=== PATIENT | female | born 1950 | race Caucasian/White ===

== ENCOUNTER 2016-12-15 20:23 | Inpatient (IN) | payer MEDICARE ==
[2016-12-15] MEDS ORDERED: SODIUM CHLORIDE 0.9% 1,000 ML IV ONE ×2 (21:59→23:00)
--- NOTE | 2016-12-15 22:30 | ED ---
Lower Extremity Injury HPI - General Source: patient, RN notes reviewed, old records reviewed Mode of arrival: ambulatory Limitations: no limitations <Roseanne Bess - Last Filed: 12/15/16 23:58> <Cristian Fernandez - Last Filed: 12/16/16 00:41> - General Chief Complaint: Extremity Injury, Lower Stated Complaint: leg infection Time Seen by Provider: 12/15/16 21:45 - History of Present Illness Initial Comments: Patient is a 6-year-old female chief complaint of left lower extremity redness and pain for approximately one week. Patient reports she has history of chronic venous ulcer over the left leg and was being treated the wound center. Patient states that she is just. The treatment in the Wound Center as her wounds were healing. She states that she's had a history of cellulitis in this leg before. She states that she's noticed increased swelling and the swelling is usually gone in the morning if she sleeps and keeps her foot up. Patient denies any fevers and states she's felt chilled. She reports that she feels nauseated. Patient denies any other associated symptoms including chest pain, shortness of breath, Madhav pain. (Roseanne Bess) - Related Data Home Medications Medication Instructions Recorded Confirmed Budesonide/Formoterol Fumarate 2 puff INHALATION BID 02/14/14 12/15/16 [Symbicort 80-4.5 Mcg Inhaler] Metoprolol Tartrate [Lopressor] 50 mg PO DAILY 11/17/14 12/15/16 Aspirin EC [Ecotrin] 81 mg PO DAILY 03/12/16 12/15/16 Naproxen Sodium [Aleve] 440 mg PO Q12HR 03/12/16 12/15/16 Albuterol Sulfate [Proair 1 puff PO Q4-6H PRN 05/10/16 12/15/16 Respiclick] Cetirizine HCl [Zyrtec] 10 mg PO DAILY 05/10/16 12/15/16 Hydrochlorothiazide [Hydrodiuril] 12.5 mg PO DAILY 07/26/16 12/15/16 Allergies Allergy/AdvReac Type Severity Reaction Status Date / Time VASILE Inhibitors Allergy Swelling Verified 11/01/16 08:35 cephalexin monohydrate Allergy Rash/Hives Verified 11/01/16 08:35 [From Keflex] latex Allergy Itching Verified 11/01/16 08:35 adhesive tape AdvReac Itching Verified 11/01/16 08:35 Review of Systems ROS Other: All systems not noted in ROS Statement are negative. <Roseanne Bess - Last Filed: 12/15/16 23:58> ROS Other: All systems not noted in ROS Statement are negative. <Cristian Fernandez - Last Filed: 12/16/16 00:41> ROS Statement: Those systems with pertinent positive or pertinent negative responses have been documented in the HPI. Past Medical History Past Medical History: Asthma, Hypertension Additional Past Medical History / Comment(s): left ankle fracture History of Any Multi-Drug Resistant Organisms: None Reported Past Surgical History: Appendectomy, Section, Cholecystectomy, Hernia Repair, Orthopedic Surgery Additional Past Surgical History / Comment(s): right knee surgery Past Psychological History: No Psychological Hx Reported Smoking Status: Never smoker Past Alcohol Use History: None Reported Past Drug Use History: None Reported - Past Family History Father History Unknown: Yes Additional Family Medical History / Comment(s): adopted Mother History Unknown: Yes Additional Family Medical History / Comment(s): adopted <Roseanne Bess - Last Filed: 12/15/16 23:58> General Exam Limitations: no limitations General appearance: alert, in no apparent distress Head exam: Present: atraumatic, normocephalic, normal inspection Eye exam: Present: normal appearance, PERRL, EOMI. Absent: scleral icterus, conjunctival injection, periorbital swelling ENT exam: Present: normal exam, mucous membranes moist Neck exam: Present: normal inspection. Absent: tenderness, meningismus, lymphadenopathy Respiratory exam: Present: normal lung sounds bilaterally. Absent: respiratory distress, wheezes, rales, rhonchi, stridor Cardiovascular Exam: Present: regular rate, normal rhythm, normal heart sounds. Absent: systolic murmur, diastolic murmur, rubs, gallop, clicks GI/Abdominal exam: Present: soft, normal bowel sounds. Absent: distended, tenderness, guarding, rebound, rigid Extremities exam: Present: normal inspection, full ROM, normal capillary refill. Absent: tenderness, pedal edema, joint swelling, calf tenderness Right Upper Leg exam: Present: normal inspection, full ROM Knee exam: Present: normal inspection, full ROM Lower Leg exam: Present: full ROM. Absent: normal inspection (Erythema surrounding the lower leg. Evidence of chronic venous stasis with swelling. Patient does have some healing venous ulcers. Lower leg is warm to touch.) Ankle exam: Present: normal inspection, full ROM Foot/Toe exam: Present: normal inspection, full ROM Gait: observed and normal Back exam: Present: normal inspection, full ROM Neurological exam: Present: alert, oriented X3, CN II-XII intact Psychiatric exam: Present: normal affect, normal mood Skin exam: Present: warm, dry, intact, normal color. Absent: rash <Roseanne Bses - Last Filed: 12/15/16 23:58> <Crisitan Fernandez - Last Filed: 12/16/16 00:41> - General Exam Comments Initial Comments: Pleasant 66-year-old female. No distress. (Roseanne Bess) Medical Decision Making - Lab Data Result diagrams: 12/15/16 22:33 12/15/16 22:33 - Radiology Data Radiology results: report reviewed <Roseanne Bess - Last Filed: 12/15/16 23:58> - Lab Data Result diagrams: 12/15/16 22:33 12/15/16 22:33 <Cristian Fernandez - Last Filed: 12/16/16 00:41> - Medical Decision Making This is a 66-year-old female chief complaint of left lower leg redness and swelling for the past week. Patient states that he is concerned that she may have a cellulitis. She states that she's had cellulitis in this leg in the past patient also has chronic venous stasis ulcers which have been healed by wound care center. She states she does not receive a wound care center at this time. Patient states that she has no history of diabetes. I did review patient 's previous culture and sensitivities and wound cultures were susceptible to Levaquin. Patient started and blood cultures obtained. Patient be given IV fluids. Discussed with Dr. Fernandez. Patient will be admitted at this time. ( Roseanne Bess) I spoke with Dr. James after examining the patient. She has cellulitis over two thirds of her lower left extremity. With a small less than 1 cm ulceration in the center which is been a small ulcer oh hold and eventually closed after long period of therapy. Checking the patient's cultures and sensitivities appears to Levaquin was the last medication was effective. The patient had Levaquin started here in emergency room. The patient will be admitted to Dr. James .Dr. Fernandez (Cristian Fernandez) - Lab Data Lab Results 12/15/16 12/15/16 Range/Units 22:33 22:33 WBC 11.8 H (3.8-10.6) k/uL RBC 4.76 (3.80-5.40) m/uL Hgb 14.2 (11.4-16.0) gm/dL Hct 43.0 (34.0-46.0) % MCV 90.4 (80.0-100.0) fL MCH 29.8 (25.0-35.0) pg MCHC 33.0 (31.0-37.0) g/dL RDW 13.6 (11.5-15.5) % Plt Count 263 (150-450) k/uL Neutrophils % 66 % Lymphocytes % 18 % Monocytes % 5 % Eosinophils % 8 % Basophils % 1 % Neutrophils # 7.8 H (1.3-7.7) k/uL Lymphocytes # 2.1 (1.0-4.8) k/uL Monocytes # 0.6 (0-1.0) k/uL Eosinophils # 1.0 H (0-0.7) k/uL Basophils # 0.1 (0-0.2) k/uL Sodium 139 (137-145) mmol/L Potassium 5.0 (3.5-5.1) mmol/L Chloride 100 (98-107) mmol/L Carbon Dioxide 28 (22-30) mmol/L Anion Gap 11 mmol/L BUN 20 H (7-17) mg/dL Creatinine 1.08 H (0.52-1.04) mg/dL Est GFR (MDRD) Af Amer >60 (>60 ml/min/1.73 sqM) Est GFR (MDRD) Non-Af 51 (>60 ml/min/1.73 sqM) Glucose 116 H (74-99) mg/dL Calcium 9.4 (8.4-10.2) mg/dL Total Bilirubin 1.1 (0.2-1.3) mg/dL AST 32 (14-36) U/L ALT 34 (9-52) U/L Alkaline Phosphatase 132 H (38-126) U/L Total Protein 7.1 (6.3-8.2) g/dL Albumin 3.9 (3.5-5.0) g/dL - Radiology Data Take daily limited study due to body habitus. Still some wobbliness suboptimally visualized. No gross CT of the common 40. Visualizes femoral- popliteal days. Superficial is unremarkable. No thrombus in the visualize greater saphenous vein. Limited study is limited by. No gross DVT in the visualize lower extremity pains. (Roseanne Bess) Disposition Time of Disposition: 23:55 <Roseanne Bess - Last Filed: 12/15/16 23:58> <Cristian Fernandez - Last Filed: 12/16/16 00:41> Clinical Impression: Left leg cellulitis Disposition: ADMITTED IP TO THIS HOSP
[2016-12-15] MEDS: SODIUM CHLORIDE 0.9% 1,000 ML IV SCH (22:35)
[2016-12-15 22:44] LABS: Basophils # (A) 0.1 k/uL (0-0.2); Basophils % (A) 1 %; CHCM 33.3; Eosinophils % (A) 8 %; HDW 2.55; HGB 14.2 gm/dL (11.4-16.0); Luc # (Auto) 0.18; Luc % (Auto) 2; Lymphocytes # (A) 2.1 k/uL (1.0-4.8); Lymphocytes % (A) 18 %; MCH 29.8 pg (25.0-35.0); MCV 90.4 fL (80.0-100.0); Mean Platelet Volume 7.3; Monocytes # (A) 0.6 k/uL (0-1.0); Monocytes % (A) 5 %; Neutrophils # (A) 7.8 k/uL (1.3-7.7); Neutrophils % (A) 66 %; RBC 4.76 m/uL (3.80-5.40); RDW 13.6 % (11.5-15.5); WBC 11.8 k/uL (3.8-10.6)
[2016-12-15 22:54] LABS: ALT 34 U/L (9-52); AST 32 U/L (14-36); Alkaline Phosphatase 132 U/L (38-126); Anion Gap 11 mmol/L; Blood Urea Nitrogen 20 mg/dL (7-17); Calcium 9.4 mg/dL (8.4-10.2); Carbon Dioxide 28 mmol/L (22-30); Chloride 100 mmol/L (98-107); Glucose 116 mg/dL (74-99); Non-African American GFR(MDRD) 51 (>60 ml/min/1.73 sqM); Sodium 139 mmol/L (137-145); Total Bilirubin 1.1 mg/dL (0.2-1.3); Total Protein 7.1 g/dL (6.3-8.2)
--- NOTE | 2016-12-15 23:08 | US ---
EXAM: US Duplex Left Lower Extremity Veins. CLINICAL HISTORY: Reason: Pain TECHNIQUE: Real-time ultrasound scan of the veins of the left lower extremity with color Doppler flow, spectral waveform analysis and compression. COMPARISON: No relevant prior studies available. FINDINGS: Limitations: Technically limited study due to body habitus. Deep veins: Distal femoral vein is suboptimally visualized. No gross DVT in the common femoral, visualized femoral or popliteal veins. Superficial veins: Unremarkable. No thrombus in the visualized greater saphenous vein. Soft tissues: No acute findings. No popliteal cyst. IMPRESSION: Limited study as noted above. No gross DVT in the visualized lower extremity veins
[2016-12-15] MEDS ORDERED: LEVOFLOXACIN 750MG-D5W PMX 750 MG in DEXTROSE/WATER 1 150ML.BAG IVPB SCH (23:45)
[2016-12-15] MEDS ORDERED: LEVOFLOXACIN 500MG-D5W PMX 500 MG in DEXTROSE/WATER 1 100ML.BAG IVPB STA (23:47)
[2016-12-15] MEDS ORDERED: ACETAMINOPHEN TAB 325 MG TAB PO PRN (23:49)
[2016-12-15] MEDS ORDERED: NALOXONE 0.4 MG/ML 1 ML VIAL IV PRN (23:49)
[2016-12-15] MEDS ORDERED: HYDROmorphone 1 MG/ML 1 ML SYRINGE IV PRN (23:49)
[2016-12-15] MEDS ORDERED: ALBUTEROL NEBULIZED 2.5 MG/3 ML INHALATION PRN (23:53)
[2016-12-16] MEDS: ONDANSETRON 4 MG/2 ML VIAL IVP PRN ×2 (00:17→07:26)
[2016-12-16 01:44] VITALS: BMI 48.4
[2016-12-16] MEDS ORDERED: METOPROLOL TARTRATE 50 MG TAB PO SCH (09:00)
[2016-12-16] MEDS ORDERED: LORATADINE 10 MG TAB PO SCH (09:00)
[2016-12-16] MEDS: SYMBICORT 80-4.5 MCG INHALER INHALATION SCH ×2 (09:20→20:56)
[2016-12-16] MEDS: PANTOPRAZOLE 40 MG/10 ML VIAL IV SCH (09:45)
[2016-12-16] MEDS: ENOXAPARIN 40 MG/0.4 ML SYRINGE SQ SCH (09:45)
[2016-12-16] MEDS: HYDROCHLOROTHIAZIDE 12.5 MG CAP PO SCH (09:46)
[2016-12-16] MEDS: ASPIRIN 81 MG CHEW PO SCH (09:46)
[2016-12-16] MEDS: SODIUM CHLORIDE 0.9% 1,000 ML IV SCH ×2 (09:48→12:54)
[2016-12-16] MEDS: KETOROLAC 30 MG/ML 1 ML VIAL IVP PRN ×2 (09:57→18:40)
[2016-12-16] MEDS ORDERED: IV VANCOMYCIN PER PHARMACY 1 EACH MISC MISCELLANE ONE (10:30)
[2016-12-16] MEDS ORDERED: VANCOMYCIN 2,250 MG in SODIUM CHLORIDE 0.9% 500 ML IVPB ONE (11:00)
--- NOTE | 2016-12-16 13:41 | P.HPIM ---
History of Present Illness H&P Date: 12/16/16 Chief Complaint: Left lower extremity cellulitis. This is a 66-year-old female one of Dr. Dobbs with a previous medical history significant for hypertension and hypertensive cardio vascular disease, moderate persistent asthma, history of obesity with possible obstructive sleep apnea, patient was under the care of the wound healing Center at [facility] and she was released after 8 months of treatment about 6 to go for an ulcer that appeared to be venous to the lateral aspect of her left leg, over the last 24 hours she developed to have an increased swelling and redness with increased pain in the left lower extremity was seen and evaluated at [facility] ER she was complaining of increased shoulder no fever has nausea but no vomiting she had no diarrhea should not have any other signs or symptoms of SIRS, venous Doppler did not show any evidence of any acute DVT, patient was admitted to the hospital for acute cellulitis of the left lower extremity with a prior culture in the past showing Enterococcus faecalis and Staphylococcus aureus, he was taken off Levaquin and placed on vancomycin, infectious disease consultation was obtained from Dr. Fulton. Review of Systems Constitutional: Reports weight gain, Denies anorexia, Denies chronic headaches, Denies lethargy, Denies malaise, Denies weight loss Eyes: denies blurred vision, denies bulging eye, denies decreased vision Ears: deny: decreased hearing Ears, nose, mouth and throat: Denies dysphagia, Denies neck lump, Denies swelling in throat, Denies sore throat Cardiovascular: Reports dyspnea on exertion, Reports high blood pressure, Reports shortness of breath, Denies chest pain, Denies irregular heart beat, Denies phlebitis, Denies rapid heart beat, Denies syncope Respiratory: Denies congestion, Denies cough with sputum, Denies dyspnea, Denies home oxygen, Denies pain, Denies sleep apnea, Denies snoring, Denies wheezing Gastrointestinal: Reports nausea, Denies abdominal pain, Denies belching, Denies change in bowel habits, Denies coffee ground emesis, Denies heartburn, Denies melena, Denies vomiting Genitourinary: Denies dysuria, Denies urgency Menstruation: Reports postmenopausal Musculoskeletal: Denies myalgias Musculoskeletal: left: ankle stiffness, ankle swelling, absent: ankle pain, as per HPI, elbow pain, elbow stiffness, elbow swelling, foot pain, foot stiffness , foot swelling, hand pain, hand stiffness, hand swelling, hip pain, hip stiffness, hip swelling, knee pain, knee stiffness, knee swelling, shoulder pain , shoulder stiffness, shoulder swelling, wrist pain, wrist stiffness, wrist swelling Integumentary: Reports rash (Cellulitic erythema in the left lower extremity extending above and below the sores on her lateral aspect of the left), Reports sores (Small lateral aspect of the left leg) Neurological: Denies numbness, Denies weakness Psychiatric: Denies anxiety, Denies depression Endocrine: Denies fatigue, Denies weight change Past Medical History Past Medical History: Asthma, Hyperlipidemia, Hypertension, Pneumonia, Skin Disorder Additional Past Medical History / Comment(s): left ankle fracture, red itchy skin generalized History of Any Multi-Drug Resistant Organisms: None Reported Past Surgical History: Appendectomy, Section, Cholecystectomy, Hernia Repair, Orthopedic Surgery Additional Past Surgical History / Comment(s): right knee surgery, appendectomy , 2, right arthroscopic knee surgery, ventral hernia repair, cholecystectomy. Past Psychological History: No Psychological Hx Reported Smoking Status: Never smoker Past Alcohol Use History: None Reported Past Drug Use History: None Reported - Past Family History Father History Unknown: Yes Additional Family Medical History / Comment(s): adopted Mother History Unknown: Yes Additional Family Medical History / Comment(s): adopted Medications and Allergies Home Medications Medication Instructions Recorded Confirmed Type Budesonide/Formoterol Fumarate 2 puff INHALATION RT-BID 02/14/14 12/16/16 History [Symbicort 80-4.5 Mcg Inhaler] Metoprolol Tartrate [Lopressor] 50 mg PO BID 11/17/14 12/16/16 History Aspirin EC [Ecotrin] 81 mg PO DAILY 03/12/16 12/16/16 History Naproxen Sodium [Aleve] 440 mg PO Q12HR PRN 03/12/16 12/16/16 History Albuterol Sulfate [Proair 1 puff PO RT-Q4H PRN 05/10/16 12/16/16 History Respiclick] Hydrochlorothiazide [Hydrodiuril] 12.5 mg PO DAILY 07/26/16 12/16/16 History Allergies Allergy/AdvReac Type Severity Reaction Status Date / Time VASILE Inhibitors Allergy Swelling Verified 12/16/16 11:26 cephalexin monohydrate Allergy Rash/Hives Verified 12/16/16 11:26 [From Keflex] latex Allergy Itching Verified 12/16/16 11:26 adhesive tape AdvReac Itching Verified 12/16/16 11:26 Physical Exam Vitals: Vital Signs Temp Pulse Pulse Pulse Resp BP BP 12/16/16 07:00 97.3 F L 66 20 130/67 12/16/16 01:39 97.9 F 66 18 160/80 12/16/16 00:28 98.1 F 60 16 141/65 Pulse Ox 12/16/16 07:00 95 12/16/16 01:39 95 12/16/16 00:28 94 L Intake and Output 12/15/16 12/16/16 12/16/16 22:59 06:59 14:59 Intake Total 350 Balance 350 Intake: Oral 350 Other: Voiding Method Toilet # Voids 1 Weight 135.5 kg - Constitutional General appearance: no acute distress, obese - EENT Eyes: anicteric sclerae, EOMI, PERRLA, no ptosis, no scleral icterus, normal appearance ENT: NA/AT, normal oropharynx, no thrush Ears: bilateral: normal - Neck Neck: no lymphadenopathy, normal ROM, no rigidity, no stridor, no thyromegaly Carotids: bilateral: upstroke normal Thyroid: bilateral: normal size - Respiratory Respiratory: bilateral: diminished, negative: dullness, rales, rhonchi, wheezing , prolonged expiration, prolonged inspiration - Cardiovascular Rhythm: regular Heart sounds: normal: S1, S2 Abnormal Heart Sounds: no systolic murmur, no diastolic murmur, no rub, no S3 Gallop, no S4 Gallop, no click - Gastrointestinal General gastrointestinal: normal bowel sounds, soft, no splenomegaly, no tenderness, no umbilical hernia, no ventral hernia - Integumentary Integumentary: cellulitis (Left leg.), normal, normal turgor - Neurologic Neurologic: CNII-XII intact - Musculoskeletal Musculoskeletal: gait normal - Psychiatric Psychiatric: A&O x's 3, appropriate affect, intact judgment & insight Results CBC & Chem 7: 12/15/16 22:33 12/15/16 22:33 Thrombosis Risk Factor Assmnt - DVT/VTE Prophylaxis DVT/VTE Prophylaxis: Pharmacologic Prophylaxis ordered, Mechanical Prophylaxis ordered - Choose All That Apply Any of the Below Risk Factors Present?: Yes Each Factor Represents 1 point: Obesity (BMI >25), Swollen legs (current) Other Risk Factors: Yes Each Risk Factor Represents 2 Points: Age 61-74 years Thrombosis Risk Factor Assessment Total Risk Factor Score: 4 Thrombosis Risk Factor Assessment Level: Moderate Risk Assessment and Plan Plan: Assessment and plan: 1. Left lower extremity cellulitis with a prior culture showing enterococcus faecalis and Staphylococcus aureus, patient will be switched to vancomycin 1 g IV piggyback 1 pharmacy to dose its peak and trough, discontinue Levaquin, Silvadene cream will be utilized, infectious disease consultation from Dr. Fulton. 2. Hypertension and hypertensive cardiovascular disease. Continue metoprolol 50 mg orally twice every day. Continue hydrochlorothiazide 12.5 mg orally once every day. 3. Hyperlipidemia. Low-cholesterol diet. 4. Moderate persistent asthma. Continue Symbicort 160/4.5 g 2 puff inhalation twice every day, albuterol as needed. 5. Obesity with possible obstructive sleep apnea. Patient was advised to go for a polysomnogram as an outpatient. 6. DVT prophylaxis. Lovenox 40 mg subcutaneously every 24 hours. 7. GI prophylaxis. Start the patient on Protonix 40 mg orally once every day. 8. Patient is full code. 9. Admit to inpatient. Estimate a length of stay 2 midnights.
--- NOTE | 2016-12-16 15:14 | P.CONS ---
History of Present Illness - Reason for Consult Consult date: 12/16/16 - Chief Complaint Pain left leg - History of Present Illness Pleasant 66-year-old female presents to Hospital with difficulties to her left leg. She is known history of venous stasis and ulceration or left leg and was care for the wound healing center for several months. She was intolerant of significant amounts of compression, it was utilizing Tubigrip with local wound care only. Eventually she improved. She's now been about 6 weeks since her last visit the wound center and did well until about a week ago. She started have some discomfort to the leg. She developed some erythema to the skin not at the area of the prior ulcer. It then increased rapidly and she became very uncomfortable with chills. She gets he presented to emergency center. She was admitted because of the significant cellulitis in the infectious diseases consultation was requested. Duplex scan was performed without evidence of a deep venous thrombosis. The patient this time relates that she is feeling slightly better. She denying high-grade fevers or rigors. Does not recall any specific trauma as of late. Does not have difficulties with athlete's foot. Review of Systems HEENT:Denies headache or acute visual change. Denies sinus or mouth discomforts. Denies neck stiffness or pain. Denies significant oral cavity pain. Denies difficulty on swallowing. Lungs: Denies significant shortness of breath, cough, sputum production, or hemoptysis. Cardiovascular: Denies significant shortness of breath, chest pain, chest wall pain, orthopnea, dyspnea on exertion, syncope Gastrointestinal:Denies nausea, vomiting, diarrhea, constipation, hematemesis, melena, hematochezia. No no significant change of bowel habit noticed. Musculoskeletal: denies significant myalgias or arthralgias. No new joint swelling. Denies new back pain. Skin: Erythema and swelling and tenderness to the left leg no new ulcer Neuro: Denies headache or visual change. Denies any new onset weakness or difficulty with ambulation. Denies falls or seizures. Psychiatric:Denies anxiety or depression. Endocrine: has obesity no changes of fatigue or weight Past Medical History Past Medical History: Asthma, Hyperlipidemia, Hypertension, Pneumonia, Skin Disorder Additional Past Medical History / Comment(s): left ankle fracture, red itchy skin generalized History of Any Multi-Drug Resistant Organisms: None Reported Past Surgical History: Appendectomy, Section, Cholecystectomy, Hernia Repair, Orthopedic Surgery Additional Past Surgical History / Comment(s): right knee surgery, appendectomy , 2, right arthroscopic knee surgery, ventral hernia repair, cholecystectomy. Past Psychological History: No Psychological Hx Reported Additional Psychological History / Comment(s): Related to be . 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 No recent travel. No animal exposures Smoking Status: Never smoker Past Alcohol Use History: None Reported Past Drug Use History: None Reported - Past Family History Father History Unknown: Yes Additional Family Medical History / Comment(s): adopted Mother History Unknown: Yes Additional Family Medical History / Comment(s): adopted Medications and Allergies Home Medications and Allergies Comment(s): Current Medications Acetaminophen (Tylenol Tab) 650 mg PO Q6HR PRN PRN Reason: Mild Pain or Fever > 100.5 Acetaminophen/Codeine Phosphate (Tylenol #3) 1 each PO Q4HR PRN PRN Reason: Moderate Pain Albuterol Sulfate (Ventolin Nebulized) 2.5 mg INHALATION RT-Q4H PRN PRN Reason: Shortness Of Breath Aspirin (Aspirin) 81 mg PO DAILY [facility] Last Admin: 12/16/16 09:46 Dose: 81 mg Budesonide/Formoterol Fumarate (Symbicort 80-4.5 Mcg Inhaler) 2 puff INHALATION RT-BID [facility] Last Admin: 12/16/16 09:20 Dose: 2 puff Enoxaparin Sodium (Lovenox) 40 mg SQ DAILY [facility] Last Admin: 12/16/16 09:45 Dose: 40 mg Hydrochlorothiazide (Hydrodiuril) 12.5 mg PO DAILY [facility] Last Admin: 12/16/16 09:46 Dose: 12.5 mg Sodium Chloride (Saline 0.9%) 1,000 mls @ 75 mls/hr IV .[id number] [facility] Last Admin: 12/16/16 12:54 Dose: 75 mls/hr Vancomycin HCl 2,000 mg/ (Sodium Chloride) 500 mls @ 166.667 mls/hr IVPB Q24HR [facility] Ketorolac Tromethamine (Toradol) 30 mg IVP Q6HR PRN PRN Reason: Moderate Pain Stop: 12/20/16 23:50 Last Admin: 12/16/16 09:57 Dose: 30 mg Metoprolol Tartrate (Lopressor) 50 mg PO BID [facility] Naloxone HCl (Narcan) 0.2 mg IV Q2M PRN PRN Reason: Opioid Reversal Ondansetron HCl (Zofran) 4 mg IVP Q8HR PRN PRN Reason: Nausea And Vomiting Last Admin: 12/16/16 07:26 Dose: 4 mg Pantoprazole Sodium (Protonix) 40 mg IV DAILY [facility] Last Admin: 12/16/16 09:45 Dose: 40 mg Silver Sulfadiazine (Silvadene Cream) 1 applic TOPICAL BID [facility] Last Admin: 12/16/16 12:54 Dose: 1 applic Home Medications Medication Instructions Recorded Confirmed Type Budesonide/Formoterol Fumarate 2 puff INHALATION RT-BID 02/14/14 12/16/16 History [Symbicort 80-4.5 Mcg Inhaler] Metoprolol Tartrate [Lopressor] 50 mg PO BID 11/17/14 12/16/16 History Aspirin EC [Ecotrin] 81 mg PO DAILY 03/12/16 12/16/16 History Naproxen Sodium [Aleve] 440 mg PO Q12HR PRN 03/12/16 12/16/16 History Albuterol Sulfate [Proair 1 puff PO RT-Q4H PRN 05/10/16 12/16/16 History Respiclick] Hydrochlorothiazide [Hydrodiuril] 12.5 mg PO DAILY 07/26/16 12/16/16 History Allergies Allergy/AdvReac Type Severity Reaction Status Date / Time VASILE Inhibitors Allergy Swelling Verified 12/16/16 11:26 cephalexin monohydrate Allergy Rash/Hives Verified 12/16/16 11:26 [From Keflex] latex Allergy Itching Verified 12/16/16 11:26 adhesive tape AdvReac Itching Verified 12/16/16 11:26 Physical Exam Vitals: Vital Signs Temp Pulse Pulse Pulse Resp BP BP 12/16/16 07:00 97.3 F L 66 20 130/67 12/16/16 01:39 97.9 F 66 18 160/80 12/16/16 00:28 98.1 F 60 16 141/65 Pulse Ox 12/16/16 07:00 95 12/16/16 01:39 95 12/16/16 00:28 94 L Intake and Output 12/15/16 12/16/16 12/16/16 22:59 06:59 14:59 Intake Total 350 Balance 350 Intake: Oral 350 Other: Voiding Method Toilet Toilet # Voids 1 Weight 135.5 kg Pleasant obese 66-year-old woman in no distress HEENT: Anicteric conjunctiva are pink and moist nasal mucosa grossly intact without significant lesions, there is no thrush. Neck: The neck is supple without significant lymphadenopathy or thyromegaly. Lungs: Good bilateral air entry without significant crackles or wheezing. There is no significant bronchial sounds. There is no egophony or dullness. Heart: Regular rate and rhythm with an audible S1-S2, no S3 soft S4. There is no significant murmur click or rub, PMI was nondisplaced. Abdomen: Obese, Positive bowel sounds soft and nontender without palpable masses or organomegaly. There was no guarding or rebound. Extremities: The upper extremities have excellent pulses they are symmetric, no significant petechiae or telangiectasia. No splinter hemorrhages were noted. The right lower extremity reveals evidence ofthe lesions. There is no significant amounts of edema as is in the left leg Left leg has evidence of edema. Ears distinct erythema especially on the anterior to posterior lateral aspect of the calf. It is quite tender. The skin is somewhat tense but not extremely shiny at this time. Evidence of extensive varicose veins. No evidence of fungal infection of the foot. Neuro: Awake alert oriented to person place and time. There are no acute new gross focal sensory motor deficits. Results CBC & Chem 7: 12/15/16 22:33 12/15/16 22:33 Labs: Laboratory Results WBC 11.8 k/uL (3.8-10.6) H 12/15/16 22: RBC 4.76 m/uL (3.80-5.40) 12/15/16 22:33 Hgb 14.2 gm/dL (11.4-16.0) 12/15/16 22: Hct 43.0 % (34.0-46.0) 12/15/16 22: MCV 90.4 fL (80.0-100.0) 12/15/16 22:33 MCH 29.8 pg (25.0-35.0) 12/15/16 22: MCHC 33.0 g/dL (31.0-37.0) 12/15/16 22:33 RDW 13.6 % (11.5-15.5) 12/15/16 22:33 Plt Count 263 k/uL (150-450) 12/15/16 22: Neutrophils % 66 % 12/15/16 22:33 Lymphocytes % 18 % 12/15/16 22:33 Monocytes % 5 % 12/15/16 22:33 Eosinophils % 8 % 12/15/16 22: Basophils % 1 % 12/15/16 22: Neutrophils # 7.8 k/uL (1.3-7.7) H 12/15/16 22: Lymphocytes # 2.1 k/uL (1.0-4.8) 12/15/16: Monocytes # 0.6 k/uL (0-1.0) 12/15/16: Eosinophils # 1.0 k/uL (0-0.7) H 12/15/16: Basophils # 0.1 k/uL (0-0.2) 12/15/16 22: Sodium 139 mmol/L (137-145) 12/15/16 22: Potassium 5.0 mmol/L (3.5-5.1) 12/15/16 22: Chloride 100 mmol/L (98-107) 12/15/16 22: Carbon Dioxide 28 mmol/L (22-30) 12/15/16 22: Anion Gap 11 mmol/L 12/15/16: BUN 20 mg/dL (7-17) H 12/15/16 22: Creatinine 1.08 mg/dL (0.52-1.04) H 12/15/16 22:33 Est GFR (MDRD) Af Amer >60 (>60 ml/min/1.73 sqM) 12/15/16 22:33 Est GFR (MDRD) Non-Af 51 (>60 ml/min/1.73 sqM) 12/15/16: Glucose 116 mg/dL (74-99) H 12/15/16 22:33 Calcium 9.4 mg/dL (8.4-10.2) 12/15/16 22: Total Bilirubin 1.1 mg/dL (0.2-1.3) 12/15/16 22: AST 32 U/L (14-36) 12/15/16 22:33 ALT 34 U/L (9-52) 12/15/16 22:33 Alkaline Phosphatase 132 U/L (38-126) H 12/15/16 22:33 Total Protein 7.1 g/dL (6.3-8.2) 12/15/16 22:33 Albumin 3.9 g/dL (3.5-5.0) 12/15/16 22:33 Assessment and Plan (1) Cellulitis of left lower leg Narrative/Plan: 66-year-old woman presents to Hospital with a one-week history of increasing pain and discomfort to her left leg. No history of varicose veins in the past. Also has a history of prior ulceration cared for the wound healing Center. She is intolerant of much compression which makes treatment of her varicosities somewhat difficult. She has not yet been available by vascular surgery. At this time some local care with Silvadene and gentle compression with Tubigrip will be applied. This hopefully will start to soothe the skin. With her ALLERGIES antibiotic therapy with vancomycin has been started and is appropriate for now. Cultures are in process. Elevation wound at rest is helpful We'll make sure that her previous albumin is adequate and supplement proteins as indicated When she is improved to do well to see vascular surgery to see if she is capable of having endovascular procedures and she does not have a known history of blood clot Also at the time of discharge if possible a CircAid to the left leg would be helpful for compression that she may be able to tolerate. Status: Acute (2) Venous insufficiency of left leg Status: Acute
[2016-12-16] MEDS: METOPROLOL TARTRATE 50 MG TAB PO SCH (21:15)
[2016-12-17] MEDS: SODIUM CHLORIDE 0.9% 1,000 ML IV SCH (01:06)
[2016-12-17] MEDS: KETOROLAC 30 MG/ML 1 ML VIAL IVP PRN ×2 (04:25→14:02)
[2016-12-17] MEDS ORDERED: LEVOFLOXACIN 750MG-D5W PMX 750 MG in DEXTROSE/WATER 1 150ML.BAG IVPB SCH (06:00)
[2016-12-17] MEDS: SYMBICORT 80-4.5 MCG INHALER INHALATION SCH ×2 (07:57→19:30)
[2016-12-17] MEDS ORDERED: VANCOMYCIN 2,000 MG in SODIUM CHLORIDE 0.9% 500 ML IVPB SCH (09:00)
[2016-12-17] MEDS: ASPIRIN 81 MG CHEW PO SCH (09:03)
[2016-12-17] MEDS: HYDROCHLOROTHIAZIDE 12.5 MG CAP PO SCH (09:03)
[2016-12-17] MEDS: METOPROLOL TARTRATE 50 MG TAB PO SCH ×2 (09:04→21:33)
[2016-12-17] MEDS: ENOXAPARIN 40 MG/0.4 ML SYRINGE SQ SCH (09:04)
[2016-12-17] MEDS: PANTOPRAZOLE 40 MG/10 ML VIAL IV SCH (09:05)
[2016-12-17] MEDS: POTASSIUM CHLORIDE ER 20 MEQ TAB.ER PO SCH (13:02)
[2016-12-17] MEDS: FUROSEMIDE 40 MG TAB PO SCH (13:02)
--- NOTE | 2016-12-17 13:12 | P.PN ---
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 with a previous medical history significant for hypertension and hypertensive cardio vascular disease, moderate persistent asthma, history of obesity with possible obstructive sleep apnea, patient was under the care of the wound healing Center at [facility] and she was released after 8 months of treatment about 6 to go for an ulcer that appeared to be venous to the lateral aspect of her left leg, over the last 24 hours she developed to have an increased swelling and redness with increased pain in the left lower extremity was seen and evaluated at [facility] ER she was complaining of increased shoulder no fever has nausea but no vomiting she had no diarrhea should not have any other signs or symptoms of SIRS, venous Doppler did not show any evidence of any acute DVT, patient was admitted to the hospital for acute cellulitis of the left lower extremity with a prior culture in the past showing Enterococcus faecalis and Staphylococcus aureus, he was taken off Levaquin and placed on vancomycin, infectious disease consultation was obtained from Dr. Fulton. 12/17: Patient has been seen by Dr. Fulton and is on Silvadene for local wound care along with Tubigrip and IV antibiotics in the form of vancomycin. CircAid is recommended at the time of discharge. Patient has had some fluid overload for which IV fluids will be discontinued and she'll be given oral Lasix. Objective - Vital Signs Vital signs: Vital Signs Temp 96.3 F L 12/17/16 07:00 Pulse 56 L 12/17/16 07:00 Resp 18 12/17/16 07:00 BP 147/67 12/17/16 07:00 Pulse Ox 96 12/17/16 07:00 Intake & Output 12/16/16 12/17/16 12/17/16 18:59 06:59 18:59 Intake Total 600 3773 Balance 600 3773 Intake: Intake, IV Titration 3773 Amount Levofloxacin 500Mg-D5w 100 Pmx 500 mg In Dextrose/ Water 1 100ml.bag @ 100 mls/hr IVPB [facility] Rx#: [id number] Levofloxacin 750Mg-D5w 150 Pmx 750 mg In Dextrose/ Water 1 150ml.bag @ 100 mls/hr IVPB Q24H [facility] Rx#: [id number] Levofloxacin 750Mg-D5w 150 Pmx 750 mg In Dextrose/ Water 1 150ml.bag @ 100 mls/hr IVPB Q24H [facility] Rx#: [id number] Sodium Chloride 0.9% 1, 375 000 ml @ 75 mls/hr IV . [id number] [facility] Rx#:[id number] Sodium Chloride 0.9% 1, 999 000 ml @ 999 mls/hr IV . Q1H1M [facility] Rx#:[id number] Sodium Chloride 0.9% 1, 999 000 ml @ 999 mls/hr IV . Q1H1M [facility] Rx#:[id number] Vancomycin 2,000 mg In 500 Sodium Chloride 0.9% 500 ml @ 166.667 mls/hr IVPB Q24HR [facility] Rx#:[id number] Vancomycin 2,250 mg In 500 Sodium Chloride 0.9% 500 ml @ 166.667 mls/hr IVPB ONCE [facility] Rx#:[id number] Oral 600 Other: Voiding Method Toilet # Voids 1 1 1 - Exam General appearance: no acute distress, obese - EENT Eyes: anicteric sclerae, EOMI, PERRLA, no ptosis, no scleral icterus, normal appearance ENT: NA/AT, normal oropharynx, no thrush Ears: bilateral: normal - Neck Neck: no lymphadenopathy, normal ROM, no rigidity, no stridor, no thyromegaly Carotids: bilateral: upstroke normal Thyroid: bilateral: normal size - Respiratory Respiratory: bilateral: diminished, negative: dullness, rales, rhonchi, wheezing , prolonged expiration, prolonged inspiration - Cardiovascular Rhythm: regular Heart sounds: normal: S1, S2 Abnormal Heart Sounds: no systolic murmur, no diastolic murmur, no rub, no S3 Gallop, no S4 Gallop, no click - Gastrointestinal General gastrointestinal: normal bowel sounds, soft, no splenomegaly, no tenderness, no umbilical hernia, no ventral hernia - Integumentary Integumentary: cellulitis (Left leg.), normal, normal turgor - Neurologic Neurologic: CNII-XII intact - Musculoskeletal Musculoskeletal: gait normal - Psychiatric Psychiatric: A&O x's 3, appropriate affect, intact judgment & insight - Labs CBC & Chem 7: 12/15/16 22:33 12/15/16 22:33 Labs: Microbiology - Last 24 Hours (Table) 12/16/16 00:40 Blood Culture - Preliminary Blood No Growth after 24 hours Assessment and Plan Plan: 1. Left lower extremity cellulitis with a prior culture showing enterococcus faecalis and Staphylococcus aureus, patient will be switched to vancomycin 1 g IV piggyback 1 pharmacy to dose its peak and trough, discontinue Levaquin, Silvadene cream will be utilized, infectious disease consultation from Dr. Fulton. 2. Hypertension and hypertensive cardiovascular disease. Continue metoprolol 50 mg orally twice every day. Continue hydrochlorothiazide 12.5 mg orally once every day. 3. Hyperlipidemia. Low-cholesterol diet. 4. Moderate persistent asthma. Continue Symbicort 160/4.5 g 2 puff inhalation twice every day, albuterol as needed. 5. Obesity with possible obstructive sleep apnea. Patient was advised to go for a polysomnogram as an outpatient. 6. DVT prophylaxis. Lovenox 40 mg subcutaneously every 24 hours. 7. GI prophylaxis. Start the patient on Protonix 40 mg orally once every day. 8. Patient is full code. Discharge plan: Return home Impression and plan of care have been directed as dictated by the signing physician. Ayah Carmona nurse practitioner acting as scribe for signing physician. Time with Patient: Greater than 30
--- NOTE | 2016-12-17 21:17 | P.PN ---
Subjective Principal diagnosis: Left leg pain Pleasant 66-year-old female presents to Hospital with difficulties to her left leg. She is known history of venous stasis and ulceration or left leg and was care for the wound healing center for several months. She was intolerant of significant amounts of compression, it was utilizing Tubigrip with local wound care only. Eventually she improved. She's now been about 6 weeks since her last visit the wound center and did well until about a week ago. She started have some discomfort to the leg. She developed some erythema to the skin not at the area of the prior ulcer. It then increased rapidly and she became very uncomfortable with chills. She gets he presented to emergency center. She was admitted because of the significant cellulitis in the infectious diseases consultation was requested. Duplex scan was performed without evidence of a deep venous thrombosis. The patient this time relates that she is feeling slightly better. She denying high-grade fevers or rigors. Does not recall any specific trauma as of late. Feeling better today. Erythema is improving. Still having significant tenderness in the lateral surface of the leg but it is improved. Objective - Vital Signs Vital signs: Vital Signs Temp 97.2 F L 12/17/16 15:00 Pulse 58 L 12/17/16 15:00 Resp 19 12/17/16 15:00 BP 142/66 12/17/16 15:00 Pulse Ox 98 12/17/16 15:00 Intake & Output 12/17/16 12/17/16 12/18/16 06:59 18:59 06:59 Intake Total 3773 Balance 3773 Intake: Intake, IV Titration 3773 Amount Levofloxacin 500Mg-D5w 100 Pmx 500 mg In Dextrose/ Water 1 100ml.bag @ 100 mls/hr IVPB [facility]CE [facility] Rx#: [id number] Levofloxacin 750Mg-D5w 150 Pmx 750 mg In Dextrose/ Water 1 150ml.bag @ 100 mls/hr IVPB Q24H [facility] Rx#: [id number] Levofloxacin 750Mg-D5w 150 Pmx 750 mg In Dextrose/ Water 1 150ml.bag @ 100 mls/hr IVPB Q24H [facility] Rx#: [id number] Sodium Chloride 0.9% 1, 375 000 ml @ 75 mls/hr IV . [id number] [facility] Rx#:[id number] Sodium Chloride 0.9% 1, 999 000 ml @ 999 mls/hr IV . Q1H1M [facility] Rx#:[id number] Sodium Chloride 0.9% 1, 999 000 ml @ 999 mls/hr IV . Q1H1M [facility] Rx#:[id number] Vancomycin 2,000 mg In 500 Sodium Chloride 0.9% 500 ml @ 166.667 mls/hr IVPB Q24HR [facility] Rx#:[id number] Vancomycin 2,250 mg In 500 Sodium Chloride 0.9% 500 ml @ 166.667 mls/hr IVPB ONCE [facility] Rx#:[id number] Other: # Voids 1 4 - Exam Pleasant obese 66-year-old woman in no distress HEENT: Anicteric conjunctiva are pink and moist nasal mucosa grossly intact without significant lesions, there is no thrush. Neck: The neck is supple without significant lymphadenopathy or thyromegaly. Lungs: Good bilateral air entry without significant crackles or wheezing. There is no significant bronchial sounds. There is no egophony or dullness. Heart: Regular rate and rhythm with an audible S1-S2, no S3 soft S4. There is no significant murmur click or rub, PMI was nondisplaced. Abdomen: Obese, Positive bowel sounds soft and nontender without palpable masses or organomegaly. There was no guarding or rebound. Extremities: The upper extremities have excellent pulses they are symmetric, no significant petechiae or telangiectasia. No splinter hemorrhages were noted. The right lower extremity reveals evidence ofthe lesions. There is no significant amounts of edema as is in the left leg Left leg has evidence of edema. There is improvement of the distinct erythema especially on the anterior to posterior lateral aspect of the calf. It is quite tender still but somewhat improved. The skin is somewhat tense but not extremely shiny at this time. Evidence of extensive varicose veins. No evidence of fungal infection of the foot. Neuro: Awake alert oriented to person place and time. There are no acute new gross focal sensory motor deficits. - Labs CBC & Chem 7: 12/15/16 22:33 12/15/16 22:33 Labs: Microbiology - Last 24 Hours (Table) 12/16/16 00:40 Blood Culture - Preliminary Blood No Growth after 24 hours Laboratory Results WBC 11.8 k/uL (3.8-10.6) H 12/15/16 22:33 RBC 4.76 m/uL (3.80-5.40) 12/15/16: Hgb 14.2 gm/dL (11.4-16.0) 12/15/16: Hct 43.0 % (34.0-46.0) 12/15/16: MCV 90.4 fL (80.0-100.0) 12/15/16: MCH 29.8 pg (25.0-35.0) 12/15/16: MCHC 33.0 g/dL (31.0-37.0) 12/15/16: RDW 13.6 % (11.5-15.5) 12/15/16: Plt Count 263 k/uL (150-450) 12/15/16: Neutrophils % 66 % 12/15/16: Lymphocytes % 18 % 12/15/16: Monocytes % 5 % 12/15/16: Eosinophils % 8 % 12/15/16: Basophils % 1 % 12/15/16: Neutrophils # 7.8 k/uL (1.3-7.7) H 12/15/16: Lymphocytes # 2.1 k/uL (1.0-4.8) 12/15/16: Monocytes # 0.6 k/uL (0-1.0) 12/15/16: Eosinophils # 1.0 k/uL (0-0.7) H 12/15/16: Basophils # 0.1 k/uL (0-0.2) 12/15/16: Sodium 139 mmol/L (137-145) 12/15/16: Potassium 5.0 mmol/L (3.5-5.1) 12/15/16: Chloride 100 mmol/L (98-107) 12/15/16: Carbon Dioxide 28 mmol/L (22-30) 12/15/16: Anion Gap 11 mmol/L 12/15/16: BUN 20 mg/dL (7-17) H 12/15/16: Creatinine 1.08 mg/dL (0.52-1.04) H 04/22/17 22:33 Est GFR (MDRD) Af Amer >60 (>60 ml/min/1.73 sqM) 12/15/16 22:33 Est GFR (MDRD) Non-Af 51 (>60 ml/min/1.73 sqM) 12/15/16 22:33 Glucose 116 mg/dL (74-99) H 12/15/16 22:33 Calcium 9.4 mg/dL (8.4-10.2) 12/15/16 22:33 Total Bilirubin 1.1 mg/dL (0.2-1.3) 12/15/16 22:33 AST 32 U/L (14-36) 12/15/16 22:33 ALT 34 U/L (9-52) 12/15/16 22:33 Alkaline Phosphatase 132 U/L (38-126) H 12/15/16 22:33 Total Protein 7.1 g/dL (6.3-8.2) 12/15/16 22:33 Albumin 3.9 g/dL (3.5-5.0) 12/15/16 22:33 Microbiology 12/16/16 00:40 Blood Blood Culture - Preliminary No Growth after 24 hours Assessment and Plan (1) Cellulitis of left lower leg Narrative/Plan: 66-year-old woman presents to Hospital with a one-week history of increasing pain and discomfort to her left leg. No history of varicose veins in the past. Also has a history of prior ulceration cared for the wound healing Center. She is intolerant of much compression which makes treatment of her varicosities somewhat difficult. She has not yet been available by vascular surgery. At this time some local care with Silvadene and gentle compression with Tubigrip will be applied. This hopefully will start to soothe the skin. With her ALLERGIES antibiotic therapy with vancomycin has been started and is appropriate for now. Cultures are in process. Elevation wound at rest is helpful We'll make sure that her previous albumin is adequate and supplement proteins as indicated When she is improved to do well to see vascular surgery to see if she is capable of having endovascular procedures and she does not have a known history of blood clot Also at the time of discharge if possible a CircAid to the left leg would be helpful for compression that she may be able to tolerate. Status: Acute (2) Venous insufficiency of left leg Status: Acute
[2016-12-18] MEDS: VANCOMYCIN 2,000 MG in SODIUM CHLORIDE 0.9% 500 ML IVPB SCH (05:26)
[2016-12-18] MEDS: KETOROLAC 30 MG/ML 1 ML VIAL IVP PRN (06:31)
[2016-12-18] MEDS: PANTOPRAZOLE 40 MG TABLET PO SCH (08:12)
[2016-12-18] MEDS: Acetaminophen-Codeine 300-30mg TAB PO PRN ×2 (08:15→21:30)
[2016-12-18] MEDS: SYMBICORT 80-4.5 MCG INHALER INHALATION SCH ×2 (08:45→20:32)
[2016-12-18 08:53] LABS: CH 29.4; CHCM 32.1; HCT 36.7 % (34.0-46.0); HDW 2.54; HGB 11.9 gm/dL (11.4-16.0); MCH 29.8 pg (25.0-35.0); MCHC 32.4 g/dL (31.0-37.0); MCV 91.9 fL (80.0-100.0); Mean Platelet Volume 6.9; RBC 3.99 m/uL (3.80-5.40); RDW 13.6 % (11.5-15.5); WBC 7.5 k/uL (3.8-10.6)
[2016-12-18 09:38] LABS: Anion Gap 8 mmol/L; Blood Urea Nitrogen 21 mg/dL (7-17); Calcium 8.6 mg/dL (8.4-10.2); Carbon Dioxide 25 mmol/L (22-30); Chloride 107 mmol/L (98-107); Glucose 112 mg/dL (74-99); Non-African American GFR(MDRD) 51 (>60 ml/min/1.73 sqM); Potassium 4.2 mmol/L (3.5-5.1); Sodium 140 mmol/L (137-145)
[2016-12-18] MEDS: FUROSEMIDE 40 MG TAB PO SCH (10:02)
[2016-12-18] MEDS: ASPIRIN 81 MG CHEW PO SCH (10:02)
[2016-12-18] MEDS: POTASSIUM CHLORIDE ER 20 MEQ TAB.ER PO SCH (10:02)
[2016-12-18] MEDS: METOPROLOL TARTRATE 50 MG TAB PO SCH ×2 (10:02→21:31)
[2016-12-18] MEDS: ENOXAPARIN 40 MG/0.4 ML SYRINGE SQ SCH (10:02)
[2016-12-18] MEDS: MULTIVITAMINS, THERA 1 EACH TAB PO SCH (13:18)
--- NOTE | 2016-12-18 13:45 | P.PN ---
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 with a previous medical history significant for hypertension and hypertensive cardio vascular disease, moderate persistent asthma, history of obesity with possible obstructive sleep apnea, patient was under the care of the wound healing Center at [facility] and she was released after 8 months of treatment about 6 to go for an ulcer that appeared to be venous to the lateral aspect of her left leg, over the last 24 hours she developed to have an increased swelling and redness with increased pain in the left lower extremity was seen and evaluated at [facility] ER she was complaining of increased shoulder no fever has nausea but no vomiting she had no diarrhea should not have any other signs or symptoms of SIRS, venous Doppler did not show any evidence of any acute DVT, patient was admitted to the hospital for acute cellulitis of the left lower extremity with a prior culture in the past showing Enterococcus faecalis and Staphylococcus aureus, he was taken off Levaquin and placed on vancomycin, infectious disease consultation was obtained from Dr. Fulton. 12/17: Patient has been seen by Dr. Fulton and is on Silvadene for local wound care along with Tubigrip and IV antibiotics in the form of vancomycin. CircAid is recommended at the time of discharge. Patient has had some fluid overload for which IV fluids will be discontinued and she'll be given oral Lasix. 12/18: Patient remains on oral Lasix. Overall she continues to have some edema to the leg but improving. Anticipate possible discharge in the next 24 hours. She is on IV vancomycin. The culture showing no growth at 48 hours. Objective - Vital Signs Vital signs: Vital Signs Temp 97.1 F L 12/18/16 07:00 Pulse 56 L 12/18/16 07:00 Resp 20 12/18/16 07:00 BP 140/78 12/18/16 07:00 Pulse Ox 97 12/18/16 07:00 Intake & Output 12/17/16 12/18/16 12/18/16 18:59 06:59 18:59 Other: # Voids 4 2 - Exam General appearance: no acute distress, obese - EENT Eyes: anicteric sclerae, EOMI, PERRLA, no ptosis, no scleral icterus, normal appearance ENT: NA/AT, normal oropharynx, no thrush Ears: bilateral: normal - Neck Neck: no lymphadenopathy, normal ROM, no rigidity, no stridor, no thyromegaly Carotids: bilateral: upstroke normal Thyroid: bilateral: normal size - Respiratory Respiratory: bilateral: diminished, negative: dullness, rales, rhonchi, wheezing , prolonged expiration, prolonged inspiration - Cardiovascular Rhythm: regular Heart sounds: normal: S1, S2 Abnormal Heart Sounds: no systolic murmur, no diastolic murmur, no rub, no S3 Gallop, no S4 Gallop, no click - Gastrointestinal General gastrointestinal: normal bowel sounds, soft, no splenomegaly, no tenderness, no umbilical hernia, no ventral hernia - Integumentary Integumentary: cellulitis (Left leg.), normal, normal turgor - Neurologic Neurologic: CNII-XII intact - Musculoskeletal Musculoskeletal: gait normal - Psychiatric Psychiatric: A&O x's 3, appropriate affect, intact judgment & insight - Labs CBC & Chem 7: 12/18/16 08:32 12/18/16 08:32 Labs: Abnormal Lab Results - Last 24 Hours (Table) 12/18/16 Range/Units 08:32 BUN 21 H (7-17) mg/dL Creatinine 1.07 H (0.52-1.04) mg/dL Glucose 112 H (74-99) mg/dL Microbiology - Last 24 Hours (Table) 12/16/16 00:40 Blood Culture - Preliminary Blood No Growth after 48 hours Assessment and Plan Plan: 1. Left lower extremity cellulitis with a prior culture showing enterococcus faecalis and Staphylococcus aureus, patient will be switched to vancomycin 1 g IV piggyback 1 pharmacy to dose its peak and trough, discontinue Levaquin, Silvadene cream will be utilized, infectious disease consultation from Dr. Fulton. 2. Hypertension and hypertensive cardiovascular disease. Continue metoprolol 50 mg orally twice every day. Continue hydrochlorothiazide 12.5 mg orally once every day. 3. Hyperlipidemia. Low-cholesterol diet. 4. Moderate persistent asthma. Continue Symbicort 160/4.5 g 2 puff inhalation twice every day, albuterol as needed. 5. Obesity with possible obstructive sleep apnea. Patient was advised to go for a polysomnogram as an outpatient. 6. DVT prophylaxis. Lovenox 40 mg subcutaneously every 24 hours. 7. GI prophylaxis. Start the patient on Protonix 40 mg orally once every day. 8. Patient is full code. Discharge plan: Return home Impression and plan of care have been directed as dictated by the signing physician. Ayah Carmona nurse practitioner acting as scribe for signing physician. Time with Patient: Greater than 30
--- NOTE | 2016-12-18 22:15 | P.PN ---
Subjective Principal diagnosis: Left leg pain Pleasant 66-year-old female presents to Hospital with difficulties to her left leg. She is known history of venous stasis and ulceration or left leg and was care for the wound healing center for several months. She was intolerant of significant amounts of compression, it was utilizing Tubigrip with local wound care only. Eventually she improved. She's now been about 6 weeks since her last visit the wound center and did well until about a week ago. She started have some discomfort to the leg. She developed some erythema to the skin not at the area of the prior ulcer. It then increased rapidly and she became very uncomfortable with chills. She gets he presented to emergency center. She was admitted because of the significant cellulitis in the infectious diseases consultation was requested. Duplex scan was performed without evidence of a deep venous thrombosis. The patient this time relates that she is feeling slightly better. She denying high-grade fevers or rigors. Does not recall any specific trauma as of late. Feeling better today. Erythema is improving. Still having significant tenderness in the lateral surface of the leg but it is improved. Now has evidence of some rhinitis to the dorsum of the foot. Objective - Vital Signs Vital signs: Vital Signs Temp 97.5 F L 12/18/16 15:00 Pulse 60 12/18/16 15:00 Resp 18 12/18/16 15:00 BP 154/73 12/18/16 15:00 Pulse Ox 95 12/18/16 15:00 Intake & Output 12/18/16 12/18/16 12/19/16 06:59 18:59 06:59 Other: # Voids 2 2 - Exam Pleasant obese 66-year-old woman in no distress HEENT: Anicteric conjunctiva are pink and moist nasal mucosa grossly intact without significant lesions, there is no thrush. Neck: The neck is supple without significant lymphadenopathy or thyromegaly. Lungs: Good bilateral air entry without significant crackles or wheezing. There is no significant bronchial sounds. There is no egophony or dullness. Heart: Regular rate and rhythm with an audible S1-S2, no S3 soft S4. There is no significant murmur click or rub, PMI was nondisplaced. Abdomen: Obese, Positive bowel sounds soft and nontender without palpable masses or organomegaly. There was no guarding or rebound. Extremities: The upper extremities have excellent pulses they are symmetric, no significant petechiae or telangiectasia. No splinter hemorrhages were noted. The right lower extremity reveals evidence ofthe lesions. There is no significant amounts of edema as is in the left leg Left leg has evidence of edema. There is improvement of the distinct erythema especially on the anterior to posterior lateral aspect of the calf. It is less tender somewhat improved. The skin is somewhat tense but not extremely shiny at this time. Evidence of extensive varicose veins. The dorsum of the left foot has evidence of some erythema appears to have some irritation to that site. No evidence of fungal infection of the foot. Neuro: Awake alert oriented to person place and time. There are no acute new gross focal sensory motor deficits. - Labs CBC & Chem 7: 12/18/16 08:32 12/18/16 08:32 Labs: Abnormal Lab Results - Last 24 Hours (Table) 12/18/16 Range/Units 08:32 BUN 21 H (7-17) mg/dL Creatinine 1.07 H (0.52-1.04) mg/dL Glucose 112 H (74-99) mg/dL Microbiology - Last 24 Hours (Table) 12/16/16 00:40 Blood Culture - Preliminary Blood No Growth after 48 hours Laboratory Results WBC 7.5 k/uL (3.8-10.6) 12/18/16 08:32 RBC 3.99 m/uL (3.80-5.40) 12/18/16 08:32 Hgb 11.9 gm/dL (11.4-16.0) 12/18/16 08:32 Hct 36.7 % (34.0-46.0) 12/18/16 08:32 MCV 91.9 fL (80.0-100.0) 12/18/16 08:32 MCH 29.8 pg (25.0-35.0) 12/18/16 08:32 MCHC 32.4 g/dL (31.0-37.0) 12/18/16 08:32 RDW 13.6 % (11.5-15.5) 12/18/16 08:32 Plt Count 198 k/uL (150-450) 12/18/16 08:32 Neutrophils % 66 % 12/15/16 22:33 Lymphocytes % 18 % 12/15/16 22:33 Monocytes % 5 % 12/15/16 22:33 Eosinophils % 8 % 12/15/16 22:33 Basophils % 1 % 12/15/16 22:33 Neutrophils # 7.8 k/uL (1.3-7.7) H 12/15/16 22:33 Lymphocytes # 2.1 k/uL (1.0-4.8) 12/15/16 22: Monocytes # 0.6 k/uL (0-1.0) 12/15/16 22: Eosinophils # 1.0 k/uL (0-0.7) H 12/15/16 22:33 Basophils # 0.1 k/uL (0-0.2) 12/15/16 22:33 Sodium 140 mmol/L (137-145) 12/18/16 08:32 Potassium 4.2 mmol/L (3.5-5.1) 12/18/16 08:32 Chloride 107 mmol/L (98-107) 12/18/16 08:32 Carbon Dioxide 25 mmol/L (22-30) 12/18/16 08:32 Anion Gap 8 mmol/L 12/18/16 08:32 BUN 21 mg/dL (7-17) H 12/18/16 08:32 Creatinine 1.07 mg/dL (0.52-1.04) H 12/18/16 08:32 Est GFR (MDRD) Af Amer >60 (>60 ml/min/1.73 sqM) 12/18/16 08:32 Est GFR (MDRD) Non-Af 51 (>60 ml/min/1.73 sqM) 12/18/16 08:32 Glucose 112 mg/dL (74-99) H 12/18/16 08:32 Calcium 8.6 mg/dL (8.4-10.2) 12/18/16 08:32 Total Bilirubin 1.1 mg/dL (0.2-1.3) 12/15/16 22:33 AST 32 U/L (14-36) 12/15/16 22:33 ALT 34 U/L (9-52) 12/15/16 22:33 Alkaline Phosphatase 132 U/L (38-126) H 12/15/16 22:33 Total Protein 7.1 g/dL (6.3-8.2) 12/15/16 22:33 Albumin 3.9 g/dL (3.5-5.0) 12/15/16 22:33 Microbiology 12/16/16 00:40 Blood Blood Culture - Preliminary No Growth after 48 hours Assessment and Plan (1) Cellulitis of left lower leg Narrative/Plan: 66-year-old woman presents to Hospital with a one-week history of increasing pain and discomfort to her left leg. No history of varicose veins in the past. Also has a history of prior ulceration cared for the wound healing Center. She is intolerant of much compression which makes treatment of her varicosities somewhat difficult. She has not yet been available by vascular surgery. At this time some local care with Silvadene and gentle compression with Tubigrip will be applied. This hopefully will start to soothe the skin. With her ALLERGIES antibiotic therapy with vancomycin has been started and is appropriate for now. Cultures are in process. Elevation wound at rest is helpful For the area of irritation the dorsum of the left foot will add in triamcinolone ointment and expect rapid improvement of this bit of dermatitis does not appear to be cellulitis. We'll make sure that her previous albumin is adequate and supplement proteins as indicated When she is improved to do well to see vascular surgery to see if she is capable of having endovascular procedures and she does not have a known history of blood clot Also at the time of discharge if possible a CircAid to the left leg would be helpful for compression that she may be able to tolerate. Status: Acute (2) Venous insufficiency of left leg Status: Acute
[2016-12-18] MEDS: TRIAMCINOLONE ACET 0.1% OINTMENT 15 GM TUBE TOPICAL SCH (23:05)
[2016-12-19] MEDS: Acetaminophen-Codeine 300-30mg TAB PO PRN ×2 (03:46→20:18)
[2016-12-19] MEDS: KETOROLAC 30 MG/ML 1 ML VIAL IVP PRN (03:47)
[2016-12-19] MEDS ORDERED: VANCOMYCIN TROUGH DUE 1 EACH MISC MISCELLANE ONE (05:00)
[2016-12-19] MEDS: VANCOMYCIN 2,000 MG in SODIUM CHLORIDE 0.9% 500 ML IVPB SCH (06:08)
[2016-12-19 06:35] LABS: Anion Gap 7 mmol/L; Blood Urea Nitrogen 22 mg/dL (7-17); Calcium 8.7 mg/dL (8.4-10.2); Carbon Dioxide 26 mmol/L (22-30); Chloride 106 mmol/L (98-107); Glucose 86 mg/dL (74-99); Non-African American GFR(MDRD) 53 (>60 ml/min/1.73 sqM); Potassium 4.1 mmol/L (3.5-5.1); Sodium 139 mmol/L (137-145)
[2016-12-19] MEDS: SYMBICORT 80-4.5 MCG INHALER INHALATION SCH ×2 (07:47→20:17)
[2016-12-19] MEDS: ASPIRIN 81 MG CHEW PO SCH (08:25)
[2016-12-19] MEDS: ENOXAPARIN 40 MG/0.4 ML SYRINGE SQ SCH (08:25)
[2016-12-19] MEDS: FUROSEMIDE 40 MG TAB PO SCH (08:26)
[2016-12-19] MEDS: METOPROLOL TARTRATE 50 MG TAB PO SCH ×2 (08:26→20:14)
[2016-12-19] MEDS: PANTOPRAZOLE 40 MG TABLET PO SCH (08:26)
[2016-12-19] MEDS: POTASSIUM CHLORIDE ER 20 MEQ TAB.ER PO SCH (08:26)
[2016-12-19] MEDS: MULTIVITAMINS, THERA 1 EACH TAB PO SCH (12:55)
[2016-12-19] MEDS: TRIAMCINOLONE ACET 0.1% OINTMENT 15 GM TUBE TOPICAL SCH ×4 (12:55→22:14)
--- NOTE | 2016-12-19 14:26 | P.PN ---
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 with a previous medical history significant for hypertension and hypertensive cardio vascular disease, moderate persistent asthma, history of obesity with possible obstructive sleep apnea, patient was under the care of the wound healing Center at [facility] and she was released after 8 months of treatment about 6 to go for an ulcer that appeared to be venous to the lateral aspect of her left leg, over the last 24 hours she developed to have an increased swelling and redness with increased pain in the left lower extremity was seen and evaluated at [facility] ER she was complaining of increased shoulder no fever has nausea but no vomiting she had no diarrhea should not have any other signs or symptoms of SIRS, venous Doppler did not show any evidence of any acute DVT, patient was admitted to the hospital for acute cellulitis of the left lower extremity with a prior culture in the past showing Enterococcus faecalis and Staphylococcus aureus, he was taken off Levaquin and placed on vancomycin, infectious disease consultation was obtained from Dr. Fulton. 12/17: Patient has been seen by Dr. Fulton and is on Silvadene for local wound care along with Tubigrip and IV antibiotics in the form of vancomycin. CircAid is recommended at the time of discharge. Patient has had some fluid overload for which IV fluids will be discontinued and she'll be given oral Lasix. 12/18: Patient remains on oral Lasix. Overall she continues to have some edema to the leg but improving. Anticipate possible discharge in the next 24 hours. She is on IV vancomycin. The culture showing no growth at 48 hours. 12/19: Patient remains on IV vancomycin and Silvadene as local wound care. She denies any shortness of breath, no nausea or vomiting. No diarrhea. She still has some tenderness on the left lateral leg area with a firm area. Plan to continue current care and possible discharge by tomorrow. Objective - Vital Signs Vital signs: Vital Signs Temp 97.1 F L 12/19/16 07:00 Pulse 60 12/19/16 07:00 Resp 20 12/19/16 07:00 BP 149/81 12/19/16 07:00 Pulse Ox 95 12/19/16 07:00 Intake & Output 12/18/16 12/19/16 12/19/16 18:59 06:59 18:59 Intake Total 220 240 Balance 220 240 Intake: Oral 220 240 Other: # Voids 2 1 - Exam General appearance: no acute distress, obese - EENT Eyes: anicteric sclerae, EOMI, PERRLA, no ptosis, no scleral icterus, normal appearance ENT: NA/AT, normal oropharynx, no thrush Ears: bilateral: normal - Neck Neck: no lymphadenopathy, normal ROM, no rigidity, no stridor, no thyromegaly Carotids: bilateral: upstroke normal Thyroid: bilateral: normal size - Respiratory Respiratory: bilateral: diminished, negative: dullness, rales, rhonchi, wheezing , prolonged expiration, prolonged inspiration - Cardiovascular Rhythm: regular Heart sounds: normal: S1, S2 Abnormal Heart Sounds: no systolic murmur, no diastolic murmur, no rub, no S3 Gallop, no S4 Gallop, no click - Gastrointestinal General gastrointestinal: normal bowel sounds, soft, no splenomegaly, no tenderness, no umbilical hernia, no ventral hernia - Integumentary Integumentary: cellulitis (Left leg.), normal, normal turgor - Neurologic Neurologic: CNII-XII intact - Musculoskeletal Musculoskeletal: gait normal - Psychiatric Psychiatric: A&O x's 3, appropriate affect, intact judgment & insight - Labs CBC & Chem 7: 12/18/16 08:32 12/19/16 05:35 Labs: Abnormal Lab Results - Last 24 Hours (Table) 12/19/16 Range/Units 05:35 BUN 22 H (7-17) mg/dL Microbiology - Last 24 Hours (Table) 12/16/16 00:40 Blood Culture - Preliminary Blood No Growth after 72 hours Assessment and Plan Plan: 1. Left lower extremity cellulitis with a prior culture showing enterococcus faecalis and Staphylococcus aureus, patient will be switched to vancomycin 1 g IV piggyback 1 pharmacy to dose its peak and trough, discontinue Levaquin, Silvadene cream will be utilized, infectious disease consultation from Dr. Fulton. 2. Hypertension and hypertensive cardiovascular disease. Continue metoprolol 50 mg orally twice every day. Continue hydrochlorothiazide 12.5 mg orally once every day. 3. Hyperlipidemia. Low-cholesterol diet. 4. Moderate persistent asthma. Continue Symbicort 160/4.5 g 2 puff inhalation twice every day, albuterol as needed. 5. Obesity with possible obstructive sleep apnea. Patient was advised to go for a polysomnogram as an outpatient. 6. DVT prophylaxis. Lovenox 40 mg subcutaneously every 24 hours. 7. GI prophylaxis. Start the patient on Protonix 40 mg orally once every day. 8. Patient is full code. Discharge plan: Return home Impression and plan of care have been directed as dictated by the signing physician. Ayah Carmona nurse practitioner acting as scribe for signing physician. Time with Patient: Greater than 30
[2016-12-19] MEDS: LINEZOLID 600 MG TAB PO SCH (22:14)
--- NOTE | 2016-12-19 22:57 | P.PN ---
Subjective Principal diagnosis: Left leg pain Pleasant 66-year-old female presents to Hospital with difficulties to her left leg. She is known history of venous stasis and ulceration or left leg and was care for the wound healing center for several months. She was intolerant of significant amounts of compression, it was utilizing Tubigrip with local wound care only. Eventually she improved. She's now been about 6 weeks since her last visit the wound center and did well until about a week ago. She started have some discomfort to the leg. She developed some erythema to the skin not at the area of the prior ulcer. It then increased rapidly and she became very uncomfortable with chills. She gets he presented to emergency center. She was admitted because of the significant cellulitis in the infectious diseases consultation was requested. Duplex scan was performed without evidence of a deep venous thrombosis. The patient this time relates that she is feeling slightly better. She denying high-grade fevers or rigors. Does not recall any specific trauma as of late. Feeling better today. Erythema is improving. Still having significant tenderness in the lateral surface of the leg but it is improved. Now has evidence of some dermatitis to the dorsum of the foot. This responded very well to topical steroid cream. The patient is lost her IV access. Objective - Vital Signs Vital signs: Vital Signs Temp 97.2 F L 12/19/16 15:00 Pulse 60 12/19/16 15:00 Resp 20 12/19/16 15:00 BP 142/79 12/19/16 15:00 Pulse Ox 98 12/19/16 15:00 Intake & Output 12/19/16 12/19/16 12/20/16 06:59 18:59 06:59 Intake Total 220 480 Balance 220 480 Intake: Oral 220 480 Other: # Voids 1 2 - Exam Pleasant obese 66-year-old woman in no distress HEENT: Anicteric conjunctiva are pink and moist nasal mucosa grossly intact without significant lesions, there is no thrush. Neck: The neck is supple without significant lymphadenopathy or thyromegaly. Lungs: Good bilateral air entry without significant crackles or wheezing. There is no significant bronchial sounds. There is no egophony or dullness. Heart: Regular rate and rhythm with an audible S1-S2, no S3 soft S4. There is no significant murmur click or rub, PMI was nondisplaced. Abdomen: Obese, Positive bowel sounds soft and nontender without palpable masses or organomegaly. There was no guarding or rebound. Extremities: The upper extremities have excellent pulses they are symmetric, no significant petechiae or telangiectasia. No splinter hemorrhages were noted. The right lower extremity reveals evidence ofthe lesions. There is no significant amounts of edema as is in the left leg Left leg has evidence of edema. There is improvement of the distinct erythema especially on the anterior to posterior lateral aspect of the calf. It is less tender somewhat improved. The skin is somewhat tense but not extremely shiny at this time. Evidence of extensive varicose veins. The dorsum of the left foot has evidence of proven erythema with the topical triamcinolone. No evidence of fungal infection of the foot. Neuro: Awake alert oriented to person place and time. There are no acute new gross focal sensory motor deficits. - Labs CBC & Chem 7: 12/18/16 08:32 12/19/16 05:35 Labs: Abnormal Lab Results - Last 24 Hours (Table) 12/19/16 Range/Units 05:35 BUN 22 H (7-17) mg/dL Microbiology - Last 24 Hours (Table) 12/16/16 00:40 Blood Culture - Preliminary Blood No Growth after 72 hours Laboratory Results WBC 7.5 k/uL (3.8-10.6) 12/18/16 08:32 RBC 3.99 m/uL (3.80-5.40) 12/18/16 08:32 Hgb 11.9 gm/dL (11.4-16.0) 12/18/16 08:32 Hct 36.7 % (34.0-46.0) 12/18/16 08:32 MCV 91.9 fL (80.0-100.0) 12/18/16 08:32 MCH 29.8 pg (25.0-35.0) 12/18/16 08:32 MCHC 32.4 g/dL (31.0-37.0) 12/18/16 08:32 RDW 13.6 % (11.5-15.5) 12/18/16 08:32 Plt Count 198 k/uL (150-450) 12/18/16 08:32 Neutrophils % 66 % 12/15/16 22:33 Lymphocytes % 18 % 12/15/16 22:33 Monocytes % 5 % 12/15/16 22:33 Eosinophils % 8 % 12/15/16 22:33 Basophils % 1 % 12/15/16 22:33 Neutrophils # 7.8 k/uL (1.3-7.7) H 12/15/16 22:33 Lymphocytes # 2.1 k/uL (1.0-4.8) 12/15/16 22:33 Monocytes # 0.6 k/uL (0-1.0) 12/15/16 22:33 Eosinophils # 1.0 k/uL (0-0.7) H 12/15/16 22:33 Basophils # 0.1 k/uL (0-0.2) 12/15/16 22:33 Sodium 139 mmol/L (137-145) 12/19/16 05:35 Potassium 4.1 mmol/L (3.5-5.1) 12/19/16 05:35 Chloride 106 mmol/L (98-107) 12/19/16 05:35 Carbon Dioxide 26 mmol/L (22-30) 12/19/16 05:35 Anion Gap 7 mmol/L 12/19/16 05:35 BUN 22 mg/dL (7-17) H 12/19/16 05:35 Creatinine 1.04 mg/dL (0.52-1.04) 12/19/16 05:35 Est GFR (MDRD) Af Amer >60 (>60 ml/min/1.73 sqM) 12/19/16 05:35 Est GFR (MDRD) Non-Af 53 (>60 ml/min/1.73 sqM) 12/19/16 05:35 Glucose 86 mg/dL (74-99) 12/19/16 05:35 Calcium 8.7 mg/dL (8.4-10.2) 12/19/16 05:35 Total Bilirubin 1.1 mg/dL (0.2-1.3) 12/15/16 22:33 AST 32 U/L (14-36) 12/15/16 22:33 ALT 34 U/L (9-52) 12/15/16 22:33 Alkaline Phosphatase 132 U/L (38-126) H 12/15/16 22:33 Total Protein 7.1 g/dL (6.3-8.2) 12/15/16 22:33 Albumin 3.9 g/dL (3.5-5.0) 12/15/16 22:33 Vancomycin Trough 15.5 ug/mL 12/19/16 05:35 Microbiology 12/16/16 00:40 Blood Blood Culture - Preliminary No Growth after 72 hours Assessment and Plan (1) Cellulitis of left lower leg Narrative/Plan: 66-year-old woman presents to Hospital with a one-week history of increasing pain and discomfort to her left leg. No history of varicose veins in the past. Also has a history of prior ulceration cared for the wound healing Center. She is intolerant of much compression which makes treatment of her varicosities somewhat difficult. She has not yet been available by vascular surgery. At this time some local care with Silvadene and gentle compression with Tubigrip will be applied. This hopefully will start to soothe the skin. She does refuse any type of compression therapy. With her ALLERGIES antibiotic therapy with vancomycin has been utilized. However she's now lost IV access. We'll change her to Zyvox for now and may complete a course of that at home. Cultures are in process. And are negative. Elevation wound at rest is helpful For the area of irritation the dorsum of the left foot will add in triamcinolone ointment and expect rapid improvement of this bit of dermatitis does not appear to be cellulitis. We'll make sure that her prealbumin is adequate and supplement proteins as indicated When she is improved to do well to see vascular surgery to see if she is capable of having endovascular procedures and she does not have a known history of blood clot Also at the time of discharge if possible a CircAid to the left leg would be helpful for compression that she may be able to tolerate. Status: Acute (2) Venous insufficiency of left leg Status: Acute
[2016-12-20 07:42] VITALS: BP 163/74; PULSE 56; RESP 20; TEMP 97.1
[2016-12-20] MEDS: SYMBICORT 80-4.5 MCG INHALER INHALATION SCH (09:09)
[2016-12-20] MEDS: ENOXAPARIN 40 MG/0.4 ML SYRINGE SQ SCH (09:17)
[2016-12-20] MEDS: ASPIRIN 81 MG CHEW PO SCH (09:17)
[2016-12-20] MEDS: LINEZOLID 600 MG TAB PO SCH (09:17)
[2016-12-20] MEDS: METOPROLOL TARTRATE 50 MG TAB PO SCH (09:17)
[2016-12-20] MEDS: PANTOPRAZOLE 40 MG TABLET PO SCH (09:18)
[2016-12-20] MEDS: FUROSEMIDE 40 MG TAB PO SCH (09:18)
[2016-12-20] MEDS: POTASSIUM CHLORIDE ER 20 MEQ TAB.ER PO SCH (09:18)
[2016-12-20 09:19] LABS: Calcium 8.8 mg/dL (8.4-10.2); Potassium 4.1 mmol/L (3.5-5.1)
[2016-12-20] MEDS: TRIAMCINOLONE ACET 0.1% OINTMENT 15 GM TUBE TOPICAL SCH (09:19)
[2016-12-20] MEDS: Acetaminophen-Codeine 300-30mg TAB PO PRN (09:28)
[2016-12-20] MEDS: MULTIVITAMINS, THERA 1 EACH TAB PO SCH (11:04)
--- NOTE | 2016-12-21 14:01 | P.DS ---
Providers Date of admission: 12/16/16 00:07 Expected date of discharge: 12/20/16 Attending physician: Jonnie James Consults: 12/16/16 10:17 Consult Physician Routine Consulting Provider: Chet Fulton Consult Reason/Comments: left leg cellulitis Do you want consulting provider notified?: Yes Primary care physician: [facility] Course: This is a 66-year-old female one of Dr. Dobbs with a previous medical history significant for hypertension and hypertensive cardio vascular disease, moderate persistent asthma, history of obesity with possible obstructive sleep apnea, patient was under the care of the wound healing Center at [facility] and she was released after 8 months of treatment about 6 to go for an ulcer that appeared to be venous to the lateral aspect of her left leg, over the last 24 hours she developed to have an increased swelling and redness with increased pain in the left lower extremity was seen and evaluated at [facility] ER she was complaining of increased shoulder no fever has nausea but no vomiting she had no diarrhea should not have any other signs or symptoms of SIRS, venous Doppler did not show any evidence of any acute DVT, patient was admitted to the hospital for acute cellulitis of the left lower extremity with a prior culture in the past showing Enterococcus faecalis and Staphylococcus aureus, he was taken off Levaquin and placed on vancomycin, infectious disease consultation was obtained from Dr. Fulton. 12/17: Patient has been seen by Dr. Fulton and is on Silvadene for local wound care along with Tubigrip and IV antibiotics in the form of vancomycin. CircAid is recommended at the time of discharge. Patient has had some fluid overload for which IV fluids will be discontinued and she'll be given oral Lasix. 12/18: Patient remains on oral Lasix. Overall she continues to have some edema to the leg but improving. Anticipate possible discharge in the next 24 hours. She is on IV vancomycin. The culture showing no growth at 48 hours. 12/19: Patient remains on IV vancomycin and Silvadene as local wound care. She denies any shortness of breath, no nausea or vomiting. No diarrhea. She still has some tenderness on the left lateral leg area with a firm area. Plan to continue current care and possible discharge by tomorrow. 12/20: Patient will be discharged home today in stable condition. Dr. Fulton as recommended doxycycline. Discharge diagnoses: 1. Left lower extremity cellulitis with a prior culture showing enterococcus faecalis and Staphylococcus aureus 2. Hypertension and hypertensive cardiovascular disease. 3. Hyperlipidemia. 4. Moderate persistent asthma. 5. Obesity with possible obstructive sleep apnea. Discharge plan: Return home Impression and plan of care have been directed as dictated by the signing physician. Ayah Carmona nurse practitioner acting as scribe for signing physician. Cc: Dr. Jessica Reyes Patient Condition at Discharge: Good Plan - Discharge Summary New Discharge Prescriptions: Acetaminophen-Codeine 300-30mg [Tylenol w/codeine #3] 1 each PO Q4HR PRN #30 tab PRN Reason: Moderate Pain Doxycycline Hyclate 100 mg PO BID #28 tab Furosemide [Lasix] 40 mg PO DAILY #30 tab Potassium Chloride ER [K-Dur 20] 20 meq PO DAILY #30 tab.er.prt SILVER sulfADIAZINE CREAM [Silvadene Cream] 1 applic TOPICAL BID #400 gm Triamcinolone 0.1% Ointment [Kenalog 0.1% Ointment] 1 applic TOPICAL QID #30 gm Discharge Medication List Budesonide/Formoterol Fumarate [Symbicort 80-4.5 Mcg Inhaler] 2 puff INHALATION RT-BID 02/14/14 [History] Metoprolol Tartrate [Lopressor] 50 mg PO BID 11/17/14 [History] Aspirin EC [Ecotrin Low Dose] 81 mg PO DAILY 03/12/16 [History] Naproxen Sodium [Aleve] 440 mg PO Q12HR PRN 03/12/16 [History] Albuterol Sulfate [Proair Respiclick] 1 puff PO RT-Q4H PRN 05/10/16 [History] Acetaminophen-Codeine 300-30mg [Tylenol w/codeine #3] 1 each PO Q4HR PRN #30 tab 12/20/16 [Rx] Doxycycline Hyclate 100 mg PO BID #28 tab 12/20/16 [Rx] Furosemide [Lasix] 40 mg PO DAILY #30 tab 12/20/16 [Rx] Multivitamins, Thera [Multivitamin (formulary)] 1 each PO DAILY@1200 tab [Rx] Potassium Chloride ER [K-Dur 20] 20 meq PO DAILY #30 tab.er.prt 12/20/16 [Rx] SILVER sulfADIAZINE CREAM [Silvadene Cream] 1 applic TOPICAL BID #400 gm [Rx] Triamcinolone 0.1% Ointment [Kenalog 0.1% Ointment] 1 applic TOPICAL QID #30 gm 12/20/16 [Rx] Follow up Appointment(s)/Referral(s): Jessica Reyes MD [Primary Care Provider] - 12/28/16 12:00 pm Patient Instructions/Handouts: Cellulitis (DC), Venous Insufficiency (DC) Activity/Diet/Wound Care/Special Instructions: Cardiac diet Elevate leg at rest Wound care as ordered Discharge Disposition: HOME SELF-CARE
== END 2016-12-20 12:58 | disposition home or self-care (01) | DRG 603 ==
LOC: EC 20:23 → OBSVTOIN 12-16 00:07 → 4MS4W 12-16 00:07
PROVIDERS: ADMIT Internal Medicine; ATTEND Internal Medicine
DX: L03.116 Cellulitis of left lower limb (principal); I11.9 Hypertensive heart disease without heart failure; Z68.43 Body mass index [BMI] 50.0-59.9, adult; E66.9 Obesity, unspecified; I87.2 Venous insufficiency (chronic) (peripheral); E87.70 Fluid overload, unspecified; J45.40 Moderate persistent asthma, uncomplicated; E78.5 Hyperlipidemia, unspecified; G47.33 Obstructive sleep apnea (adult) (pediatric); I83.009 Varicose veins of unspecified lower extremity with ulcer of unspecified site; L30.9 Dermatitis, unspecified; Z90.49 Acquired absence of other specified parts of digestive tract; Z79.82 Long term (current) use of aspirin; Z79.51 Long term (current) use of inhaled steroids; Z79.899 Other long term (current) drug therapy; Z88.1 Allergy status to other antibiotic agents; Z88.8 Allergy status to other drugs, medicaments and biological substances; Z91.048 Other nonmedicinal substance allergy status
CPT/HCPCS: 36415; 80048; 80053; 80202; 85025; 85027; 87040; 94640

== ENCOUNTER 2018-02-24 10:24 | Emergency (ER) | payer MEDICARE ==
[2018-02-24] MEDS ORDERED: ALBUTEROL NEBULIZED 7.5 MG, IPRATROPIUM NEBULIZED 0.5 MG, SODIUM CHLORIDE 0.9% NEBULIZ ... INHALATION ONE ×3 (11:11)
[2018-02-24] MEDS ORDERED: methylPREDNISolone SOD SUCCI 125 MG/2 ML VIAL IM ONE (11:11)
--- NOTE | 2018-02-24 11:15 | ED ---
General Adult HPI - General Chief complaint: Shortness of Breath Stated complaint: asthma, frank Time Seen by Provider: 02/24/18 10:30 Source: patient, RN notes reviewed Mode of arrival: ambulatory Limitations: no limitations - History of Present Illness Initial comments: This is a 67-year-old female presents emergency Department with a past medical history significant for asthma. Patient states she's been battling her asthma for the last 2 weeks but is been getting progressively worse. Patient states she used to have a nebulizer at home which he no longer has one. Patient states she also has quite a bit of sinus pressure and facial pain as well. Patient has noticed quite a bit of drainage in the back of her throat swell. The patient denies any fever chills per patient denies any chest pain or palpitations. Patient denies abdominal pain patient denies nausea vomiting diarrhea. Patient denies headache patient denies numbness weakness. Patient denies any neck pain. - Related Data Home Medications Medication Instructions Recorded Confirmed Metoprolol Tartrate [Lopressor] 50 mg PO DAILY 11/17/14 02/24/18 Aspirin EC [Ecotrin Low Dose] 81 mg PO DAILY 03/12/16 02/24/18 Albuterol Sulfate [Proair 1 puff PO RT-Q4H PRN 05/10/16 02/24/18 Respiclick] Beclomethasone Dip 80 Mcg/Puff 2 puff INHALATION RT-BID 02/24/18 02/24/18 [Qvar 80 mcg] Hydrochlorothiazide [Hydrodiuril] 12.5 mg PO DAILY 02/24/18 02/24/18 Ibuprofen [Motrin Ib] 400 mg PO Q6H PRN 02/24/18 02/24/18 Previous Rx's Medication Instructions Recorded Albuterol Inhaler [Ventolin Hfa 1 - 2 puff INHALATION Q6HR PRN #2 02/24/18 Inhaler] puff Amoxicillin/Potassium Clav 1 each PO Q12HR #28 tab 02/24/18 [Augmentin 875-125 Tablet] predniSONE 40 mg PO DAILY #8 tab 02/24/18 Allergies Allergy/AdvReac Type Severity Reaction Status Date / Time VASILE Inhibitors Allergy Swelling Verified 02/24/18 11:20 cephalexin monohydrate Allergy Rash/Hives Verified 02/24/18 11:20 [From Keflex] latex Allergy Itching Verified 02/24/18 11:20 adhesive tape AdvReac Itching Verified 02/24/18 11:20 Review of Systems ROS Statement: Those systems with pertinent positive or pertinent negative responses have been documented in the HPI. ROS Other: All systems not noted in ROS Statement are negative. Past Medical History Past Medical History: Asthma, Hyperlipidemia, Hypertension, Pneumonia, Skin Disorder Additional Past Medical History / Comment(s): left ankle fracture, red itchy skin generalized History of Any Multi-Drug Resistant Organisms: None Reported Past Surgical History: Appendectomy, Section, Cholecystectomy, Hernia Repair, Orthopedic Surgery Additional Past Surgical History / Comment(s): right knee surgery, appendectomy , 2, right arthroscopic knee surgery, ventral hernia repair, cholecystectomy. Past Psychological History: No Psychological Hx Reported Smoking Status: Never smoker Past Alcohol Use History: None Reported Past Drug Use History: None Reported - Past Family History Father History Unknown: Yes Additional Family Medical History / Comment(s): adopted Mother History Unknown: Yes Additional Family Medical History / Comment(s): adopted General Exam - General Exam Comments Initial Comments: GENERAL: Patient is well-developed and well-nourished. Patient is nontoxic and well- hydrated and is in moderate distress. ENT: Neck is soft and supple. No significant lymphadenopathy is noted. Oropharynx is clear. Moist mucous membranes. Neck has full range of motion without eliciting any pain. EYES: The sclera were anicteric and conjunctiva were pink and moist. Extraocular movements were intact and pupils were equal round and reactive to light. Eyelids were unremarkable. PULMONARY: Patient is wheezing diffusely throughout CARDIOVASCULAR: There is a regular rate and rhythm without any murmurs gallops or rubs. ABDOMEN: Soft and nontender with normal bowel sounds. No palpable organomegaly was noted. There is no palpable pulsatile mass. SKIN: Skin is clear with no lesions or rashes and otherwise unremarkable. NEUROLOGIC: Patient is alert and oriented x3. Cranial nerves II through XII are grossly intact. Motor and sensory are also intact. Normal speech, volume and content. Symmetrical smile. MUSCULOSKELETAL: Normal extremities with adequate strength and full range of motion. No lower extremity swelling or edema. No calf tenderness. LYMPHATICS: No significant lymphadenopathy is noted PSYCHIATRIC: Normal psychiatric evaluation. Limitations: no limitations Course Vital Signs 02/24/18 02/24/18 02/24/18 10:33 11:04 11:25 Temperature 98.1 F Pulse Rate 69 63 Respiratory 22 20 Rate Blood Pressure 186/82 O2 Sat by Pulse 96 Oximetry 02/24/18 02/24/18 11:40 12:26 Temperature Pulse Rate 56 L 68 Respiratory Rate Blood Pressure O2 Sat by Pulse Oximetry Medical Decision Making - Medical Decision Making Chest x-ray shows no acute abnormality. After patient received 3 breathing treatments and steroids she was feeling considerably better. I listened to her lungs and though she had some slight extra wheezing or much improved from previously. Disposition Clinical Impression: Asthma exacerbation, Sinusitis Disposition: HOME SELF-CARE Instructions: Asthma (ED), Sinusitis (ED) Prescriptions: Albuterol Inhaler [Ventolin Hfa Inhaler] 1 - 2 puff INHALATION Q6HR PRN #2 puff PRN Reason: Difficulty breathing Amoxicillin/Potassium Clav [Augmentin 875-125 Tablet] 1 each PO Q12HR #28 tab predniSONE 40 mg PO DAILY #8 tab Is patient prescribed a controlled substance at d/c from ED?: No Referrals: Jessica Reyes MD [Primary Care Provider] - 1-2 days
--- NOTE | 2018-02-24 12:39 | XR ---
EXAMINATION TYPE: XR chest 2V DATE OF EXAM: 02/24/2018 COMPARISON: Prior chest 11/17/2014 HISTORY: Difficulty breathing, asthma TECHNIQUE: Frontal and lateral views of the chest are obtained. FINDINGS: There is no focal air space opacity, pleural effusion, or pneumothorax seen. The cardiac silhouette size is within normal limits. There is bronchial wall thickening. There is eventration of the right hemidiaphragm. Increased AP diameter of the chest could be indicative of underlying COPD. Surgical clips present in the upper abdomen. Flowing anterior osteophytes along the thoracic vertebra l bodies may be due to diffuse idiopathic skeletal hyperostosis. The osseous structures are intact. IMPRESSION: Correlate for bronchitis, reactive airways disease, follow-up as indicated.
[2018-02-24 13:59] VITALS: BP 147/89; PULSE 641; RESP 6; TEMP 97.8
== END 2018-02-24 13:35 | disposition home or self-care (01) ==
LOC: EC 10:24
DX: J45.901 Unspecified asthma with (acute) exacerbation (principal); J32.9 Chronic sinusitis, unspecified; I10 Essential (primary) hypertension; Z87.01 Personal history of pneumonia (recurrent); Z90.49 Acquired absence of other specified parts of digestive tract; Z98.890 Other specified postprocedural states; Z79.51 Long term (current) use of inhaled steroids; Z79.82 Long term (current) use of aspirin; Z79.899 Other long term (current) drug therapy; Z88.1 Allergy status to other antibiotic agents; Z88.8 Allergy status to other drugs, medicaments and biological substances; Z91.040 Latex allergy status; Z91.048 Other nonmedicinal substance allergy status
CPT/HCPCS: 94644; 71046; 99285; 96372; J2930

== ENCOUNTER 2018-03-02 19:27 | Emergency (ER) | payer MEDICARE ==
[2018-03-02 19:32] VITALS: TEMP 97.4
[2018-03-02] MEDS ORDERED: SODIUM CHLORIDE 0.9% 1,000 ML IV STA (19:57)
[2018-03-02] MEDS ORDERED: ALBUTEROL NEBULIZED 2.5 MG/3 ML INHALATION STA (19:57)
--- NOTE | 2018-03-02 20:01 | ED ---
General Adult HPI - General Chief complaint: Shortness of Breath Stated complaint: SOB Time Seen by Provider: 03/02/18 19:37 Source: patient, RN notes reviewed, old records reviewed Mode of arrival: ambulatory Limitations: no limitations - History of Present Illness Initial comments: 67-year-old female presents for evaluation of flulike symptoms. Patient's chief complaint is headache. She states that she's had generalized headache for the past 4 days. She also admits to some nausea and vomiting, approximately 4 episodes of vomiting which was nonbloody nonbilious. This seems to be improved throughout the day today, last episode was early this morning. No abdominal pain. She's had generalized myalgias. She has had cough and nasal congestion, this was treated approximately one week ago. She has history of asthma and at that time had significant cough and dyspnea as well as nasal drainage and sinus pressure. She completed a dose antibiotics. Despite this treatment she has had continued myalgia and headache. She reports that her breathing is significantly improved however she has had persistent minimal cough and wheezing. Past medical history of hypertension and asthma. Headache is gradual in onset. No visual changes. No focal weakness or numbness. - Related Data Home Medications Medication Instructions Recorded Confirmed Metoprolol Tartrate [Lopressor] 50 mg PO DAILY 11/17/14 02/24/18 Aspirin EC [Ecotrin Low Dose] 81 mg PO DAILY 03/12/16 02/24/18 Albuterol Sulfate [Proair 1 puff PO RT-Q4H PRN 05/10/16 02/24/18 Respiclick] Beclomethasone Dip 80 Mcg/Puff 2 puff INHALATION RT-BID 02/24/18 02/24/18 [Qvar 80 mcg] Hydrochlorothiazide [Hydrodiuril] 12.5 mg PO DAILY 02/24/18 02/24/18 Ibuprofen [Motrin Ib] 400 mg PO Q6H PRN 02/24/18 02/24/18 Previous Rx's Medication Instructions Recorded Albuterol Inhaler [Ventolin Hfa 1 - 2 puff INHALATION Q6HR PRN #2 02/24/18 Inhaler] puff Amoxicillin/Potassium Clav 1 each PO Q12HR #28 tab 02/24/18 [Augmentin 875-125 Tablet] predniSONE 40 mg PO DAILY #8 tab 02/24/18 Ibuprofen [Motrin] 600 mg PO Q8HR PRN #24 tab 03/02/18 Levofloxacin [Levaquin] 500 mg PO DAILY 3 Days #5 tab 03/02/18 Loratadine [Claritin] 10 mg PO DAILY #30 tab 03/02/18 Allergies Allergy/AdvReac Type Severity Reaction Status Date / Time VASILE Inhibitors Allergy Swelling Verified 03/02/18 19:32 cephalexin monohydrate Allergy Rash/Hives Verified 03/02/18 19:32 [From Keflex] latex Allergy Itching Verified 03/02/18 19:32 adhesive tape AdvReac Itching Verified 03/02/18 19:32 Review of Systems ROS Statement: Those systems with pertinent positive or pertinent negative responses have been documented in the HPI. ROS Other: All systems not noted in ROS Statement are negative. Past Medical History Past Medical History: Asthma, Hyperlipidemia, Hypertension, Pneumonia, Skin Disorder Additional Past Medical History / Comment(s): left ankle fracture, red itchy skin generalized History of Any Multi-Drug Resistant Organisms: None Reported Past Surgical History: Appendectomy, Section, Cholecystectomy, Hernia Repair, Orthopedic Surgery Additional Past Surgical History / Comment(s): right knee surgery, appendectomy , 2, right arthroscopic knee surgery, ventral hernia repair, cholecystectomy. Past Psychological History: No Psychological Hx Reported Smoking Status: Never smoker Past Alcohol Use History: None Reported Past Drug Use History: None Reported - Past Family History Father History Unknown: Yes Additional Family Medical History / Comment(s): adopted Mother History Unknown: Yes Additional Family Medical History / Comment(s): adopted General Exam Limitations: no limitations General appearance: alert, in no apparent distress Head exam: Present: atraumatic, normocephalic Eye exam: Present: normal appearance, PERRL, EOMI ENT exam: Present: normal exam Neck exam: Present: normal inspection, tenderness Respiratory exam: Present: wheezes. Absent: respiratory distress, rhonchi Cardiovascular Exam: Present: regular rate, normal rhythm GI/Abdominal exam: Present: soft. Absent: distended, tenderness Extremities exam: Present: normal inspection, normal capillary refill. Absent: pedal edema, calf tenderness Neurological exam: Present: alert, oriented X3, CN II-XII intact. Absent: motor sensory deficit Psychiatric exam: Present: normal affect, normal mood Skin exam: Present: warm, dry, intact. Absent: cyanosis, diaphoretic Course Vital Signs 03/02/18 03/02/18 03/02/18 19:29 20:18 20:30 Temperature 97.4 F L Pulse Rate 94 76 81 Respiratory 19 16 16 Rate Blood Pressure 147/86 O2 Sat by Pulse 95 Oximetry 03/02/18 21:13 Temperature Pulse Rate 94 Respiratory 16 Rate Blood Pressure 145/62 O2 Sat by Pulse 98 Oximetry EKG Findings - EKG Comments: EKG Findings:: EKG: Normal sinus rhythm, rate of 80, MS interval 152, QRS duration 84, QTC 440, no ST segment elevation or depression Medical Decision Making - Medical Decision Making 59-year-old female presenting for evaluation of nasal congestion, sinus pressure , flulike symptoms and headache. Patient is overall well-appearing, she is afebrile with stable vitals. She has a nonfocal neurologic exam. She does have severe frontal and maxillary sinus tenderness. Lungs reveal scattered wheezing. Workup includes elevated white blood cell count which may be secondary to infection versus recent steroid use for asthma exacerbation. Stable hemoglobin. Nonischemic EKG. Chest x-ray which shows bronchial disease , no focal pneumonia. CT shows severe bilateral sinusitis which is consistent with patient's headache and nasal congestion. She was previously on Augmentin. Given the elevated white count and persistent complaint despite treatment with Augmentin she will be switched to Levaquin. She will also take Claritin. She will return with any worsening or changing symptoms. Follow-up with primary care physician. - Lab Data Result diagrams: 03/02/18 19:51 03/02/18 19:51 Lab Results 03/02/18 03/02/18 03/02/18 Range/Units 19:51 19:51 19:51 WBC 15.8 H (3.8-10.6) k/uL RBC 5.22 (3.80-5.40) m/uL Hgb 15.3 (11.4-16.0) gm/dL Hct 44.8 (34.0-46.0) % MCV 86.0 (80.0-100.0) fL MCH 29.3 (25.0-35.0) pg MCHC 34.1 (31.0-37.0) g/dL RDW 13.7 (11.5-15.5) % Plt Count 246 (150-450) k/uL Neutrophils % 74 % Lymphocytes % 17 % Monocytes % 5 % Eosinophils % 2 % Basophils % 0 % Neutrophils # 11.7 H (1.3-7.7) k/uL Lymphocytes # 2.7 (1.0-4.8) k/uL Monocytes # 0.8 (0-1.0) k/uL Eosinophils # 0.4 (0-0.7) k/uL Basophils # 0.1 (0-0.2) k/uL PT (9.0-12.0) sec INR (<1.2) APTT (22.0-30.0) sec Sodium 135 L (137-145) mmol/L Potassium 4.5 (3.5-5.1) mmol/L Chloride 94 L (98-107) mmol/L Carbon Dioxide 30 (22-30) mmol/L Anion Gap 11 mmol/L BUN 21 H (7-17) mg/dL Creatinine 1.00 (0.52-1.04) mg/dL Est GFR (CKD-EPI)AfAm 67 (>60 ml/min/1.73 sqM) Est GFR (CKD-EPI)NonAf 58 (>60 ml/min/1.73 sqM) Glucose 96 (74-99) mg/dL Plasma Lactic Acid Anil (0.7-2.0) mmol/L Calcium 9.5 (8.4-10.2) mg/dL Magnesium 1.7 (1.6-2.3) mg/dL Total Bilirubin 1.7 H (0.2-1.3) mg/dL AST 20 (14-36) U/L ALT 29 (9-52) U/L Alkaline Phosphatase 103 (38-126) U/L Total Creatine Kinase 41 (30-135) U/L CK-MB (CK-2) <0.2 (0.0-2.4) ng/mL CK-MB (CK-2) Rel Index Troponin I <0.012 (0.000-0.034) ng/mL Total Protein 6.8 (6.3-8.2) g/dL Albumin 4.0 (3.5-5.0) g/dL 03/02/18 03/02/18 Range/Units 19:51 19:51 WBC (3.8-10.6) k/uL RBC (3.80-5.40) m/uL Hgb (11.4-16.0) gm/dL Hct (34.0-46.0) % MCV (80.0-100.0) fL MCH (25.0-35.0) pg MCHC (31.0-37.0) g/dL RDW (11.5-15.5) % Plt Count (150-450) k/uL Neutrophils % % Lymphocytes % % Monocytes % % Eosinophils % % Basophils % % Neutrophils # (1.3-7.7) k/uL Lymphocytes # (1.0-4.8) k/uL Monocytes # (0-1.0) k/uL Eosinophils # (0-0.7) k/uL Basophils # (0-0.2) k/uL PT 10.5 (9.0-12.0) sec INR 1.1 (<1.2) APTT 22.1 (22.0-30.0) sec Sodium (137-145) mmol/L Potassium (3.5-5.1) mmol/L Chloride (98-107) mmol/L Carbon Dioxide (22-30) mmol/L Anion Gap mmol/L BUN (7-17) mg/dL Creatinine (0.52-1.04) mg/dL Est GFR (CKD-EPI)AfAm (>60 ml/min/1.73 sqM) Est GFR (CKD-EPI)NonAf (>60 ml/min/1.73 sqM) Glucose (74-99) mg/dL Plasma Lactic Acid Anil 1.4 (0.7-2.0) mmol/L Calcium (8.4-10.2) mg/dL Magnesium (1.6-2.3) mg/dL Total Bilirubin (0.2-1.3) mg/dL AST (14-36) U/L ALT (9-52) U/L Alkaline Phosphatase (38-126) U/L Total Creatine Kinase (30-135) U/L CK-MB (CK-2) (0.0-2.4) ng/mL CK-MB (CK-2) Rel Index Troponin I (0.000-0.034) ng/mL Total Protein (6.3-8.2) g/dL Albumin (3.5-5.0) g/dL Disposition Clinical Impression: Asthma exacerbation, Sinusitis Disposition: HOME SELF-CARE Condition: Fair Instructions: Sinusitis (ED) Prescriptions: Ibuprofen [Motrin] 600 mg PO Q8HR PRN #24 tab PRN Reason: Pain Levofloxacin [Levaquin] 500 mg PO DAILY 3 Days #5 tab Loratadine [Claritin] 10 mg PO DAILY #30 tab Is patient prescribed a controlled substance at d/c from ED?: No Referrals: Jessica Reyes MD [Primary Care Provider] - 1-2 days Time of Disposition: 21:23
[2018-03-02] MEDS ORDERED: ONDANSETRON 4 MG/2 ML VIAL IVP STA (20:05)
[2018-03-02 20:08] LABS: Basophils # (A) 0.1 k/uL (0-0.2); Basophils % (A) 0 %; Eosinophils # (A) 0.4 k/uL (0-0.7); Eosinophils % (A) 2 %; HCT 44.8 % (34.0-46.0); HGB 15.3 gm/dL (11.4-16.0); Lymphocytes # (A) 2.7 k/uL (1.0-4.8); Lymphocytes % (A) 17 %; MCH 29.3 pg (25.0-35.0); MCHC 34.1 g/dL (31.0-37.0); Mean Platelet Volume 7.1; Monocytes # (A) 0.8 k/uL (0-1.0); Monocytes % (A) 5 %; Neutrophils # (A) 11.7 k/uL (1.3-7.7); Neutrophils % (A) 74 %; Platelet Count 246 k/uL (150-450); RBC 5.22 m/uL (3.80-5.40); RDW 13.7 % (11.5-15.5); WBC 15.8 k/uL (3.8-10.6)
[2018-03-02 20:16] LABS: INR 1.1 (<1.2); Partial Thromboplastin Time 22.1 sec (22.0-30.0); Prothrombin Time 10.5 sec (9.0-12.0)
[2018-03-02 20:21] VITALS: RESP 16
[2018-03-02 20:21] LABS: Calcium 9.5 mg/dL (8.4-10.2); Magnesium 1.7 mg/dL (1.6-2.3); Potassium 4.5 mmol/L (3.5-5.1); Total Bilirubin 1.7 mg/dL (0.2-1.3); Total Protein 6.8 g/dL (6.3-8.2)
[2018-03-02 20:31] LABS: Creatine Kinase 41 U/L (30-135)
[2018-03-02 20:44] LABS: Creatine Kinase MB <0.2 ng/mL (0.0-2.4); Troponin I <0.012 ng/mL (0.000-0.034)
--- NOTE | 2018-03-02 21:06 | XR ---
EXAMINATION TYPE: XR chest 2V DATE OF EXAM: 03/02/2018 COMPARISON: 02/24/2018 HISTORY: 67-year-old female difficulty breathing TECHNIQUE: AP and lateral views FINDINGS: Heart upper limits of normal in size. Aorta and pulmonary vasculature within normal limits. Peribronc hial cuffing and mild interstitial densities. No consolidation or pleural effusion. IMPRESSION: Peribronchial cuffing could represent bronchitis or uncontrolled asthma.
--- NOTE | 2018-03-02 21:10 | CT ---
EXAMINATION TYPE: CT brain wo con DATE OF EXAM: 03/02/2018 COMPARISON: 11/17/2014 HISTORY: 67-year-old female with pain, Dizziness and sinus infection. TECHNIQUE: Examination was done in axial plane without intravenous contrast. Coronal and sagittal r econstructions performed. CT DLP: 1019.5 mGycm Automated exposure control for dose reduction was used. FINDINGS: There is no evidence of acute intracranial hemorrhage, acute ischemic changes, mass, mass-effect, or extra-axial fluid collection. There is no effacement of cerebral sulci or basal subarachnoid cister ns. There is no hydrocephalus. There is no midline shift. Monk-white matter distinction is preserv ed. Partially empty sella incidentally noted. Partial opacification and air-fluid levels in the right greater than left maxillary sinuses. Moderate to severe mucosal thickening throughout the ethmoid air cells and mild within the right frontal sinu s and bilateral sphenoid sinuses. Mastoid air cells well pneumatized. Orbits and globes are intact. IMPRESSION: 1. No acute intracranial abnormality seen. 2. Correlate for bilateral acute maxillary sinusitis. 3. Moderate to severe chronic ethmoid sinus disease.
[2018-03-02] MEDS ORDERED: KETOROLAC 30 MG/ML 1 ML VIAL IVP STA (21:13)
[2018-03-02 21:14] VITALS: BP 145/62; PULSE 94
== END 2018-03-02 21:48 | disposition home or self-care (01) ==
LOC: EC 19:27
DX: J45.901 Unspecified asthma with (acute) exacerbation (principal); J32.9 Chronic sinusitis, unspecified; R11.2 Nausea with vomiting, unspecified; D72.829 Elevated white blood cell count, unspecified; I10 Essential (primary) hypertension; Z79.82 Long term (current) use of aspirin; Z79.51 Long term (current) use of inhaled steroids; Z79.899 Other long term (current) drug therapy; Z88.8 Allergy status to other drugs, medicaments and biological substances; Z88.1 Allergy status to other antibiotic agents; Z91.040 Latex allergy status; Z91.048 Other nonmedicinal substance allergy status
CPT/HCPCS: 36415; 94640; 93005; 80053; 82550; 82553; 83605; 83735; 84484; 85025; 85610; 85730; 71046; 70450; 99285; 96374; 96375; 96361; J2405; J1885

== ENCOUNTER 2018-03-07 17:23 | Observation (INO) | payer MEDICARE ==
[2018-03-07] MEDS ORDERED: methylPREDNISolone SOD SUCCI 125 MG/2 ML VIAL IV STA (18:11)
[2018-03-07] MEDS ORDERED: MAGNESIUM SULFATE-D5W PMX 1 GM in DEXTROSE/WATER 1 100ML.BAG IVPB STA (18:11)
[2018-03-07] MEDS ORDERED: IPRATROPIUM-ALBUTEROL 3 ML NEB INHALATION STA (18:11)
[2018-03-07] MEDS ORDERED: SODIUM CHLORIDE 0.9% 1,000 ML IV STA ×2 (18:11)
[2018-03-07] MEDS ORDERED: METOCLOPRAMIDE 5 MG/ML 2 ML VIAL IVP STA (18:13)
[2018-03-07] MEDS ORDERED: KETOROLAC 30 MG/ML 1 ML VIAL IVP STA (18:13)
[2018-03-07] MEDS ORDERED: LORazepam 2 MG/ML INJ IV STA (18:18)
--- NOTE | 2018-03-07 18:18 | ED ---
General Adult HPI - General Chief complaint: Nausea/Vomiting/Diarrhea Stated complaint: asthma, vomiting Time Seen by Provider: 03/07/18 18:01 Source: patient Mode of arrival: wheelchair Limitations: no limitations - History of Present Illness Initial comments: This 59-year-old white female presents with the several complaints. She states that she's felt dizzy. This is more of a spinning sensation. It is worse with any head movements. She also has had a headache which is been over her maxillary sinuses and frontal sinuses. She also has had a headache in the posterior region. She does have a history of migraine takes remotely when she was 23. She further relates that she's had some shortness of breath as well as some wheezing but denies any cough. She denies any nasal congestion. She was seen in the emergency department on February 24 as well as approximate 5 days ago. She had a workup last time including a chest x-ray labs and scan of the brain her sinuses and this did show evidence of sinusitis. She initially was on a dose of Augmentin and later on a dose of Levaquin. She denies any relief thus far of her symptoms. Her complaints have been going on for approximately 3 weeks at this point. She denies any fevers or chills. There is no chest pain. The family relates that she seems confused at times. No other complaints or modifying factors. - Related Data Home Medications Medication Instructions Recorded Confirmed Metoprolol Tartrate [Lopressor] 50 mg PO DAILY 11/17/14 03/07/18 Aspirin EC [Ecotrin Low Dose] 81 mg PO DAILY 03/12/16 03/07/18 Albuterol Sulfate [Proair 1 puff INHALATION RT-Q4H PRN 05/10/16 03/07/18 Respiclick] Beclomethasone Dip 80 Mcg/Puff 2 puff INHALATION RT-BID 02/24/18 03/07/18 [Qvar 80 mcg] Hydrochlorothiazide [Hydrodiuril] 12.5 mg PO DAILY 02/24/18 03/07/18 Amoxicillin/Potassium Clav 1 tab PO Q12HR 03/07/18 03/07/18 [Augmentin 875-125 Tablet] Previous Rx's Medication Instructions Recorded Ibuprofen [Motrin] 600 mg PO Q8HR PRN #24 tab 03/02/18 Levofloxacin [Levaquin] 500 mg PO DAILY 3 Days #5 tab 03/02/18 Loratadine [Claritin] 10 mg PO DAILY #30 tab 03/02/18 Allergies Allergy/AdvReac Type Severity Reaction Status Date / Time VASILE Inhibitors Allergy Swelling Verified 03/07/18 18:13 cephalexin monohydrate Allergy Rash/Hives Verified 03/07/18 18:13 [From Keflex] latex Allergy Itching Verified 03/07/18 18:13 adhesive tape AdvReac Itching Verified 03/07/18 18:13 Review of Systems ROS Statement: Those systems with pertinent positive or pertinent negative responses have been documented in the HPI. ROS Other: All systems not noted in ROS Statement are negative. Past Medical History Past Medical History: Asthma, Hyperlipidemia, Hypertension, Pneumonia, Skin Disorder Additional Past Medical History / Comment(s): left ankle fracture, red itchy skin generalized History of Any Multi-Drug Resistant Organisms: None Reported Past Surgical History: Appendectomy, Section, Cholecystectomy, Hernia Repair, Orthopedic Surgery Additional Past Surgical History / Comment(s): right knee surgery, appendectomy , 2, right arthroscopic knee surgery, ventral hernia repair, cholecystectomy. Past Psychological History: No Psychological Hx Reported Smoking Status: Never smoker Past Alcohol Use History: None Reported Past Drug Use History: None Reported - Past Family History Father History Unknown: Yes Additional Family Medical History / Comment(s): adopted Mother History Unknown: Yes Additional Family Medical History / Comment(s): adopted General Exam - General Exam Comments Initial Comments: GENERAL: The patient is well nourished and well hydrated. VITAL SIGNS: Heart rate, blood pressure, respiratory rate reviewed as recorded in nurse's notes. EYES: Pupils are round and reactive. Extraocular movements are intact. No conjunctival / lid redness or swelling. ENT: No external evidence of injury, swelling, or ecchymosis. Airway is patent. Throat is clear. Tympanic membranes are clear. NECK: Nontender. No swelling or evidence of injury. No subcutaneous emphysema. Trachea is midline. No thyroid mass. HEART: Regular rate and rhythm. Good peripheral pulses. LUNGS/CHEST: Wheezing is noted to bilateral chest No ecchymosis, subcutaneous emphysema, or tenderness. ABDOMEN: Abdomen soft without tenderness. No palpable masses or organomegaly. No peritoneal signs. No abdominal wall swelling or ecchymosis. EXTREMITIES: No extremity tenderness. Normal muscle tone and function. No thoracolumbar tenderness. NEUROLOGIC: Sensation is grossly intact. Cranial nerve exam reveals face is symmetrical, tongue is midline, speech is clear. SKIN: No abrasions or ecchymosis is noted. No induration or masses noted. PSYCHIATRIC: Alert and oriented. Appropriate behavior and judgment. Limitations: no limitations Course Vital Signs 03/07/18 03/07/18 03/07/18 17:46 18:41 18:56 Temperature 98.4 F Pulse Rate 92 82 84 Respiratory 18 18 18 Rate Blood Pressure 170/69 O2 Sat by Pulse 97 Oximetry Medical Decision Making - Medical Decision Making The patient was seen and examined. All diagnostics are reviewed. She does see some ample fluid hydration as well as some Ativan, Antivert, Toradol, Decadron, magnesium, and Reglan. The EKG shows a normal sinus rhythm at a rate of 89. There is no acute ST-T wave changes identified. The MI intervals 150, QRS duration is 84, and the QTC intervals 457. The laboratories reviewed and this does show evidence of a decreased CO2 consistent with some mild dehydration. She also receives a double DuoNeb breathing treatment. After receiving all the medications, she does relate a moderate degree of improvement in regards to her headache vertigo and dyspnea. The old records were reviewed. She did have a negative computed tomography scan of the brain recently with evidence of sinusitis. She had a chest x-ray tonight which shows evidence of bronchitis or asthma. This is her third visit to the ER and she has failed previous outpatient treatment. The son is quite concerned as she's been fairly confused last couple days as well. It is felt as though she benefit from admission to the hospital and further treatment. She is agreeable. Case is discussed with Dr. Peguero and he is agreeable with admission. - Lab Data Result diagrams: 03/07/18 18:26 03/07/18 18:26 Lab Results 03/07/18 03/07/18 03/07/18 Range/Units 18:26 18:26 18:26 WBC 9.8 (3.8-10.6) k/uL RBC 4.77 (3.80-5.40) m/uL Hgb 14.0 (11.4-16.0) gm/dL Hct 41.0 (34.0-46.0) % MCV 85.9 (80.0-100.0) fL MCH 29.3 (25.0-35.0) pg MCHC 34.1 (31.0-37.0) g/dL RDW 13.8 (11.5-15.5) % Plt Count 213 (150-450) k/uL Neutrophils % 74 % Lymphocytes % 15 % Monocytes % 4 % Eosinophils % 5 % Basophils % 0 % Neutrophils # 7.3 (1.3-7.7) k/uL Lymphocytes # 1.5 (1.0-4.8) k/uL Monocytes # 0.4 (0-1.0) k/uL Eosinophils # 0.5 (0-0.7) k/uL Basophils # 0.0 (0-0.2) k/uL PT (9.0-12.0) sec INR (<1.2) APTT (22.0-30.0) sec Sodium 137 (137-145) mmol/L Potassium 4.0 (3.5-5.1) mmol/L Chloride 103 (98-107) mmol/L Carbon Dioxide 21 L (22-30) mmol/L Anion Gap 13 mmol/L BUN 18 H (7-17) mg/dL Creatinine 0.94 (0.52-1.04) mg/dL Est GFR (CKD-EPI)AfAm 72 (>60 ml/min/1.73 sqM) Est GFR (CKD-EPI)NonAf 63 (>60 ml/min/1.73 sqM) Glucose 98 (74-99) mg/dL Calcium 9.0 (8.4-10.2) mg/dL Magnesium 1.6 (1.6-2.3) mg/dL Total Bilirubin 1.0 (0.2-1.3) mg/dL AST 16 (14-36) U/L ALT 31 (9-52) U/L Alkaline Phosphatase 90 (38-126) U/L Total Creatine Kinase 63 (30-135) U/L CK-MB (CK-2) 0.4 (0.0-2.4) ng/mL CK-MB (CK-2) Rel Index 0.6 Troponin I <0.012 (0.000-0.034) ng/mL Total Protein 6.2 L (6.3-8.2) g/dL Albumin 3.8 (3.5-5.0) g/dL 03/07/18 Range/Units 18:26 WBC (3.8-10.6) k/uL RBC (3.80-5.40) m/uL Hgb (11.4-16.0) gm/dL Hct (34.0-46.0) % MCV (80.0-100.0) fL MCH (25.0-35.0) pg MCHC (31.0-37.0) g/dL RDW (11.5-15.5) % Plt Count (150-450) k/uL Neutrophils % % Lymphocytes % % Monocytes % % Eosinophils % % Basophils % % Neutrophils # (1.3-7.7) k/uL Lymphocytes # (1.0-4.8) k/uL Monocytes # (0-1.0) k/uL Eosinophils # (0-0.7) k/uL Basophils # (0-0.2) k/uL PT 10.5 (9.0-12.0) sec INR 1.1 (<1.2) APTT 22.6 (22.0-30.0) sec Sodium (137-145) mmol/L Potassium (3.5-5.1) mmol/L Chloride (98-107) mmol/L Carbon Dioxide (22-30) mmol/L Anion Gap mmol/L BUN (7-17) mg/dL Creatinine (0.52-1.04) mg/dL Est GFR (CKD-EPI)AfAm (>60 ml/min/1.73 sqM) Est GFR (CKD-EPI)NonAf (>60 ml/min/1.73 sqM) Glucose (74-99) mg/dL Calcium (8.4-10.2) mg/dL Magnesium (1.6-2.3) mg/dL Total Bilirubin (0.2-1.3) mg/dL AST (14-36) U/L ALT (9-52) U/L Alkaline Phosphatase (38-126) U/L Total Creatine Kinase (30-135) U/L CK-MB (CK-2) (0.0-2.4) ng/mL CK-MB (CK-2) Rel Index Troponin I (0.000-0.034) ng/mL Total Protein (6.3-8.2) g/dL Albumin (3.5-5.0) g/dL Disposition Clinical Impression: Vertigo, Cephalgia, Sinusitis, COPD exacerbation, Wheezing, Hypertension, Dehydration, Viral syndrome, Failure of outpatient treatment Disposition: ADMITTED IP TO THIS HOSP Condition: Fair Is patient prescribed a controlled substance at d/c from ED?: No Time of Disposition: 20:25 Decision Date: 03/07/18 Decision Time: 20:25
[2018-03-07 18:42] LABS: Basophils % (A) 0 %; Eosinophils # (A) 0.5 k/uL (0-0.7); Eosinophils % (A) 5 %; Lymphocytes # (A) 1.5 k/uL (1.0-4.8); Lymphocytes % (A) 15 %; MCH 29.3 pg (25.0-35.0); MCHC 34.1 g/dL (31.0-37.0); MCV 85.9 fL (80.0-100.0); Mean Platelet Volume 7.2; Monocytes # (A) 0.4 k/uL (0-1.0); Monocytes % (A) 4 %; Neutrophils # (A) 7.3 k/uL (1.3-7.7); Neutrophils % (A) 74 %; Platelet Count 213 k/uL (150-450); RBC 4.77 m/uL (3.80-5.40); RDW 13.8 % (11.5-15.5); WBC 9.8 k/uL (3.8-10.6)
[2018-03-07 18:50] LABS: INR 1.1 (<1.2); Partial Thromboplastin Time 22.6 sec (22.0-30.0); Prothrombin Time 10.5 sec (9.0-12.0)
[2018-03-07 18:57] LABS: Albumin 3.8 g/dL (3.5-5.0); Creatine Kinase 63 U/L (30-135); Magnesium 1.6 mg/dL (1.6-2.3); Total Protein 6.2 g/dL (6.3-8.2)
[2018-03-07 19:09] LABS: Creatine Kinase MB 0.4 ng/mL (0.0-2.4); Troponin I <0.012 ng/mL (0.000-0.034)
[2018-03-07] MEDS ORDERED: MECLIZINE 12.5 MG TAB PO STA (19:11)
--- NOTE | 2018-03-07 20:10 | XR ---
EXAMINATION TYPE: XR chest 2V DATE OF EXAM: 03/07/2018 COMPARISON: Prior chest 03/02/2018 HISTORY: Difficulty breathing, shortness of breath TECHNIQUE: Frontal and lateral views of the chest are obtained. FINDINGS: There is no focal air space opacity, pleural effusion, or pneumothorax seen. The cardiac silhouette size is stable. Increased AP diameter chest again noted. Bronchial wall thickening is ag ain seen. The osseous structures are intact. IMPRESSION: Correlate for reactive airways disease, bronchitis, follow-up as indicated.
[2018-03-07] MEDS ORDERED: MECLIZINE 25 MG TAB PO PRN (20:26)
[2018-03-07] MEDS ORDERED: METOCLOPRAMIDE 5 MG/ML 2 ML VIAL IVP PRN (20:26)
[2018-03-07] MEDS ORDERED: ONDANSETRON 4 MG/2 ML VIAL IVP PRN (20:27)
[2018-03-07] MEDS ORDERED: MORPHINE SULFATE 4 MG/ML SYRINGE IV PRN (20:27)
[2018-03-07] MEDS ORDERED: NALOXONE 0.4 MG/ML 1 ML VIAL IV PRN (20:27)
[2018-03-07] MEDS ORDERED: methylPREDNISolone SOD SUCCI 125 MG/2 ML VIAL IV SCH (20:45)
[2018-03-07 22:35] VITALS: BMI 43.9
--- NOTE | 2018-03-07 22:35 | P.HPIM ---
History of Present Illness H&P Date: 03/07/18 Chief Complaint: dizziness 67 year old female with history of hypertension. She presented to the ED today, due to feeling fatigued and sick. She reports multiple visits to the ED over the past 3 weeks where she was diagnosed with sinusits, and had taken two courses of antibiotics with augmentin and then later with levaquin. today she presented due to poor PO intake, decrease urine output, continues to have headache and facial pain, along with feeling dizzy. 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 she reports vomiting, non bloody no bilious. but could not keep anything down, her fluid intake has decrease due to that, and she thought she might also be dehydrated on top of everything . she denies any fevers but reports chills. denies any sick contacts or other sick household members. denies any recent traveling. she admits to dry hacking cough resulting in pleuritic chest pain at times, and sore throat . CXR was unremarkable, she was diangosed with viral syndrome resulting in bronchitis , and sinusitis , and dehydration. Other francisco she denies any abd pain , changes in her bowel habits, denies any focal neurologic deficits, denies any changes in her hearing or vision. Review of Systems Pertinent positives as noted in HPI. All other systems were reviewed and are negative Past Medical History Past Medical History: Asthma, Hyperlipidemia, Hypertension, Pneumonia, Skin Disorder Additional Past Medical History / Comment(s): left ankle fracture, red itchy skin generalized History of Any Multi-Drug Resistant Organisms: None Reported Past Surgical History: Appendectomy, Section, Cholecystectomy, Hernia Repair, Orthopedic Surgery Additional Past Surgical History / Comment(s): right knee surgery, appendectomy , 2, right arthroscopic knee surgery, ventral hernia repair, cholecystectomy. Past Psychological History: No Psychological Hx Reported Smoking Status: Never smoker Past Alcohol Use History: None Reported Past Drug Use History: None Reported - Past Family History Father History Unknown: Yes Additional Family Medical History / Comment(s): adopted Mother History Unknown: Yes Additional Family Medical History / Comment(s): adopted Medications and Allergies Home Medications Medication Instructions Recorded Confirmed Type Metoprolol Tartrate [Lopressor] 50 mg PO DAILY 11/17/14 03/07/18 History Aspirin EC [Ecotrin Low Dose] 81 mg PO DAILY 03/12/16 03/07/18 History Albuterol Sulfate [Proair 1 puff INHALATION RT-Q4H PRN 05/10/16 03/07/18 History Respiclick] Beclomethasone Dip 80 Mcg/Puff 2 puff INHALATION RT-BID 02/24/18 03/07/18 History [Qvar 80 mcg] Hydrochlorothiazide [Hydrodiuril] 12.5 mg PO DAILY 02/24/18 03/07/18 History Ibuprofen [Motrin] 600 mg PO Q8HR PRN #24 tab 03/02/18 03/07/18 Rx Levofloxacin [Levaquin] 500 mg PO DAILY 3 Days #5 tab 03/02/18 03/07/18 Rx Loratadine [Claritin] 10 mg PO DAILY #30 tab 03/02/18 03/07/18 Rx Amoxicillin/Potassium Clav 1 tab PO Q12HR 03/07/18 03/07/18 History [Augmentin 875-125 Tablet] Allergies Allergy/AdvReac Type Severity Reaction Status Date / Time VASILE Inhibitors Allergy Swelling Verified 03/07/18 18:13 cephalexin monohydrate Allergy Rash/Hives Verified 03/07/18 18:13 [From Keflex] latex Allergy Itching Verified 03/07/18 18:13 adhesive tape AdvReac Itching Verified 03/07/18 18:13 Physical Exam Vitals: Vital Signs Temp Pulse Resp BP Pulse Ox 03/07/18 21:58 97.5 F L 89 17 126/60 95 03/07/18 20:59 98.5 F 92 18 157/70 96 03/07/18 18:56 84 18 03/07/18 18:41 82 18 03/07/18 17:46 98.4 F 92 18 170/69 97 Intake and Output 03/07/18 03/07/18 03/07/18 06:59 14:59 22:59 Other: Weight 104.326 kg Constitutional: No acute distress, conversant, pleasant Eyes: Anicteric sclerae, moist conjunctiva, no lid-lag Pupils equal round reactive to light ENMT: NC/AT No evidence of fullness in the middle ear or erythema by otoscopic exam Oropharynx clear, no erythema, exudates Tenderness to palpation of the facial sinuses Neck: Supple, FROM, no masses, or JVD No carotid bruits No thyromegaly Lungs: Clear to auscultation Clear to percussion Normal respiratory effort, no accessory muscle use Cardiovascular: Heart regular in rate and rhythm, No murmurs, gallops, or rubs No peripheral edema Abdominal: Soft Nontender, no guarding, rebound or rigidity Abdomen moving with respiration Normoactive bowel sounds No hepatomegaly, No splenomegaly No palpable mass No abdominal wall hernia noted Skin: Normal temperature, tone, texture, turgor No induration No subcutaneous nodules No rash, lesions No ulcers Extremities: No digital cyanosis No clubbing Pedal pulses intact and symmetrical Radial pulses intact and symmetrical No calf tenderness Psychiatric: Alert and oriented to person, place and time Appropriate affect fair judgment Neuro Muscles Strength 5/5 in all 4 extremities Sensation to light touch grossly present throughout Cranial nerves II-XII grossly intact No focal sensory deficits Intact finger-nose exam and [id number] exam Gait is unremarkable Romberg sign is negative Lymphatics: no palpable cervical or supraclavicular , or inguinal lymph nodes Results CBC & Chem 7: 03/07/18 18:26 03/07/18 18:26 Labs: Abnormal Lab Results - Last 24 Hours (Table) 03/07/18 Range/Units 18:26 Carbon Dioxide 21 L (22-30) mmol/L BUN 18 H (7-17) mg/dL Total Protein 6.2 L (6.3-8.2) g/dL Assessment and Plan Assessment: 67-year-old female with history of asthma and hypertension. Admitted to the inpatient with anticipated length of stay of more than 2 days for bronchitis and dehydration due to underlying possible viral syndrome resulting and also sinusitis. Patient will be treated with IV fluid hydration and symptomatic control. Plan: #Viral syndrome Bronchitis and sinusitis Dehydration with intractable nausea and vomiting IV fluid hydration Symptomatic control DuoNeb's when necessary Anti-histamine and pseudoephedrine Flonase Hypertension continue home medications currently stable Asthma currently stable continue with home inhalers DVT prophylaxis on Lovenox Diet as tolerated Surrogate decision-maker patient's son Kev Full code Anticipated discharge place: Home A total of 50 minutes was spent on the care of this complex patient more than 50 % of the time was spent in counseling and care coordination.
[2018-03-07] MEDS: traMADol 50 MG TAB PO PRN (22:45)
[2018-03-07] MEDS: IPRATROPIUM-ALBUTEROL 3 ML NEB INHALATION SCH (23:10)
[2018-03-07] MEDS: methylPREDNISolone SOD SUCCI 125 MG/2 ML VIAL IV SCH (23:46)
[2018-03-08] MEDS: IPRATROPIUM-ALBUTEROL 3 ML NEB INHALATION SCH ×5 (03:34→21:57)
[2018-03-08] MEDS: methylPREDNISolone SOD SUCCI 125 MG/2 ML VIAL IV SCH ×2 (06:17→11:04)
[2018-03-08] MEDS: BUDESONIDE 1 MG/2 ML NEBU INHALATION SCH ×2 (07:21→21:57)
[2018-03-08 08:13] LABS: Basophils % (A) 0 %; Eosinophils % (A) 0 %; HCT 40.5 % (34.0-46.0); HGB 13.5 gm/dL (11.4-16.0); Lymphocytes % (A) 12 %; MCHC 33.2 g/dL (31.0-37.0); MCV 87.3 fL (80.0-100.0); Mean Platelet Volume 7.1; Monocytes # (A) 0.1 k/uL (0-1.0); Monocytes % (A) 2 %; Neutrophils % (A) 86 %; Platelet Count 186 k/uL (150-450); RBC 4.64 m/uL (3.80-5.40); RDW 13.8 % (11.5-15.5); WBC 8.1 k/uL (3.8-10.6)
[2018-03-08] MEDS: METOPROLOL TARTRATE 50 MG TAB PO SCH (08:16)
[2018-03-08] MEDS: LORATADINE-PSEUDOEPH 5-120 MG 1 EACH TAB.ER.12H PO SCH ×2 (08:16→21:20)
[2018-03-08] MEDS: PANTOPRAZOLE 40 MG/10 ML VIAL IV SCH (08:17)
[2018-03-08] MEDS: FLUTICASONE 50MCG/SPRAY NASAL 16GM EA NOSTRIL SCH (08:17)
[2018-03-08] MEDS: ASPIRIN 81 MG PO SCH (08:17)
[2018-03-08] MEDS: ENOXAPARIN 40 MG/0.4 ML SYRINGE SQ SCH (08:17)
[2018-03-08 08:28] LABS: ALT 25 U/L (9-52); AST 22 U/L (14-36); Albumin 3.7 g/dL (3.5-5.0); Alkaline Phosphatase 82 U/L (38-126); Anion Gap 12 mmol/L; Blood Urea Nitrogen 16 mg/dL (7-17); Calcium 9.1 mg/dL (8.4-10.2); Carbon Dioxide 22 mmol/L (22-30); Chloride 104 mmol/L (98-107); Glucose 169 mg/dL (74-99); Magnesium 1.8 mg/dL (1.6-2.3); Sodium 138 mmol/L (137-145); Total Bilirubin 0.6 mg/dL (0.2-1.3); Total Protein 6.1 g/dL (6.3-8.2)
[2018-03-08] MEDS ORDERED: HYDROCHLOROTHIAZIDE 12.5 MG CAP PO SCH (09:00)
[2018-03-08] MEDS ORDERED: LORATADINE 10 MG TAB PO SCH (09:00)
[2018-03-08] MEDS: traMADol 50 MG TAB PO PRN (11:00)
--- NOTE | 2018-03-08 12:20 | P.PN ---
Subjective Progress Note Date: 03/08/18 Principal diagnosis: dizziness Patient is a 59-year-old female for his degree of asthma, dyslipidemia , and hypertension who presented to the emergency department with complaint of dizziness, fatigue, and feeling sick. Over the last 3 weeks she has been struggling with a sinus infection and causing her to develop an acute exacerbation of asthma. She reported poor oral intake. She had already completed 2 courses of oral antibiotics and oral steroids. On arrival to the ER she was hypertensive with a blood pressure of 170/69 which quickly resolved. Initial laboratory analysis showed slight dehydration with a BUN of 18. Chest x-ray was negative. She was started on bronchodilators, steroid, and was in observation status. Patient seen and examined at bedside. She is feeling well. She is still short of breath and is having difficulty ambulating. She is feeling better since admission. She reports that her headache is getting less in her ear pain has decreased. She has no other complaints currently. Objective - Vital Signs Vital signs: Vital Signs Temp 97.8 F 03/08/18 07:12 Pulse 90 03/08/18 12:06 Resp 18 03/08/18 07:12 BP 132/71 03/08/18 07:12 Pulse Ox 96 03/08/18 07:24 Intake & Output 03/07/18 03/08/18 03/08/18 18:59 06:59 18:59 Weight 104.326 kg 116.3 kg Other: Voiding Method Toilet Toilet # Voids 0 2 - Exam General: non toxic, mild distress, appears at stated age, obese Derm: warm, dry Head: atraumatic, normocephalic, symmetric Eyes: EOMI, no lid lag, anicteric sclera Mouth: no lip lesion, mucus membranes moist Cardiovascular: S1S2 reg, no murmur, positive posterior tibial pulse bilateral, Lungs: diffuse wheeze b/l, no rhonchi, no rales , no accessory muscle use Abdominal: soft, nontender to palpation, no guarding, no appreciable organomegaly Ext: no gross muscle atrophy, no edema, no contractures Neuro: CN II-XI grossly intact, no focal neuro deficits Psych: Alert, oriented, appropriate affect - Labs CBC & Chem 7: 03/08/18 07:50 03/08/18 07:50 Labs: Abnormal Lab Results - Last 24 Hours (Table) 03/07/18 03/08/18 Range/Units 18:26 07:50 Carbon Dioxide 21 L (22-30) mmol/L BUN 18 H (7-17) mg/dL Glucose 169 H (74-99) mg/dL Total Protein 6.2 L 6.1 L (6.3-8.2) g/dL Assessment and Plan Assessment: Acute exacerbation of asthma - steroids - bronchodilators - needs nebulizer for discharge Sinusitis - flonase - claritin - has completed 2 courses of antibiotics Hypertension, controlled -Hydrochlorothiazide held with prior dehydration -Metoprolol -Follow blood pressures closely Obesity, BMI 44 -structured outpatient weight loss Dehydration, resolved DVT prophylaxis: Lovenox Discussed with: Patient, RN, respiratory therapy Anticipated discharge: in AM Anticipated discharge place: home A total of [25] minutes was spent on the care of this complex patient more than 50% of the time was spent in counseling and care coordination.
[2018-03-08] MEDS: predniSONE 20 MG TAB PO SCH (13:25)
[2018-03-08 23:23] VITALS: RESP 20
[2018-03-09] MEDS: IPRATROPIUM-ALBUTEROL 3 ML NEB INHALATION SCH ×4 (00:36→12:05)
[2018-03-09] MEDS: traMADol 50 MG TAB PO PRN (01:19)
[2018-03-09] MEDS: ACETAMINOPHEN TAB 325 MG TAB PO PRN ×2 (02:43→09:47)
[2018-03-09 06:51] VITALS: BP 121/67; TEMP 98
[2018-03-09] MEDS: PANTOPRAZOLE 40 MG/10 ML VIAL IV SCH (08:10)
[2018-03-09] MEDS: ASPIRIN 81 MG PO SCH (08:11)
[2018-03-09] MEDS: FLUTICASONE 50MCG/SPRAY NASAL 16GM EA NOSTRIL SCH (08:11)
[2018-03-09] MEDS: METOPROLOL TARTRATE 50 MG TAB PO SCH (08:11)
[2018-03-09] MEDS: predniSONE 20 MG TAB PO SCH (08:11)
[2018-03-09] MEDS: LORATADINE-PSEUDOEPH 5-120 MG 1 EACH TAB.ER.12H PO SCH (08:11)
[2018-03-09] MEDS: ENOXAPARIN 40 MG/0.4 ML SYRINGE SQ SCH (08:12)
[2018-03-09] MEDS: BUDESONIDE 1 MG/2 ML NEBU INHALATION SCH (09:02)
[2018-03-09 12:15] VITALS: PULSE 88
--- NOTE | 2018-03-09 12:46 | P.DS ---
Providers Date of admission: 03/07/18 20:25 Expected date of discharge: 03/09/18 Attending physician: Leny Pascual MD [facility] Course: Discharge Diagnosis: 1. Acute exacerbation of asthma 2. Sinusitis 3. Dehydration 4. HTN 5. Morbid obesity 44 Hospital Course: Patient is a 59-year-old female for his degree of asthma, dyslipidemia , and hypertension who presented to the emergency department with complaint of dizziness, fatigue, and feeling sick. Over the last 3 weeks she has been struggling with a sinus infection and causing her to develop an acute exacerbation of asthma. She reported poor oral intake. She had already completed 2 courses of oral antibiotics and oral steroids. On arrival to the ER she was hypertensive with a blood pressure of 170/69 which quickly resolved. Initial laboratory analysis showed slight dehydration with a BUN of 18. Chest x-ray was negative. She was started on bronchodilators, steroid, and was placed in observation status. She still struggled with dizziness, wheezing, and a headache on the morning 03/08/18. She was continued on steroids and bronchidilators as well as IV fluids. By the morning of 03/09 she was feeling much improved. Her dizziness had abated and her wheezing was much improved by the morning of 03/09. Her headache was decreasing. She was determined stable for dishcarge. She will continue with flonase, zyrtec D X 3 days, and slaine nasal rinse. She was given and RX for albuterol for her nebulizer. She will complete 4 additional days of steroids. Patient seen and examined at bedside. Headache is getting better, shortness of breath resolved, wheezing better. d/w her indications for further care and need to return to hospital. Vital signs reviewed and stable. General: non toxic, no distress, appears at stated age Derm: warm, dry Head: atraumatic, normocephalic, symmetric Eyes: EOMI, no lid lag, anicteric sclera Mouth: no lip lesion, mucus membranes moist Cardiovascular: S1S2 reg, no murmur, positive posterior tibial pulse bilateral, Lungs: faint b/l expiratory wheeze, no rhonchi, no rales , no accessory muscle use Abdominal: soft, nontender to palpation, no guarding, no appreciable organomegaly Ext: no gross muscle atrophy, no edema, no contractures Neuro: CN II-XI grossly intact, no focal neuro deficits Psych: Alert, oriented, appropriate affect A total of 35 minutes of time were spent preparing this complex discharge summary . Pertinent Studies: CXR- peribronchial thickening Patient Condition at Discharge: Stable Plan - Discharge Summary New Discharge Prescriptions: New Albuterol Nebulized [Ventolin Nebulized] 2.5 mg INHALATION Q6H PRN #100 nebu PRN Reason: Shortness Of Breath Or Wheezing Fluticasone Nasal [place] [Flonase Nasal [place]] 2 spray EA NOSTRIL DAILY spr predniSONE 60 mg PO DAILY #12 tab Ondansetron [Zofran] 4 mg PO Q8HR PRN #30 tab PRN Reason: Nausea Continue Metoprolol Tartrate [Lopressor] 50 mg PO DAILY Aspirin EC [Ecotrin Low Dose] 81 mg PO DAILY Albuterol Sulfate [Proair Respiclick] 1 puff INHALATION RT-Q4H PRN PRN Reason: Shortness Of Breath Hydrochlorothiazide [Hydrodiuril] 12.5 mg PO DAILY Beclomethasone Dip 80 Mcg/Puff [Qvar 80 mcg] 2 puff INHALATION RT-BID Ibuprofen [Motrin] 600 mg PO Q8HR PRN #24 tab PRN Reason: Pain Loratadine [Claritin] 10 mg PO DAILY #30 tab Discontinued Levofloxacin [Levaquin] 500 mg PO DAILY 3 Days #5 tab Amoxicillin/Potassium Clav [Augmentin 875-125 Tablet] 1 tab PO Q12HR Discharge Medication List Metoprolol Tartrate [Lopressor] 50 mg PO DAILY 11/17/14 [History] Aspirin EC [Ecotrin Low Dose] 81 mg PO DAILY 03/12/16 [History] Albuterol Sulfate [Proair Respiclick] 1 puff INHALATION RT-Q4H PRN 05/10/16 [ History] Beclomethasone Dip 80 Mcg/Puff [Qvar 80 mcg] 2 puff INHALATION RT-BID 02/24/18 [ History] Hydrochlorothiazide [Hydrodiuril] 12.5 mg PO DAILY 02/24/18 [History] Ibuprofen [Motrin] 600 mg PO Q8HR PRN #24 tab 03/02/18 [Rx] Loratadine [Claritin] 10 mg PO DAILY #30 tab 03/02/18 [Rx] Albuterol Nebulized [Ventolin Nebulized] 2.5 mg INHALATION Q6H PRN #100 nebu [Rx] Fluticasone Nasal [place] [Flonase Nasal [place]] 2 spray EA NOSTRIL DAILY spr [Rx] Ondansetron [Zofran] 4 mg PO Q8HR PRN #30 tab 03/09/18 [Rx] predniSONE 60 mg PO DAILY #12 tab 03/09/18 [Rx] Follow up Appointment(s)/Referral(s): Jessica Reyes MD [Primary Care Provider] - 1 Week Ethan Hubbard MD [STAFF PHYSICIAN] - As Needed Activity/Diet/Wound Care/Special Instructions: regular diet Activity as tolerated Take Zyrtec D for the next 3 days. Your could also take mucinex 600 mg every 12 hours as needed for congestion. Resume claritin once zyrtec is completed. Saline nasal wash may also help. Speak with Dr. Reyes about seeing ENT for possible sinus scope if this recurs or does not completely resolve. Discharge Disposition: HOME SELF-CARE
== END 2018-03-09 13:48 | disposition home or self-care (01) ==
LOC: EC 17:23 → 4MS4W 20:25 → INTOOBSV 20:25 → UNDOADMOB 20:25 → 4MS4W 20:25 → OBSVTOIN 03-08 12:36 → INTOOBSV 03-08 12:36 → UNDODISIN 03-09 13:48 → UNDODISOB 03-09 13:48
PROVIDERS: ADMIT Internal Medicine; ATTEND Internal Medicine
DX: J45.901 Unspecified asthma with (acute) exacerbation (principal); I10 Essential (primary) hypertension; E86.0 Dehydration; E66.01 Morbid (severe) obesity due to excess calories; Z68.41 Body mass index [BMI] 40.0-44.9, adult; R11.2 Nausea with vomiting, unspecified; E78.5 Hyperlipidemia, unspecified; Z87.01 Personal history of pneumonia (recurrent); J32.9 Chronic sinusitis, unspecified; Z79.899 Other long term (current) drug therapy; Z79.82 Long term (current) use of aspirin; Z79.51 Long term (current) use of inhaled steroids; Z88.1 Allergy status to other antibiotic agents; Z91.040 Latex allergy status; Z88.8 Allergy status to other drugs, medicaments and biological substances; Z91.048 Other nonmedicinal substance allergy status; Z90.49 Acquired absence of other specified parts of digestive tract
CPT/HCPCS: 96376 ×3; 96361 ×3; 96372 ×2; 96375 ×2; 96365; 99285; 36415; 94640 ×6; 94760 ×2; 93005; 80053 ×2; 82550; 82553; 83735 ×2; 84484; 85025 ×2; 85610; 85730; 87040; 71046; G0378 ×3; J2060; J2765; J2930 ×2; J1650 ×2; J1885; J3475; J7512 ×2; C9113 ×2

== ENCOUNTER → 2018-03-24 | Outpatient (CLI) | payer MEDICARE ==
[2018-03-24 17:04] LABS: Anisocytosis Slight; Basophils # (A) 0.1 k/uL (0-0.2); Basophils % (A) 1 %; Eosinophils # (A) 0.4 k/uL (0-0.7); Eosinophils % (A) 3 %; HCT 29.1 % (34.0-46.0); Lymphocytes # (A) 2.6 k/uL (1.0-4.8); Lymphocytes % (A) 21 %; MCH 29.8 pg (25.0-35.0); MCHC 32.6 g/dL (31.0-37.0); MCV 91.3 fL (80.0-100.0); Mean Platelet Volume 7.2; Monocytes # (A) 0.4 k/uL (0-1.0); Monocytes % (A) 3 %; Neutrophils # (A) 8.5 k/uL (1.3-7.7); Neutrophils % (A) 71 %; Platelet Count 244 k/uL (150-450); RBC 3.18 m/uL (3.80-5.40); RDW 16.4 % (11.5-15.5)
[2018-03-24 17:06] LABS: HGB 9.5 gm/dL (11.4-16.0)
--- NOTE | 2018-03-24 18:17 | CT ---
EXAMINATION TYPE: CT angio chest with contrast and with 3-D reconstruction renderings DATE OF EXAM: 03/24/2018 5:38 PM COMPARISON: None HISTORY: Shortness of breath. CT DLP: 465.5 mGycm Automated exposure control for dose reduction was used. CONTRAST: CTA scan of the thorax is performed with IV Contrast, patient injected with 58 mL of Isovue M300, pulmonary embolism protocol. 3-D reconstructions. FINDINGS: LUNGS: The lungs are grossly clear, there is no concerning parenchymal mass or nodule identified. PLEURAL SPACES: There is no pleural effusion or pneumothorax seen. AIRWAYS: The tracheobronchial tree is patent. MEDIASTINUM: There is satisfactory enhancement of the pulmonary artery and its branches, there is no CT evidence for pulmonary embolism. There are no greater than 1 cm hilar or mediastinal lymph nodes. No cardiomegaly, but moderately prominent coronary calcifications are noted. Small pericardial effus ion is noted. SKELETAL STRUCTURES: Unremarkable. OTHER: No additional significant abnormality is seen. IMPRESSION: 1. NEGATIVE FOR PULMONARY EMBOLISM, ACUTE AORTIC PROCESS, OR OTHER ACUTE CT PROCESS. 2. CORONARY CALCIFICATIONS NOTED.
== END | disposition home or self-care (01) ==
LOC: RADCTMAIN 16:38
PROVIDERS: ATTEND Family Medicine
DX: I25.10 Atherosclerotic heart disease of native coronary artery without angina pectoris (principal); Z86.718 Personal history of other venous thrombosis and embolism
CPT/HCPCS: 82565; 84520; 85025; 71275; Q9967

== ENCOUNTER → 2018-03-24 | Outpatient (CLI) | payer MEDICARE ==
[2018-03-24 11:09] LABS: INR 1.7 (<1.2)
== END | disposition home or self-care (01) ==
LOC: LABWHC1 10:26
PROVIDERS: ATTEND Surgery Vascular Surgery
DX: I82.422 Acute embolism and thrombosis of left iliac vein (principal)
CPT/HCPCS: 36415; 85610

== ENCOUNTER → 2018-03-28 | Outpatient (CLI) | payer MEDICARE ==
[2018-03-28 15:47] LABS: Anisocytosis Slight; Basophils % (A) 0 %; Eosinophils # (A) 0.4 k/uL (0-0.7); Eosinophils % (A) 5 %; HCT 28.4 % (34.0-46.0); HGB 9.1 gm/dL (11.4-16.0); Hypochromasia Slight; Lymphocytes # (A) 1.5 k/uL (1.0-4.8); Lymphocytes % (A) 20 %; MCH 28.5 pg (25.0-35.0); MCHC 31.8 g/dL (31.0-37.0); MCV 89.5 fL (80.0-100.0); Mean Platelet Volume 7.6; Monocytes # (A) 0.3 k/uL (0-1.0); Monocytes % (A) 4 %; Neutrophils % (A) 68 %; Platelet Count 305 k/uL (150-450); RBC 3.18 m/uL (3.80-5.40); RDW 16.1 % (11.5-15.5); WBC 7.3 k/uL (3.8-10.6)
== END | disposition home or self-care (01) ==
LOC: LABWHC1 15:31
PROVIDERS: ATTEND Family Medicine
DX: D64.9 Anemia, unspecified (principal)
CPT/HCPCS: 36415; 85025

== ENCOUNTER 2018-05-15 08:20 | Emergency (ER) | payer MEDICARE ==
--- NOTE | 2018-05-15 08:45 | ED ---
SOB HPI <De Foster - Last Filed: 05/15/18 10:05> - General Source: patient, RN notes reviewed, old records reviewed Mode of arrival: ambulatory Limitations: no limitations <Maria AlejandraRoseanne - Last Filed: 05/15/18 11:18> - General Chief Complaint: Shortness of Breath Stated Complaint: SOB Time Seen by Provider: 05/15/18 08:28 - History of Present Illness Initial Comments: 59-year-old female with a history of asthma presents emergency department today she wasn't short of breath since 5 AM. Patient reports that she feels wheezy. She states this feels different than her typical asthma attacks however. Patient denies any specific chest pain. She reports no significant coughing or hemoptysis. She also was treated for a blood clot within her [facility] 2 months ago. She is currently on Coumadin. Patient denies any fever or chills. She denies any nausea lightheadedness. She does state she has mild headache. (Roseanne Bess) - Related Data Home Medications Medication Instructions Recorded Confirmed Albuterol Sulfate [Proair 1 puff INHALATION RT-Q4H PRN 05/10/16 05/15/18 Respiclick] Beclomethasone Dip 80 Mcg/Puff 2 puff INHALATION RT-BID 02/24/18 05/15/18 [Qvar 80 mcg] Hydrochlorothiazide [Hydrodiuril] 12.5 mg PO DAILY 02/24/18 05/15/18 Albuterol Nebulized [Ventolin 2.5 mg INHALATION RT-Q6H PRN 05/15/18 05/15/18 Nebulized] Metoprolol Tartrate [Lopressor] 37.5 mg PO BID 05/15/18 05/15/18 Warfarin [Coumadin] 5 mg PO DAILY 05/15/18 05/15/18 predniSONE 10 mg PO DAILY 05/15/18 05/15/18 Previous Rx's Medication Instructions Recorded Ibuprofen [Motrin] 600 mg PO Q8HR PRN #24 tab 03/02/18 Loratadine [Claritin] 10 mg PO DAILY #30 tab 03/02/18 Fluticasone Nasal Byron [Flonase 2 spray EA NOSTRIL DAILY spr 03/09/18 Nasal Byron] Albuterol Nebulized [Ventolin 2.5 mg INHALATION TID #20 nebu 05/15/18 Nebulized] Enoxaparin [Lovenox] 100 mg SQ Q12H #6 syr 05/15/18 predniSONE 50 mg PO DAILY #5 tab 05/15/18 Allergies Allergy/AdvReac Type Severity Reaction Status Date / Time VASILE Inhibitors Allergy Swelling Verified 05/15/18 09:39 cephalexin monohydrate Allergy Rash/Hives Verified 05/15/18 09:39 [From Keflex] latex Allergy Itching Verified 05/15/18 09:39 adhesive tape AdvReac Itching Verified 05/15/18 09:39 Review of Systems ROS Other: All systems not noted in ROS Statement are negative. <De Foster - Last Filed: 05/15/18 10:05> ROS Other: All systems not noted in ROS Statement are negative. <Roseanne Bess - Last Filed: 05/15/18 11:18> ROS Statement: Those systems with pertinent positive or pertinent negative responses have been documented in the HPI. Past Medical History Past Medical History: Asthma, Hyperlipidemia, Hypertension, Pneumonia, Skin Disorder Additional Past Medical History / Comment(s): left ankle fracture, red itchy skin generalized History of Any Multi-Drug Resistant Organisms: None Reported Past Surgical History: Appendectomy, Section, Cholecystectomy, Hernia Repair, Orthopedic Surgery Additional Past Surgical History / Comment(s): right knee surgery, appendectomy , 2, right arthroscopic knee surgery, ventral hernia repair, cholecystectomy. Past Anesthesia/Blood Transfusion Reactions: Postoperative Nausea & Vomiting ( PONV) Past Psychological History: No Psychological Hx Reported Smoking Status: Never smoker Past Alcohol Use History: None Reported Past Drug Use History: None Reported - Past Family History Father History Unknown: Yes Additional Family Medical History / Comment(s): adopted Mother History Unknown: Yes Additional Family Medical History / Comment(s): adopted <Roseanne Bess - Last Filed: 05/15/18 11:18> General Exam <De Foster - Last Filed: 05/15/18 10:05> Limitations: no limitations General appearance: alert, in no apparent distress Head exam: Present: atraumatic, normocephalic, normal inspection Eye exam: Present: normal appearance, PERRL, EOMI. Absent: scleral icterus, conjunctival injection, periorbital swelling ENT exam: Present: normal exam, mucous membranes moist Neck exam: Present: normal inspection. Absent: tenderness, meningismus, lymphadenopathy Respiratory exam: Present: wheezes (Patient is slight wheezing bilaterally.). Absent: normal lung sounds bilaterally, respiratory distress, rales, rhonchi, stridor Cardiovascular Exam: Present: regular rate, normal rhythm, normal heart sounds. Absent: systolic murmur, diastolic murmur, rubs, gallop, clicks GI/Abdominal exam: Present: soft, normal bowel sounds. Absent: distended, tenderness, guarding, rebound, rigid Extremities exam: Present: normal inspection, full ROM, normal capillary refill. Absent: tenderness, pedal edema, joint swelling, calf tenderness Back exam: Present: normal inspection Neurological exam: Present: alert, oriented X3, CN II-XII intact Psychiatric exam: Present: normal affect, normal mood Skin exam: Present: warm, dry, intact, normal color. Absent: rash <Roseanne Bess - Last Filed: 05/15/18 11:18> - General Exam Comments Initial Comments: Well-appearing 59-year-old female. Alert and oriented. No significant distress. (Roseanne Bess) Course <De Foster - Last Filed: 05/15/18 10:05> <Roseanne Bess - Last Filed: 05/15/18 11:18> Vital Signs 05/15/18 05/15/18 05/15/18 08:23 09:21 09:32 Temperature 97.5 F L Pulse Rate 75 68 62 Respiratory 22 Rate Blood Pressure 186/90 O2 Sat by Pulse 100 Oximetry - Reevaluation(s) Reevaluation #1: 05/15/18 10:05 Supervision: I proceeded [id number] evaluation of the patient did discuss the findings with her. Physical exam revealed increased aeration patient felt much improved. Very faint respiratory wheeze noted which seemed to improve after deep inspiration. I do agree with the assessment and plan and less otherwise indicated. (De Foster) Reevaluation #2: 05/15/18 10:36 This Patient was reevaluated feels much better after the breathing treatment IV steroid. I discussed that her INR subtherapeutic was concerned for a blood clot in her leg she is treated for that she could possibly have PE. She'll undergo a computed tomography scan of her chest. (Roseanne Bess) Medical Decision Making - Lab Data Result diagrams: 05/15/18 08:47 05/15/18 08:47 <De Foster - Last Filed: 05/15/18 10:05> - Lab Data Result diagrams: 05/15/18 08:47 05/15/18 08:47 - Radiology Data Radiology results: report reviewed <Roseanne Bess - Last Filed: 05/15/18 11:18> - Medical Decision Making 59-year-old female presents presenting with shortness of breath. She does feel better after breathing treatment IV steroid. She does take 15 mg of prednisone over the past 2 days for which he thought to be in otherwise asthma exacerbation. At this time patient's lab work does show that she is subtherapeutic of her INR. She is supposed to be on Coumadin to treat for DVT. She does slightly elevated d-dimer. This time with a subtherapeutic INR we did do a computed tomography scan to rule out PE. This was negative for any acute pulmonary embolus. Patient this time will be discharged with a short course of steroids and medications including her nebulizer. I discussed close follow-up with transcribing operator head and PCP. QUESTIONS answered and return parameters were discussed. (Roseanne Bess) - Lab Data Lab Results 05/15/18 05/15/18 05/15/18 Range/Units 08:47 08:47 08:47 WBC 11.7 H (3.8-10.6) k/uL RBC 4.18 (3.80-5.40) m/uL Hgb 10.7 L (11.4-16.0) gm/dL Hct 33.9 L (34.0-46.0) % MCV 81.1 D (80.0-100.0) fL MCH 25.7 (25.0-35.0) pg MCHC 31.7 (31.0-37.0) g/dL RDW 15.0 (11.5-15.5) % Plt Count 326 (150-450) k/uL Neutrophils % 78 % Lymphocytes % 15 % Monocytes % 4 % Eosinophils % 2 % Basophils % 1 % Neutrophils # 9.1 H (1.3-7.7) k/uL Lymphocytes # 1.8 (1.0-4.8) k/uL Monocytes # 0.5 (0-1.0) k/uL Eosinophils # 0.2 (0-0.7) k/uL Basophils # 0.1 (0-0.2) k/uL Hypochromasia Marked Poikilocytosis Slight PT (9.0-12.0) sec INR (<1.2) APTT (22.0-30.0) sec D-Dimer (<0.60) mg/L FEU Sodium 140 (137-145) mmol/L Potassium 4.5 (3.5-5.1) mmol/L Chloride 106 (98-107) mmol/L Carbon Dioxide 24 (22-30) mmol/L Anion Gap 10 mmol/L BUN 21 H (7-17) mg/dL Creatinine 0.87 (0.52-1.04) mg/dL Est GFR (CKD-EPI)AfAm 79 (>60 ml/min/1.73 sqM) Est GFR (CKD-EPI)NonAf 69 (>60 ml/min/1.73 sqM) Glucose 101 H (74-99) mg/dL Calcium 9.2 (8.4-10.2) mg/dL Magnesium 1.8 (1.6-2.3) mg/dL Total Bilirubin 0.5 (0.2-1.3) mg/dL AST 16 (14-36) U/L ALT 13 (9-52) U/L Alkaline Phosphatase 99 (38-126) U/L Total Creatine Kinase 95 (30-135) U/L CK-MB (CK-2) 0.5 (0.0-2.4) ng/mL CK-MB (CK-2) Rel Index 0.5 Troponin I 0.015 (0.000-0.034) ng/mL Total Protein 6.4 (6.3-8.2) g/dL Albumin 3.6 (3.5-5.0) g/dL 05/15/18 Range/Units 08:47 WBC (3.8-10.6) k/uL RBC (3.80-5.40) m/uL Hgb (11.4-16.0) gm/dL Hct (34.0-46.0) % MCV (80.0-100.0) fL MCH (25.0-35.0) pg MCHC (31.0-37.0) g/dL RDW (11.5-15.5) % Plt Count (150-450) k/uL Neutrophils % % Lymphocytes % % Monocytes % % Eosinophils % % Basophils % % Neutrophils # (1.3-7.7) k/uL Lymphocytes # (1.0-4.8) k/uL Monocytes # (0-1.0) k/uL Eosinophils # (0-0.7) k/uL Basophils # (0-0.2) k/uL Hypochromasia Poikilocytosis PT 10.3 (9.0-12.0) sec INR 1.1 (<1.2) APTT 22.5 (22.0-30.0) sec D-Dimer 0.71 H (<0.60) mg/L FEU Sodium (137-145) mmol/L Potassium (3.5-5.1) mmol/L Chloride (98-107) mmol/L Carbon Dioxide (22-30) mmol/L Anion Gap mmol/L BUN (7-17) mg/dL Creatinine (0.52-1.04) mg/dL Est GFR (CKD-EPI)AfAm (>60 ml/min/1.73 sqM) Est GFR (CKD-EPI)NonAf (>60 ml/min/1.73 sqM) Glucose (74-99) mg/dL Calcium (8.4-10.2) mg/dL Magnesium (1.6-2.3) mg/dL Total Bilirubin (0.2-1.3) mg/dL AST (14-36) U/L ALT (9-52) U/L Alkaline Phosphatase (38-126) U/L Total Creatine Kinase (30-135) U/L CK-MB (CK-2) (0.0-2.4) ng/mL CK-MB (CK-2) Rel Index Troponin I (0.000-0.034) ng/mL Total Protein (6.3-8.2) g/dL Albumin (3.5-5.0) g/dL 05/15/18 08:45 EKG was sinus rhythm normal EKG. Ventricular rate 73 bpm. Intervals 166 ms. QRS duration 76 ms. QT QTc is 384/423 ms. No evidence of ST elevation or T-wave inversion. No evidence of atrial or ventricular arrhythmias. (Roseanne Bess) - Radiology Data CT is negative first PE. Secondary distal branches on straight mild limitation due to suboptimal enhancement. Right paratracheal lymphadenopathy. Correlate for chronic versus a lung disease. (Roseanne Bess) Disposition <De Foster - Last Filed: 05/15/18 10:05> Is patient prescribed a controlled substance at d/c from ED?: No Time of Disposition: 11:13 <Roseanne Bess - Last Filed: 05/15/18 11:18> Clinical Impression: Subtherapeutic international normalized ratio (INR), COPD exacerbation Disposition: HOME SELF-CARE Condition: Good Additional Instructions: Patient has a follow-up with primary care provider and recheck INR. Patient should double warfarin dose for the next 2 days and recheck on Saturday. She also should take the Lovenox as prescribed for the next few days as well. Take the steroids as prescribed. Return to the emergency department if any alarming signs or symptoms occur. Prescriptions: Albuterol Nebulized [Ventolin Nebulized] 2.5 mg INHALATION TID #20 nebu Enoxaparin [Lovenox] 100 mg SQ Q12H #6 syr predniSONE 50 mg PO DAILY #5 tab Referrals: Jessica Reyes MD [Primary Care Provider] - 1-2 days
[2018-05-15] MEDS ORDERED: methylPREDNISolone SOD SUCCI 125 MG/2 ML VIAL IV STA (08:54)
[2018-05-15] MEDS ORDERED: IPRATROPIUM-ALBUTEROL 3 ML NEB INHALATION STA (08:54)
[2018-05-15] MEDS ORDERED: SODIUM CHLORIDE 0.9% 1,000 ML IV STA (08:54)
[2018-05-15 09:21] LABS: Basophils # (A) 0.1 k/uL (0-0.2); Basophils % (A) 1 %; Eosinophils # (A) 0.2 k/uL (0-0.7); Eosinophils % (A) 2 %; HCT 33.9 % (34.0-46.0); HGB 10.7 gm/dL (11.4-16.0); Hypochromasia Marked; Lymphocytes # (A) 1.8 k/uL (1.0-4.8); Lymphocytes % (A) 15 %; MCH 25.7 pg (25.0-35.0); MCHC 31.7 g/dL (31.0-37.0); Mean Platelet Volume 7.4; Monocytes # (A) 0.5 k/uL (0-1.0); Monocytes % (A) 4 %; Neutrophils # (A) 9.1 k/uL (1.3-7.7); Neutrophils % (A) 78 %; Platelet Count 326 k/uL (150-450); Poikilocytosis Slight; RBC 4.18 m/uL (3.80-5.40); WBC 11.7 k/uL (3.8-10.6)
[2018-05-15 09:24] LABS: MCV 81.1 fL (80.0-100.0)
[2018-05-15 09:25] LABS: INR 1.1 (<1.2); Partial Thromboplastin Time 22.5 sec (22.0-30.0); Prothrombin Time 10.3 sec (9.0-12.0)
--- NOTE | 2018-05-15 09:29 | XR ---
EXAMINATION TYPE: XR chest 2V DATE OF EXAM: 05/15/2018 COMPARISON: 03/07/2018 TECHNIQUE: PA and lateral views submitted. HISTORY: Shortness of breath FINDINGS: The lungs are clear and there is no pneumothorax, pleural effusion, or focal pneumonia. Arthropathy of the shoulders. No overt failure. Hypertrophic and degenerative changes spine. Surgical clips seen in the abdomen. IMPRESSION: 1. No acute process.
[2018-05-15 09:31] LABS: Albumin 3.6 g/dL (3.5-5.0); Calcium 9.2 mg/dL (8.4-10.2); Magnesium 1.8 mg/dL (1.6-2.3); Potassium 4.5 mmol/L (3.5-5.1); Total Bilirubin 0.5 mg/dL (0.2-1.3); Total Protein 6.4 g/dL (6.3-8.2)
[2018-05-15 10:00] LABS: Creatine Kinase MB 0.5 ng/mL (0.0-2.4); Troponin I 0.015 ng/mL (0.000-0.034)
[2018-05-15 10:10] LABS: D-Dimer 0.71 mg/L FEU (<0.60)
--- NOTE | 2018-05-15 11:04 | CT ---
EXAMINATION TYPE: CT chest angio for PE DATE OF EXAM: 05/15/2018 COMPARISON: 03/24/2018 HISTORY: pain CT DLP: 527 mGycm Automated exposure control for dose reduction was used. CONTRAST: CT Chest for pulmonary embolism performed with with IV Contrast, patient injected with 100 mL of Isov ue 370. FINDINGS: LUNGS: The lungs are grossly clear, there is no concerning parenchymal mass or nodule identified. T here is no pleural effusion or pneumothorax seen. The tracheobronchial tree is patent. A vague groun dglass changes are seen bilaterally with interstitial changes involving both lung bases suggestive of chronic interstitial lung disease. No consolidative pneumonia. No pneumothorax. MEDIASTINUM: There is suboptimal enhancement of the secondary and distal branches of the pulmonary ar nemesio. There is no sizable central pulmonary embolism. Limitation with regard to the secondary and dis raúl branches. Aorta of normal caliber. Coronary artery calcification noted. Heart size remains mildly enlarged. The re is a small hiatal hernia.. There is a 1 cm lymph node in the pretracheal space. OTHER: Atrophic and degenerative changes spine noted. IMPRESSION: 1. No diagnostic evidence of central pulmonary embolism. Secondary and distal branches demonstrate mi ld limitation due to suboptimal enhancement. 2. Right paratracheal lymphadenopathy 3. correlate for chronic interstitial lung disease.
[2018-05-15 11:53] VITALS: BP 158/74; PULSE 69; RESP 18; TEMP 97.2
== END 2018-05-15 11:53 | disposition home or self-care (01) ==
LOC: EC 08:20
DX: J44.1 Chronic obstructive pulmonary disease with (acute) exacerbation (principal); I10 Essential (primary) hypertension; Z79.51 Long term (current) use of inhaled steroids; Z79.01 Long term (current) use of anticoagulants; Z79.52 Long term (current) use of systemic steroids; Z79.899 Other long term (current) drug therapy; Z88.8 Allergy status to other drugs, medicaments and biological substances; Z88.1 Allergy status to other antibiotic agents; Z91.040 Latex allergy status; Z91.048 Other nonmedicinal substance allergy status
CPT/HCPCS: 36415; 71046; 71275; 80053; 82550; 82553; 83735; 84484; 85025; 85379; 85610; 85730; 93005; 94640; 96361; 96374; 99285

== ENCOUNTER 2019-02-03 07:47 | Emergency (ER) | payer MEDICARE ==
[2019-02-03] MEDS ORDERED: IPRATROPIUM-ALBUTEROL 3 ML NEB INHALATION STA (08:02)
--- NOTE | 2019-02-03 08:08 | ED ---
General Adult HPI - General Chief complaint: Shortness of Breath Stated complaint: SOB/High BP Time Seen by Provider: 02/03/19 07:52 Source: patient, RN notes reviewed Mode of arrival: wheelchair Limitations: no limitations - History of Present Illness Initial comments: 68-year-old female presents emergency Department with chief complaint of shortness of breath. Patient states that last night she started feeling short of breath, nauseated and just didn't feel well. Patient states that she did feel quite dizzy at the time but states that has resolved. She states that she felt so sick that she could not get out of her bed and felt that she could not call 911 at that time because her house was locked up. Patient states that she woke up this morning still felt short of breath she did take all of her inhalers for asthma with no relief of her symptoms. Patient states that she denies any current chest pain. Patient does admit that she believes this is all related to stress because she lost her 1 month ago and she states that she just found out that she is losing her house. Denies any pleuritic chest pain. Patient does take warfarin currently for prior leg DVT and states that she is due to be discontinued - Related Data Home Medications Medication Instructions Recorded Confirmed Albuterol Sulfate [Proair 1 puff INHALATION RT-Q4H PRN 05/10/16 02/03/19 Respiclick] Beclomethasone Dip 80 Mcg/Puff 2 puff INHALATION RT-BID 02/24/18 02/03/19 [Qvar 80 mcg] Hydrochlorothiazide [Hydrodiuril] 12.5 mg PO DAILY 02/24/18 02/03/19 Warfarin [Coumadin] 5 mg PO SUSA 05/15/18 02/03/19 Metoprolol Tartrate [Lopressor] 50 mg PO BID 02/03/19 02/03/19 Warfarin [Coumadin] 2.5 mg PO MOTUWETHFR 02/03/19 02/03/19 amLODIPine [Norvasc] 5 mg PO DAILY 02/03/19 02/03/19 Previous Rx's Medication Instructions Recorded predniSONE 50 mg PO DAILY #4 tab 02/03/19 Allergies Allergy/AdvReac Type Severity Reaction Status Date / Time cephalexin monohydrate Allergy Rash/Hives Verified 02/03/19 08:04 [From Keflex] VASILE Inhibitors AdvReac Swelling Verified 02/03/19 08:05 adhesive tape AdvReac Itching Verified 02/03/19 08:04 latex AdvReac Itching Verified 02/03/19 08:05 Review of Systems ROS Statement: Those systems with pertinent positive or pertinent negative responses have been documented in the HPI. ROS Other: All systems not noted in ROS Statement are negative. Past Medical History Past Medical History: Asthma, Hyperlipidemia, Hypertension, Pneumonia, Skin Disorder Additional Past Medical History / Comment(s): left ankle fracture, red itchy skin generalized History of Any Multi-Drug Resistant Organisms: None Reported Past Surgical History: Appendectomy, Section, Cholecystectomy, Hernia Repair, Orthopedic Surgery Additional Past Surgical History / Comment(s): right knee surgery, appendectomy, 2, right arthroscopic knee surgery, ventral hernia repair, cholecystectomy. Past Anesthesia/Blood Transfusion Reactions: Postoperative Nausea & Vomiting (PONV) Past Psychological History: No Psychological Hx Reported Smoking Status: Never smoker Past Alcohol Use History: None Reported Past Drug Use History: None Reported - Past Family History Father History Unknown: Yes Additional Family Medical History / Comment(s): adopted Mother History Unknown: Yes Additional Family Medical History / Comment(s): adopted General Exam Limitations: no limitations General appearance: alert, in no apparent distress Head exam: Present: atraumatic, normocephalic, normal inspection Eye exam: Present: normal appearance, PERRL, EOMI. Absent: scleral icterus, conjunctival injection, periorbital swelling ENT exam: Present: normal exam, normal oropharynx, mucous membranes moist Neck exam: Present: normal inspection, full ROM. Absent: tenderness, meningismus, lymphadenopathy Respiratory exam: Present: normal lung sounds bilaterally. Absent: respiratory distress, wheezes, rales, rhonchi, stridor Cardiovascular Exam: Present: regular rate, normal rhythm, normal heart sounds. Absent: systolic murmur, diastolic murmur, rubs, gallop, clicks GI/Abdominal exam: Present: soft, normal bowel sounds. Absent: distended, tenderness, guarding, rebound, rigid Extremities exam: Present: pedal edema Course Vital Signs 02/03/19 02/03/19 02/03/19 07:48 08:16 08:27 Temperature 97.7 F Pulse Rate 66 54 L 51 L Respiratory 25 H Rate Blood Pressure 167/63 O2 Sat by Pulse 100 Oximetry EKG Findings - EKG Comments: EKG Findings:: EKG performed at 8:56 sinus bradycardia with a rate of 57 IL 176 QRS 86 QT/QTC 444/432 Medical Decision Making - Medical Decision Making 68-year-old female presented for shortness breath. She did have notable wheezing on exam. Patient was given breathing treatment, had chest x-ray and labs. Patient that she feels much better after treatment. She given Solu- Medrol emergency from discharge and prednisone. Return parameters were discuss ed. Patient agrees to plan. - Lab Data Result diagrams: 02/03/19 08:19 02/03/19 08:19 Lab Results 02/03/19 02/03/19 02/03/19 Range/Units 08:19 08:19 08:19 WBC 7.9 (3.8-10.6) k/uL RBC 4.78 (3.80-5.40) m/uL Hgb 13.6 (11.4-16.0) gm/dL Hct 41.7 (34.0-46.0) % MCV 87.2 (80.0-100.0) fL MCH 28.5 (25.0-35.0) pg MCHC 32.7 (31.0-37.0) g/dL RDW 14.3 (11.5-15.5) % Plt Count 219 (150-450) k/uL Neutrophils % 71 % Lymphocytes % 17 % Monocytes % 4 % Eosinophils % 7 % Basophils % 1 % Neutrophils # 5.6 (1.3-7.7) k/uL Lymphocytes # 1.3 (1.0-4.8) k/uL Monocytes # 0.3 (0-1.0) k/uL Eosinophils # 0.5 (0-0.7) k/uL Basophils # 0.1 (0-0.2) k/uL PT (9.0-12.0) sec INR (<1.2) APTT (22.0-30.0) sec Sodium 138 (137-145) mmol/L Potassium 3.9 (3.5-5.1) mmol/L Chloride 103 (98-107) mmol/L Carbon Dioxide 29 (22-30) mmol/L Anion Gap 6 mmol/L BUN 25 H (7-17) mg/dL Creatinine 1.19 H (0.52-1.04) mg/dL Est GFR (CKD-EPI)AfAm 54 (>60 ml/min/1.73 sqM) Est GFR (CKD-EPI)NonAf 47 (>60 ml/min/1.73 sqM) Glucose 110 H (74-99) mg/dL Calcium 9.0 (8.4-10.2) mg/dL Magnesium 1.7 (1.6-2.3) mg/dL Total Bilirubin 1.0 (0.2-1.3) mg/dL AST 17 (14-36) U/L ALT 16 (9-52) U/L Alkaline Phosphatase 74 (38-126) U/L Troponin I (0.000-0.034) ng/mL NT-Pro-B Natriuret Pep 108 pg/mL Total Protein 6.2 L (6.3-8.2) g/dL Albumin 3.7 (3.5-5.0) g/dL 02/03/19 02/03/19 Range/Units 08:19 08:19 WBC (3.8-10.6) k/uL RBC (3.80-5.40) m/uL Hgb (11.4-16.0) gm/dL Hct (34.0-46.0) % MCV (80.0-100.0) fL MCH (25.0-35.0) pg MCHC (31.0-37.0) g/dL RDW (11.5-15.5) % Plt Count (150-450) k/uL Neutrophils % % Lymphocytes % % Monocytes % % Eosinophils % % Basophils % % Neutrophils # (1.3-7.7) k/uL Lymphocytes # (1.0-4.8) k/uL Monocytes # (0-1.0) k/uL Eosinophils # (0-0.7) k/uL Basophils # (0-0.2) k/uL PT 16.4 H (9.0-12.0) sec INR 1.6 H (<1.2) APTT 30.6 H (22.0-30.0) sec Sodium (137-145) mmol/L Potassium (3.5-5.1) mmol/L Chloride (98-107) mmol/L Carbon Dioxide (22-30) mmol/L Anion Gap mmol/L BUN (7-17) mg/dL Creatinine (0.52-1.04) mg/dL Est GFR (CKD-EPI)AfAm (>60 ml/min/1.73 sqM) Est GFR (CKD-EPI)NonAf (>60 ml/min/1.73 sqM) Glucose (74-99) mg/dL Calcium (8.4-10.2) mg/dL Magnesium (1.6-2.3) mg/dL Total Bilirubin (0.2-1.3) mg/dL AST (14-36) U/L ALT (9-52) U/L Alkaline Phosphatase (38-126) U/L Troponin I <0.012 (0.000-0.034) ng/mL NT-Pro-B Natriuret Pep pg/mL Total Protein (6.3-8.2) g/dL Albumin (3.5-5.0) g/dL Disposition Clinical Impression: Mild asthma exacerbation, Wheezing Disposition: HOME SELF-CARE Condition: Stable Instructions (If sedation given, give patient instructions): Asthma (ED) Additional Instructions: Please return to the Emergency Department if symptoms worsen or any other concerns. Prescriptions: predniSONE 50 mg PO DAILY #4 tab Is patient prescribed a controlled substance at d/c from ED?: No Referrals: Jessica Reyes MD [Primary Care Provider] - 1-2 days Time of Disposition: 10:06
[2019-02-03 08:31] LABS: Basophils # (A) 0.1 k/uL (0-0.2); Basophils % (A) 1 %; Eosinophils # (A) 0.5 k/uL (0-0.7); Eosinophils % (A) 7 %; HCT 41.7 % (34.0-46.0); HGB 13.6 gm/dL (11.4-16.0); Lymphocytes # (A) 1.3 k/uL (1.0-4.8); Lymphocytes % (A) 17 %; MCH 28.5 pg (25.0-35.0); MCHC 32.7 g/dL (31.0-37.0); MCV 87.2 fL (80.0-100.0); Mean Platelet Volume 7.8; Monocytes # (A) 0.3 k/uL (0-1.0); Monocytes % (A) 4 %; Neutrophils # (A) 5.6 k/uL (1.3-7.7); Neutrophils % (A) 71 %; Platelet Count 219 k/uL (150-450); RBC 4.78 m/uL (3.80-5.40); RDW 14.3 % (11.5-15.5); WBC 7.9 k/uL (3.8-10.6)
[2019-02-03 08:40] LABS: INR 1.6 (<1.2); Partial Thromboplastin Time 30.6 sec (22.0-30.0); Prothrombin Time 16.4 sec (9.0-12.0)
[2019-02-03 08:46] LABS: Albumin 3.7 g/dL (3.5-5.0); Magnesium 1.7 mg/dL (1.6-2.3); Potassium 3.9 mmol/L (3.5-5.1); Total Protein 6.2 g/dL (6.3-8.2)
--- NOTE | 2019-02-03 08:46 | XR ---
EXAMINATION TYPE: XR chest 2V DATE OF EXAM: 02/03/2019 COMPARISON: Prior chest x-ray 05/15/2018 HISTORY: Difficulty breathing TECHNIQUE: Frontal and lateral views of the chest are obtained. FINDINGS: No significant interval change is evident. Patient is rotated. There are overlying cardiac leads. Cardiomediastinal silhouette, pulmonary vascularity and gabriel are stable. No airspace disease, pneumothorax, or pleural effusion. There is eventration of the right hemidiaphragm. IMPRESSION: No acute cardiopulmonary process.
[2019-02-03] MEDS ORDERED: ONDANSETRON 4 MG/2 ML VIAL IVP STA (10:05)
[2019-02-03] MEDS ORDERED: methylPREDNISolone SOD SUCCI 125 MG/2 ML VIAL IV STA (10:05)
[2019-02-03 10:51] VITALS: BP 107/57; PULSE 50; RESP 18; TEMP 97.6
== END 2019-02-03 10:52 | disposition home or self-care (01) ==
LOC: EC 07:47
DX: J45.901 Unspecified asthma with (acute) exacerbation (principal); R60.0 Localized edema; R11.0 Nausea; I10 Essential (primary) hypertension; Z88.1 Allergy status to other antibiotic agents; Z88.8 Allergy status to other drugs, medicaments and biological substances; Z91.040 Latex allergy status; Z91.048 Other nonmedicinal substance allergy status; Z79.01 Long term (current) use of anticoagulants; Z79.51 Long term (current) use of inhaled steroids; Z79.899 Other long term (current) drug therapy; Z87.01 Personal history of pneumonia (recurrent); Z63.4 Disappearance and death of family member; Z63.79 Other stressful life events affecting family and household; Z86.718 Personal history of other venous thrombosis and embolism
CPT/HCPCS: 36415; 94640; 93005; 83880; 80053; 83735; 84484; 85025; 85610; 85730; 71046; 99285; 96374; 96375; J2930; J2405

== ENCOUNTER → 2019-05-21 | Outpatient (CLI) | payer MEDICARE ==
[2019-05-21 17:40] LABS: INR 0.9 (<1.2); Prothrombin Time 10.2 sec (9.0-12.0)
== END | disposition home or self-care (01) ==
LOC: LABWHC1 16:55
PROVIDERS: ATTEND Family Medicine
DX: I48.91 Unspecified atrial fibrillation (principal)
CPT/HCPCS: 36415; 85610

== ENCOUNTER 2019-08-04 20:24 | Emergency (ER) | payer MEDICARE ==
[2019-08-04 20:29] VITALS: RESP 18; TEMP 99
[2019-08-04] MEDS ORDERED: IPRATROPIUM-ALBUTEROL 3 ML NEB INHALATION STA (22:05)
[2019-08-04] MEDS ORDERED: SODIUM CHLORIDE 0.9% 1,000 ML IV ONE (22:05)
--- NOTE | 2019-08-04 22:08 | ED ---
URI HPI - General Chief Complaint: Upper Respiratory Infection Stated Complaint: Sinus infection, vomiting Time Seen by Provider: 08/04/19 21:18 Source: patient Mode of arrival: wheelchair Limitations: no limitations - History of Present Illness Initial Comments: Adalgisa is a pleasant 68-year-old female with a history of asthma first she has a rescue inhaler. Patient presents the ER today with complaint of one-week of URI-like symptoms, she reports she has had nasal congestion, minimally productive cough, chills, body aches loss of appetite and nausea. Patient reports she hasn't really been solid food since that she's been trying to drink to stay hydrated. She reports that today she was concerned she may be becoming dehydrated so she came to the ER for further evaluation. - Related Data Home Medications Medication Instructions Recorded Confirmed Albuterol Sulfate [Proair 1 puff INHALATION RT-Q4H PRN 05/10/16 02/03/19 Respiclick] Beclomethasone Dip 80 Mcg/Puff 2 puff INHALATION RT-BID 02/24/18 02/03/19 [Qvar 80 mcg] Hydrochlorothiazide [Hydrodiuril] 12.5 mg PO DAILY 02/24/18 02/03/19 Warfarin [Coumadin] 5 mg PO SUSA 05/15/18 02/03/19 Metoprolol Tartrate [Lopressor] 50 mg PO BID 02/03/19 02/03/19 Warfarin [Coumadin] 2.5 mg PO MOTUWETHFR 02/03/19 02/03/19 amLODIPine [Norvasc] 5 mg PO DAILY 02/03/19 02/03/19 Previous Rx's Medication Instructions Recorded predniSONE 50 mg PO DAILY #4 tab 02/03/19 predniSONE [Deltasone] 40 mg PO DAILY 5 Days #10 tablet 08/04/19 Allergies Allergy/AdvReac Type Severity Reaction Status Date / Time cephalexin monohydrate Allergy Rash/Hives Verified 08/04/19 20:29 [From Keflex] VASILE Inhibitors AdvReac Swelling Verified 08/04/19 20:29 adhesive tape AdvReac Itching Verified 08/04/19 20:29 latex AdvReac Itching Verified 08/04/19 20:29 Review of Systems ROS Statement: Those systems with pertinent positive or pertinent negative responses have been documented in the HPI. ROS Other: All systems not noted in ROS Statement are negative. Past Medical History Past Medical History: Asthma, Hyperlipidemia, Hypertension, Pneumonia, Skin Disorder Additional Past Medical History / Comment(s): left ankle fracture, red itchy skin generalized History of Any Multi-Drug Resistant Organisms: None Reported Past Surgical History: Appendectomy, Section, Cholecystectomy, Hernia Repair, Orthopedic Surgery Additional Past Surgical History / Comment(s): right knee surgery, appendectomy, 2, right arthroscopic knee surgery, ventral hernia repair, cholecystectomy. Past Anesthesia/Blood Transfusion Reactions: Postoperative Nausea & Vomiting (PONV) Past Psychological History: No Psychological Hx Reported Smoking Status: Never smoker Past Alcohol Use History: None Reported Past Drug Use History: None Reported - Past Family History Father History Unknown: Yes Additional Family Medical History / Comment(s): adopted Mother History Unknown: Yes Additional Family Medical History / Comment(s): adopted General Exam - General Exam Comments Initial Comments: Physical Exam GENERAL: Patient is well-developed and well-nourished. Patient is nontoxic and well- hydrated and is in no distress. HENT: Normocephalic, Atraumatic. Mucus membranes moist no signs of dehydration EYES: PERRL, EOMI PULMONARY: Unlabored respirations. Mild expiratory wheezing in all lung hernandez CARDIOVASCULAR: There is a regular rate and rhythm without any murmurs gallops or rubs. ABDOMEN: Soft and nontender with normal bowel sounds. SKIN: Skin is clear with no lesions or rashes and otherwise unremarkable. : Deferred NEUROLOGIC: Patient is alert and oriented x3. Moving all extremities spontaneously MUSCULOSKELETAL: Normal extremities with adequate strength and full range of motion. No lower extremity swelling or edema. No calf tenderness. PSYCHIATRIC: Normal psychiatric evaluation. Limitations: no limitations Course Vital Signs 08/04/19 08/04/19 08/04/19 20:27 22:40 22:51 Temperature 99.0 F Pulse Rate 91 78 78 Respiratory 18 Rate Blood Pressure 150/84 O2 Sat by Pulse 96 Oximetry 08/04/19 23:04 Temperature Pulse Rate 82 Respiratory 18 Rate Blood Pressure 119/80 O2 Sat by Pulse 98 Oximetry Medical Decision Making - Medical Decision Making The patient was seen and evaluated history is obtained from patient, history and physical exam are concerning for a flulike illness. I did offer influenza testing no based on duration symptoms patient is not at candidate for antiviral treatment therefore patient declined nasal swabs. Labs with mild leukocytosis likely reactive minimally elevated bilirubin likely secondary to viral illness as the patient is not experiencing any abdominal pain. Kidney function electrolytes within normal limits no signs of dehydration. Chest x-rays no acute findings. Patient's wheezing improved after DuoNeb. Patient will be treated with steroids and Zofran for symptomatically management. Patient controlled plan for discharge home and outpatient management. - Lab Data Result diagrams: 08/04/19 22:15 08/04/19 22:15 Lab Results 08/04/19 08/04/19 Range/Units 22:15 22:15 WBC 11.5 H (3.8-10.6) k/uL RBC 4.75 (3.80-5.40) m/uL Hgb 14.2 (11.4-16.0) gm/dL Hct 42.1 (34.0-46.0) % MCV 88.6 (80.0-100.0) fL MCH 30.0 (25.0-35.0) pg MCHC 33.8 (31.0-37.0) g/dL RDW 12.9 (11.5-15.5) % Plt Count 219 (150-450) k/uL Neutrophils % 78 % Lymphocytes % 12 % Monocytes % 6 % Eosinophils % 3 % Basophils % 0 % Neutrophils # 9.0 H (1.3-7.7) k/uL Lymphocytes # 1.4 (1.0-4.8) k/uL Monocytes # 0.6 (0-1.0) k/uL Eosinophils # 0.4 (0-0.7) k/uL Basophils # 0.0 (0-0.2) k/uL Sodium 135 L (137-145) mmol/L Potassium 4.1 (3.5-5.1) mmol/L Chloride 98 (98-107) mmol/L Carbon Dioxide 27 (22-30) mmol/L Anion Gap 10 mmol/L BUN 18 H (7-17) mg/dL Creatinine 1.01 (0.52-1.04) mg/dL Est GFR (CKD-EPI)AfAm 66 (>60 ml/min/1.73 sqM) Est GFR (CKD-EPI)NonAf 57 (>60 ml/min/1.73 sqM) Glucose 118 H (74-99) mg/dL Calcium 9.2 (8.4-10.2) mg/dL Total Bilirubin 1.8 H (0.2-1.3) mg/dL AST 23 (14-36) U/L ALT 16 (9-52) U/L Alkaline Phosphatase 114 (38-126) U/L Total Protein 6.5 (6.3-8.2) g/dL Albumin 3.8 (3.5-5.0) g/dL Disposition Clinical Impression: Acute upper respiratory infection Disposition: HOME SELF-CARE Condition: Stable Instructions (If sedation given, give patient instructions): Upper Respiratory Infection (ED) Is patient prescribed a controlled substance at d/c from ED?: No Referrals: Jessica Reyes MD [Primary Care Provider] - 1-2 days
[2019-08-04 22:27] LABS: Basophils % (A) 0 %; Eosinophils # (A) 0.4 k/uL (0-0.7); Eosinophils % (A) 3 %; HCT 42.1 % (34.0-46.0); HGB 14.2 gm/dL (11.4-16.0); Lymphocytes # (A) 1.4 k/uL (1.0-4.8); Lymphocytes % (A) 12 %; MCHC 33.8 g/dL (31.0-37.0); MCV 88.6 fL (80.0-100.0); Mean Platelet Volume 7.5; Monocytes # (A) 0.6 k/uL (0-1.0); Monocytes % (A) 6 %; Neutrophils % (A) 78 %; Platelet Count 219 k/uL (150-450); RBC 4.75 m/uL (3.80-5.40); RDW 12.9 % (11.5-15.5); WBC 11.5 k/uL (3.8-10.6)
--- NOTE | 2019-08-04 22:34 | XR ---
EXAMINATION TYPE: XR chest 2V DATE OF EXAM: 08/04/2019 COMPARISON: 02/03/2019 HISTORY: Cough TECHNIQUE: Frontal and lateral views of the chest are obtained. FINDINGS: Heart is normal. Lungs are clear of consolidation. There are no hilar masses. Costophrenic angles are clear. Thoracic aorta is atheromatous. Bony thorax is intact. IMPRESSION: No active cardiopulmonary disease. Normal heart. No change.
[2019-08-04 22:37] LABS: Albumin 3.8 g/dL (3.5-5.0); Calcium 9.2 mg/dL (8.4-10.2); Potassium 4.1 mmol/L (3.5-5.1); Total Bilirubin 1.8 mg/dL (0.2-1.3); Total Protein 6.5 g/dL (6.3-8.2)
[2019-08-04] MEDS ORDERED: predniSONE 20 MG TAB PO STA (22:50)
[2019-08-04 23:05] VITALS: BP 119/80; PULSE 82
[2019-08-04] MEDS ORDERED: ONDANSETRON 4 MG ODT STARTER PACK 2 TAB BTL PO STA (23:14)
== END 2019-08-04 23:35 | disposition home or self-care (01) ==
LOC: EC 20:24
DX: J06.9 Acute upper respiratory infection, unspecified (principal); D72.829 Elevated white blood cell count, unspecified; J45.909 Unspecified asthma, uncomplicated; I10 Essential (primary) hypertension; Z79.01 Long term (current) use of anticoagulants; Z79.51 Long term (current) use of inhaled steroids; Z79.899 Other long term (current) drug therapy; Z88.1 Allergy status to other antibiotic agents; Z91.048 Other nonmedicinal substance allergy status; Z91.040 Latex allergy status
CPT/HCPCS: 36415; 94640; 80053; 85025; 71046; 99284; 96360; S0119; J7512

== ENCOUNTER 2019-08-06 03:58 | Observation (INO) | payer MEDICARE ==
[2019-08-06] MEDS ORDERED: SODIUM CHLORIDE 0.9% 500 ML 500 ML IV STA (04:53)
[2019-08-06] MEDS ORDERED: PROMETHAZINE INJ 25 MG in SODIUM CHLORIDE 0.9% 50 ML IVPB ONE (05:00)
[2019-08-06] MEDS: ALBUTEROL NEBULIZED 2.5 MG/3 ML INHALATION STA ×2 (05:06→06:10)
[2019-08-06 05:25] LABS: Basophils % (A) 0 %; Eosinophils # (A) 0.1 k/uL (0-0.7); Eosinophils % (A) 0 %; HCT 41.7 % (34.0-46.0); HGB 14.1 gm/dL (11.4-16.0); Lymphocytes # (A) 1.3 k/uL (1.0-4.8); Lymphocytes % (A) 9 %; MCH 29.9 pg (25.0-35.0); MCHC 33.9 g/dL (31.0-37.0); Mean Platelet Volume 7.6; Monocytes # (A) 0.8 k/uL (0-1.0); Monocytes % (A) 5 %; Neutrophils # (A) 11.9 k/uL (1.3-7.7); Neutrophils % (A) 84 %; Platelet Count 293 k/uL (150-450); RBC 4.74 m/uL (3.80-5.40); RDW 12.7 % (11.5-15.5); WBC 14.1 k/uL (3.8-10.6)
[2019-08-06 06:08] LABS: Calcium 9.6 mg/dL (8.4-10.2); Potassium 3.7 mmol/L (3.5-5.1); Total Bilirubin 1.5 mg/dL (0.2-1.3); Total Protein 6.8 g/dL (6.3-8.2)
[2019-08-06] MEDS ORDERED: ONDANSETRON 4 MG/2 ML VIAL IVP STA ×3 (06:11→08:31)
[2019-08-06] MEDS ORDERED: MORPHINE SULFATE 4 MG/ML SYRINGE IV STA (06:11)
--- NOTE | 2019-08-06 07:22 | ED ---
Nausea/Vomiting/Diarrhea HPI - General Source: patient Mode of arrival: wheelchair Limitations: no limitations - History of Present Illness MD complaint: nausea, vomiting, abdominal pain Onset/Timin -: days(s) Description of Vomiting: food contents Associated Abdominal Pain: Yes Location: diffuse Severity: moderate Quality: cramping, aching Consistency: constant Improves with: none Worsens with: none Associated Symptoms: cough <Faizan Van - Last Filed: 08/06/19 07:16> <De Cassidy - Last Filed: 08/06/19 08:44> - General Chief complaint: Nausea/Vomiting/Diarrhea Stated complaint: SOB, Vomiting Time Seen by Provider: 08/06/19 04:28 - History of Present Illness Initial comments: 's patient is a 68-year-old woman who presents to be evaluate for nausea, vomiting, and abdominal pain. The patient states this been coming on for a few days now. She believes that her nausea and vomiting was initially related to postnasal drip and sinus drainage. She states she has had nearly couple weeks of upper respiratory symptoms as well as some chest symptoms that she states are consistent with her asthma. Patient was seen here couple of days ago for similar symptoms but states that she has not had any improvement and has not been able to keep any fluids down since the evening. The patient describes the abdominal pain as being generalized, crampy, and moderate intensity. She has not seen any bloody or coffee ground type emesis. No change in bowel movements. (Faizan Van) - Related Data Home Medications Medication Instructions Recorded Confirmed Albuterol Sulfate [Proair 1 puff INHALATION RT-Q4H PRN 05/10/16 02/03/19 Respiclick] Beclomethasone Dip 80 Mcg/Puff 2 puff INHALATION RT-BID 02/24/18 02/03/19 [Qvar 80 mcg] Hydrochlorothiazide [Hydrodiuril] 12.5 mg PO DAILY 02/24/18 02/03/19 Warfarin [Coumadin] 5 mg PO SUSA 05/15/18 02/03/19 Metoprolol Tartrate [Lopressor] 50 mg PO BID 02/03/19 02/03/19 Warfarin [Coumadin] 2.5 mg PO MOTUWETHFR 02/03/19 02/03/19 amLODIPine [Norvasc] 5 mg PO DAILY 02/03/19 02/03/19 Previous Rx's Medication Instructions Recorded predniSONE 50 mg PO DAILY #4 tab 02/03/19 predniSONE [Deltasone] 40 mg PO DAILY 5 Days #10 tablet 08/04/19 Allergies Allergy/AdvReac Type Severity Reaction Status Date / Time VASILE Inhibitors Allergy Swelling Verified 08/06/19 07:50 cephalexin monohydrate Allergy Rash/Hives Verified 08/06/19 07:50 [From Keflex] adhesive tape AdvReac Itching Verified 08/06/19 07:50 latex AdvReac Itching Verified 08/06/19 07:50 Review of Systems ROS Other: All systems not noted in ROS Statement are negative. Constitutional: Denies: fever, chills, weakness ENT: Reports: congestion Respiratory: Reports: cough, wheezes. Denies: dyspnea Cardiovascular: Denies: chest pain, palpitations, edema, syncope Gastrointestinal: Reports: abdominal pain, nausea, vomiting. Denies: diarrhea, constipation, melena, hematochezia Genitourinary: Denies: dysuria, hematuria Musculoskeletal: Denies: back pain Skin: Denies: rash Neurological: Denies: headache, weakness, numbness <Faizan Van - Last Filed: 08/06/19 07:16> ROS Other: All systems not noted in ROS Statement are negative. <De Cassidy - Last Filed: 08/06/19 08:44> ROS Statement: Those systems with pertinent positive or pertinent negative responses have been documented in the HPI. Past Medical History Past Medical History: Asthma, Hyperlipidemia, Hypertension, Pneumonia, Skin Disorder Additional Past Medical History / Comment(s): left ankle fracture, red itchy skin generalized History of Any Multi-Drug Resistant Organisms: None Reported Past Surgical History: Appendectomy, Section, Cholecystectomy, Hernia Repair, Orthopedic Surgery Additional Past Surgical History / Comment(s): right knee surgery, appendectomy, 2, right arthroscopic knee surgery, ventral hernia repair, cholecystectomy. Past Anesthesia/Blood Transfusion Reactions: Postoperative Nausea & Vomiting (PONV) Past Psychological History: No Psychological Hx Reported Smoking Status: Never smoker Past Alcohol Use History: None Reported Past Drug Use History: None Reported - Past Family History Father History Unknown: Yes Additional Family Medical History / Comment(s): adopted Mother History Unknown: Yes Additional Family Medical History / Comment(s): adopted <SuhailFaizan garcia - Last Filed: 08/06/19 07:16> General Exam Limitations: no limitations General appearance: alert, in no apparent distress Head exam: Present: atraumatic, normocephalic Eye exam: Present: normal appearance. Absent: scleral icterus, conjunctival injection ENT exam: Present: normal oropharynx Neck exam: Present: normal inspection Respiratory exam: Present: normal lung sounds bilaterally. Absent: respiratory distress, wheezes, rales, rhonchi, stridor Cardiovascular Exam: Present: regular rate, normal rhythm, normal heart sounds. Absent: systolic murmur, diastolic murmur, rubs, gallop GI/Abdominal exam: Present: soft. Absent: distended, tenderness, guarding, rebound, rigid, mass Extremities exam: Present: normal inspection, normal capillary refill. Absent: pedal edema, calf tenderness Back exam: Present: normal inspection. Absent: CVA tenderness (R), CVA tenderness (L) Neurological exam: Present: alert Skin exam: Present: warm, dry, intact, normal color. Absent: rash <RehanFaizan - Last Filed: 08/06/19 07:16> Course Vital Signs 08/06/19 08/06/19 08/06/19 04:07 06:00 08:10 Temperature 98.8 F Pulse Rate 81 67 Respiratory 20 19 Rate Blood Pressure 169/74 167/69 169/67 O2 Sat by Pulse 96 99 Oximetry Medical Decision Making - Lab Data Result diagrams: 08/06/19 05:04 08/06/19 05:04 <RehanFaizan - Last Filed: 08/06/19 07:16> - Lab Data Result diagrams: 08/06/19 05:04 08/06/19 05:04 <De Cassidy - Last Filed: 08/06/19 08:44> - Medical Decision Making Patient's care is signed out at shift change awaiting CT of the abdomen and pelvis. This is reviewed. Shows diverticulosis without diverticulitis, fibroid uterus with calcification. No acute findings to explain the patient's symptoms and she remains symptomatic while in the emergency department with nausea and vomiting and abdominal pain. She will be kept in observation for symptomatic control. (De Cassidy) - Lab Data Lab Results 08/06/19 08/06/19 Range/Units 05:04 05:04 WBC 14.1 H (3.8-10.6) k/uL RBC 4.74 (3.80-5.40) m/uL Hgb 14.1 (11.4-16.0) gm/dL Hct 41.7 (34.0-46.0) % MCV 88.0 (80.0-100.0) fL MCH 29.9 (25.0-35.0) pg MCHC 33.9 (31.0-37.0) g/dL RDW 12.7 (11.5-15.5) % Plt Count 293 (150-450) k/uL Neutrophils % 84 % Lymphocytes % 9 % Monocytes % 5 % Eosinophils % 0 % Basophils % 0 % Neutrophils # 11.9 H (1.3-7.7) k/uL Lymphocytes # 1.3 (1.0-4.8) k/uL Monocytes # 0.8 (0-1.0) k/uL Eosinophils # 0.1 (0-0.7) k/uL Basophils # 0.0 (0-0.2) k/uL Sodium 135 L (137-145) mmol/L Potassium 3.7 (3.5-5.1) mmol/L Chloride 100 (98-107) mmol/L Carbon Dioxide 23 (22-30) mmol/L Anion Gap 12 mmol/L BUN 24 H (7-17) mg/dL Creatinine 1.07 H (0.52-1.04) mg/dL Est GFR (CKD-EPI)AfAm 62 (>60 ml/min/1.73 sqM) Est GFR (CKD-EPI)NonAf 53 (>60 ml/min/1.73 sqM) Glucose 209 H (74-99) mg/dL Calcium 9.6 (8.4-10.2) mg/dL Total Bilirubin 1.5 H (0.2-1.3) mg/dL AST 24 (14-36) U/L ALT 21 (9-52) U/L Alkaline Phosphatase 126 (38-126) U/L Total Protein 6.8 (6.3-8.2) g/dL Albumin 4.0 (3.5-5.0) g/dL Amylase 32 (30-110) U/L Lipase 46 (23-300) U/L Disposition <Faizan Van - Last Filed: 08/06/19 07:16> Is patient prescribed a controlled substance at d/c from ED?: No Decision to Admit Reason: Admit from EC Decision Date: 08/06/19 Decision Time: 08:05 <De Cassidy - Last Filed: 08/06/19 08:44> Clinical Impression: Dehydration, Nausea and vomiting, Abdominal pain Disposition: ADMITTED IP TO THIS HOSP Condition: Stable Referrals: Jessica Reyes MD [Primary Care Provider] - 1-2 days
--- NOTE | 2019-08-06 08:05 | CT ---
EXAM: CT Abdomen and Pelvis Without Intravenous Contrast CLINICAL HISTORY: ITS.REASON CT Reason: abdominal pain TECHNIQUE: Axial computed tomography images of the abdomen and pelvis without intravenous contrast. CTDI is 26.58 mGy and DLP is 1443 mGy-cm. This CT exam was performed using one or more of the following dose reduction techniques: automated exposure control, adjustment of the mA and/or kV according to patient size, and/or use of iterative reconstruction technique. COMPARISON: No relevant prior studies available. FINDINGS: Lung bases: Subsegmental linear changes involving the right middle lobe and subsegmental opacities in the inferior lingular segments are presumed atelectasis. ABDOMEN: Liver: Unremarkable. Gallbladder and bile ducts: Status post cholecystectomy. No ductal dilation. Pancreas: Unremarkable. No ductal dilation. Spleen: Unremarkable. No splenomegaly. Adrenals: Unremarkable. No mass. Kidneys and ureters: Unremarkable. No obstructing stones. No hydronephrosis. Stomach and bowel: Evaluation of bowel mucosa is somewhat limited without contrast. However, no significant focal bowel mucosal abnormality identified. No evidence for bowel obstruction. Minimal diverticulosis of the sigmoid colon is noted without definitive CT findings for diverticulitis. PELVIS: Appendix: No findings to suggest acute appendicitis. Bladder: Mild mucosal prominence of the bladder is presumed related to underdistention. No stones. Reproductive: The uterus is somewhat lobulated with multiple scattered calcifications identified. The largest rounded calcification in the right lateral uterus measures 3.1 cm. ABDOMEN and PELVIS: Intraperitoneal space: Unremarkable. No free air. No significant fluid collection. Bones/joints: Multilevel degenerative changes of the visualized spine is incidentally identified. No acute osseous abnormality. No dislocation. Soft tissues: Irregular soft tissue density is noted superficial to the anterior pelvic wall, measuring 1.8 x 2.6 x 2.8 cm. Vasculature: A left common iliac vein stent is noted. No abdominal aortic aneurysm. Lymph nodes: Unremarkable. No enlarged lymph nodes. IMPRESSION: 1. Scattered diverticulosis of the sigmoid colon. No bowel obstruction. No free intraperitoneal fluid or pneumoperitoneum. 2. Calcified fibroids noted in the uterus. 3. Irregular soft tissue density is noted superficial to the anterior pelvic wall, measuring 1.8 x 2.6 x 2.8 cm. Suspect postoperative changes. Please correlate clinically. A subcutaneous soft tissue mass is considered less likely but cannot entirely be excluded given this appearance.
[2019-08-06] MEDS ORDERED: MORPHINE SULFATE 4 MG/ML SYRINGE IVP STA (08:31)
[2019-08-06] MEDS ORDERED: SODIUM CHLORIDE 0.9% 500 ML 500 ML IV ONE (08:31)
[2019-08-06] MEDS ORDERED: NALOXONE 0.4 MG/ML 1 ML VIAL IV PRN (08:42)
[2019-08-06] MEDS ORDERED: ONDANSETRON 4 MG/2 ML VIAL IVP PRN (08:42)
[2019-08-06] MEDS: SODIUM CHLORIDE 0.9% 1,000 ML IV SCH ×2 (10:01→22:17)
[2019-08-06] MEDS: PANTOPRAZOLE 40 MG/10 ML VIAL IV SCH (10:01)
[2019-08-06] MEDS: HYDROmorphone 0.5 MG/0.5 ML SYRINGE IVP PRN (10:35)
[2019-08-06] MEDS ORDERED: ACETAMINOPHEN TAB 325 MG TAB PO PRN (16:34)
--- NOTE | 2019-08-06 16:58 | P.HPIM ---
History of Present Illness H&P Date: 08/06/19 Chief Complaint: Nausea, vomiting, cough 68-year-old female with PMH of asthma and hypertension presents the ED for intractable nausea and vomiting. Patient reports suffering symptoms of a sinus infection 2 weeks prior to admission. Patient characterized the sinus infection as green nasal discharge, rhinorrhea and frontal headache. Patient states that her sinus infection I her asthma flaring up. Patient states that she has been having coughing fits that eventually leads to dry heaving and vomiting. Patient reports multiple episodes of bilious vomiting without blood since last . Her vomitus also includes the green sputum. Patient reports 10-12 episodes of vomiting yesterday that prompted her to come to the ED. She has not taken any medication for her sinus infection. 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 Patient reports a history of DVT in the left leg for which she has completed anticoagulation therapy. Patient also complains of epigastric discomfort described as soreness but only occurs with retching and vomiting. She denies any fever or chills, chest pain, shortness of breath, palpitations, changes in urination or bowel habits. No changes in appetite or weight. She denies any dizziness, numbness/weakness/tingling of the extremities. In the ED, vital signs are stable except for BP of 181/73. CBC showed leukocytosis of 14.1. CMP showed sodium 135, BUN 24, creatinine 1.07, glucose 209, total bilirubin of 1.5. Amylase and lipase is negative. CT of the abdomen and pelvis was performed which showed scattered diverticulosis, calcified fibroids, irregular soft tissue density in the anterior pelvic wall 1.8 x 2.6 x 2.8 cm. Patient is admitted under observation for intractable nausea and vomiting. Review of Systems Pertinent positives and negatives as discussed in HPI, a complete review of systems was performed and all other systems are negative. Past Medical History Past Medical History: Asthma, Deep Vein Thrombosis (DVT), Hyperlipidemia, Hypertension, Pneumonia, Skin Disorder, Vascular Disorder Additional Past Medical History / Comment(s): DVT left leg, decreased circulation bilateral legs, PUD, red/itchy skin d/t allergies, cellulitis L lower leg. History of Any Multi-Drug Resistant Organisms: None Reported Past Surgical History: Appendectomy, Section, Cholecystectomy, Hernia Repair, Orthopedic Surgery Additional Past Surgical History / Comment(s): Stent to L leg, ventral hernia repair, R knee arthroscopy. Past Anesthesia/Blood Transfusion Reactions: Postoperative Nausea & Vomiting (PONV) Smoking Status: Never smoker - Past Family History Father History Unknown: Yes Additional Family Medical History / Comment(s): adopted Mother History Unknown: Yes Family Medical History: Deep Vein Thrombosis (DVT) Additional Family Medical History / Comment(s): Pt was adopted but recently found out mother had dvt L leg. Medications and Allergies Home Medications Medication Instructions Recorded Confirmed Type Albuterol Sulfate [Proair 2 puff INHALATION RT-Q4H PRN 05/10/16 08/06/19 History Respiclick] Hydrochlorothiazide [Hydrodiuril] 12.5 mg PO DAILY 02/24/18 08/06/19 History Metoprolol Tartrate [Lopressor] 50 mg PO BID 02/03/19 08/06/19 History Fluticasone/Umeclidin/Vilanter 1 puff INHALATION RT-DAILY 08/06/19 08/06/19 History [Tobias Ellipta 100-62.5-25] Allergies Allergy/AdvReac Type Severity Reaction Status Date / Time VASILE Inhibitors Allergy Swelling Verified 08/06/19 09:41 adhesive tape Allergy Itching Verified 08/06/19 09:41 cephalexin monohydrate Allergy Rash/Hives Verified 08/06/19 09:41 [From Keflex] latex Allergy Itching Verified 08/06/19 09:41 Physical Exam Vitals: Vital Signs Temp Pulse Pulse Resp BP BP Pulse Ox 08/06/19 16:00 98.4 F 87 19 138/74 96 08/06/19 12:00 76 18 08/06/19 09:51 98.8 F 76 18 181/73 97 08/06/19 09:50 98 F 76 183/75 96 08/06/19 09:31 76 18 181/73 97 08/06/19 08:10 169/67 08/06/19 06:00 67 19 167/69 99 08/06/19 04:07 98.8 F 81 20 169/74 96 Intake and Output 08/06/19 08/06/19 08/06/19 06:59 14:59 22:59 Intake Total 500 Balance 500 Intake: Amount of Fluid Infused ( 500 ml) Other: Voiding Method Toilet Toilet Toilet Weight 127.006 kg 127.006 kg General: [non toxic], [no distress], [appears at stated age] Derm: [warm], [dry] Head: [atraumatic], [normocephalic], [symmetric], [exquisite tenderness over the left frontal and maxillary sinus] Eyes: [EOMI], [no lid lag], [anicteric sclera] Mouth: [no lip lesion], [mucus membranes moist] Cardiovascular: [S1S2 reg], [no murmur], [positive DP pulse bilateral], Lungs: [Decreased breath sounds bilateral], [no rhonchi, no rales] , [no accessory muscle use] Abdominal: [soft], [ nontender to palpation], [no guarding], [no appreciable organomegaly] Ext: [no gross muscle atrophy], [no edema], [no contractures] Neuro: [ CN II-XI grossly intact], [no focal neuro deficits] Psych: [Alert], [oriented], [appropriate affect] Results CBC & Chem 7: 08/06/19 05:04 08/06/19 05:04 Labs: Abnormal Lab Results - Last 24 Hours (Table) 08/06/19 08/06/19 Range/Units 05:04 05:04 WBC 14.1 H (3.8-10.6) k/uL Neutrophils # 11.9 H (1.3-7.7) k/uL Sodium 135 L (137-145) mmol/L BUN 24 H (7-17) mg/dL Creatinine 1.07 H (0.52-1.04) mg/dL Glucose 209 H (74-99) mg/dL Total Bilirubin 1.5 H (0.2-1.3) mg/dL Thrombosis Risk Factor Assmnt - Choose All That Apply Any of the Below Risk Factors Present?: Yes Each Factor Represents 1 point: Obesity (BMI >25) Other Risk Factors: Yes Each Risk Factor Represents 2 Points: Age 61-74 years Other congenital or acquired thrombophilia - If yes, enter type in comment: No Thrombosis Risk Factor Assessment Total Risk Factor Score: 3 Thrombosis Risk Factor Assessment Level: Moderate Risk Assessment and Plan Assessment: Assessment and Plan Intractable nausea and vomiting likely related to postnasal drip Bacterial sinusitis Acute kidney injury Pelvic wall mass Asthma without exacerbation Hyperglycemia Leukocytosis Hypertension Her symptoms of dry heaving are likely related to postnasal drip. CT abdomen and pelvis showed no acute findings. Plans: Treatment for sinusitis. Zofran as needed for nausea or vomiting. Tylenol, Dilaudid as needed for epigastric pain. Continue Protonix IV. Continue normal saline at 75 mL per hour. Follow influenza screen. As seen on physical exam. Green nasal discharge. Plans: Start Rocephin 1 g IV daily. Start Mucinex. Tylenol as needed for fever and chills. Creatinine 1.07. Likely due to dehydration. Plans: IVF as above. Avoid nephrotoxins. Repeat BMP tomorrow morning. Discontinue hydrochlorothiazide for now. As seen on CT abdomen and pelvis. Plans: Need adequate follow-up in the outpatient setting for workup and to exclude malignancy. Plans: Albuterol neb scheduled for shortness of breath and wheezing. [id number] glucose 209. Possible component of diabetes mellitus? Plans: We will continue to monitor. Follow A1c. Start sliding scale if continues to be elevated. Leukocytosis of 14.1 with neutrophilia. Possible bacterial sinusitis? Plans: Repeat CBC tomorrow morning. Continue treatment for sinusitis as above. BP 138/74. Plans: Continue metoprolol. Monitor vitals, adjust medications as necessary. DVT prophylaxis: [SCD] Discussed with: [Patient and son] Anticipated discharge: [1-2 days] Anticipated discharge place: [Home] A total of [45] minutes was spent on the care of this complex patient more than 50% of the time was spent in counseling and care coordination. Patient names her son Arsalan decision-maker in the case that she can make decisions for herself. Patient reiterates wanting to remain full code at this time.
[2019-08-06] MEDS ORDERED: ALBUTEROL NEBULIZED 2.5 MG/3 ML INHALATION SCH (20:00)
[2019-08-06] MEDS: METOPROLOL TARTRATE 50 MG TAB PO SCH (22:16)
[2019-08-06] MEDS: guaiFENesin 600 MG TABLET.ER PO SCH (22:16)
[2019-08-07] MEDS: ALBUTEROL NEBULIZED 2.5 MG/3 ML INHALATION PRN ×5 (02:19→22:35)
[2019-08-07 02:28] LABS: Appearance,Urine Clear (Clear); Bilirubin,Urine Negative (Negative); Blood,Urine Trace (Negative); Color,Urine Yellow; Glucose,Urine (UA) Negative (Negative); Ketones,Urine Negative (Negative); Leukocyte Esterase,Urine Negative (Negative); Mucus,Urine Rare /hpf; Nitrite,Urine Negative (Negative); Protein,Urine Negative (Negative); RBC,Urine <1 /hpf (0-5); Specific Gravity,Urine 1.016 (1.001-1.035); Squamous Epithelial Cell,Urine 1 /hpf (0-4); WBC,Urine 1 /hpf (0-5)
[2019-08-07 07:32] LABS: Basophils # (A) 0.1 k/uL (0-0.2); Basophils % (A) 1 %; Eosinophils # (A) 0.1 k/uL (0-0.7); Eosinophils % (A) 0 %; HCT 41.6 % (34.0-46.0); HGB 13.7 gm/dL (11.4-16.0); Lymphocytes # (A) 1.2 k/uL (1.0-4.8); Lymphocytes % (A) 10 %; MCH 30.2 pg (25.0-35.0); MCHC 32.8 g/dL (31.0-37.0); Mean Platelet Volume 7.6; Monocytes # (A) 0.9 k/uL (0-1.0); Monocytes % (A) 7 %; Neutrophils # (A) 10.5 k/uL (1.3-7.7); Neutrophils % (A) 82 %; Platelet Count 260 k/uL (150-450); RBC 4.53 m/uL (3.80-5.40); WBC 12.8 k/uL (3.8-10.6)
[2019-08-07 07:41] LABS: Calcium 8.9 mg/dL (8.4-10.2); Potassium 3.7 mmol/L (3.5-5.1)
[2019-08-07] MEDS: PANTOPRAZOLE 40 MG/10 ML VIAL IV SCH (08:10)
[2019-08-07] MEDS ORDERED: PSEUDOEPHEDRINE 30 MG TAB PO PRN (11:05)
[2019-08-07] MEDS ORDERED: methylPREDNISolone SOD SUCCI 125 MG/2 ML VIAL IV STA (11:14)
[2019-08-07] MEDS: guaiFENesin 600 MG TABLET.ER PO SCH ×2 (11:16→20:08)
--- NOTE | 2019-08-07 11:23 | P.PN ---
Subjective Progress Note Date: 08/07/19 Principal diagnosis: Postnasal drip Patient was seen and examined. No acute events overnight. She reports intense nausea with dry heaving this morning. States that she is vomiting bile but also spitting up white sputum. Complains of worsening shortness of breath this morning. She denies any chest pain or palpitations. No fever or chills. Objective - Vital Signs Vital signs: Vital Signs Temp 97.6 F 08/07/19 08:00 Pulse 59 L 08/07/19 08:00 Resp 19 08/07/19 08:00 BP 172/71 08/07/19 08:00 Pulse Ox 95 08/07/19 08:00 Intake & Output 08/06/19 08/07/19 08/07/19 18:59 06:59 18:59 Intake Total 500 Balance 500 Weight 127.006 kg Intake: Amount of Fluid Infused ( 500 ml) Other: Voiding Method Toilet Toilet Toilet Diaper # Voids 1 3 - Exam General: [non toxic], [no distress], [appears at stated age] Derm: [warm], [dry] Head: [atraumatic], [normocephalic], [symmetric], [exquisite tenderness over the left frontal and maxillary sinus] Eyes: [EOMI], [no lid lag], [anicteric sclera] Mouth: [no lip lesion], [mucus membranes moist] Cardiovascular: [S1S2 reg], [no murmur], [positive DP pulse bilateral], Lungs: [And expiratory wheezing bilateral], [no rhonchi, no rales] , [no a ccessory muscle use] Abdominal: [soft], [ nontender to palpation], [no guarding], [no appreciable or ganomegaly] Ext: [no gross muscle atrophy], [no edema], [no contractures] Neuro: [no focal neuro deficits] Psych: [Alert], [oriented], [appropriate affect] - Labs CBC & Chem 7: 08/07/19 06:47 08/07/19 06:47 Labs: Abnormal Lab Results - Last 24 Hours (Table) 08/07/19 08/07/19 08/07/19 Range/Units 01:40 06:47 06:47 WBC 12.8 H (3.8-10.6) k/uL Neutrophils # 10.5 H (1.3-7.7) k/uL Sodium 136 L (137-145) mmol/L BUN 21 H (7-17) mg/dL Glucose 139 H (74-99) mg/dL Urine Blood Trace H (Negative) Urine Mucus Rare H (None) /hpf Assessment and Plan Assessment: Assessment and Plan Intractable nausea and vomiting likely related to postnasal drip Bacterial sinusitis Asthma exacerbation Pelvic wall mass Hyperglycemia Leukocytosis Hypertension Her symptoms of dry heaving are likely related to postnasal drip. CT abdomen and pelvis showed no acute findings. Influenza negative. Plans: Treatment for sinusitis. Zofran as needed for nausea or vomiting. Tylenol, Dilaudid as needed for epigastric pain. Continue Protonix IV. Continue normal saline at 75 mL per hour. As seen on physical exam. Green nasal discharge. Plans: Start Rocephin 1 g IV daily. Start Mucinex. Tylenol as needed for fever and chills. Will attempt Sudafed along with scopolamine patch for better control of secretions. Plans: Albuterol neb scheduled for shortness of breath and wheezing. Start Solu -Medrol 125 mg 1. As seen on CT abdomen and pelvis. Plans: Need adequate follow-up in the outpatient setting for workup and to exclude malignancy. [id number] glucose 139. Possible component of diabetes mellitus? Plans: We will continue to monitor. Follow A1c. Start sliding scale if continues to be elevated. Leukocytosis of 14.1-12.8 with neutrophilia. Possible bacterial sinusitis? Plans: Repeat CBC tomorrow morning. Continue treatment for sinusitis as above. BP 172/71. Plans: Continue metoprolol. Monitor vitals, adjust medications as necessary. [Patient has not had much improvement since admission. Started wheezing this morning. DuoNeb and Solu-Medrol ordered. Attempt to control secretions with scopolamine and Sudafed. Possible DC this afternoon or tomorrow if symptoms are improved and patient is able to tolerate intake by mouth.]
[2019-08-07] MEDS: METOPROLOL TARTRATE 50 MG TAB PO SCH ×2 (11:25→20:10)
[2019-08-07] MEDS: HYDROmorphone 0.5 MG/0.5 ML SYRINGE IVP PRN (11:33)
[2019-08-07] MEDS ORDERED: SCOPOLAMINE 1.5MG/72HR PATCH TRANSDERM SCH (12:00)
[2019-08-07 14:36] LABS: Hemoglobin A1C 5.1 % (4.0-6.0)
[2019-08-07] MEDS: SODIUM CHLORIDE 0.9% 1,000 ML IV SCH (20:08)
[2019-08-08] MEDS: ALBUTEROL NEBULIZED 2.5 MG/3 ML INHALATION PRN (03:51)
[2019-08-08] MEDS: SODIUM CHLORIDE 0.9% 1,000 ML IV SCH (05:50)
[2019-08-08 07:37] VITALS: BP 150/78; PULSE 56; RESP 18; TEMP 97.7
[2019-08-08] MEDS: guaiFENesin 600 MG TABLET.ER PO SCH (09:16)
[2019-08-08] MEDS: PANTOPRAZOLE 40 MG/10 ML VIAL IV SCH (09:16)
[2019-08-08] MEDS: METOPROLOL TARTRATE 50 MG TAB PO SCH (09:16)
--- NOTE | 2019-08-08 09:16 | P.DS ---
Providers Date of admission: 08/06/19 08:42 Expected date of discharge: 08/08/19 Attending physician: Sruthi Luz MD Primary care physician: Jessica [facility] Course: 68-year-old female with PMH of asthma and hypertension presents the ED for intractable nausea and vomiting. Patient reports suffering symptoms of a sinus infection 2 weeks prior to admission. Patient characterized the sinus infection as green nasal discharge, rhinorrhea and frontal headache. Patient states that her sinus infection I her asthma flaring up. Patient states that she has been having coughing fits that eventually leads to dry heaving and vomiting. Patient reports multiple episodes of bilious vomiting without blood since last . Her vomitus also includes the green sputum. Patient reports 10-12 episodes of vomiting yesterday that prompted her to come to the ED. She has not taken any medication for her sinus infection. 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 Patient reports a history of DVT in the left leg for which she has completed anticoagulation therapy. Patient also complains of epigastric discomfort described as soreness but only occurs with retching and vomiting. She denies any fever or chills, chest pain, shortness of breath, palpitations, changes in urination or bowel habits. No changes in appetite or weight. She denies any dizziness, numbness/weakness/tingling of the extremities. In the ED, vital signs are stable except for BP of 181/73. CBC showed leukocytosis of 14.1. CMP showed sodium 135, BUN 24, creatinine 1.07, glucose 209, total bilirubin of 1.5. Amylase and lipase is negative. CT of the abdomen and pelvis was performed which showed scattered diverticulosis, calcified fibroids, irregular soft tissue density in the anterior pelvic wall 1.8 x 2.6 x 2.8 cm. Patient is admitted under observation for intractable nausea and vomiting. Her nausea and vomiting was thought to be secondary to postnasal drip. Influenza was negative. She was started on Zofran as needed for nausea or vomiting. Her epigastric pain was controlled with Tylenol and Dilaudid. She was given Protonix IV. Patient was treated for sinusitis. She was started on Rocephin and transitioned to Augmentin on discharge. She was given Mucinex which did not improve her symptoms. Patient was given Sudafed and scopolamine patch on day 2 of admission for better control of secretions. Patient was noted to have wheezing during her hospitalization for which she was treated with albuterol neb treatments scheduled. She was given Solu-Medrol IV and transitioned to prednisone on discharge. CT abdomen and pelvis showed an irregular pelvic wall mass was thought to be postoperative changes. Patient did report a history of ventral hernia that was repaired in the past. She was advised to follow-up with her PCP for further workup of this mass. Patient was seen and examined. No acute events overnight. Patient reports significant improvement in her symptoms. She denies any nausea or vomiting. Abdominal pain is resolved. States that her secretions are much better controlled today than the previous last 2 days. She denies any chest pain, shortness of breath or palpitations. General: [non toxic], [no distress], [appears at stated age] Derm: [warm], [dry] Head: [atraumatic], [normocephalic], [symmetric], [exquisite tenderness over the left frontal and maxillary sinus] Eyes: [EOMI], [no lid lag], [anicteric sclera] Mouth: [no lip lesion], [mucus membranes moist] Cardiovascular: [S1S2 reg], [no murmur], [positive DP pulse bilateral], Lungs: [And expiratory wheezing bilateral], [no rhonchi, no rales] , [no accessory muscle use] Abdominal: [soft], [ nontender to palpation], [no guarding], [no appreciable organomegaly] Ext: [no gross muscle atrophy], [no edema], [no contractures] Neuro: [no focal neuro deficits] Psych: [Alert], [oriented], [appropriate affect] Assessment and Plan Intractable nausea and vomiting likely related to postnasal drip Bacterial sinusitis Asthma exacerbation Pelvic wall mass Hyperglycemia Leukocytosis Hypertension Her symptoms of dry heaving are likely related to postnasal drip. CT abdomen and pelvis showed no acute findings. Influenza negative. Plans: Treatment for sinusitis. Zofran as needed for nausea or vomiting. Tylenol, Dilaudid as needed for epigastric pain. Continue Protonix IV. Continue normal saline at 75 mL per hour. As seen on physical exam. Green nasal discharge. Plans: Transition Rocephin to Augmentin. Start Mucinex. Tylenol as needed for fever and chills. Will attempt Sudafed along with scopolamine patch for better control of secretions. Plans: Albuterol neb scheduled for shortness of breath and wheezing. Given 1 dose of Solu-Medrol, will transition to prednisone on discharge. As seen on CT abdomen and pelvis. Plans: Need adequate follow-up in the outpatient setting for workup and to exclude malignancy. [id number]-[id number] glucose 139. A1c within normal limits. Plans: We will continue to monitor. Start sliding scale if continues to be elevated. Leukocytosis of 14.1-12.8 with neutrophilia. Possible bacterial sinusitis? Plans: Continue treatment for sinusitis as above. Also on steroids. BP 150/78. Plans: Continue metoprolol. Monitor vitals, adjust medications as necessary. [Symptoms are improved. We will attempt to get albuterol neb treatments along with prednisone, Augmentin and scopolamine patch to patient prior to discharge. Has neb machine at home.] Pertinent Studies: CT abdomen and pelvis Patient Condition at Discharge: Stable Plan - Discharge Summary Discharge Rx Participant: No New Discharge Prescriptions: New Amoxic-Pot Clav 875-125Mg [Augmentin 875-125] 1 tab PO BID 5 Days #10 tab guaiFENesin [Mucinex] 1,200 mg PO Q12HR tablet.er predniSONE 50 mg PO DAILY #4 tablet Pseudoephedrine [Sudafed] 30 mg PO Q4HR PRN tab PRN Reason: Nasal Congestion Scopolamine 1.5MG/72Hr Patch [TransDerm Scop] 1 patch TRANSDERM Q72H #3 patch Albuterol Nebulized [Ventolin Nebulized] 2.5 mg INHALATION RT-Q4H PRN #30 nebu PRN Reason: Shortness Of Breath Continue Albuterol Sulfate [Proair Respiclick] 2 puff INHALATION RT-Q4H PRN PRN Reason: Shortness Of Breath Hydrochlorothiazide [Hydrodiuril] 12.5 mg PO DAILY Metoprolol Tartrate [Lopressor] 50 mg PO BID Fluticasone/Umeclidin/Vilanter [Trelegy Ellipta 100-62.5-25] 1 puff INHALATION RT-DAILY Discharge Medication List Albuterol Sulfate [Proair Respiclick] 2 puff INHALATION RT-Q4H PRN 05/10/16 [History] Hydrochlorothiazide [Hydrodiuril] 12.5 mg PO DAILY 02/24/18 [History] Metoprolol Tartrate [Lopressor] 50 mg PO BID 02/03/19 [History] Fluticasone/Umeclidin/Vilanter [Trelegy Ellipta 100-62.5-25] 1 puff INHALATION RT-DAILY 08/06/19 [History] Albuterol Nebulized [Ventolin Nebulized] 2.5 mg INHALATION RT-Q4H PRN #30 nebu 08/08/19 [Rx] Amoxic-Pot Clav 875-125Mg [Augmentin 875-125] 1 tab PO BID 5 Days #10 tab 08/08/19 [Rx] Pseudoephedrine [Sudafed] 30 mg PO Q4HR PRN tab 08/08/19 [Rx] Scopolamine 1.5MG/72Hr Patch [TransDerm Scop] 1 patch TRANSDERM Q72H #3 patch 08/08/19 [Rx] guaiFENesin [Mucinex] 1,200 mg PO Q12HR tablet.er 08/08/19 [Rx] predniSONE 50 mg PO DAILY #4 tablet 08/08/19 [Rx] Follow up Appointment(s)/Referral(s): Jessica Reyes MD [Primary Care Provider] - 1-2 days Activity/Diet/Wound Care/Special Instructions: diet: Low-salt Follow-up PCP within 3 days of discharge. Take all medications as advised. Discharge Disposition: HOME SELF-CARE
== END 2019-08-08 11:50 | disposition home or self-care (01) ==
LOC: EC 03:58 → 1SOBS 08:42
PROVIDERS: ADMIT Family Medicine; ATTEND Family Medicine
DX: R11.2 Nausea with vomiting, unspecified (principal); J32.9 Chronic sinusitis, unspecified; B96.89 Other specified bacterial agents as the cause of diseases classified elsewhere; D72.829 Elevated white blood cell count, unspecified; J45.901 Unspecified asthma with (acute) exacerbation; R19.09 Other intra-abdominal and pelvic swelling, mass and lump; K57.30 Diverticulosis of large intestine without perforation or abscess without bleeding; D25.9 Leiomyoma of uterus, unspecified; E78.5 Hyperlipidemia, unspecified; I10 Essential (primary) hypertension; E66.9 Obesity, unspecified; Z68.42 Body mass index [BMI] 45.0-49.9, adult; Z98.890 Other specified postprocedural states; Z79.51 Long term (current) use of inhaled steroids; Z79.899 Other long term (current) drug therapy; Z79.01 Long term (current) use of anticoagulants; Z88.8 Allergy status to other drugs, medicaments and biological substances; Z88.1 Allergy status to other antibiotic agents; Z91.09 Other allergy status, other than to drugs and biological substances; Z91.040 Latex allergy status; Z87.01 Personal history of pneumonia (recurrent); Z87.2 Personal history of diseases of the skin and subcutaneous tissue; Z87.81 Personal history of (healed) traumatic fracture; Z90.49 Acquired absence of other specified parts of digestive tract; Z91.89 Other specified personal risk factors, not elsewhere classified; Z86.718 Personal history of other venous thrombosis and embolism; Z86.79 Personal history of other diseases of the circulatory system; Z87.11 Personal history of peptic ulcer disease; Z95.820 Peripheral vascular angioplasty status with implants and grafts; Z82.49 Family history of ischemic heart disease and other diseases of the circulatory system
CPT/HCPCS: 96361 ×3; 96365; 96375 ×3; 96376 ×3; 99285; 36415; 94640 ×4; 80053; 80048; 82150; 83690; 85025 ×2; 81001; 87502; 83036; 74176; G0378 ×3; J2270; J2550; J2930; J2405 ×2; J0696 ×3; C9113 ×3; J1170 ×2

== ENCOUNTER 2019-08-15 16:19 | Observation (INO) | payer MEDICARE ==
[2019-08-15] MEDS ORDERED: SODIUM CHLORIDE 0.9% 1,000 ML IV STA (16:31)
[2019-08-15] MEDS ORDERED: ONDANSETRON 4 MG/2 ML VIAL IVP STA (16:31)
--- NOTE | 2019-08-15 16:35 | ED ---
General Adult HPI - General Chief complaint: Dizziness Stated complaint: Weakness, nausea, vomiting, diarrhea Time Seen by Provider: 08/15/19 16:22 Source: patient Mode of arrival: EMS Limitations: no limitations - History of Present Illness Initial comments: Patient presents the ED by ambulance for evaluation with her son at bedside. Patient states that she has had nausea, vomiting and diarrhea for the past 2.5-3 weeks or so. Patient states that she was admitted to the hospital last week for these symptoms, and she states that her symptoms never resolved. Patient also states that she was diagnosed and treated for a sinus infection, and she states that she continues to have sinus pressure, a headache, and post-nasal drip. She also states that she feels dizzy when ambulating, and she feels generally weak. Patient denies known sick contact or recent travel abroad. Patient denies trauma or injury, sudden onset of headache, LOC, neck pain or stiffness, fever or chills, focal numbness/weakness/neuro deficit, visual changes, speech difficu lty, chest pain, cough, dyspnea, palpitations, syncope, abdominal pain, back or flank pain, bloody or melanotic stool, dysuria/hematuria/urinary frequency/urinary symptoms, or any other symptoms or complaints. - Related Data Home Medications Medication Instructions Recorded Confirmed Albuterol Sulfate [Proair 2 puff INHALATION RT-Q4H PRN 05/10/16 08/06/19 Respiclick] Hydrochlorothiazide [Hydrodiuril] 12.5 mg PO DAILY 02/24/18 08/06/19 Metoprolol Tartrate [Lopressor] 50 mg PO BID 02/03/19 08/06/19 Fluticasone/Umeclidin/Vilanter 1 puff INHALATION RT-DAILY 08/06/19 08/06/19 [Trelegy Ellipta 100-62.5-25] Previous Rx's Medication Instructions Recorded Albuterol Nebulized [Ventolin 2.5 mg INHALATION RT-Q4H PRN #30 08/08/19 Nebulized] nebu Amoxic-Pot Clav 875-125Mg 1 tab PO BID 5 Days #10 tab 08/08/19 [Augmentin 875-125] Pseudoephedrine [Sudafed] 30 mg PO Q4HR PRN tab 08/08/19 Scopolamine 1.5MG/72Hr Patch 1 patch TRANSDERM Q72H #3 patch 08/08/19 [TransDerm Scop] guaiFENesin [Mucinex] 1,200 mg PO Q12HR tablet.er 08/08/19 predniSONE 50 mg PO DAILY #4 tablet 08/08/19 Allergies Allergy/AdvReac Type Severity Reaction Status Date / Time VASILE Inhibitors Allergy Swelling Verified 08/06/19 09:41 adhesive tape Allergy Itching Verified 08/06/19 09:41 cephalexin monohydrate Allergy Rash/Hives Verified 08/06/19 09:41 [From Keflex] latex Allergy Itching Verified 08/06/19 09:41 Review of Systems ROS Statement: Those systems with pertinent positive or pertinent negative responses have been documented in the HPI. ROS Other: All systems not noted in ROS Statement are negative. Past Medical History Past Medical History: Asthma, Deep Vein Thrombosis (DVT), Hyperlipidemia, Hypertension, Pneumonia, Skin Disorder, Vascular Disorder Additional Past Medical History / Comment(s): DVT left leg, decreased circulat ion bilateral legs, PUD, red/itchy skin d/t allergies, cellulitis L lower leg. History of Any Multi-Drug Resistant Organisms: None Reported Past Surgical History: Appendectomy, Section, Cholecystectomy, Hernia Repair, Orthopedic Surgery Additional Past Surgical History / Comment(s): Stent to L leg, ventral hernia r epair, R knee arthroscopy. Past Anesthesia/Blood Transfusion Reactions: Postoperative Nausea & Vomiting (PONV) Past Psychological History: No Psychological Hx Reported Smoking Status: Never smoker Past Alcohol Use History: None Reported Past Drug Use History: None Reported - Past Family History Father History Unknown: Yes Additional Family Medical History / Comment(s): adopted Mother History Unknown: Yes Family Medical History: Deep Vein Thrombosis (DVT) Additional Family Medical History / Comment(s): Pt was adopted but recently found out mother had dvt L leg. General Exam Limitations: no limitations General appearance: alert, in no apparent distress Head exam: Present: atraumatic, normocephalic Eye exam: Present: normal appearance, PERRL, EOMI ENT exam: Present: mucous membranes dry Neck exam: Present: other (Trachea is in midline). Absent: tenderness, meningismus Respiratory exam: Present: normal lung sounds bilaterally. Absent: respiratory distress, wheezes, rales, rhonchi Cardiovascular Exam: Present: regular rate, normal rhythm, normal heart sounds, other (Normal radial pulses bilaterally) GI/Abdominal exam: Present: soft, normal bowel sounds. Absent: distended, tenderness, guarding Extremities exam: Absent: tenderness, pedal edema, calf tenderness Neurological exam: Present: alert, oriented X3, CN II-XII intact. Absent: motor sensory deficit Psychiatric exam: Present: normal affect, normal mood Skin exam: Present: warm, dry, intact, normal color Course Vital Signs 08/15/19 08/15/19 08/15/19 16:20 17:04 18:51 Temperature 99.2 F Pulse Rate 95 86 91 Respiratory 16 18 18 Rate Blood Pressure 93/72 125/67 120/52 O2 Sat by Pulse 98 95 98 Oximetry - Reevaluation(s) Reevaluation #1: 08/15/19 19:06 Patient states that her symptoms have improved somewhat with ED treatment, and she states that she has not had any vomiting while in the ED. Patient and son are aware of the patient's test results. Patient's abdomen remains soft and nontender on exam. Patient states that she still does not feel well enough to go home, and she prefers that she be admitted to the hospital at this time. 08/15/19 19:30 Case, H&P, test results and ED management were discussed with Dr. Pascual. He accepts hospital floor admission. He has no further recommendations at this time. EKG Findings - EKG Comments: EKG Findings:: Normal sinus rhythm, ventricular rate of 95 bpm, no ectopy, normal AR and QRS intervals, normal QT interval, normal axis, no ST or T-wave abnormality Medical Decision Making - Medical Decision Making Patient reports improvement in her symptoms with ED treatment, but she states that she still does not feel comfortable going home. Patient refused to provide a urine specimen while in the ED. Patient has a leukocytosis of 16,000. Patient's abdomen is soft and nontender on exam. Patient's CT abdomen and pelvis with IV contrast shows findings suggestive of enteritis, which is what I suspect may be the etiology of her symptoms. Dr. Pascual has accepted hospital admission. - Lab Data Result diagrams: 08/15/19 16:23 08/15/19 16:23 Lab Results 08/15/19 08/15/19 08/15/19 Range/Units 16:23 16:23 16:23 WBC 16.6 H (3.8-10.6) k/uL RBC 4.87 (3.80-5.40) m/uL Hgb 14.8 (11.4-16.0) gm/dL Hct 42.9 (34.0-46.0) % MCV 88.2 (80.0-100.0) fL MCH 30.4 (25.0-35.0) pg MCHC 34.4 (31.0-37.0) g/dL RDW 12.6 (11.5-15.5) % Plt Count 255 (150-450) k/uL Neutrophils % 77 % Lymphocytes % 15 % Monocytes % 3 % Eosinophils % 3 % Basophils % 1 % Neutrophils # 12.7 H (1.3-7.7) k/uL Lymphocytes # 2.5 (1.0-4.8) k/uL Monocytes # 0.5 (0-1.0) k/uL Eosinophils # 0.6 (0-0.7) k/uL Basophils # 0.1 (0-0.2) k/uL Sodium 133 L (137-145) mmol/L Potassium 3.4 L (3.5-5.1) mmol/L Chloride 97 L (98-107) mmol/L Carbon Dioxide 26 (22-30) mmol/L Anion Gap 10 mmol/L BUN 16 (7-17) mg/dL Creatinine 1.03 (0.52-1.04) mg/dL Est GFR (CKD-EPI)AfAm 64 (>60 ml/min/1.73 sqM) Est GFR (CKD-EPI)NonAf 56 (>60 ml/min/1.73 sqM) Glucose 100 H (74-99) mg/dL Calcium 8.5 (8.4-10.2) mg/dL Total Bilirubin 1.5 H (0.2-1.3) mg/dL AST 27 (14-36) U/L ALT 17 (4-34) U/L Alkaline Phosphatase 83 (38-126) U/L Troponin I <0.012 (0.000-0.034) ng/mL Total Protein 6.4 (6.3-8.2) g/dL Albumin 3.5 (3.5-5.0) g/dL Lipase 100 (23-300) U/L - Radiology Data Radiology results: report reviewed ( Noncontrast head CT shows no acute abnormality, stable findings, nonspecific white matter demyelination, extensive sinus disease; CT abdomen and pelvis with IV contrast shows "correlate for enteritis") Disposition Clinical Impression: Nausea and vomiting, Diarrhea, Sinusitis Disposition: ADMITTED IP TO THIS HOSP Condition: Stable Is patient prescribed a controlled substance at d/c from ED?: No Referrals: Jessica Reyes MD [Primary Care Provider] - 1-2 days Time of Disposition: 19:30
[2019-08-15 16:56] LABS: Basophils # (A) 0.1 k/uL (0-0.2); Basophils % (A) 1 %; Eosinophils # (A) 0.6 k/uL (0-0.7); Eosinophils % (A) 3 %; HCT 42.9 % (34.0-46.0); HGB 14.8 gm/dL (11.4-16.0); Lymphocytes # (A) 2.5 k/uL (1.0-4.8); Lymphocytes % (A) 15 %; MCH 30.4 pg (25.0-35.0); MCHC 34.4 g/dL (31.0-37.0); MCV 88.2 fL (80.0-100.0); Mean Platelet Volume 7.9; Monocytes # (A) 0.5 k/uL (0-1.0); Monocytes % (A) 3 %; Neutrophils # (A) 12.7 k/uL (1.3-7.7); Neutrophils % (A) 77 %; Platelet Count 255 k/uL (150-450); RBC 4.87 m/uL (3.80-5.40); RDW 12.6 % (11.5-15.5); WBC 16.6 k/uL (3.8-10.6)
[2019-08-15 17:04] LABS: Potassium 3.4 mmol/L (3.5-5.1)
[2019-08-15 17:05] LABS: Albumin 3.5 g/dL (3.5-5.0); Calcium 8.5 mg/dL (8.4-10.2); Total Bilirubin 1.5 mg/dL (0.2-1.3); Total Protein 6.4 g/dL (6.3-8.2)
--- NOTE | 2019-08-15 18:07 | CT ---
EXAMINATION TYPE: CT brain wo con DATE OF EXAM: 08/15/2019 COMPARISON: Prior CT brain 03/02/2018 HISTORY: Dizziness, headaches and vomiting. CT DLP: 1099.4 mGycm Automated exposure control for dose reduction was used. Head CT using departmental protocol FINDINGS: Bilateral maxillary sinus disease, ethmoid air cells and sphenoid sinus, frontal sinus disease again noted. There is no hemorrhage or hydrocephalus. White matter demyelination changes are again noted. C alvarium is intact. IMPRESSION: STABLE FINDINGS. NO ACUTE ABNORMALITY. NONSPECIFIC WHITE MATTER DEMYELINATION. EXTENSIVE SINUS DISEAS E.
--- NOTE | 2019-08-15 18:48 | CT ---
EXAMINATION TYPE: CT abdomen pelvis w con DATE OF EXAM: 08/15/2019 COMPARISON: HISTORY: Nausea, vomiting and diarrhea. CT DLP: 2604.1 mGycm Automated exposure control for dose reduction was used. TECHNIQUE: Helical acquisition of images from the lung bases through the pelvis have been completed. CONTRAST: Performed without Oral Contrast and with IV Contrast, patient injected with 80ml mL of Isovue 300. FINDINGS: LUNG BASES: No significant abnormality is appreciated. AORTA: No significant abnormality is appreciated. Common iliac stent again noted in the left iliac v ein as on prior LIVER/GB: Liver shows low attenuation likely due to hepatic steatosis, patient is post cholecystectom y.. PANCREAS: No significant abnormality is seen. SPLEEN: No significant abnormality is seen. ADRENALS: No significant abnormality is seen. KIDNEYS: No significant abnormality is seen. REPRODUCTIVE ORGANS: Calcified fibroids associated with the uterus as on prior. BOWEL: Diverticular changes associated with the colon. Fluid-filled loops of small bowel are present , there is bowel wall thickening. No evident appendicitis. FREE AIR: No Free Air visible. ASCITES: None visible. PELVIC ADENOPATHY: None visualized. RETROPERITONEAL ADENOPATHY: No Retroperitoneal Adenopathy visible. URINARY BLADDER: No significant abnormality is seen. OSSEOUS STRUCTURES: No significant interval change is seen. IMPRESSION: CORRELATE FOR ENTERITIS
[2019-08-15] MEDS ORDERED: ONDANSETRON 4 MG/2 ML VIAL IVP PRN (19:34)
[2019-08-15] MEDS ORDERED: ALBUTEROL NEBULIZED 2.5 MG/3 ML INHALATION PRN (19:36)
[2019-08-15] MEDS: SODIUM CHLORIDE 0.9% 1,000 ML IV SCH (19:48)
[2019-08-15] MEDS: METOPROLOL TARTRATE 50 MG TAB PO SCH (20:15)
[2019-08-15] MEDS ORDERED: IBUPROFEN 600 MG TAB PO PRN (20:18)
[2019-08-15] MEDS ORDERED: POTASSIUM CHLORIDE ER 20 MEQ TAB.ER PO STA (20:20)
[2019-08-15] MEDS ORDERED: KETOROLAC 30 MG/ML 1 ML VIAL IVP STA (20:33)
[2019-08-15] MEDS ORDERED: KETOROLAC 30 MG/ML 1 ML VIAL IVP PRN (21:03)
[2019-08-15] MEDS ORDERED: SODIUM CHLORIDE 0.65% NASAL SPRAY 44 ML BTL NASAL PRN (21:05)
--- NOTE | 2019-08-15 21:20 | P.HPIM ---
History of Present Illness H&P Date: 08/15/19 Chief Complaint: repeated nausea and vomiting 68-year-old female with history of hypertension, asthma, DVT, hyperlipidemia patient comes in today due to refractory nausea vomiting for the past 3 weeks and getting worse over the past few days. Patient was unable to keep anything down including medications. Her symptoms started as upper respiratory infection like symptoms with severe sinusitis later on she was admitted to the hospital a week ago and was discharged few days ago. Where she was diagnosed with acute sinusitis and was given antibiotics. She denies any sick contact or recent traveling. She was with family around Thanksgiving time and none of them is s ick she got sick the week and after. Currently she lives with her son who is starting to have similar symptoms to her. Patient reports severe sinus pain with frontal headaches rated as 8 out of 10 in severity throbbing pain nonradiating not associated with any changes in vision or hearing. This has been associated with greenish mucus secretions and discharge. Over the past few days she's been vomiting began having diarrhea multiple times during the day her vomiting consisted of stomach juices and greenish mucus. Her diarrhea consist of forever Jell-O she is eating. Denies any blood or melena. Denies any abdominal pain. Denies any fevers but she is having chills. She is becoming very weak over the past couple days she is unable to stand up or walk due to severe weakness. For which she decided come to the hospital and get evaluated since discharge she wasn't really able to take any of her medications due to the severe nausea and vomiting. In the EDcomputed tomography scan of the head confirmed sinus disease, and CT of the abdomen suggested possible antritis , reidentified pelvic wall mass of 1.82.62.8 could be related to ventral hernia surgery in the past Review of Systems Pertinent positives as noted in HPI. All other systems were reviewed and are negative Past Medical History Past Medical History: Asthma, Deep Vein Thrombosis (DVT), Hyperlipidemia, Hypertension, Pneumonia, Skin Disorder, Vascular Disorder Additional Past Medical History / Comment(s): DVT left leg, decreased circulation bilateral legs, PUD, red/itchy skin d/t allergies, cellulitis L lower leg. History of Any Multi-Drug Resistant Organisms: None Reported Past Surgical History: Appendectomy, Section, Cholecystectomy, Hernia Repair, Orthopedic Surgery Additional Past Surgical History / Comment(s): Stent to L leg, ventral hernia repair, R knee arthroscopy. Past Anesthesia/Blood Transfusion Reactions: Postoperative Nausea & Vomiting (PONV) Past Psychological History: No Psychological Hx Reported Additional Psychological History / Comment(s): Pt has adult son residing with her. Works at a physician's office. No experience. No recent travel. No animal exposures. No assistive device. Pt drives. Smoking Status: Never smoker Past Alcohol Use History: None Reported Past Drug Use History: None Reported - Past Family History Father History Unknown: Yes Additional Family Medical History / Comment(s): adopted Mother History Unknown: Yes Family Medical History: Deep Vein Thrombosis (DVT) Additional Family Medical History / Comment(s): Pt was adopted but recently found out mother had dvt L leg. Medications and Allergies Home Medications Medication Instructions Recorded Confirmed Type Albuterol Sulfate [Proair 2 puff INHALATION RT-Q4H PRN 05/10/16 08/15/19 History Respiclick] Hydrochlorothiazide [Hydrodiuril] 12.5 mg PO DAILY 02/24/18 08/15/19 History Metoprolol Tartrate [Lopressor] 50 mg PO BID 02/03/19 08/15/19 History Fluticasone/Umeclidin/Vilanter 1 puff INHALATION RT-DAILY 08/06/19 08/15/19 History [Trelegy Ellipta 100-62.5-25] Albuterol Nebulized [Ventolin 2.5 mg INHALATION RT-Q4H PRN #30 08/08/19 08/15/19 Rx Nebulized] nebu Pseudoephedrine [Sudafed] 30 mg PO Q4HR PRN tab 08/08/19 08/15/19 Rx Scopolamine 1.5MG/72Hr Patch 1 patch TRANSDERM Q72H #3 patch 08/08/19 08/15/19 Rx [TransDerm Scop] guaiFENesin [Mucinex] 1,200 mg PO Q12HR tablet.er 08/08/19 08/15/19 Rx Allergies Allergy/AdvReac Type Severity Reaction Status Date / Time VASILE Inhibitors Allergy Swelling Verified 08/15/19 19:49 adhesive tape Allergy Itching Verified 08/15/19 19:49 cephalexin monohydrate Allergy Rash/Hives Verified 08/15/19 19:49 [From Keflex] latex Allergy Itching Verified 08/15/19 19:49 Physical Exam Vitals: Vital Signs Temp Pulse Pulse Resp BP BP Pulse Ox 08/15/19 20:12 98.1 F 104 H 18 116/72 98 08/15/19 18:51 91 18 120/52 98 08/15/19 17:04 86 18 125/67 95 08/15/19 16:20 99.2 F 95 16 93/72 98 Intake and Output 08/15/19 08/15/19 08/15/19 06:59 14:59 22:59 Other: Weight 127.006 kg Constitutional: No acute distress, conversant, pleasant Eyes: Anicteric sclerae, moist conjunctiva, no lid-lag Pupils equal round reactive to light ENMT: NC/AT Oropharynx clear, no erythema, exudates Neck: Supple, FROM, no masses, or JVD No carotid bruits No thyromegaly Lungs: Clear to auscultation Clear to percussion Normal respiratory effort, no accessory muscle use Cardiovascular: Heart regular in rate and rhythm, No murmurs, gallops, or rubs No peripheral edema Abdominal: Soft Nontender, no guarding, rebound or rigidity Abdomen moving with respiration Normoactive bowel sounds No hepatomegaly, No splenomegaly No palpable mass No abdominal wall hernia noted Skin: skin over her abdomen and upper thighslooks darker than the rest of her body, with macular areas of hypopigmentation. Otherwise,Normal temperature, tone, texture, turgor No induration No subcutaneous nodules No rash, lesions No ulcers Extremities: No digital cyanosis No clubbing Pedal pulses intact and symmetrical Radial pulses intact and symmetrical No calf tenderness Psychiatric: Alert and oriented to person, place and time Appropriate affect fair judgment Neuro Muscles Strength 5/5 in all 4 extremities Sensation to light touch grossly present throughout Cranial nerves II-XII grossly intact No focal sensory deficits Lymphatics: no palpable cervical or supraclavicular , or inguinal lymph nodes Results CBC & Chem 7: 08/15/19 16:23 08/15/19 16:23 Labs: Abnormal Lab Results - Last 24 Hours (Table) 08/15/19 08/15/19 Range/Units 16:23 16:23 WBC 16.6 H (3.8-10.6) k/uL Neutrophils # 12.7 H (1.3-7.7) k/uL Sodium 133 L (137-145) mmol/L Potassium 3.4 L (3.5-5.1) mmol/L Chloride 97 L (98-107) mmol/L Glucose 100 H (74-99) mg/dL Total Bilirubin 1.5 H (0.2-1.3) mg/dL Thrombosis Risk Factor Assmnt - Choose All That Apply Each Factor Represents 1 point: Obesity (BMI >25) Each Risk Factor Represents 2 Points: Age 61-74 years Thrombosis Risk Factor Assessment Total Risk Factor Score: 3 Thrombosis Risk Factor Assessment Level: Moderate Risk Assessment and Plan Assessment: 68-year-old female with history of asthma hypertension DVT and hyperlipidemia Patient comes in due to refractory nausea and vomiting and diarrhea resulting in generalized weakness patient unable to keep anything down she's been sick for 2- 3 weeks now. Comes in today seeking help. Admitted under observation with an ticipated length of stay less than 2 midnights Plan: refractory nausea and vomiting acute sinusitis generalized weakness diarrhea mild hyperkalemia supportive care IV fluid hydration Pain control Symptomatic control of nausea vomiting Continue with Augmentin PPI Replace potassium Check magnesium level Check stool for C. diff, culture, white counts, Gram stain chronic conditions mod persistent asthma hypertension hyperlipidemia history of DVT DVT PPX heparin sc tid Preformed a thorough record review from recent hospitalization for acute sinusitis CODE STATUS:full code Discussed with: Patient, ER, RN Anticipated length of stay < than [address]: home A total of 60 minutes was spent on the care of this complex patient more than 50% of the time was spent in counseling and care coordination.
[2019-08-15] MEDS: HEPARIN SODIUM,PORCINE 5,000 UNIT/ML 1 ML VIAL SQ SCH (23:04)
[2019-08-15] MEDS: AMOXIC-POT CLAV 875-125MG 1 EACH TAB PO SCH (23:04)
[2019-08-16] MEDS: SODIUM CHLORIDE 0.9% 1,000 ML IV SCH (01:38)
[2019-08-16 01:43] LABS: Appearance,Urine Clear (Clear); Bilirubin,Urine Negative (Negative); Blood,Urine Negative (Negative); Color,Urine Yellow; Glucose,Urine (UA) Negative (Negative); Ketones,Urine Negative (Negative); Leukocyte Esterase,Urine Small (Negative); Mucus,Urine Rare /hpf; Nitrite,Urine Negative (Negative); Protein,Urine Trace (Negative); RBC,Urine 4 /hpf (0-5); Squamous Epithelial Cell,Urine 1 /hpf (0-4); WBC,Urine 8 /hpf (0-5)
[2019-08-16 05:35] LABS: Basophils % (A) 0 %; Eosinophils # (A) 0.6 k/uL (0-0.7); Eosinophils % (A) 4 %; HCT 36.2 % (34.0-46.0); HGB 12.2 gm/dL (11.4-16.0); Lymphocytes # (A) 2.2 k/uL (1.0-4.8); Lymphocytes % (A) 16 %; MCH 30.2 pg (25.0-35.0); MCHC 33.8 g/dL (31.0-37.0); MCV 89.5 fL (80.0-100.0); Mean Platelet Volume 7.8; Monocytes # (A) 0.4 k/uL (0-1.0); Monocytes % (A) 3 %; Neutrophils # (A) 10.3 k/uL (1.3-7.7); Neutrophils % (A) 76 %; Platelet Count 203 k/uL (150-450); RBC 4.04 m/uL (3.80-5.40); RDW 12.8 % (11.5-15.5); WBC 13.7 k/uL (3.8-10.6)
[2019-08-16 05:48] LABS: Albumin 2.6 g/dL (3.5-5.0); Calcium 7.9 mg/dL (8.4-10.2); Potassium 3.7 mmol/L (3.5-5.1); Total Bilirubin 1.1 mg/dL (0.2-1.3); Total Protein 4.9 g/dL (6.3-8.2)
[2019-08-16] MEDS ORDERED: PANTOPRAZOLE 40 MG TABLET PO SCH (07:30)
[2019-08-16 07:42] VITALS: RESP 19; TEMP 98.3
[2019-08-16] MEDS ORDERED: SCOPOLAMINE 1.5MG/72HR PATCH TRANSDERM STA (07:59)
[2019-08-16] MEDS ORDERED: SYMBICORT 80-4.5 MCG INHALER INHALATION SCH (08:00)
[2019-08-16] MEDS: IPRATROPIUM 0.5 MG/2.5 ML NEBU INHALATION SCH ×2 (08:03→13:38)
[2019-08-16 08:08] VITALS: PULSE 72
[2019-08-16] MEDS ORDERED: HYDROCHLOROTHIAZIDE 12.5 MG CAP PO SCH (09:00)
[2019-08-16] MEDS ORDERED: guaiFENesin 600 MG TABLET.ER PO SCH (09:00)
[2019-08-16] MEDS: HEPARIN SODIUM,PORCINE 5,000 UNIT/ML 1 ML VIAL SQ SCH (09:06)
[2019-08-16] MEDS: METOPROLOL TARTRATE 50 MG TAB PO SCH (09:06)
[2019-08-16] MEDS: AMOXIC-POT CLAV 875-125MG 1 EACH TAB PO SCH (09:07)
[2019-08-16 10:12] VITALS: BP 105/69
--- NOTE | 2019-08-16 10:20 | P.DS ---
Providers Date of admission: 08/15/19 19:36 Expected date of discharge: 08/16/19 Attending physician: Leny Pascual MD Primary care physician: Jessica [facility] Course: 68-year-old female with PMH of asthma and hypertension presents the ED for intractable nausea and vomiting. Patient reports suffering symptoms of a sinus infection 2 weeks prior to admission. Patient characterized the sinus infection as green nasal discharge, rhinorrhea and frontal headache. Patient describes coughing fits from post nasal drip that eventually leads to dry heaving and vomiting. She was admitted on August 06 for similar complaints and discharged on August 08. She was discharged on Mucinex and scopolamine patches along with Augmentin. Patient states that she initially improved on the prescribed treatment prior to getting worse. Her nausea and vomiting was thought to be secondary to postnasal drip. CT brain was performed which showed extensive sinus disease. CT abdomen and pelvis was performed which showed possible enteritis. Patient was started on Mucinex, and Augmentin. She was given albuterol neb as needed for shortness of breath and wheezing. Her home medication of Symbicort was continued. She was given Zofran as needed for nausea or vomiting. Patient was started on nasal saline as needed for congestion. She was given normal saline at 150 mL per hour. Patient was seen and examined. No acute events overnight. Patient reports significant improvement in her symptoms since admission. She complains of slight dizziness when she goes to stand up. Patient reports poor oral intake. No more nausea or vomiting. No diarrhea. General: [non toxic], [no distress], [appears at stated age] Derm: [warm], [dry] Head: [atraumatic], [normocephalic], [symmetric], [tenderness over the left frontal and maxillary sinus] Eyes: [EOMI], [no lid lag], [anicteric sclera] Mouth: [no lip lesion], [mucus membranes moist] Cardiovascular: [S1S2 reg], [no murmur], [positive DP pulse bilateral], Lungs: [Clear to auscultation bilaterally], [no rhonchi, no rales] , [no accessory muscle use] Abdominal: [soft], [ nontender to palpation], [no guarding], [no appreciable organomegaly] Ext: [no gross muscle atrophy], [no edema], [no contractures] Neuro: [no focal neuro deficits] Psych: [Alert], [oriented], [appropriate affect] Assessment and Plan Intractable nausea and vomiting likely related to postnasal drip Lightheadedness Bacterial sinusitis Pelvic wall mass Leukocytosis Hypertension Her symptoms of dry heaving are likely related to postnasal drip. CT abdomen and pelvis showed enteritis. Plans: Treatment for sinusitis. Zofran as needed for nausea or vomiting. Continue Protonix by mouth. Continue normal saline at 150 mL per hour. Orthostats are negative. Plans: DC IVF and encourage hydration by mouth. As seen on physical exam. Green nasal discharge. Plans: Complete course of Augmentin that was given to her during previous admission. Start Mucinex. Nasal saline as needed. Start scopolamine patch. Tylenol as needed for fever and chills. As seen on CT abdomen and pelvis. Plans: Need adequate follow-up in the outpatient setting for workup and to exclude malignancy. Leukocytosis of 13.7 with neutrophilia. Possible bacterial sinusitis? Plans: Continue treatment for sinusitis as above. Also on steroids. BP 105/69. Plans: Continue metoprolol. Monitor vitals, adjust medications as necessary. [Symptoms are improved. Educated patient on sinusitis causing her likely nausea and vomiting. Advised sympotamic treatment for enteritis. Likely DC today if orthostats normal.] Pertinent Studies: CT brain, CT abdomen and pelvis Patient Condition at Discharge: Stable Plan - Discharge Summary New Discharge Prescriptions: New Amoxic-Pot Clav 875-125Mg [Augmentin 875-125] 1 each PO Q12HR tab Sodium Chloride 0.65% Nasal [Deep Sea (Saline)] 2 spray NASAL QID PRN #1 bottle PRN Reason: Congestion Pantoprazole [Protonix] 40 mg PO AC-BRKFST #30 tablet.dr Continue Albuterol Sulfate [Proair Respiclick] 2 puff INHALATION RT-Q4H PRN PRN Reason: Shortness Of Breath Hydrochlorothiazide [Hydrodiuril] 12.5 mg PO DAILY Metoprolol Tartrate [Lopressor] 50 mg PO BID Fluticasone/Umeclidin/Vilanter [Trelegy Ellipta 100-62.5-25] 1 puff INHALATION RT-DAILY Albuterol Nebulized [Ventolin Nebulized] 2.5 mg INHALATION RT-Q4H PRN #30 nebu PRN Reason: Shortness Of Breath guaiFENesin [Mucinex] 1,200 mg PO Q12HR #30 tablet.er Pseudoephedrine [Sudafed] 30 mg PO Q4HR PRN #30 tab PRN Reason: Nasal Congestion Scopolamine 1.5MG/72Hr Patch [TransDerm Scop] 1 patch TRANSDERM Q72H #3 patch Discharge Medication List Albuterol Sulfate [Proair Respiclick] 2 puff INHALATION RT-Q4H PRN 05/10/16 [History] Hydrochlorothiazide [Hydrodiuril] 12.5 mg PO DAILY 02/24/18 [History] Metoprolol Tartrate [Lopressor] 50 mg PO BID 02/03/19 [History] Fluticasone/Umeclidin/Vilanter [Trelegy Ellipta 100-62.5-25] 1 puff INHALATION RT-DAILY 08/06/19 [History] Albuterol Nebulized [Ventolin Nebulized] 2.5 mg INHALATION RT-Q4H PRN #30 nebu 08/08/19 [Rx] Amoxic-Pot Clav 875-125Mg [Augmentin 875-125] 1 each PO Q12HR tab 08/16/19 [Rx] Pantoprazole [Protonix] 40 mg PO AC-BRKFST #30 tablet.dr 08/16/19 [Rx] Pseudoephedrine [Sudafed] 30 mg PO Q4HR PRN #30 tab 08/16/19 [Rx] Scopolamine 1.5MG/72Hr Patch [TransDerm Scop] 1 patch TRANSDERM Q72H #3 patch 08/16/19 [Rx] Sodium Chloride 0.65% Nasal [Deep Sea (Saline)] 2 spray NASAL QID PRN #1 bottle 08/16/19 [Rx] guaiFENesin [Mucinex] 1,200 mg PO Q12HR #30 tablet.er 08/16/19 [Rx] Follow up Appointment(s)/Referral(s): Jessica Reyes MD [Primary Care Provider] - 1-2 days Activity/Diet/Wound Care/Special Instructions: Diet: Low-salt Follow-up PCP within 3 days of discharge. Take all medications as advised. Her symptoms are likely caused from postnasal drip from severe sinusitis. Use nasal saline as needed. Finish course of antibiotics given to you during previous admission. Take Sudafed [id number]. Take scopolamine patch as needed to control secretions, to be changed every 3 days. Discharge Disposition: HOME SELF-CARE
== END 2019-08-16 13:22 | disposition home or self-care (01) ==
LOC: EC 16:19 → 1SOBS 19:36
PROVIDERS: ADMIT Internal Medicine; ATTEND Internal Medicine
DX: R11.2 Nausea with vomiting, unspecified (principal); R42 Dizziness and giddiness; J01.90 Acute sinusitis, unspecified; E78.5 Hyperlipidemia, unspecified; E87.5 Hyperkalemia; I10 Essential (primary) hypertension; J45.40 Moderate persistent asthma, uncomplicated; Z79.899 Other long term (current) drug therapy; Z86.718 Personal history of other venous thrombosis and embolism; Z87.11 Personal history of peptic ulcer disease; Z79.52 Long term (current) use of systemic steroids; Z88.8 Allergy status to other drugs, medicaments and biological substances; Z88.1 Allergy status to other antibiotic agents; Z91.040 Latex allergy status; Z90.49 Acquired absence of other specified parts of digestive tract; Z84.89 Family history of other specified conditions
CPT/HCPCS: 96372 ×2; 96375; 96376; 96361; 96374; 99285; 36415; 94640 ×2; 93005; 80053 ×2; 83690; 83735; 84484; 85025 ×2; 81001; 70450; 74177; G0378 ×2; J1644 ×2; J2405; J1885 ×2; Q9967

== ENCOUNTER 2019-08-17 16:51 | Inpatient (IN) | payer MEDICARE ==
[2019-08-17] MEDS ORDERED: SODIUM CHLORIDE 0.9% 1,000 ML IV STA ×2 (17:14)
[2019-08-17] MEDS ORDERED: ONDANSETRON 4 MG/2 ML VIAL IVP STA (17:14)
[2019-08-17] MEDS ORDERED: ACETAMINOPHEN TAB 325 MG TAB PO STA (17:15)
[2019-08-17] MEDS ORDERED: PIPERACILLIN-TAZOBACTAM 3.375 GM in SODIUM CHLORIDE 0.9% 100 ML IVPB STA (17:16)
[2019-08-17 17:46] LABS: Basophils % (A) 0 %; Eosinophils # (A) 0.3 k/uL (0-0.7); Eosinophils % (A) 2 %; HCT 37.7 % (34.0-46.0); HGB 12.8 gm/dL (11.4-16.0); Lymphocytes % (A) 15 %; MCH 30.1 pg (25.0-35.0); MCHC 33.9 g/dL (31.0-37.0); Mean Platelet Volume 8.5; Monocytes # (A) 0.4 k/uL (0-1.0); Monocytes % (A) 3 %; Neutrophils # (A) 10.4 k/uL (1.3-7.7); Neutrophils % (A) 78 %; Platelet Count 206 k/uL (150-450); RBC 4.24 m/uL (3.80-5.40); RDW 12.9 % (11.5-15.5); WBC 13.2 k/uL (3.8-10.6)
--- NOTE | 2019-08-17 17:47 | ED ---
Fever HPI - General Source: EMS Mode of arrival: EMS Limitations: no limitations <TannerernaDorcas Drew - Last Filed: 08/18/19 00:04> <Wandy Rucker - Last Filed: 08/24/19 14:29> - General Chief Complaint: Fever Stated Complaint: Vomiting, Chills Time Seen by Provider: 08/17/19 17:01 - History of Present Illness Initial Comments: 68-year-old female with history of previous cholecystectomy, PAD, HTN, DVT presenting today for persistent vomiting diarrhea body aches and generalized weakness. Patient states the past 3 weeks she has had what she describes as a sinus infection mild cough congestion and facial pressure and had nausea and vomiting at that time. Denies abx use prior to onset of symptoms or after initial discharge. She states she has been prescribed Augmentin upon her last discharge however was unable to take the medication secondary to to the vomiting and nausea. Patient states she has had 2 hospitalizations for the symptoms and was discharged home she states there is been no improvement. Patient denies any abdominal pain chest pain shortness of breath. She states her main complaint is the watery diarrhea 4-5 episodes daily as well as yellow vomit.Patient denies any back pain, neck stiffness, photophobia, sputum productions, melena hematochezia recent travel sick contacts. Admits to decreased oral intake. Denies urinary symptoms, focalizing neurological complaints, leg swelling. Patient febrile on arrival (Dorcas Casiano) - Related Data Home Medications Medication Instructions Recorded Confirmed Albuterol Sulfate [Proair 2 puff INHALATION RT-Q4H PRN 05/10/16 08/17/19 Respiclick] Hydrochlorothiazide [Hydrodiuril] 12.5 mg PO DAILY 02/24/18 08/17/19 Metoprolol Tartrate [Lopressor] 50 mg PO BID 02/03/19 08/17/19 Fluticasone/Umeclidin/Vilanter 1 puff INHALATION RT-DAILY 08/06/19 08/17/19 [Trelegy Ellipta 100-62.5-25] Previous Rx's Medication Instructions Recorded Albuterol Nebulized [Ventolin 2.5 mg INHALATION RT-Q4H PRN #30 08/08/19 Nebulized] nebu Scopolamine 1.5MG/72Hr Patch 1 patch TRANSDERM Q72H #3 patch 08/16/19 [TransDerm Scop] guaiFENesin [Mucinex] 1,200 mg PO Q12HR #30 tablet.er 08/16/19 Allergies Allergy/AdvReac Type Severity Reaction Status Date / Time VASILE Inhibitors Allergy Swelling Verified 08/17/19 21:31 adhesive tape Allergy Itching Verified 08/17/19 21:31 cephalexin monohydrate Allergy Rash/Hives Verified 08/17/19 21:31 [From Keflex] latex Allergy Itching Verified 08/17/19 21:31 Review of Systems ROS Other: All systems not noted in ROS Statement are negative. <Dorcas Casiano - Last Filed: 08/18/19 00:04> ROS Other: All systems not noted in ROS Statement are negative. <Wandy Rucker - Last Filed: 08/24/19 14:29> ROS Statement: Those systems with pertinent positive or pertinent negative responses have been documented in the HPI. Past Medical History Past Medical History: Asthma, Deep Vein Thrombosis (DVT), Hyperlipidemia, Hypertension, Pneumonia, Skin Disorder, Vascular Disorder Additional Past Medical History / Comment(s): DVT left leg, decreased circulation bilateral legs, PUD, red/itchy skin d/t allergies, cellulitis L lower leg. History of Any Multi-Drug Resistant Organisms: None Reported Past Surgical History: Appendectomy, Section, Cholecystectomy, Hernia Repair, Orthopedic Surgery Additional Past Surgical History / Comment(s): Stent to L leg, ventral hernia repair, R knee arthroscopy. Past Anesthesia/Blood Transfusion Reactions: Postoperative Nausea & Vomiting (PONV) Past Psychological History: No Psychological Hx Reported Smoking Status: Never smoker Past Alcohol Use History: None Reported Past Drug Use History: None Reported - Past Family History Father History Unknown: Yes Additional Family Medical History / Comment(s): adopted Mother History Unknown: Yes Family Medical History: Deep Vein Thrombosis (DVT) Additional Family Medical History / Comment(s): Pt was adopted but recently found out mother had dvt L leg. <Dorcas Casiano - Last Filed: 08/18/19 00:04> General Exam Limitations: no limitations <Dorcas Casiano - Last Filed: 08/18/19 00:04> - General Exam Comments Initial Comments: General: The patient is awake and alert, in no distress, but appears unwell Eye: +3 mm pupils are equal, round and reactive to light, extra-ocular movements are intact. No nystagmus. There is normal conjunctiva bilaterally. No signs of icterus. Ears, nose, mouth and throat: There are dry mucous membranes and no oral lesions. No nuchal rigidity. Neck: The neck is supple, there is no tenderness or JVD. Cardiovascular: There is a regular rate and rhythm. No murmur, rub or gallop is appreciated. Respiratory: Lungs are clear to auscultation, respirations are non-labored, breath sounds are equal. No wheezes, stridor, rales, or rhonchi. Gastrointestinal: Soft, non-distended, non-tender abdomen without masses or organomegaly noted. There is no rebound or guarding present. No CVA tenderness. Bowel sounds are unremarkable. Musculoskeletal: Normal ROM, no tenderness. Strength 5/5. Sensation intact. Radial pulses equal bilaterally 2+. Neurological: A&O x 3. CN II-XII intact grossly, There are no obvious motor or sensory deficits. Coordination appears grossly intact. Speech is normal. Skin: Skin is warm and dry and no rashes or lesions are noted. Psychiatric: Cooperative, appropriate mood & affect, normal judgment. (Dorcas Casiano) Course Vital Signs 08/17/19 08/17/19 08/17/19 16:52 17:30 18:00 Temperature 102.9 F H Pulse Rate 83 Respiratory 19 Rate Blood Pressure 149/80 153/86 153/86 O2 Sat by Pulse 96 96 98 Oximetry 08/17/19 08/17/19 08/17/19 18:30 19:00 19:01 Temperature 101.1 F H Pulse Rate 82 Respiratory 19 Rate Blood Pressure 134/64 144/64 O2 Sat by Pulse 98 Oximetry 08/17/19 08/17/19 08/17/19 20:00 20:18 21:00 Temperature 99.5 F Pulse Rate Respiratory Rate Blood Pressure 112/60 110/55 O2 Sat by Pulse 92 L 91 L Oximetry 08/17/19 21:56 Temperature Pulse Rate 71 Respiratory 16 Rate Blood Pressure 113/89 O2 Sat by Pulse 100 Oximetry Medical Decision Making - Lab Data Result diagrams: 08/17/19 17:06 08/17/19 17:06 <Dorcas Casiano - Last Filed: 08/18/19 00:04> - Lab Data Result diagrams: 08/19/19 10:22 08/19/19 10:22 <Wandy Rucker - Last Filed: 08/24/19 14:29> - Medical Decision Making 68-year-old female presenting for vomiting diarrhea since August 04. The patient states that her symptoms are persistent and she has been hospitalized on multiple occasions however she is discharged without a diagnosis and symptoms continue. Patient states she can no longer tolerate oral intake. Dry on exam. Complaining of generalized weakness. She is febrile. No clinical signs of nuchal irritation patient has leukocytosis. Active vomiting in the emergency department controlled with antiemetics. Unable to provide stool sample in the emergency department. CXR clear. CT obtained 08/15, no abdominal pain on exam. Patient UA shows 10WBC otherwise unremarkable. Patient will be admitted for persistent fever, vomiting, diarrhea. EKG no acute findings. Troponin is (-), however noted to be slightly increased from previous values. Will trend. Patient denies any chest pain shortness of breath. Patient case discussed with German Mckinley who is agreeable to admission [facility] consult. Patient agreeable to admission, findings discussed. Dr. Rucker agreeable to care plan as well as admission. Ventricular rate 76 beats were minute, GA interval 120 ms, QRS evangelical 82 ms, QT/QTC 422/474 ms. Normal sinus, no ST elevation or depression no GA depression. (Dorcas Casiano) I was available for consultation in the emergency department. The history and physical exam was performed by the midlevel provider. I reviewed the case with the midlevel and based on their presentation of the patient, I agree with the diagnosis and treatment plan. (Wandy Rucker) - Lab Data Lab Results 08/17/19 08/17/19 08/17/19 Range/Units 17:06 17:06 17:06 WBC 13.2 H (3.8-10.6) k/uL RBC 4.24 (3.80-5.40) m/uL Hgb 12.8 (11.4-16.0) gm/dL Hct 37.7 (34.0-46.0) % MCV 89.0 (80.0-100.0) fL MCH 30.1 (25.0-35.0) pg MCHC 33.9 (31.0-37.0) g/dL RDW 12.9 (11.5-15.5) % Plt Count 206 (150-450) k/uL Neutrophils % 78 % Lymphocytes % 15 % Monocytes % 3 % Eosinophils % 2 % Basophils % 0 % Neutrophils # 10.4 H (1.3-7.7) k/uL Lymphocytes # 2.0 (1.0-4.8) k/uL Monocytes # 0.4 (0-1.0) k/uL Eosinophils # 0.3 (0-0.7) k/uL Basophils # 0.0 (0-0.2) k/uL Sodium 134 L (137-145) mmol/L Potassium 3.6 (3.5-5.1) mmol/L Chloride 103 (98-107) mmol/L Carbon Dioxide 25 (22-30) mmol/L Anion Gap 6 mmol/L BUN 12 (7-17) mg/dL Creatinine 0.87 (0.52-1.04) mg/dL Est GFR (CKD-EPI)AfAm 79 (>60 ml/min/1.73 sqM) Est GFR (CKD-EPI)NonAf 68 (>60 ml/min/1.73 sqM) Glucose 101 H (74-99) mg/dL Plasma Lactic Acid Anil 1.1 (0.7-2.0) mmol/L Calcium 8.0 L (8.4-10.2) mg/dL Total Bilirubin 0.9 (0.2-1.3) mg/dL AST 18 (14-36) U/L ALT 12 (4-34) U/L Alkaline Phosphatase 67 (38-126) U/L Troponin I (0.000-0.034) ng/mL Total Protein 5.4 L (6.3-8.2) g/dL Albumin 3.0 L (3.5-5.0) g/dL Lipase 49 (23-300) U/L Urine Color Urine Appearance (Clear) Urine pH (5.0-8.0) Ur Specific [place] (1.001-1.035) Urine Protein (Negative) Urine Glucose (UA) (Negative) Urine Ketones (Negative) Urine Blood (Negative) Urine Nitrite (Negative) Urine Bilirubin (Negative) Urine Urobilinogen (<2.0) mg/dL Ur Leukocyte Esterase (Negative) Urine RBC (0-5) /hpf Urine WBC (0-5) /hpf Amorphous Sediment (None) /hpf Urine Mucus (None) /hpf Influenza Type A RNA (Not Detectd) Influenza Type B (PCR) (Not Detectd) 08/17/19 08/17/19 08/17/19 Range/Units 17:06 18:01 20:10 WBC (3.8-10.6) k/uL RBC (3.80-5.40) m/uL Hgb (11.4-16.0) gm/dL Hct (34.0-46.0) % MCV (80.0-100.0) fL MCH (25.0-35.0) pg MCHC (31.0-37.0) g/dL RDW (11.5-15.5) % Plt Count (150-450) k/uL Neutrophils % % Lymphocytes % % Monocytes % % Eosinophils % % Basophils % % Neutrophils # (1.3-7.7) k/uL Lymphocytes # (1.0-4.8) k/uL Monocytes # (0-1.0) k/uL Eosinophils # (0-0.7) k/uL Basophils # (0-0.2) k/uL Sodium (137-145) mmol/L Potassium (3.5-5.1) mmol/L Chloride (98-107) mmol/L Carbon Dioxide (22-30) mmol/L Anion Gap mmol/L BUN (7-17) mg/dL Creatinine (0.52-1.04) mg/dL Est GFR (CKD-EPI)AfAm (>60 ml/min/1.73 sqM) Est GFR (CKD-EPI)NonAf (>60 ml/min/1.73 sqM) Glucose (74-99) mg/dL Plasma Lactic Acid Anil (0.7-2.0) mmol/L Calcium (8.4-10.2) mg/dL Total Bilirubin (0.2-1.3) mg/dL AST (14-36) U/L ALT (4-34) U/L Alkaline Phosphatase (38-126) U/L Troponin I 0.034 (0.000-0.034) ng/mL Total Protein (6.3-8.2) g/dL Albumin (3.5-5.0) g/dL Lipase (23-300) U/L Urine Color Yellow Urine Appearance Turbid H (Clear) Urine pH 5.5 (5.0-8.0) Ur Specific [place] 1.032 (1.001-1.035) Urine Protein Trace H (Negative) Urine Glucose (UA) Negative (Negative) Urine Ketones Negative (Negative) Urine Blood Negative (Negative) Urine Nitrite Negative (Negative) Urine Bilirubin Negative (Negative) Urine Urobilinogen <2.0 (<2.0) mg/dL Ur Leukocyte Esterase Negative (Negative) Urine RBC <1 (0-5) /hpf Urine WBC 10 H (0-5) /hpf Amorphous Sediment Occasional H (None) /hpf Urine Mucus Occasional H (None) /hpf Influenza Type A RNA Not Detected (Not Detectd) Influenza Type B (PCR) Not Detected (Not Detectd) 08/18/19 08/18/19 08/19/19 Range/Units 03:00 08:36 10:22 WBC 8.1 (3.8-10.6) k/uL RBC 4.21 (3.80-5.40) m/uL Hgb 12.4 (11.4-16.0) gm/dL Hct 38.2 (34.0-46.0) % MCV 90.6 (80.0-100.0) fL MCH 29.3 (25.0-35.0) pg MCHC 32.4 (31.0-37.0) g/dL RDW 13.1 (11.5-15.5) % Plt Count 177 (150-450) k/uL Neutrophils % 72 % Lymphocytes % 16 % Monocytes % 4 % Eosinophils % 6 % Basophils % 1 % Neutrophils # 5.8 (1.3-7.7) k/uL Lymphocytes # 1.3 (1.0-4.8) k/uL Monocytes # 0.3 (0-1.0) k/uL Eosinophils # 0.5 (0-0.7) k/uL Basophils # 0.1 (0-0.2) k/uL Sodium (137-145) mmol/L Potassium (3.5-5.1) mmol/L Chloride (98-107) mmol/L Carbon Dioxide (22-30) mmol/L Anion Gap mmol/L BUN (7-17) mg/dL Creatinine (0.52-1.04) mg/dL Est GFR (CKD-EPI)AfAm (>60 ml/min/1.73 sqM) Est GFR (CKD-EPI)NonAf (>60 ml/min/1.73 sqM) Glucose (74-99) mg/dL Plasma Lactic Acid Anil (0.7-2.0) mmol/L Calcium (8.4-10.2) mg/dL Total Bilirubin (0.2-1.3) mg/dL AST (14-36) U/L ALT (4-34) U/L Alkaline Phosphatase (38-126) U/L Troponin I <0.012 <0.012 (0.000-0.034) ng/mL Total Protein (6.3-8.2) g/dL Albumin (3.5-5.0) g/dL Lipase (23-300) U/L Urine Color Urine Appearance (Clear) Urine pH (5.0-8.0) Ur Specific [place] (1.001-1.035) Urine Protein (Negative) Urine Glucose (UA) (Negative) Urine Ketones (Negative) Urine Blood (Negative) Urine Nitrite (Negative) Urine Bilirubin (Negative) Urine Urobilinogen (<2.0) mg/dL Ur Leukocyte Esterase (Negative) Urine RBC (0-5) /hpf Urine WBC (0-5) /hpf Amorphous Sediment (None) /hpf Urine Mucus (None) /hpf Influenza Type A RNA (Not Detectd) Influenza Type B (PCR) (Not Detectd) 08/19/19 Range/Units 10:22 WBC (3.8-10.6) k/uL RBC (3.80-5.40) m/uL Hgb (11.4-16.0) gm/dL Hct (34.0-46.0) % MCV (80.0-100.0) fL MCH (25.0-35.0) pg MCHC (31.0-37.0) g/dL RDW (11.5-15.5) % Plt Count (150-450) k/uL Neutrophils % % Lymphocytes % % Monocytes % % Eosinophils % % Basophils % % Neutrophils # (1.3-7.7) k/uL Lymphocytes # (1.0-4.8) k/uL Monocytes # (0-1.0) k/uL Eosinophils # (0-0.7) k/uL Basophils # (0-0.2) k/uL Sodium 138 (137-145) mmol/L Potassium 4.1 (3.5-5.1) mmol/L Chloride 105 (98-107) mmol/L Carbon Dioxide 29 (22-30) mmol/L Anion Gap 4 mmol/L BUN 11 (7-17) mg/dL Creatinine 0.83 (0.52-1.04) mg/dL Est GFR (CKD-EPI)AfAm 84 (>60 ml/min/1.73 sqM) Est GFR (CKD-EPI)NonAf 73 (>60 ml/min/1.73 sqM) Glucose 89 (74-99) mg/dL Plasma Lactic Acid Anil (0.7-2.0) mmol/L Calcium 8.1 L (8.4-10.2) mg/dL Total Bilirubin 0.8 (0.2-1.3) mg/dL AST 16 (14-36) U/L ALT 11 (4-34) U/L Alkaline Phosphatase 66 (38-126) U/L Troponin I (0.000-0.034) ng/mL Total Protein 5.2 L (6.3-8.2) g/dL Albumin 2.8 L (3.5-5.0) g/dL Lipase (23-300) U/L Urine Color Urine Appearance (Clear) Urine pH (5.0-8.0) Ur Specific [place] (1.001-1.035) Urine Protein (Negative) Urine Glucose (UA) (Negative) Urine Ketones (Negative) Urine Blood (Negative) Urine Nitrite (Negative) Urine Bilirubin (Negative) Urine Urobilinogen (<2.0) mg/dL Ur Leukocyte Esterase (Negative) Urine RBC (0-5) /hpf Urine WBC (0-5) /hpf Amorphous Sediment (None) /hpf Urine Mucus (None) /hpf Influenza Type A RNA (Not Detectd) Influenza Type B (PCR) (Not Detectd) Disposition Is patient prescribed a controlled substance at d/c from ED?: No Time of Disposition: 21:09 Decision to Admit Reason: Admit from EC Decision Date: 08/17/19 Decision Time: 21:09 <Dorcas Casiano L - Last Filed: 08/18/19 00:04> <Wandy Rucker - Last Filed: 08/24/19 14:29> Clinical Impression: Fever, Weakness, Diarrhea, Vomiting, Dehydration Disposition: ADMITTED IP TO THIS [facility] Condition: Good
[2019-08-17 17:58] LABS: Potassium 3.6 mmol/L (3.5-5.1); Total Bilirubin 0.9 mg/dL (0.2-1.3); Total Protein 5.4 g/dL (6.3-8.2)
--- NOTE | 2019-08-17 19:37 | XR ---
EXAMINATION TYPE: XR KUB DATE OF EXAM: 08/17/2019 COMPARISON: 06/11/2012 HISTORY: Abdominal pain TECHNIQUE: There is 3 views supine FINDINGS: There is no sign of intestinal obstruction or pneumoperitoneum. Fecal pattern is normal. Th ere is left iliac artery stent. There is 3 cm calcified uterine fibroid. There is no evidence of a ma ss. There are no pathologic calcifications over the kidneys. IMPRESSION: Nonacute abdomen. No adverse change.
[2019-08-17] MEDS ORDERED: KETOROLAC 30 MG/ML 1 ML VIAL IVP STA (20:00)
[2019-08-17] MEDS ORDERED: KETOROLAC 30 MG/ML 1 ML VIAL IVP PRN (20:28)
[2019-08-17] MEDS ORDERED: NALOXONE 0.4 MG/ML 1 ML VIAL IV PRN (20:28)
--- NOTE | 2019-08-17 20:35 | XR ---
EXAMINATION TYPE: XR chest 2V DATE OF EXAM: 08/17/2019 COMPARISON: 08/04/2019 HISTORY: Cough TECHNIQUE: Single view FINDINGS: Heart is normal. Lungs are clear of infiltrate. There is no pleural effusion. There are no hilar masses. Bony thorax is intact. There is minor spurring in the thoracic spine. IMPRESSION: No active cardiopulmonary disease. Normal heart. No change.
[2019-08-17 20:36] LABS: Amorphous Sediment,Urine Occasional /hpf; Appearance,Urine Turbid (Clear); Bilirubin,Urine Negative (Negative); Blood,Urine Negative (Negative); Color,Urine Yellow; Glucose,Urine (UA) Negative (Negative); Ketones,Urine Negative (Negative); Leukocyte Esterase,Urine Negative (Negative); Mucus,Urine Occasional /hpf; Nitrite,Urine Negative (Negative); PH, Urine 5.5 (5.0-8.0); Protein,Urine Trace (Negative); RBC,Urine <1 /hpf (0-5); Specific Gravity,Urine 1.032 (1.001-1.035); Urobilinogen,Urine <2.0 mg/dL (<2.0); WBC,Urine 10 /hpf (0-5)
[2019-08-17] MEDS: SODIUM CHLORIDE 0.9% 1,000 ML IV SCH (22:32)
--- NOTE | 2019-08-18 00:54 | P.HPIM ---
History of Present Illness H&P Date: 08/18/19 The patient is a 68 yo F with a PMH of asthma and HTN who presented to the ED for intractable nausea, vomiting, and diarrhea. The patient was admitted to the hospital initially on 08/06 in observation for acute bacterial sinusitis and was started on Augmentin and was discharged home. She again presented to the ED and was admitted under observation 2 days ago on 08/15 with continued symptoms of sinusitis along with nausea and vomiting. The patient had however felt better initially and was subsequently discharged home on 08/16. She notes that her nausea, vomiting, and diarrhea worsened following discharge over the past 2 days. She reported numerous episodes of vomiting with 4-5 episodes of watery diarrhea daily. She notes feeling fatigued and feverish. She reports that her sinusitis symptoms have resolved entirely. She denied abdominal pain, bloody/dark tarry stools, or hematemesis. She denied chest pain, cough, SOB, headache, or facial pain. She underwent an extensive evaluation in the ED. She was noted to be febrile upon presentation with Temp 102.9 with CXR unremarkable and KUB showing a non-acute abdomen. Laboratory evaluation revealed a WBC count of 13.2, Hgb 12.8, plt 206, Troponin 0.034, Inf neg, Lactate 1.1, Na 134, K 3.4, BUN 12, and Cr 0.87. CT abd performed during previous admission on 08/15 reviewed, showing possible enteritis. She is being admitted to the medicine rust for further management. Review of Systems Pertinent positives and negatives as discussed in HPI, a complete review of systems was performed and all other systems are negative. Past Medical History Past Medical History: Asthma, Deep Vein Thrombosis (DVT), Hyperlipidemia, Hypertension, Pneumonia, Skin Disorder, Vascular Disorder Additional Past Medical History / Comment(s): DVT left leg, decreased c irculation bilateral legs, PUD, red/itchy skin d/t allergies, cellulitis L lower leg. History of Any Multi-Drug Resistant Organisms: None Reported Past Surgical History: Appendectomy, Section, Cholecystectomy, Hernia Repair, Orthopedic Surgery Additional Past Surgical History / Comment(s): Stent to L leg, ventral hernia repair, R knee arthroscopy. Past Anesthesia/Blood Transfusion Reactions: Postoperative Nausea & Vomiting (PONV) Past Psychological History: No Psychological Hx Reported Smoking Status: Never smoker Past Alcohol Use History: None Reported Past Drug Use History: None Reported - Past Family History Father History Unknown: Yes Additional Family Medical History / Comment(s): adopted Mother History Unknown: Yes Family Medical History: Deep Vein Thrombosis (DVT) Additional Family Medical History / Comment(s): Pt was adopted but recently found out mother had dvt L leg. Medications and Allergies Home Medications Medication Instructions Recorded Confirmed Type Albuterol Sulfate [Proair 2 puff INHALATION RT-Q4H PRN 05/10/16 08/17/19 History Respiclick] Hydrochlorothiazide [Hydrodiuril] 12.5 mg PO DAILY 02/24/18 08/17/19 History Metoprolol Tartrate [Lopressor] 50 mg PO BID 02/03/19 08/17/19 History Fluticasone/Umeclidin/Vilanter 1 puff INHALATION RT-DAILY 08/06/19 08/17/19 History [Trelegy Ellipta 100-62.5-25] Albuterol Nebulized [Ventolin 2.5 mg INHALATION RT-Q4H PRN #30 08/08/19 08/17/19 Rx Nebulized] nebu Scopolamine 1.5MG/72Hr Patch 1 patch TRANSDERM Q72H #3 patch 08/16/19 08/17/19 Rx [TransDerm Scop] guaiFENesin [Mucinex] 1,200 mg PO Q12HR #30 tablet.er 08/16/19 08/17/19 Rx Allergies Allergy/AdvReac Type Severity Reaction Status Date / Time VASILE Inhibitors Allergy Swelling Verified 08/17/19 21:31 adhesive tape Allergy Itching Verified 08/17/19 21:31 cephalexin monohydrate Allergy Rash/Hives Verified 08/17/19 21:31 [From Keflex] latex Allergy Itching Verified 08/17/19 21:31 Physical Exam Vitals: Vital Signs Temp Pulse Resp BP Pulse Ox 08/17/19 21:56 71 16 113/89 100 08/17/19 21:00 110/55 91 L 08/17/19 20:18 99.5 F 08/17/19 20:00 112/60 92 L 08/17/19 19:01 101.1 F H 08/17/19 19:00 144/64 08/17/19 18:30 82 19 134/64 98 08/17/19 18:00 153/86 98 08/17/19 17:30 153/86 96 08/17/19 16:52 102.9 F H 83 19 149/80 96 Intake and Output 08/17/19 08/17/19 08/18/19 14:59 22:59 06:59 Other: Weight 127.006 kg General: somewhat ill appearing female, no distress, appears at stated age, ob diana Derm: no unusual rashes/lesions no unusual ecchymoses, warm, dry Head: atraumatic, normocephalic, symmetric Eyes: EOMI, no lid lag, anicteric sclera, pupils equal round reactive to light ENT: Nose and ears atraumatic, no thrush, no pharyngeal erythema Neck: No thyromegaly, no cervical lymphadenopathy, trachea midline, supple Mouth: no lip lesion, mucus membranes moist Cardiovascular: S1S2 reg, no murmur, positive posterior tibial pulse bilateral, no edema, capillary refill less than 2 seconds Lungs: CTA bilateral, no rhonchi, no rales , no accessory muscle use Abdominal: soft, nontender to palpation, no guarding, no appreciable organomegaly, normal bowel sounds Ext: no gross muscle atrophy, muscle strength 5 out of 5 in all 4 extremities grossly, no contractures, Neuro: CN II-XI grossly intact, light touch intact all 4 extremities, finger to nose within normal limits, Psych: Alert, oriented, appropriate affect Results CBC & Chem 7: 08/17/19 17:06 08/17/19 17:06 Labs: Abnormal Lab Results - Last 24 Hours (Table) 08/17/19 08/17/19 08/17/19 Range/Units 17:06 17:06 20:10 WBC 13.2 H (3.8-10.6) k/uL Neutrophils # 10.4 H (1.3-7.7) k/uL Sodium 134 L (137-145) mmol/L Glucose 101 H (74-99) mg/dL Calcium 8.0 L (8.4-10.2) mg/dL Total Protein 5.4 L (6.3-8.2) g/dL Albumin 3.0 L (3.5-5.0) g/dL Urine Appearance Turbid H (Clear) Urine Protein Trace H (Negative) Urine WBC 10 H (0-5) /hpf Amorphous Sediment Occasional H (None) /hpf Urine Mucus Occasional H (None) /hpf Thrombosis Risk Factor Assmnt - Choose All That Apply Any of the Below Risk Factors Present?: Yes Each Factor Represents 1 point: Obesity (BMI >25) Other Risk Factors: Yes Each Risk Factor Represents 2 Points: Age 61-74 years Each Risk Factor Represents 3 Points: Family history of DVT/PE, History of DVT/PE Other congenital or acquired thrombophilia - If yes, enter type in comment: No Thrombosis Risk Factor Assessment Total Risk Factor Score: 9 Thrombosis Risk Factor Assessment Level: High Risk Assessment and Plan Plan: Intractable nausea, vomiting, diarrhea, likely enteritis with recent abx use -Check C. diff, stool culture, and blood culture -SOFA score - 1 -C/w IVFs -Will consult GI -C/w Zosyn for now -Antiemetics Asthma -C/w home maintenance inhaler with duonebs prn HTN -Hold antihypertensives for now and resume as warranted DVT prophylaxis -Heparin The patient is admitted with an anticipated greater than 2 midnight stay for evaluation of enteritis CODE STATUS: Full Code Discussed with: Patient Anticipated discharge date: 2-[address]: Home A total of 40 minutes was spent on the care of this complex patient more than 50% of the time was spent in counseling and care coordination.
[2019-08-18] MEDS: PIPERACILLIN-TAZOBACTAM 3.375 GM in SODIUM CHLORIDE 0.9% 100 ML IVPB SCH ×3 (02:46→17:41)
[2019-08-18] MEDS: SODIUM CHLORIDE 0.9% 1,000 ML IV SCH ×3 (05:02→22:30)
[2019-08-18] MEDS: ACETAMINOPHEN TAB 325 MG TAB PO PRN ×2 (08:59→17:44)
--- NOTE | 2019-08-18 12:29 | CONS ---
CONSULTATION DATE OF SERVICE: 08/18/2019 REASON FOR CONSULTATION: Nausea, vomiting, and diarrhea of 3 weeks duration. HISTORY OF PRESENT ILLNESS: The patient is a 68-year-old pleasant white female who presented to the emergency room complaining of nausea, vomiting, diarrhea for the last 3 weeks duration. The patient has been to the emergency room on 2 different occasions in the last 2 weeks with the same symptoms. At one point, she initially was to the ER with acute bacterial sinusitis, was started on Augmentin and was discharged home. However, because of her persistent nausea, vomiting and diarrhea, she would not take antibiotics. A week later she came back to the emergency room with the same symptoms, at this time she had CT of the abdomen done that showed possible enteritis. Once again, she was given different kind of antibiotics and was discharged home. But this time, she continued to have worsening symptoms. She has nausea, vomiting at least 5 to 6 times daily and loose watery bowel movements between 5 or 6 loose stools with no blood in the stool. She also had low-grade fever. No fever, chills, night sweats. She has extreme amount of fatigue and her symptoms have progressed to an extent that she is not able to walk normally. She denies any rectal bleeding or melena. She had a similar episode about a year ago, lasted for 4 weeks and symptoms have subsided. No prior history of EGD or colonoscopy in the past. PAST MEDICAL HISTORY: Significant for asthma, DVT, hyperlipidemia, hypertension. PAST SURGICAL HISTORY: , appendectomy, cholecystectomy, hernia repair, ventral hernia surgery, right knee surgery. MEDICATIONS: Medications at home include albuterol, hydrochlorothiazide, metoprolol, albuterol, scopolamine, Mucinex. ALLERGIES: Allergies to VASILE INHIBITORS and KEFLEX. SOCIAL HISTORY: No smoking. No alcohol use. FAMILY HISTORY: Father was adopted. Mother DVT. REVIEW OF SYSTEMS: CARDIOPULMONARY: No chest pain or shortness of breath. GENITOURINARY: No dysuria or hematuria. MUSCULOSKELETAL: Progressive weakness. NEUROLOGY: Unremarkable. PSYCHIATRIC: Unremarkable. ENT/VISION: Unremarkable. CONSTITUTIONAL: She thinks she lost about 15 pounds. No fever, chills, night sweats. HEMATOLOGY: Unremarkable. PHYSICAL EXAMINATION: On physical examination, she appears comfortable, no apparent distress. Vital signs are stable. Blood pressure 147/78, pulse rate 65, temperature 98.7. HEENT examination unremarkable. Conjunctivae pink. Sclerae anicteric. Oral cavity no lesions. NECK: No JVD or lymph node enlargement. CHEST: Clear to auscultation. HEART: Regular rate and rhythm. ABDOMEN: Soft. Mild diffuse tenderness. EXTREMITIES: No pedal edema. SKIN: No rashes. NEURO: Alert and oriented x3. No focal deficits. LABS: WBC 13.2, hemoglobin 12.8, platelets normal. Basic metabolic panel is within normal limits. Urinalysis is negative. Influenza A and B are negative. IMPRESSION: 1. Nausea, vomiting, diarrhea for the last 3 weeks duration. The patient was treated with antibiotics on 2 different occasions for possible acute bacterial sinusitis, but the patient believes that her symptoms had started even before she started the antibiotics. Most likely her symptoms are suggestive of infectious etiology. 2. History of hypertension, which is currently under control. 3. History of asthma with recent exacerbation, presently on inhalers. RECOMMENDATIONS: 1. We will obtain stool studies for C difficile toxin, ova parasites, stool cultures, as well as Giardia antigen. 2. Patient was empirically started on Zosyn, which can be continued for now. 3. Continue with IV PPI and antiemetics as needed. 4. If the symptoms do not improve in the next 2 to 3 days, we will consider endoscopic workup. The plan was discussed with the patient as well as the family who is at the bedside and we will follow her closely during her hospital stay. Thank you for this consultation. RONIT / MIKAYLA: [id number] /
--- NOTE | 2019-08-18 15:00 | P.PN ---
Progress Note - Text Progress Note Date: 08/18/19 Patient was seen. Recently discharged home for intractable nausea and vomiting likely related to postnasal drip. Patient went home and symptoms slowly returned. She denies any abdominal pain or diarrhea. There was a computed tomography scan that was performed previously which showed possible enteritis. She has been started on Zosyn and GI has been consulted. Stool cultures are pending. Blood culture is pending.
[2019-08-19] MEDS: PIPERACILLIN-TAZOBACTAM 3.375 GM in SODIUM CHLORIDE 0.9% 100 ML IVPB SCH ×3 (01:53→17:41)
[2019-08-19] MEDS: ACETAMINOPHEN TAB 325 MG TAB PO PRN ×3 (02:08→21:18)
[2019-08-19] MEDS: SODIUM CHLORIDE 0.9% 1,000 ML IV SCH (06:00)
[2019-08-19 10:40] LABS: Basophils # (A) 0.1 k/uL (0-0.2); Basophils % (A) 1 %; Eosinophils # (A) 0.5 k/uL (0-0.7); Eosinophils % (A) 6 %; HCT 38.2 % (34.0-46.0); HGB 12.4 gm/dL (11.4-16.0); Lymphocytes # (A) 1.3 k/uL (1.0-4.8); Lymphocytes % (A) 16 %; MCH 29.3 pg (25.0-35.0); MCHC 32.4 g/dL (31.0-37.0); MCV 90.6 fL (80.0-100.0); Mean Platelet Volume 7.9; Monocytes # (A) 0.3 k/uL (0-1.0); Monocytes % (A) 4 %; Neutrophils # (A) 5.8 k/uL (1.3-7.7); Neutrophils % (A) 72 %; Platelet Count 177 k/uL (150-450); RBC 4.21 m/uL (3.80-5.40); RDW 13.1 % (11.5-15.5); WBC 8.1 k/uL (3.8-10.6)
[2019-08-19 11:07] LABS: Albumin 2.8 g/dL (3.5-5.0); Calcium 8.1 mg/dL (8.4-10.2); Potassium 4.1 mmol/L (3.5-5.1); Total Bilirubin 0.8 mg/dL (0.2-1.3); Total Protein 5.2 g/dL (6.3-8.2)
--- NOTE | 2019-08-19 12:23 | P.PN ---
Subjective Progress Note Date: 08/19/19 Principal diagnosis: N/V Patient was seen and examined. No acute events overnight. No bowel movement. No abdominal pain. Patient states continues to feel very congested in her face. She complains of facial pain likely related to her sinusitis. Complains of mild nausea but no vomiting. No fever or chills. No chest pain, shortness of breath or palpitations. Objective - Vital Signs Vital signs: Vital Signs Temp 97.8 F 08/19/19 05:28 Pulse 68 08/19/19 05:28 Resp 16 08/19/19 05:28 BP 151/80 08/19/19 05:28 Pulse Ox 95 08/19/19 05:28 Intake & Output 08/18/19 08/19/19 08/19/19 18:59 06:59 18:59 Intake Total 540 590 Balance 540 590 Intake: Oral 540 590 Other: Voiding Method Bedside Commode Bedside Commode # Voids 3 1 1 - Exam General: [non toxic], [no distress], [appears at stated age] Derm: [warm], [dry] Head: [atraumatic], [normocephalic], [symmetric], [tenderness over the left frontal and maxillary sinus] Eyes: [EOMI], [no lid lag], [anicteric sclera] Mouth: [no lip lesion], [mucus membranes moist] Cardiovascular: [S1S2 reg], [no murmur], [positive DP pulse bilateral], Lungs: [Clear to auscultation bilaterally], [no rhonchi, no rales] , [no accessory muscle use] Abdominal: [soft], [ nontender to palpation], [no guarding], [no appreciable organomegaly] Ext: [no gross muscle atrophy], [no edema], [no contractures] Neuro: [no focal neuro deficits] Psych: [Alert], [oriented], [appropriate affect] - Labs CBC & Chem 7: 08/19/19 10:22 08/19/19 10:22 Labs: Abnormal Lab Results - Last 24 Hours (Table) 08/19/19 Range/Units 10:22 Calcium 8.1 L (8.4-10.2) mg/dL Total Protein 5.2 L (6.3-8.2) g/dL Albumin 2.8 L (3.5-5.0) g/dL Microbiology - Last 24 Hours (Table) 08/17/19 18:03 Blood Culture - Preliminary Blood No Growth after 24 hours Assessment and Plan Assessment: Assessment and Plan Intractable nausea and vomiting likely related to postnasal drip Enteritis Bacterial sinusitis Pelvic wall mass Hypertension Her symptoms of dry heaving are likely related to postnasal drip. CT abdomen and pelvis showed enteritis. Plans: Treatment for sinusitis. Zofran as needed for nausea or vomiting. Continue Protonix by mouth. DC IVF and encourage hydration by mouth. As seen on CT abdomen and pelvis. Plans: Stool for culture and WBC. C. diff. Follow blood cultures. Transition to regular diet. Continue Zosyn. Follow GI consultation. As seen on physical exam. Green nasal discharge. Plans: Start Mucinex. Nasal saline as needed. Tylenol as needed for fever and chills. Continue Zosyn. As seen on CT abdomen and pelvis. Plans: Need adequate follow-up in the outpatient setting for workup and to exclude malignancy. BP 151/80. Plans: Continue metoprolol, HCTZ. Monitor vitals, adjust medications as necessary. [Symptoms are improving. Educated patient on sinusitis causing her likely nausea and vomiting. Given the fact that she has come back to the hospital the last 2 times and re-admitted we will continue to monitor the patient. GI consutlation pending. Likely DC in 1-2 days.]
[2019-08-19] MEDS: PSEUDOEPHEDRINE 30 MG TAB PO SCH ×3 (13:35→23:09)
[2019-08-19] MEDS: guaiFENesin 600 MG TABLET.ER PO SCH ×2 (13:35→21:20)
[2019-08-19] MEDS: SODIUM CHLORIDE 0.65% NASAL SPRAY 44 ML BTL NASAL PRN (13:36)
--- NOTE | 2019-08-19 14:00 | PN ---
PROGRESS NOTE DATE OF DICTATION: August 19, 2019 Patient is a 68-year-old pleasant white female admitted to the hospital with abdominal pain associated with nausea, vomiting, diarrhea on and off for the last 4 weeks duration. She had multiple ER visits for the same symptoms. She was also having acute bilateral sinusitis for which she was treated with antibiotics on a couple of different occasions with no help. Following admission to the hospital, she was started on broad- spectrum antibiotics and stool studies have been requested. Surprisingly, her symptoms have completely resolved. In fact, the patient states that she did not have any further episodes of nausea, vomiting. Abdominal pain has resolved and she had no bowel movements since yesterday. Overall, she is feeling much better. No fever, chills, or night sweats. PHYSICAL EXAMINATION: She appears comfortable. No apparent distress. VITAL SIGNS: Stable. Blood pressure is 133/80, temperature 97.8, and pulse rate 68. HEENT examination unremarkable. Conjunctivae pink. Sclerae anicteric. Oral cavity no lesions. NECK: No JVD or lymph node enlargement. CHEST: Clear to auscultation. HEART: Regular rate and rhythm. ABDOMEN: Soft. Bowel sounds are positive. No organomegaly. EXTREMITIES: No pedal edema. SKIN no rashes. NEUROLOGIC: Alert and oriented x3. No focal deficits. LABS: From today are still pending at the time of this dictation. Stool studies were requested but not done as the diarrhea has resolved. IMPRESSION: Nausea, vomiting, diarrhea associated with abdominal pain of 4 weeks duration, possibly side effects of medications from antibiotics versus infectious gastroenteritis. In any event, the patient on broad-spectrum antibiotics and symptoms are significantly improved. The nausea vomiting has resolved and so is the diarrhea. Stool studies were requested, not done because she had no bowel movements since being in the hospital. RECOMMENDATIONS: 1. Continue with antibiotics. 2. Advance diet as tolerated. 3. Increase ambulation. 4. Repeat labs today. Thank you for this consultation. We will follow the patient closely during the hospital stay. MMODL / IJN: [id number] /
[2019-08-19] MEDS: METOPROLOL TARTRATE 50 MG TAB PO SCH (21:14)
[2019-08-20] MEDS: PIPERACILLIN-TAZOBACTAM 3.375 GM in SODIUM CHLORIDE 0.9% 100 ML IVPB SCH ×3 (02:59→18:03)
[2019-08-20] MEDS: PSEUDOEPHEDRINE 30 MG TAB PO SCH ×3 (07:02→18:04)
[2019-08-20] MEDS: guaiFENesin 600 MG TABLET.ER PO SCH ×2 (07:11→22:21)
[2019-08-20] MEDS: HYDROCHLOROTHIAZIDE 12.5 MG CAP PO SCH (07:11)
[2019-08-20] MEDS: METOPROLOL TARTRATE 50 MG TAB PO SCH ×2 (07:11→22:21)
[2019-08-20] MEDS: SODIUM CHLORIDE 0.65% NASAL SPRAY 44 ML BTL NASAL PRN (07:12)
[2019-08-20] MEDS: ACETAMINOPHEN TAB 325 MG TAB PO PRN ×2 (09:01→18:08)
[2019-08-20] MEDS: ALBUTEROL NEBULIZED 2.5 MG/3 ML INHALATION PRN ×3 (09:08→19:32)
--- NOTE | 2019-08-20 12:21 | PN ---
PROGRESS NOTE DATE OF SERVICE: 08/20/2019 Patient is a 68-year-old pleasant white female admitted to hospital with nausea, vomiting, diarrhea for the last one month duration. Since being in the hospital, her symptoms are significantly improved. She denies any further episodes of emesis. She was started on a regular diet yesterday, tolerating well. Remains on broad-spectrum antibiotics. Had no bowel movements for 2 days. PHYSICAL EXAMINATION: On physical examination, appears comfortable, no apparent distress. Vital signs are stable. Blood pressure is 156/71, pulse is 66, temperature 97.4. HEENT EXAMINATION: Unremarkable. Conjunctivae pink. Sclerae anicteric. Oral cavity no lesions. NECK: No JVD or lymph node enlargement. CHEST: Clear to auscultation. HEART: Regular rate and rhythm. ABDOMEN: Soft. Bowel sounds are positive. No organomegaly. EXTREMITIES: No pedal edema. SKIN: No rashes. NEUROLOGIC: Alert and oriented x3. No focal deficits. LABS: No labs available from today. IMPRESSION: Acute onset of nausea, vomiting, diarrhea of few days duration, possibly related to side effects from recent antibiotic use versus viral gastroenteritis. Symptoms are significantly improved; on a regular diet tolerating well. RECOMMENDATION: 1. Advance diet as tolerated. 2. Antiemetics as needed. 3. Patient can be discharged home today with an outpatient followup in 2 to 3 weeks. Thank you for this consultation. MMODL / JERIN: [id number] /
--- NOTE | 2019-08-20 12:21 | P.PN ---
Subjective Progress Note Date: 08/20/19 Principal diagnosis: Enteritis Nausea vomiting and diarrhea all resolved. Still having sinus pressure and headaches. She states that she is very weak and unable to go to the bathroom by herself due to weakness. Objective - Vital Signs Vital signs: Vital Signs Temp 97.4 F L 08/20/19 04:45 Pulse 66 08/20/19 09:21 Resp 17 08/20/19 08:00 BP 156/71 08/20/19 04:45 Pulse Ox 97 08/20/19 04:45 Intake & Output 08/19/19 08/20/19 08/20/19 18:59 06:59 18:59 Intake Total 590 300 Balance 590 300 Intake: Oral 590 300 Other: Voiding Method Bedside Commode Bedside Commode Bedside Commode # Voids 3 2 - Exam Constitutional: No acute distress, conversant, pleasant Eyes:Anicteric sclerae, moist conjunctiva, no lid-lag, PERRLA, ENMT: Oropharynx clear, no erythema, exudates Neck: Supple, FROM, no masses, or JVD, No carotid bruits, No thyromegaly Lungs: Clear to auscultation, Clear to percussion, Normal respiratory effort, no accessory muscle use Cardiovascular: Heart regular in rate and rhythm, No murmurs, gallops, or rubs, No peripheral edema Abdominal: Soft, Nontender, no guarding, rebound or rigidity, Normoactive bowel sounds, No hepatomegaly, No splenomegaly, No palpable mass Skin: Normal temperature, tone, texture, turgor, no induration, No subcutaneous nodules, No rash, lesions, No ulcers Extremities: No digital cyanosis, No clubbing, Pedal pulses intact and symmetrical, Radial pulses intact and symmetrical, No calf tenderness Psychiatric: Alert and oriented to person, place and time, appropriate affect, intact judgement Neuro: Muscles Strength 5/5 in all 4 extremities, Sensation to light touch emanuel sly present throughout, Cranial nerves II-XII grossly intact, no focal sensory deficits - Labs CBC & Chem 7: 08/19/19 10:22 08/19/19 10:22 Labs: Microbiology - Last 24 Hours (Table) 08/17/19 18:03 Blood Culture - Preliminary Blood No Growth after 48 hours Assessment and Plan Plan: Eneritis As seen on CT abdomen and pelvis. Stool for culture and WBC. C. diff--pending. Blood cultures negative. Tolerating diet. Continue Zosyn. Follow GI consultation. Bacterial sinusitis Continue Mucinex. Nasal saline as needed. Tylenol as needed for fever and chills. Continue Zosyn. Pelvic wall mass Need adequate follow-up in the outpatient setting for workup and to exclude malignancy. Deconditioning and general weakness PT recommending rehab due to high risk for falls. This was discussed with care management who will talk to patient.
[2019-08-21] MEDS: PSEUDOEPHEDRINE 30 MG TAB PO SCH ×3 (00:52→12:56)
[2019-08-21] MEDS: PIPERACILLIN-TAZOBACTAM 3.375 GM in SODIUM CHLORIDE 0.9% 100 ML IVPB SCH ×2 (03:28→10:35)
[2019-08-21] MEDS: ALBUTEROL NEBULIZED 2.5 MG/3 ML INHALATION PRN (07:13)
[2019-08-21 07:39] VITALS: BP 169/74; PULSE 56; RESP 16; TEMP 98.3
[2019-08-21] MEDS: guaiFENesin 600 MG TABLET.ER PO SCH (08:47)
[2019-08-21] MEDS: METOPROLOL TARTRATE 50 MG TAB PO SCH (08:48)
[2019-08-21] MEDS: SODIUM CHLORIDE 0.65% NASAL SPRAY 44 ML BTL NASAL PRN (08:48)
[2019-08-21] MEDS: HYDROCHLOROTHIAZIDE 12.5 MG CAP PO SCH (08:48)
--- NOTE | 2019-08-21 09:10 | P.DS ---
Providers Date of admission: 08/21/19 07:51 Expected date of discharge: 08/21/19 Attending physician: Leny Pascual MD Consults: 08/17/19 20:29 Consult Physician Routine Consulting Provider: Adela Seymour Consult Reason/Comments: vomitting, diarrhea, fever x 2 weeks Do you want consulting provider notified?: Yes Primary care physician: Jessica [facility] Course: Diagnoses upon discharge: 1. Acute enteritis unspecified etiology 2. Acute bacterial sinusitis of unspecified organism 3. Pelvic wall mass 4. Morbid obesity BMI 48.1 5. Weakness HPI: The patient is a 68 yo F with a PMH of asthma and HTN who presented to the ED for intractable nausea, vomiting, and diarrhea. The patient was admitted to the hospital initially on 08/06 in observation for acute bacterial sinusitis and was started on Augmentin and was discharged home. She again presented to the ED and was admitted under observation 2 days ago on 08/15 with continued symptoms of sinusitis along with nausea and vomiting. The patient had however felt better initially and was subsequently discharged home on 08/16. She notes that her nausea, vomiting, and diarrhea worsened following discharge over the past 2 days. She reported numerous episodes of vomiting with 4-5 episodes of watery diarrhea daily. She notes feeling fatigued and feverish. She reports that her sinusitis symptoms have resolved entirely. She denied abdominal pain, bloody/dark tarry stools, or hematemesis. She denied chest pain, cough, SOB, headache, or facial pain. She underwent an extensive evaluation in the ED. She was noted to be febrile upon presentation with Temp 102.9 with CXR unremarkable and KUB showing a non-acute abdomen. Laboratory evaluation revealed a WBC count of 13.2, Hgb 12.8, plt 206, Troponin 0.034, Inf neg, Lactate 1.1, Na 134, K 3.4, BUN 12, and Cr 0.87. CT abd performed during previous admission on 08/15 reviewed, showing possible enteritis. She is being admitted to the medicine service for further management. Hospital course and treatment: Patient came into the hospital with acute bacterial sinusitis who has been treated with Augmentin at home. She reported to the emergency room because of nausea and vomiting. She was found to have enteritis of unspecified etiology, her symptoms also were thought to be secondary to antibiotics. She was treated with IV Zosyn for bacterial sinusitis. Cultures were negative. She continued to gradually be physically weak and was evaluated by PT OT. She has significantly improved prior to discharge. During her stay she was evaluated by GI and was cleared for discharge. His home. The Has an abdominal wall mass and will need follow-up as an outpatient. She did not qualify for rehab and did not want home health. She'll be discharged home on no antibiotics. Patient Condition at Discharge: Good Plan - Discharge Summary Discharge Rx Participant: No New Discharge Prescriptions: Continue Albuterol Sulfate [Proair Respiclick] 2 puff INHALATION RT-Q4H PRN PRN Reason: Shortness Of Breath Hydrochlorothiazide [Hydrodiuril] 12.5 mg PO DAILY Metoprolol Tartrate [Lopressor] 50 mg PO BID Fluticasone/Umeclidin/Vilanter [Trelegy Ellipta 100-62.5-25] 1 puff INHALATION RT-DAILY Albuterol Nebulized [Ventolin Nebulized] 2.5 mg INHALATION RT-Q4H PRN #30 nebu PRN Reason: Shortness Of Breath guaiFENesin [Mucinex] 1,200 mg PO Q12HR #30 tablet.er Scopolamine 1.5MG/72Hr Patch [TransDerm Scop] 1 patch TRANSDERM Q72H #3 patch Discharge Medication List Albuterol Sulfate [Proair Respiclick] 2 puff INHALATION RT-Q4H PRN 05/10/16 [History] Hydrochlorothiazide [Hydrodiuril] 12.5 mg PO DAILY 02/24/18 [History] Metoprolol Tartrate [Lopressor] 50 mg PO BID 02/03/19 [History] Fluticasone/Umeclidin/Vilanter [Trelegy Ellipta 100-62.5-25] 1 puff INHALATION RT-DAILY 08/06/19 [History] Albuterol Nebulized [Ventolin Nebulized] 2.5 mg INHALATION RT-Q4H PRN #30 nebu 08/08/19 [Rx] Scopolamine 1.5MG/72Hr Patch [TransDerm Scop] 1 patch TRANSDERM Q72H #3 patch 08/16/19 [Rx] guaiFENesin [Mucinex] 1,200 mg PO Q12HR #30 tablet.er 08/16/19 [Rx] Follow up Appointment(s)/Referral(s): Jessica Reyes MD [Primary Care Provider] - 1-2 days Shalonda Oneill NPC [Nurse Practitioner] - 2 Weeks Discharge Disposition: HOME SELF-CARE
== END 2019-08-21 15:00 | disposition home or self-care (01) | DRG 392 ==
LOC: EC 16:51 → 6NMEDSUR 21:34 → OBSVTOIN 08-21 07:51
PROVIDERS: ADMIT Internal Medicine; ATTEND Internal Medicine
DX: K52.9 Noninfective gastroenteritis and colitis, unspecified (principal); Z68.42 Body mass index [BMI] 45.0-49.9, adult; I10 Essential (primary) hypertension; J45.909 Unspecified asthma, uncomplicated; J01.90 Acute sinusitis, unspecified; E78.5 Hyperlipidemia, unspecified; E86.0 Dehydration; E66.01 Morbid (severe) obesity due to excess calories; I73.9 Peripheral vascular disease, unspecified; T36.95XA Adverse effect of unspecified systemic antibiotic, initial encounter; R19.00 Intra-abdominal and pelvic swelling, mass and lump, unspecified site; B96.89 Other specified bacterial agents as the cause of diseases classified elsewhere; Z88.1 Allergy status to other antibiotic agents; Z91.048 Other nonmedicinal substance allergy status; Z88.8 Allergy status to other drugs, medicaments and biological substances; Z79.52 Long term (current) use of systemic steroids; Z79.84 Long term (current) use of oral hypoglycemic drugs; Z91.040 Latex allergy status; Z79.899 Other long term (current) drug therapy; Z86.718 Personal history of other venous thrombosis and embolism; Z87.01 Personal history of pneumonia (recurrent); Z87.2 Personal history of diseases of the skin and subcutaneous tissue; Z87.11 Personal history of peptic ulcer disease; Z98.891 History of uterine scar from previous surgery; Z95.820 Peripheral vascular angioplasty status with implants and grafts; Z90.49 Acquired absence of other specified parts of digestive tract; Z87.19 Personal history of other diseases of the digestive system; Z98.890 Other specified postprocedural states; Z82.49 Family history of ischemic heart disease and other diseases of the circulatory system
CPT/HCPCS: 36415; 71046; 74018; 80053; 81001; 83605; 83690; 84484; 85025; 87040; 87502; 93005; 94640; 96361; 96365; 96375; 99285

== ENCOUNTER 2021-02-24 11:45 | Emergency (ER) | payer MEDICARE ==
[2021-02-24 11:57] VITALS: RESP 16; TEMP 97.9
--- NOTE | 2021-02-24 12:16 | ED ---
General Adult HPI - General Chief complaint: Extremity Problem,Nontraumatic Stated complaint: Possible blood clot Time Seen by Provider: 02/24/21 11:58 Source: patient, RN notes reviewed Mode of arrival: ambulatory Limitations: no limitations - History of Present Illness Initial comments: 70-year-old female with a past medical history of asthma, hyperlipidemia, hypertension, DVT of the left leg 3 years ago, cellulitis left leg presents to the emergency room for a chief complaint of left leg swelling. Patient states her left ankle is red and swollen. Patient states she normally has some swelling for the past few months. She has not been taking her hydrochlorothiazide but that the area is now red. States it is itching. Patient is concerned that she could have another DVT. This last DVT was provoked by immobility as she was sick irritation is no longer on blood thinners. Patient denies chest pain or shortness of breath.Patient has no other complaints at this time including shortness of breath, chest pain, abdominal pain, nausea or vomiting, headache, or visual changes. - Related Data Home Medications Medication Instructions Recorded Confirmed hydroCHLOROthiazide [Hydrodiuril] 12.5 mg PO DAILY 02/24/18 02/24/21 Metoprolol Tartrate [Lopressor] 50 mg PO BID 02/03/19 02/24/21 Acetaminophen Tab [Tylenol Tab] 500 mg PO Q6H PRN 02/24/21 02/24/21 Albuterol Sulfate [Ventolin HFA] 2 puff INHALATION RT-Q6H PRN 02/24/21 02/24/21 Beclomethasone Dip 80 Mcg/Puff 2 puff INHALATION RT-BID 02/24/21 02/24/21 [Qvar 80 mcg] Previous Rx's Medication Instructions Recorded Clindamycin [Cleocin] 450 mg PO Q8H 7 Days #63 cap 02/24/21 Allergies Allergy/AdvReac Type Severity Reaction Status Date / Time VASILE Inhibitors Allergy Swelling Verified 02/24/21 12:29 adhesive tape Allergy Itching Verified 02/24/21 12:29 cephalexin monohydrate Allergy Rash/Hives Verified 02/24/21 12:29 [From Keflex] latex Allergy Itching Verified 02/24/21 12:29 Review of Systems ROS Statement: Those systems with pertinent positive or pertinent negative responses have been documented in the HPI. ROS Other: All systems not noted in ROS Statement are negative. Past Medical History Past Medical History: Asthma, Deep Vein Thrombosis (DVT), Hyperlipidemia, Hypertension, Pneumonia, Skin Disorder, Vascular Disorder Additional Past Medical History / Comment(s): DVT left leg, decreased circulation bilateral legs, PUD, red/itchy skin d/t allergies, cellulitis L lower leg. History of Any Multi-Drug Resistant Organisms: None Reported Past Surgical History: Appendectomy, Section, Cholecystectomy, Hernia Repair, Orthopedic Surgery Additional Past Surgical History / Comment(s): Stent to L leg, ventral hernia repair, R knee arthroscopy. Past Anesthesia/Blood Transfusion Reactions: Postoperative Nausea & Vomiting (PONV) Past Psychological History: No Psychological Hx Reported Smoking Status: Never smoker Past Alcohol Use History: None Reported Past Drug Use History: None Reported - Past Family History Father History Unknown: Yes Additional Family Medical History / Comment(s): adopted Mother History Unknown: Yes Family Medical History: Deep Vein Thrombosis (DVT) Additional Family Medical History / Comment(s): Pt was adopted but recently found out mother had dvt L leg. General Exam Limitations: no limitations General appearance: alert, in no apparent distress Head exam: Present: atraumatic, normocephalic, normal inspection Eye exam: Present: normal appearance ENT exam: Present: normal exam, mucous membranes moist Neck exam: Present: normal inspection. Absent: tenderness, meningismus, lymphadenopathy Respiratory exam: Present: normal lung sounds bilaterally. Absent: respiratory distress, wheezes, rales, rhonchi, stridor Cardiovascular Exam: Present: regular rate, normal rhythm, normal heart sounds. Absent: systolic murmur, diastolic murmur, rubs, gallop, clicks Extremities exam: Present: normal capillary refill (cap refill less than 2 seconds of lower extremity, DP pulse 2+.), joint swelling (Mild edema of the left ankle with mild erythema circumferentially. No tenderness extending into the calf.), other (Sensation intact left lower extremity). Absent: calf tenderness (No calf tenderness Tenderness, negative Homans sign) Course Vital Signs 02/24/21 11:53 Temperature 97.9 F Pulse Rate 59 L Respiratory 16 Rate Blood Pressure 202/80 O2 Sat by Pulse 98 Oximetry Medical Decision Making - Medical Decision Making Ultrasound shows no evidence of DVT at this time. Given some redness of the ankle with history of cellulitis in the area patient will be treated with clindamycin, penicillin ALLERGIC. She will follow-up with her doctor. She'll return here for any worsening symptoms. Disposition Clinical Impression: Edema of left ankle, Cellulitis Disposition: HOME SELF-CARE Condition: Good Instructions (If sedation given, give patient instructions): Cellulitis (ED) Additional Instructions: Please take antibiotics as directed. Take Atarax and use Benadryl cream only as needed for itching. Do not drive or operate machinery while taking Atarax. Follow-up with your primary care doctor. If symptoms are worsening such as the redness is spreading after 24 hours or youre getting fevers return to the emergency room. Prescriptions: Clindamycin [Cleocin] 450 mg PO Q8H 7 Days #63 cap Is patient prescribed a controlled substance at d/c from ED?: No Referrals: Jessica Reyes MD [Primary Care Provider] - 1-2 days Time of Disposition: 13:19
[2021-02-24] MEDS: LORATADINE 10 MG TAB PO STA (12:29)
--- NOTE | 2021-02-24 12:52 | US ---
EXAMINATION TYPE: US venous doppler duplex LE LT DATE OF EXAM: 02/24/2021 12:44 PM COMPARISON: NONE CLINICAL HISTORY: swelling, h/o dvt. edema, pain, redness left lower leg SIDE PERFORMED: left TECHNIQUE: The lower extremity deep venous system is examined utilizing real time linear array sonog mal with graded compression, doppler sonography and color-flow sonography. VESSELS IMAGED: Common Femoral Vein Deep Femoral Vein Greater Saphenous Vein * Femoral Vein Popliteal Vein Small Saphenous Vein * Proximal Calf Veins (* superficial vessels) Left Leg: limitations due to patient's body habitus, no evidence of DVT as visualized. unable to vis ualize lower femoral vein for compression IMPRESSION: No evidence of DVT at this time.
[2021-02-24] MEDS: KETOROLAC 15 MG/ML 1 ML VIAL IM STA (13:38)
[2021-02-24 13:43] VITALS: BP 136/79; PULSE 87
== END 2021-02-24 13:42 | disposition home or self-care (01) ==
LOC: EC 11:45
DX: R60.0 Localized edema (principal); L03.116 Cellulitis of left lower limb; I10 Essential (primary) hypertension; J45.909 Unspecified asthma, uncomplicated; Z79.51 Long term (current) use of inhaled steroids; Z79.899 Other long term (current) drug therapy; Z86.718 Personal history of other venous thrombosis and embolism; Z88.1 Allergy status to other antibiotic agents; Z91.040 Latex allergy status; Z88.8 Allergy status to other drugs, medicaments and biological substances; Z91.09 Other allergy status, other than to drugs and biological substances
CPT/HCPCS: 93971; 99283; 96372; J1885

== ENCOUNTER 2021-02-28 | Emergency (ER) | payer MEDICARE | END 2021-02-28 09:05 | disposition home or self-care (01) ==

== ENCOUNTER 2021-10-29 15:27 | Observation (INO) | payer MEDICARE ==
[2021-10-29] MEDS ORDERED: SODIUM CHLORIDE 0.9% 500 ML 500 ML IV STA ×2 (16:16→20:19)
[2021-10-29] MEDS ORDERED: ACETAMINOPHEN TAB 500 MG TAB PO STA (16:16)
--- NOTE | 2021-10-29 16:22 | ED ---
General Adult HPI - General Chief complaint: Weakness Stated complaint: UTI Time Seen by Provider: 10/29/21 16:02 Source: EMS, RN notes reviewed Mode of arrival: EMS Limitations: physical limitation - History of Present Illness Initial comments: 71-year-old female presents to the emergency department via EMS for evaluation of weakness 4 days. Patient states she has bilateral ear pain, swollen lymph nodes, back pain, loss of appetite, and increased episodes of urinary incontinence (history of stress incontinence) that have progressively worsened over the past 4 days. States she is feeling chilled today. Also had an episode of vomiting prior to arrival. Patient states she lives at home with her son and rarely leaves the house. She has not received a Covid vaccine. Denies headache, dizziness, chest pain, shortness of breath or difficulty breathing, abdominal pain, constipation, diarrhea, dysuria, or hematuria. - Related Data Home Medications Medication Instructions Recorded Confirmed Metoprolol Tartrate [Lopressor] 50 mg PO BID 02/03/19 10/29/21 Albuterol Sulfate [Ventolin HFA] 2 puff INHALATION RT-Q6H PRN 02/24/21 10/29/21 [id number] 1 - 2 tab PO Q4H PRN 10/29/21 10/29/21 [Excedrin] Budesonide/Formoterol Fumarate 2 puff INHALATION DIRECTED 10/29/21 10/29/21 [Symbicort 160-4.5 Mcg Inhaler] Allergies Allergy/AdvReac Type Severity Reaction Status Date / Time VASILE Inhibitors Allergy Facial Verified 10/29/21 20:12 edema adhesive tape Allergy Itching Verified 10/29/21 20:12 latex Allergy Itching Verified 10/29/21 20:12 cephalexin monohydrate AdvReac Nausea & Verified 10/29/21 20:12 [From Keflex] Vomiting Review of Systems ROS Statement: Those systems with pertinent positive or pertinent negative responses have been documented in the HPI. ROS Other: All systems not noted in ROS Statement are negative. Past Medical History Past Medical History: Asthma, Deep Vein Thrombosis (DVT), Hyperlipidemia, Hypertension, Pneumonia, Skin Disorder, Vascular Disorder Additional Past Medical History / Comment(s): DVT left leg, decreased circulation bilateral legs, PUD, red/itchy skin d/t allergies, cellulitis L lower leg. History of Any Multi-Drug Resistant Organisms: None Reported Past Surgical History: Appendectomy, Section, Cholecystectomy, Hernia Repair, Orthopedic Surgery Additional Past Surgical History / Comment(s): Stent to L leg, ventral hernia repair, R knee arthroscopy. Past Anesthesia/Blood Transfusion Reactions: Postoperative Nausea & Vomiting (P ONV) Past Psychological History: No Psychological Hx Reported Smoking Status: Never smoker Past Alcohol Use History: None Reported Past Drug Use History: None Reported - Past Family History Father History Unknown: Yes Additional Family Medical History / Comment(s): adopted Mother History Unknown: Yes Family Medical History: Deep Vein Thrombosis (DVT) Additional Family Medical History / Comment(s): Pt was adopted but recently found out mother had dvt L leg. General Exam Limitations: physical limitation General appearance: alert, in no apparent distress (Well-developed, well- nourished female in no acute distress. Initial temperature 99.0, recheck 100.4, pulse 93, respirations 14, blood pressure 137/78, pulse ox 96% on room air.) Eye exam: Present: normal appearance, PERRL. Absent: scleral icterus, conjunctival injection ENT exam: Present: normal oropharynx, mucous membranes moist Expanded TM/Canal exam: Erythema: Right TM (Slight erythematous tympanic membrane) Neck exam: Present: normal inspection, lymphadenopathy (Mild right sided anterior cervical neuropathy) Respiratory exam: Present: normal lung sounds bilaterally. Absent: respiratory distress, wheezes, rales, rhonchi, stridor Cardiovascular Exam: Present: regular rate, normal rhythm, normal heart sounds. Absent: systolic murmur, diastolic murmur, rubs, gallop, clicks GI/Abdominal exam: Present: soft, normal bowel sounds. Absent: distended, tenderness, guarding, rebound, rigid Extremities exam: Present: full ROM, normal capillary refill. Absent: pedal edema, calf tenderness Back exam: Present: normal inspection, full ROM. Absent: tenderness, CVA tenderness (R), CVA tenderness (L) Neurological exam: Present: alert, oriented X3 Psychiatric exam: Present: normal affect, normal mood Skin exam: Present: warm, dry, intact, normal color Course Vital Signs 10/29/21 10/29/21 10/29/21 15:35 18:42 21:57 Temperature 99.0 F 98.7 F Pulse Rate 93 84 79 Respiratory 14 14 18 Rate Blood Pressure 137/78 133/81 119/74 O2 Sat by Pulse 96 96 95 Oximetry - Reevaluation(s) Reevaluation #1: 10/29/21 18:57 Upon reassessment, patient is resting comfortably with no pain or nausea. She is aware that we are still awaiting a urine sample, but declines catheterization. Updated on remainder of results. 10/29/21 20:19 Patient resting comfortably at this time. Updated on results. I explained that urine shows evidence of infection and antibiotic treatment will need to be admitted initiate it. Addressed cephalexin ALLERGY; states it causes mild GI upset and that she is able to tolerate Rocephin without difficulty. She continues to feel weak and is lacking appetite; states she is not able to care for herself at home. Will seek hospital admission. Medical Decision Making - Medical Decision Making This is a pleasant 71-year-old female with a history of asthma, DVT, and hypertension who presents to the emergency department for evaluation of increased weakness, urinary frequency, and poor appetite. Upon exam, patient is nontoxic in appearance. Vital signs are stable, though she does have an elevated temperature of 100.4 and complains of chills. Patient's symptoms have been 4 days in duration and are progressively worsening. Laboratory studies reviewed and show mild dehydration in addition to UTI. Her chest x-ray is negative. EKG shows normal sinus rhythm with no ectopy. Patient was given IV fluids, antibiotic, and antipyretic with some improvement. Discussed admission versus discharge with patient; she reports feeling too poorly and too weak to go home at this time. IV fluids continued at maintenance dose. I did speak with Dr. Pascual who agrees to accept this patient for inpatient hospitalization. This patient's care was discussed with my attending, Dr. Gonzalez. - Lab Data Result diagrams: 10/29/21 16:28 10/29/21 16:28 Lab Results 10/29/21 10/29/21 10/29/21 Range/Units 16:28 16:28 16:28 WBC 11.5 H (3.8-10.6) k/uL RBC 4.43 (3.80-5.40) m/uL Hgb 13.9 (11.4-16.0) gm/dL Hct 41.0 (34.0-46.0) % MCV 92.5 (80.0-100.0) fL MCH 31.4 (25.0-35.0) pg MCHC 33.9 (31.0-37.0) g/dL RDW 13.0 (11.5-15.5) % Plt Count 213 (150-450) k/uL MPV 7.9 Neutrophils % 77 % Lymphocytes % 14 % Monocytes % 5 % Eosinophils % 3 % Basophils % 1 % Neutrophils # 8.9 H (1.3-7.7) k/uL Lymphocytes # 1.6 (1.0-4.8) k/uL Monocytes # 0.6 (0-1.0) k/uL Eosinophils # 0.3 (0-0.7) k/uL Basophils # 0.1 (0-0.2) k/uL Sodium 132 L (137-145) mmol/L Potassium 4.2 (3.5-5.1) mmol/L Chloride 97 L (98-107) mmol/L Carbon Dioxide 28 (22-30) mmol/L Anion Gap 7 mmol/L BUN 17 (7-17) mg/dL Creatinine 1.10 H (0.52-1.04) mg/dL Est GFR (CKD-EPI)AfAm 58 (>60 ml/min/1.73 sqM) Est GFR (CKD-EPI)NonAf 50 (>60 ml/min/1.73 sqM) Glucose 96 (74-99) mg/dL Plasma Lactic Acid Anil (0.7-2.0) mmol/L Calcium 8.9 (8.4-10.2) mg/dL Total Bilirubin 1.2 (0.2-1.3) mg/dL AST 35 (14-36) U/L ALT 12 (4-34) U/L Alkaline Phosphatase 79 (38-126) U/L Troponin I (0.000-0.034) ng/mL Total Protein 6.3 (6.3-8.2) g/dL Albumin 3.7 (3.5-5.0) g/dL Urine Color Dark Yellow Urine Appearance Cloudy H (Clear) Urine pH 5.5 (5.0-8.0) Ur Specific Castaner 1.032 (1.001-1.035) Urine Protein 1+ H (Negative) Urine Glucose (UA) Negative (Negative) Urine Ketones Negative (Negative) Urine Blood Small H (Negative) Urine Nitrite Negative (Negative) Urine Bilirubin 1+ H (Negative) Urine Urobilinogen 4.0 (<2.0) mg/dL Ur Leukocyte Esterase Large H (Negative) Urine RBC 11 H (0-5) /hpf Urine WBC 12 H (0-5) /hpf Ur Squamous Epith Cells 29 H (0-4) /hpf Urine Bacteria Moderate H (None) /hpf Hyaline Casts 52 H (0-2) /lpf Urine Mucus Many H (None) /hpf Coronavirus (PCR) (Not Detectd) 10/29/21 10/29/21 10/29/21 Range/Units 16:28 16:28 16:28 WBC (3.8-10.6) k/uL RBC (3.80-5.40) m/uL Hgb (11.4-16.0) gm/dL Hct (34.0-46.0) % MCV (80.0-100.0) fL MCH (25.0-35.0) pg MCHC (31.0-37.0) g/dL RDW (11.5-15.5) % Plt Count (150-450) k/uL MPV Neutrophils % % Lymphocytes % % Monocytes % % Eosinophils % % Basophils % % Neutrophils # (1.3-7.7) k/uL Lymphocytes # (1.0-4.8) k/uL Monocytes # (0-1.0) k/uL Eosinophils # (0-0.7) k/uL Basophils # (0-0.2) k/uL Sodium (137-145) mmol/L Potassium (3.5-5.1) mmol/L Chloride (98-107) mmol/L Carbon Dioxide (22-30) mmol/L Anion Gap mmol/L BUN (7-17) mg/dL Creatinine (0.52-1.04) mg/dL Est GFR (CKD-EPI)AfAm (>60 ml/min/1.73 sqM) Est GFR (CKD-EPI)NonAf (>60 ml/min/1.73 sqM) Glucose (74-99) mg/dL Plasma Lactic Acid Anil 1.1 (0.7-2.0) mmol/L Calcium (8.4-10.2) mg/dL Total Bilirubin (0.2-1.3) mg/dL AST (14-36) U/L ALT (4-34) U/L Alkaline Phosphatase (38-126) U/L Troponin I 0.013 (0.000-0.034) ng/mL Total Protein (6.3-8.2) g/dL Albumin (3.5-5.0) g/dL Urine Color Urine Appearance (Clear) Urine pH (5.0-8.0) Ur Specific Castaner (1.001-1.035) Urine Protein (Negative) Urine Glucose (UA) (Negative) Urine Ketones (Negative) Urine Blood (Negative) Urine Nitrite (Negative) Urine Bilirubin (Negative) Urine Urobilinogen (<2.0) mg/dL Ur Leukocyte Esterase (Negative) Urine RBC (0-5) /hpf Urine WBC (0-5) /hpf Ur Squamous Epith Cells (0-4) /hpf Urine Bacteria (None) /hpf Hyaline Casts (0-2) /lpf Urine Mucus (None) /hpf Coronavirus (PCR) Not Detected (Not Detectd) - EKG Data EKG shows normal: sinus rhythm Rate: normal EKG Comments: EKG was obtained at 1700 showing sinus rhythm with ventricular rate 87, IN interval 162, QRS duration 82, QT/QTC 343/387. Interpretation normal ECG. - Radiology Data Radiology results: report reviewed, image reviewed Two-view chest x-ray was obtained. Report was reviewed in its entirety. Im pression per Dr. Crocker is no active cardiopulmonary disease. Normal heart. No change. Disposition Clinical Impression: Weakness, UTI (urinary tract infection), Dehydration Disposition: ADMITTED IP TO THIS [facility] Condition: Serious Is patient prescribed a controlled substance at d/c from ED?: No Referrals: Jessica Reyes MD [Primary Care Provider] - 1-2 days Decision Date: 10/29/21 Decision Time: 22:20
[2021-10-29 16:48] LABS: Basophils # (A) 0.1 k/uL (0-0.2); Basophils % (A) 1 %; Eosinophils # (A) 0.3 k/uL (0-0.7); Eosinophils % (A) 3 %; HGB 13.9 gm/dL (11.4-16.0); Lymphocytes # (A) 1.6 k/uL (1.0-4.8); Lymphocytes % (A) 14 %; MCH 31.4 pg (25.0-35.0); MCHC 33.9 g/dL (31.0-37.0); MCV 92.5 fL (80.0-100.0); Mean Platelet Volume 7.9; Monocytes # (A) 0.6 k/uL (0-1.0); Monocytes % (A) 5 %; Neutrophils # (A) 8.9 k/uL (1.3-7.7); Neutrophils % (A) 77 %; Platelet Count 213 k/uL (150-450); RBC 4.43 m/uL (3.80-5.40); WBC 11.5 k/uL (3.8-10.6)
[2021-10-29 17:00] LABS: Albumin 3.7 g/dL (3.5-5.0); Calcium 8.9 mg/dL (8.4-10.2); Potassium 4.2 mmol/L (3.5-5.1); Total Bilirubin 1.2 mg/dL (0.2-1.3); Total Protein 6.3 g/dL (6.3-8.2)
--- NOTE | 2021-10-29 17:39 | XR ---
EXAMINATION TYPE: XR chest 2V DATE OF EXAM: 10/29/2021 COMPARISON: 02/28/2021 HISTORY: Weakness TECHNIQUE: 2 views FINDINGS: There is no heart failure nor confluent pneumonic infiltrate. Costophrenic angles are clear . There are no hilar masses. There are chest leads. Bony thorax is intact. IMPRESSION: No active cardiopulmonary disease. Normal heart. No change.
[2021-10-29 20:01] LABS: Appearance,Urine Cloudy (Clear); Bacteria,Urine Moderate /hpf; Bilirubin,Urine 1+ (Negative); Blood,Urine Small (Negative); Color,Urine Dark Yellow; Glucose,Urine (UA) Negative (Negative); Hyaline Casts,Urine 52 /lpf (0-2); Ketones,Urine Negative (Negative); Leukocyte Esterase,Urine Large (Negative); Mucus,Urine Many /hpf; Nitrite,Urine Negative (Negative); PH, Urine 5.5 (5.0-8.0); Protein,Urine 1+ (Negative); RBC,Urine 11 /hpf (0-5); Specific Gravity,Urine 1.032 (1.001-1.035); Squamous Epithelial Cell,Urine 29 /hpf (0-4); WBC,Urine 12 /hpf (0-5)
[2021-10-29] MEDS ORDERED: cefTRIAXone IN SWFI 1,000 MG/10 ML SYRINGE IVP STA (20:18)
[2021-10-29] MEDS ORDERED: ONDANSETRON 4 MG/2 ML VIAL IVP STA (20:19)
[2021-10-29] MEDS ORDERED: IBUPROFEN 600 MG TAB PO STA (21:47)
[2021-10-29] MEDS ORDERED: ALBUTEROL NEBULIZED 2.5 MG/3 ML INHALATION PRN (22:00)
[2021-10-29] MEDS ORDERED: ONDANSETRON 4 MG/2 ML VIAL IVP PRN (22:01)
[2021-10-29] MEDS ORDERED: NALOXONE 0.4 MG/ML 1 ML VIAL IV PRN (22:01)
[2021-10-29] MEDS ORDERED: ACETAMINOPHEN TAB 325 MG TAB PO PRN (22:01)
[2021-10-29] MEDS ORDERED: SODIUM CHLORIDE 0.9% 1,000 ML IV STA (22:02)
[2021-10-29] MEDS: METOPROLOL TARTRATE 50 MG TAB PO SCH (22:11)
[2021-10-29] MEDS: SODIUM CHLORIDE 0.9% 1,000 ML IV SCH (22:49)
[2021-10-29] MEDS: HYDROcodone/APAP 5-325MG 1 EACH TAB PO PRN (22:51)
--- NOTE | 2021-10-30 00:05 | P.HPIM ---
History of Present Illness H&P Date: 10/29/21 Chief Complaint: generlaized weakness 71 year old female with mild persistent assthma , hypertension patient comes in due to generalized weakness, increase low back pain and increase urinary incontinence. she has been feeling nauseous with decrease PO intake denies any fever or chills. denies any chest pain or trouble breathing, denies any URI symptoms. she denies any GI bleeding , abd pain , or diarrhea . she reports one episode of vomiting non bloody non bilious yesterday she did not feel too sick today, but was worried that she might be having a UTI, and finds it difficult to get an appointment with her PCP, for which she decided to visit the ED, she denies any falling at home, she lives with her son who helps taking care of her. workup in the Ed ,was suspicious for UTI, however, UA was contaminated sample Review of Systems Pertinent positives as noted in HPI. All other systems were reviewed and are negative Past Medical History Past Medical History: Asthma, Deep Vein Thrombosis (DVT), Hyperlipidemia, Hypertension, Pneumonia, Skin Disorder, Vascular Disorder Additional Past Medical History / Comment(s): DVT left leg, decreased circulation bilateral legs, PUD, red/itchy skin d/t allergies, cellulitis L lower leg. History of Any Multi-Drug Resistant Organisms: None Reported Past Surgical History: Appendectomy, Section, Cholecystectomy, Hernia Repair, Orthopedic Surgery Additional Past Surgical History / Comment(s): Stent to L leg, ventral hernia repair, R knee arthroscopy. Past Anesthesia/Blood Transfusion Reactions: Postoperative Nausea & Vomiting (PONV) Past Psychological History: No Psychological Hx Reported Smoking Status: Never smoker Past Alcohol Use History: None Reported Past Drug Use History: None Reported - Past Family History Father History Unknown: Yes Additional Family Medical History / Comment(s): adopted Mother History Unknown: Yes Family Medical History: Deep Vein Thrombosis (DVT) Additional Family Medical History / Comment(s): Pt was adopted but recently found out mother had dvt L leg. Medications and Allergies Home Medications Medication Instructions Recorded Confirmed Type Metoprolol Tartrate [Lopressor] 50 mg PO BID 02/03/19 10/29/21 History Albuterol Sulfate [Ventolin HFA] 2 puff INHALATION RT-Q6H PRN 02/24/21 10/29/21 History [id number] 1 - 2 tab PO Q4H PRN 10/29/21 10/29/21 History [Excedrin] Budesonide/Formoterol Fumarate 2 puff INHALATION DIRECTED 10/29/21 10/29/21 History [Symbicort 160-4.5 Mcg Inhaler] Allergies Allergy/AdvReac Type Severity Reaction Status Date / Time VASILE Inhibitors Allergy Facial Verified 10/29/21 20:12 edema adhesive tape Allergy Itching Verified 10/29/21 20:12 latex Allergy Itching Verified 10/29/21 20:12 cephalexin monohydrate AdvReac Nausea & Verified 10/29/21 20:12 [From Keflex] Vomiting Physical Exam Vitals: Vital Signs Temp Pulse Resp BP Pulse Ox 10/29/21 21:57 79 18 119/74 95 10/29/21 18:42 98.7 F 84 14 133/81 96 10/29/21 15:35 99.0 F 93 14 137/78 96 Intake and Output 10/29/21 10/29/21 10/30/21 14:59 22:59 06:59 Other: Weight 127.006 kg Constitutional: No acute distress, conversant, pleasant Eyes: Anicteric sclerae, moist conjunctiva, Pupils equal round reactive to light ENMT: NC/AT Oropharynx clear, no erythema, or exudates Neck: Supple, no masses, or JVD No carotid bruits No thyromegaly Lungs: Clear to auscultation Clear to percussion Normal respiratory effort, no accessory muscle use Cardiovascular: Heart regular in rate and rhythm, No murmurs, gallops, or rubs No peripheral edema Abdominal: Soft there is a healing superficial wound over the suprapubic region, moist and foul smell over the intertriginous region , other francisco Nontender, no gua rding, rebound or rigidity Abdomen moving with respiration Normoactive bowel sounds No hepatomegaly, No splenomegaly No palpable mass No abdominal wall hernia noted Skin: superficial wound over the suprapubic region and moist foul smelling intertriginous in the abd panus , otherwiseNormal temperature, tone, texture, turgor No induration No subcutaneous nodules No rash, lesions No ulcers Extremities: No digital cyanosis No clubbing Pedal pulses intact and symmetrical Radial pulses intact and symmetrical No calf tenderness Psychiatric: Alert and oriented to person, place and time Appropriate affect fair judgement Neuro Muscles Strength 4/5 in all 4 extremities Sensation to light touch grossly present throughout Cranial nerves II-XII grossly intact Lymphatics: no palpable cervical or supraclavicular , or inguinal lymph n odes Results CBC & Chem 7: 10/29/21 16:28 10/29/21 16:28 Labs: Abnormal Lab Results - Last 24 Hours (Table) 10/29/21 10/29/21 10/29/21 Range/Units 16:28 16:28 16:28 WBC 11.5 H (3.8-10.6) k/uL Neutrophils # 8.9 H (1.3-7.7) k/uL Sodium 132 L (137-145) mmol/L Chloride 97 L (98-107) mmol/L Creatinine 1.10 H (0.52-1.04) mg/dL Urine Appearance Cloudy H (Clear) Urine Protein 1+ H (Negative) Urine Blood Small H (Negative) Urine Bilirubin 1+ H (Negative) Ur Leukocyte Esterase Large H (Negative) Urine RBC 11 H (0-5) /hpf Urine WBC 12 H (0-5) /hpf Ur Squamous Epith Cells 29 H (0-4) /hpf Urine Bacteria Moderate H (None) /hpf Hyaline Casts 52 H (0-2) /lpf Urine Mucus Many H (None) /hpf Assessment and Plan Assessment: generalized weakness dehydration , decrease PO intake hypovolemic hyponatremia possible UTI chronic low back pain mild persistent asthma , controlled plan fall precautions supportive care IVF hydration with normal saline pain control with norco patient received one dose of rocephine in the ED, however, UA sample was cont aminated repeat UA tylenol for fever PRN resume home inhalers monitor Na follow up renal function chronic conditions hypertension , resume home BP meds DVT PPX heparin sc tid full code anticipated length of stay < 2 midnights
[2021-10-30 05:48] LABS: Appearance,Urine Clear (Clear); Bilirubin,Urine Negative (Negative); Blood,Urine Negative (Negative); Color,Urine Yellow; Glucose,Urine (UA) Negative (Negative); Hyaline Casts,Urine 1 /lpf (0-2); Ketones,Urine Negative (Negative); Leukocyte Esterase,Urine Trace (Negative); Mucus,Urine Rare /hpf; Nitrite,Urine Negative (Negative); PH, Urine 5.5 (5.0-8.0); Protein,Urine Negative (Negative); RBC,Urine 1 /hpf (0-5); Specific Gravity,Urine 1.009 (1.001-1.035); Squamous Epithelial Cell,Urine 1 /hpf (0-4); Urobilinogen,Urine <2.0 mg/dL (<2.0); WBC,Urine 1 /hpf (0-5)
[2021-10-30 07:01] LABS: Basophils # (A) 0.1 k/uL (0-0.2); Basophils % (A) 1 %; Eosinophils # (A) 0.8 k/uL (0-0.7); Eosinophils % (A) 7 %; HCT 39.4 % (34.0-46.0); Lymphocytes # (A) 1.9 k/uL (1.0-4.8); Lymphocytes % (A) 17 %; MCH 31.7 pg (25.0-35.0); MCHC 33.1 g/dL (31.0-37.0); MCV 95.6 fL (80.0-100.0); Mean Platelet Volume 7.9; Monocytes # (A) 0.6 k/uL (0-1.0); Monocytes % (A) 5 %; Neutrophils # (A) 7.9 k/uL (1.3-7.7); Neutrophils % (A) 69 %; Platelet Count 186 k/uL (150-450); RBC 4.12 m/uL (3.80-5.40); WBC 11.3 k/uL (3.8-10.6)
[2021-10-30] MEDS: SODIUM CHLORIDE 0.9% 1,000 ML IV SCH ×2 (07:01→11:04)
[2021-10-30 07:40] LABS: Calcium 8.3 mg/dL (8.4-10.2)
[2021-10-30] MEDS: METOPROLOL TARTRATE 50 MG TAB PO SCH (07:45)
[2021-10-30] MEDS ORDERED: HEPARIN SODIUM,PORCINE/PF 5,000 UNIT/0.5 ML SYRINGE SQ SCH (08:00)
[2021-10-30 08:03] VITALS: BP 132/69; PULSE 62; RESP 16; TEMP 98.5
[2021-10-30] MEDS: SYMBICORT 160-4.5 MCG INHALER INHALATION SCH ×2 (08:38→11:40)
[2021-10-30] MEDS ORDERED: FAMOTIDINE 20 MG TAB PO SCH (09:00)
[2021-10-30] MEDS: HYDROcodone/APAP 5-325MG 1 EACH TAB PO PRN (09:13)
--- NOTE | 2021-10-30 10:02 | P.DS ---
<Thee Fairbanks - Last Filed: 10/30/21 13:23> Providers Expected date of discharge: 10/30/21 Hospital Course: Discharge Diagnosis: Generalized weakness resulting from dehydration secondary to decreased oral intake Hypovolemic hyponatremia, improved with IV fluid hydration Chronic low back pain, patient denies any recent falls or injuries Mild persistent asthma, controlled Urinary incontinence, patient reports that she has noticed an increase in frequency/amount of previously occurring urinary incontinence may consider follow-up with [facility] Hospital Course: Patient is a very pleasant 71-year-old female with a past medical history of hypertension, hyperlipidemia, DVT, peripheral vascular disease, and asthma. She presented to the emergency department for chief complaint of overall generalized weakness and fatigue. Patient also reports nausea and decreased oral intake as well as an increase in episodes of urinary incontinence. Patient denied ever experiencing any headache, lightheadedness, dizziness, chest pain, palpitations, shortness of breath, abdominal pain, increase or changes in her chronic lower back pain or experiencing any numbness/tingling/focal weakness in her extremities. She was seen and fully evaluated in the emergency department. She was found to have slight elevation of WBC count of 11.5 and hyponatremia with sodium of 132, hyperchloremia with chloride of 97, and a slightly elevated creatinine of 1.10. Initial urine specimen was contaminated and repeat urinalysis was unremarkable negative for protein, ketones, blood, or infection. Covid PCR was negative. Chest x-ray was negative for acute cardiopulmonary process. EKG showing normal sinus rhythm at 87 bpm with no noted T-wave or ST abnormalities. Lactic acid was 1.1. Patient was given a one-time dose of prophylactic IV antibiotics with Rocephin until uncontaminated urine specimen resulted negative for infection. Patient was given 2 L bolus of IV fluid and started on maintenance infusion at 130 mL an hour for 0.9% normal saline. Patient was admitted to observation unit under our services. Overnight patient continued to receive IV hydration. Upon assessment this morning, patient reports complete resolution of generalized weakness and fatigue. Patient states she feels "much better" this morning. Had long talk with patient regarding importance of keeping herself hydrated and also discussed importance of being slow to rise to a sitting and/or standing position if she ever felt weak like she previously explained again in the future. Patient being discharged home with family and will be sent with antiemetic if nausea returns. At this time, patient appears unremarkable showing no signs of acute distress. Vital signs unremarkable with blood pressure 132/69, heart rate 62, respiratory rate 16, and SpO2 99% on room air. Patient being discharged home instructed on importance of keeping hydrated and to follow up with her PCP in 1-2 days. Physical examination: Patient seen and examined at bedside. Vital signs reviewed and stable. General: Nontoxic, no distress and appears stated age. Derm: Skin warm and dry, normal coloration for ethnicity. Head: Atraumatic, normocephalic and symmetric. Eyes: EOMs intact, no lid lag, and anicteric sclera Mouth: no lip lesions, mucus membranes moist Cardiovascular: regular rate and rhythm with normal S1S2, no murmur, positive posterior tibial pulses bilaterally, and cap refill < 2 seconds. Lungs: Respirations even, regular, and unlabored on room air. Lungs CTA bilaterally, no rhonchi, no rales, no wheezing, and no accessory muscle usage. Abdominal: soft, nontender to palpation, no guarding, no appreciable organomegaly Ext: ROM intact. No gross muscle atrophy, no edema, no contractures Neuro: Speech clear, face symmetrical and CN II-XII grossly intact with no noted focal neuro deficits Psych: Alert and oriented to person, place, time, and situation. Appropriate and pleasant affect. A total of 40 minutes of time were spent preparing this complex discharge summary. Patient Condition at Discharge: Stable Plan - Discharge Summary Discharge Rx Participant: Yes New Discharge Prescriptions: New Ondansetron Odt [Zofran Odt] 8 mg PO Q8HR PRN #30 tab PRN Reason: Nausea And Vomiting Continue Metoprolol Tartrate [Lopressor] 50 mg PO BID Albuterol Sulfate [Ventolin HFA] 2 puff INHALATION RT-Q6H PRN PRN Reason: Shortness Of Breath Budesonide/Formoterol Fumarate [Symbicort 160-4.5 Mcg Inhaler] 2 puff INHALATION DIRECTED [id number] [id number] [Excedrin] 1 - 2 tab PO Q4H PRN PRN Reason: Migraine Headache Discharge Medication List Metoprolol Tartrate [Lopressor] 50 mg PO BID 02/03/19 [History] Albuterol Sulfate [Ventolin HFA] 2 puff INHALATION RT-Q6H PRN 02/24/21 [History] [id number] [phone] [Excedrin] 1 - 2 tab PO Q4H PRN 10/29/21 [History] Budesonide/Formoterol Fumarate [Symbicort 160-4.5 Mcg Inhaler] 2 puff INHALATION DIRECTED 10/29/21 [History] Ondansetron Odt [Zofran Odt] 8 mg PO Q8HR PRN #30 tab 10/30/21 [Rx] Follow up Appointment(s)/Referral(s): Jessica Reyes MD [Primary Care Provider] - 1-2 days Patient Instructions/Handouts: Dehydration (DC) Activity/Diet/Wound Care/Special Instructions: Activity: As tolerated. Take breaks as needed. Slow to rise upon sitting and standing. Diet: Heart healthy and carb consistent diet. Avoid salts, or foods with hidden salts such as canned or boxed foods and frozen dinners. Extra salt makes your heart work harder and traps the fluid in your body for longer. Special Instructions: Take all of your medications as directed and remember to keep all of your doctor's appointments and follow-up as needed. Thank you for allowing us to participate in your care, it was truly a pleasure having you for our patient!!! As we discussed your urinalysis was negative for an infection, so if you continue to have an increase in your previous baseline urinary amount or frequency of urinary incontinence, may consider following up with [facility] for further evaluation. Discharge/Stand Alone Forms: Who Do I Call?, Help In The Home, Personal Down Filler Discharge Disposition: HOME SELF-CARE <Orquidea Leija - Last Filed: 10/30/21 17:15> Providers Date of admission: 10/29/21 22:32 Attending physician: Leny Pascual MD Primary care physician: Jessica Reyes [facility] Hospital Course: I reviewed the documentation as provided by the JASSI above, who is the original author of this note. I agree with the documented assessment and plan, with the following changes: None
[2021-10-31] MEDS ORDERED: FAMOTIDINE 20 MG TAB PO SCH (09:00)
== END 2021-10-30 15:26 | disposition home or self-care (01) ==
LOC: EC 15:27 → 6NMEDSUR 22:32
PROVIDERS: ADMIT Internal Medicine; ATTEND Internal Medicine
DX: E86.0 Dehydration (principal); E86.1 Hypovolemia; E87.1 Hypo-osmolality and hyponatremia; G89.29 Other chronic pain; M54.50 Low back pain, unspecified; J45.30 Mild persistent asthma, uncomplicated; R32 Unspecified urinary incontinence; I10 Essential (primary) hypertension; D72.829 Elevated white blood cell count, unspecified; E87.8 Other disorders of electrolyte and fluid balance, not elsewhere classified; R94.4 Abnormal results of kidney function studies; R11.2 Nausea with vomiting, unspecified; E78.5 Hyperlipidemia, unspecified; Z20.822 Contact with and (suspected) exposure to COVID-19; Z86.718 Personal history of other venous thrombosis and embolism; I73.9 Peripheral vascular disease, unspecified; Z79.899 Other long term (current) drug therapy; Z79.51 Long term (current) use of inhaled steroids; Z88.1 Allergy status to other antibiotic agents; Z91.040 Latex allergy status; Z88.8 Allergy status to other drugs, medicaments and biological substances; Z91.048 Other nonmedicinal substance allergy status; Z90.49 Acquired absence of other specified parts of digestive tract; Z87.01 Personal history of pneumonia (recurrent); Z86.19 Personal history of other infectious and parasitic diseases; Z87.11 Personal history of peptic ulcer disease; Z82.49 Family history of ischemic heart disease and other diseases of the circulatory system; Z71.9 Counseling, unspecified
CPT/HCPCS: 96376; 96361 ×2; 96372; 96374; 96375; 99285; 36415; 94640; 93005; 80053; 80048; 83605; 84484; 85025 ×2; 81001; 87086; 87077; 87186; 87635; 71046; G0378 ×2; J2405 ×2; J0696; J1644

== ENCOUNTER 2023-03-30 13:32 | Emergency (ER) | payer MEDICARE ==
[2023-03-30 13:47] VITALS: TEMP 98.3
[2023-03-30] MEDS ORDERED: IBUPROFEN 600 MG TAB PO STA (14:03)
[2023-03-30] MEDS ORDERED: HYDROcodone/APAP 5-325MG 1 EACH TAB PO STA (14:03)
--- NOTE | 2023-03-30 14:11 | ED ---
Fall HPI - General Chief Complaint: Fall Stated Complaint: rt foot injury Time Seen by Provider: 03/30/23 13:49 Source: patient, RN notes reviewed Mode of arrival: wheelchair Limitations: no limitations - History of Present Illness Initial Comments: This is a 72-year-old female who presents to the emergency department for a fall. States that her right leg got wrapped around her dog's leash earlier today, and she fell to the ground. Currently has pain to the right fourth and fifth fingers as well as the right knee and right foot. States that the right foot has the worst of the pain, particularly near the toes. She is able to walk if she puts most of the pressure on her heel. Denies hitting her head, having any loss of consciousness, or taking any blood thinners. Denies any fevers, chills, sore throat, cough, dyspnea, chest pain, palpitations, abdominal pain, nausea, vomiting, diarrhea, back pain, or headaches. MD Complaint: fall - Related Data Home Medications Medication Instructions Recorded Confirmed Metoprolol Tartrate [Lopressor] 50 mg PO BID 02/03/19 10/29/21 Albuterol Sulfate [Ventolin HFA] 2 puff INHALATION RT-Q6H PRN 02/24/21 10/29/21 [id number] [id number] 1 - 2 tab PO Q4H PRN 10/29/21 10/29/21 [Excedrin] Budesonide/Formoterol Fumarate 2 puff INHALATION DIRECTED 10/29/21 10/29/21 [Symbicort 160-4.5 Mcg Inhaler] Previous Rx's Medication Instructions Recorded Ondansetron Odt [Zofran Odt] 8 mg PO Q8HR PRN #30 tab 10/30/21 Allergies Allergy/AdvReac Type Severity Reaction Status Date / Time VASILE Inhibitors Allergy Facial Verified 03/30/23 13:47 edema adhesive tape Allergy Itching Verified 03/30/23 13:47 latex Allergy Itching Verified 03/30/23 13:47 cephalexin monohydrate AdvReac Nausea & Verified 03/30/23 13:47 [From Keflex] Vomiting Review of Systems ROS Statement: Those systems with pertinent positive or pertinent negative responses have been documented in the HPI. ROS Other: All systems not noted in ROS Statement are negative. Past Medical History Past Medical History: Asthma, Deep Vein Thrombosis (DVT), Hyperlipidemia, Hypertension, Pneumonia, Skin Disorder, Vascular Disorder Additional Past Medical History / Comment(s): DVT left leg, decreased circulation bilateral legs, PUD, red/itchy skin d/t allergies, cellulitis L lower leg. History of Any Multi-Drug Resistant Organisms: None Reported Past Surgical History: Appendectomy, Section, Cholecystectomy, Hernia Repair, Orthopedic Surgery Additional Past Surgical History / Comment(s): Stent to L leg, ventral hernia repair, R knee arthroscopy. Past Anesthesia/Blood Transfusion Reactions: Postoperative Nausea & Vomiting (PONV) Past Psychological History: No Psychological Hx Reported Smoking Status: Never smoker Past Alcohol Use History: None Reported Past Drug Use History: None Reported - Past Family History Father History Unknown: Yes Additional Family Medical History / Comment(s): adopted Mother History Unknown: Yes Family Medical History: Deep Vein Thrombosis (DVT) Additional Family Medical History / Comment(s): Pt was adopted but recently found out mother had dvt L leg. General Exam Limitations: no limitations General appearance: alert, in no apparent distress Head exam: Present: atraumatic, normocephalic, normal inspection Respiratory exam: Present: normal lung sounds bilaterally. Absent: respiratory distress, wheezes, rales, rhonchi, stridor Cardiovascular Exam: Present: regular rate, normal rhythm, normal heart sounds. Absent: systolic murmur, diastolic murmur, rubs, gallop, clicks Extremities exam: Present: other (Tenderness and swelling to the dorsal aspect of the right forefoot. Range of motion of the toes induces pain. 2+ DP and PT pulses. Capillary refill less than 1 second. Mild tenderness to palpation over the right patella. Full range of motion of all 5 digits on the right hand.) Neurological exam: Present: alert, oriented X3, CN II-XII intact Psychiatric exam: Present: normal affect, normal mood Skin exam: Present: warm, dry, intact, normal color. Absent: rash Course Vital Signs 03/30/23 03/30/23 13:44 16:12 Temperature 98.3 F 98.3 F Pulse Rate 85 68 Respiratory 20 18 Rate Blood Pressure 156/82 122/78 O2 Sat by Pulse 99 98 Oximetry Medical Decision Making - Medical Decision Making This is a 72-year-old female who presents to the emergency department for a fall. Was pt. sent in by a medical professional or institution? @ -No Did you speak to anyone other than the patient for history? @ -No Did you review nursing and triage notes? @ -Yes, and I agree, it is accurate with regards to the patient's symptoms. Were old charts reviewed? @ -No Differential Diagnosis? @ -Differential Foot Pain/Injury: Fracture, dislocation, contusion, sprain, this is not meant to be an all- inclusive list. EKG interpreted by me (3pts min.)? @ -Not obtained X-rays interpreted by me (1pt min.)? @ -X-ray of the right hand, right knee, and right foot obtained. My interpretation identifies no acute fractures or dislocations on any of the images. CT interpreted by me (1pt min.)? @ -Not obtained U/S interpreted by me (1pt. min.)? @ -Not obtained What testing was considered but not performed? (CT, X-rays, U/S, labs)? Why? @ -None What meds were considered but not given? Why? @ -None Did you discuss the management of the patient with other professionals? @ -No Did you reconcile home meds? @ -No Was smoking cessation discussed for >3mins.? @ -No Was critical care preformed (if so, how long)? @ -No Were there social determinants of health that impacted care today? How? (Homelessness, low income, unemployed, alcoholism, drug addiction, transportation, low edu. Level, literacy, decrease access to med. care, correction, rehab)? @ -No Was there de-escalation of care discussed even if they declined? (Discuss DNR or withdrawal of care, Hospice)? @ -No What co-morbidities impacted this encounter? (DM, HTN, Smoking, COPD, CAD, Cancer, CVA, Hep., AIDS, mental health diagnosis, sleep apnea, morbid obesity)? @ -None Was patient admitted / discharged? @ -Discharged. X-ray of the right hand, right knee, and right foot obtained. Aside from mild swelling seen on the right foot x-ray, no acute process was identified. Pain was controlled in the emergency department. Advised she alternate with ibuprofen and Tylenol as needed for pain relief and apply ice to the affected areas for 15-20 minutes every 2-3 hours. A postoperative shoe was provided as well for support and comfort. Undiagnosed new problem with uncertain prognosis? @ -None Drug Therapy requiring intensive monitoring for toxicity (Heparin, Nitro, Insulin, Cardizem)? @ -None Were any procedures done? @ -None Diagnosis/symptom? @ -Fall, right foot pain, right knee pain, right hand pain Acute, or Chronic, or Acute on Chronic? @ -Acute Uncomplicated (without systemic symptoms) or Complicated (systemic symptoms)? @ -Uncomplicated Side effects of treatment? @ -None Exacerbation, Progression, or Severe Exacerbation] @ -Not applicable Poses a threat to life or bodily function? @ -No Return precautions reviewed in depth, the patient is instructed to return to the emergency department with any new, worsening, or concerning symptoms. Patient verbalized understanding. This case was discussed in detail with the attending ED physician, Dr. Cassidy. Presentation, findings, and treatment plan discussed in detail as well. - Radiology Data Radiology results: report reviewed, image reviewed Disposition Clinical Impression: Fall, Contusion of right foot, Right knee pain, Right hand pain Disposition: HOME SELF-CARE Instructions (If sedation given, give patient instructions): Foot Contusion (ED) Additional Instructions: Return to the emergency department with any new, worsening, or concerning symptoms. Alternate with ibuprofen and Tylenol as needed for pain relief. Apply ice for 15-20 minutes every 2-3 hours. Follow up with your primary care provider in 1-2 days. Is patient prescribed a controlled substance at d/c from ED?: No Referrals: Jessica Reyes MD [Primary Care Provider] - 1-2 days
--- NOTE | 2023-03-30 15:26 | XR ---
EXAMINATION TYPE: XR foot complete RT DATE OF EXAM: 03/30/2023 COMPARISON: None HISTORY: Pain after fall TECHNIQUE: 3 view right foot FINDINGS: Structures are osteopenic hemic. This can be confirmed bone density. Joint spaces are prese rved. No acute fractures are evident. There is medial deviation of the distal fifth digit. Plantar ca lcaneal heel spur is present. Mild soft tissue swelling over the dorsum of foot. There is flattening of the plantar arch. Boehler's angle appears flattened. Follow up exams can be performed 7-10 days from acute trauma for continued pain. IMPRESSION: 1. No acute fracture identified. 2. Soft tissue swelling over the dorsum of the foot. 3. Flattened plantar arch.
--- NOTE | 2023-03-30 15:27 | XR ---
EXAMINATION TYPE: XR knee complete RT DATE OF EXAM: 03/30/2023 COMPARISON: None HISTORY: Pain following fall TECHNIQUE: 3 view right knee FINDINGS: There is loss of the medial compartment joint space. Medial tibial plateau and lateral tibi al plateau spurring is noted. Medial femoral condylar spurring is present. No joint effusion is evide nt. Patellofemoral joint space narrowing is present. Posterior superior patellar spurring is noted. T here may be soft tissue swelling over the proximal foreleg. Follow up exams can be performed 7-10 days from acute trauma for continued pain. IMPRESSION: 1. No acute osseous abnormality right knee. 2. Degenerative joint changes discussed above
--- NOTE | 2023-03-30 15:36 | XR ---
EXAMINATION TYPE: XR hand complete RT DATE OF EXAM: 03/30/2023 COMPARISON: None HISTORY: Pain after fall TECHNIQUE: 3 view right hand FINDINGS: No acute fracture or dislocation. Soft tissues appear normal. Joint spaces are preserved. Follow up exams can be performed 7-10 days from acute trauma for continued pain. IMPRESSION: 1. No acute osseous abnormality right hand.
[2023-03-30] MEDS ORDERED: IBUPROFEN 600 MG STARTER PACK 4 TAB BTL PO STA (15:50)
[2023-03-30] MEDS ORDERED: ACET/COD 300 MG/30 MG STARTER PACK 6 TAB BTL PO STA (15:50)
[2023-03-30 16:13] VITALS: BP 122/78; PULSE 68; RESP 18
== END 2023-03-30 16:12 | disposition home or self-care (01) ==
LOC: EC 13:32
DX: S90.31XA Contusion of right foot, initial encounter (principal); M25.561 Pain in right knee; M79.641 Pain in right hand; J45.909 Unspecified asthma, uncomplicated; I10 Essential (primary) hypertension; E78.5 Hyperlipidemia, unspecified; Z79.51 Long term (current) use of inhaled steroids; Z79.899 Other long term (current) drug therapy; Z90.49 Acquired absence of other specified parts of digestive tract; Z91.040 Latex allergy status; Z88.1 Allergy status to other antibiotic agents; Z91.09 Other allergy status, other than to drugs and biological substances; Z88.8 Allergy status to other drugs, medicaments and biological substances; W19.XXXA Unspecified fall, initial encounter
CPT/HCPCS: 99283

== ENCOUNTER 2023-11-20 20:03 | Emergency (ER) | payer MEDICARE ==
[2023-11-20 21:21] LABS: Basophils # (A) 0.1 k/uL (0-0.2); Basophils % (A) 1 %; Eosinophils # (A) 0.9 k/uL (0-0.7); Eosinophils % (A) 8 %; HCT 43.2 % (34.0-46.0); HGB 14.5 gm/dL (11.4-16.0); Lymphocytes # (A) 1.4 k/uL (1.0-4.8); Lymphocytes % (A) 13 %; MCH 31.4 pg (25.0-35.0); MCHC 33.5 g/dL (31.0-37.0); MCV 93.8 fL (80.0-100.0); Mean Platelet Volume 7.8; Monocytes # (A) 0.6 k/uL (0-1.0); Monocytes % (A) 5 %; Neutrophils # (A) 8.5 k/uL (1.3-7.7); Neutrophils % (A) 74 %; Platelet Count 242 k/uL (150-450); RBC 4.61 m/uL (3.80-5.40); RDW 14.4 % (11.5-15.5); WBC 11.5 k/uL (3.8-10.6)
[2023-11-20 21:23] LABS: ALT 10 U/L (4-34); AST 18 U/L (14-36); African American GFR (CKD) 76 (>60 ml/min/1.73 sqM); Albumin 3.8 g/dL (3.5-5.0); Alkaline Phosphatase 119 U/L (38-126); Anion Gap 11 mmol/L; Blood Urea Nitrogen 18 mg/dL (7-17); Calcium 9.1 mg/dL (8.4-10.2); Carbon Dioxide 24 mmol/L (22-30); Chloride 103 mmol/L (98-107); Glucose 120 mg/dL (74-99); Non-African American GFR(CKD) 66 (>60 ml/min/1.73 sqM); Potassium 3.7 mmol/L (3.5-5.1); Sodium 138 mmol/L (137-145); Total Bilirubin 0.8 mg/dL (0.2-1.3); Total Protein 6.5 g/dL (6.3-8.2)
[2023-11-20 21:31] LABS: INR 0.9 (<1.2); NT-Pro-B-Type Natriuretic Pept 306 pg/mL; Partial Thromboplastin Time 25.5 sec (22.0-30.0); Prothrombin Time 10.5 sec (10.0-12.5)
[2023-11-20] MEDS: predniSONE 20 MG TAB PO STA (21:57)
[2023-11-20] MEDS: ALBUTEROL NEBULIZED 2.5 MG/3 ML INHALATION STA (22:11)
[2023-11-20] MEDS: IPRATROPIUM-ALBUTEROL 3 ML NEB INHALATION STA (22:11)
--- NOTE | 2023-11-20 22:26 | ED ---
SOB HPI - General Chief Complaint: Upper Respiratory Infection Stated Complaint: Difficulty Breathing, Asthma Exacerbation Time Seen by Provider: 11/20/23 20:40 Source: patient Mode of arrival: ambulatory Limitations: no limitations - History of Present Illness Initial Comments: This patient is 73-year-old woman who states she has history of asthma and that it has been flaring up for the past 2 to 3 days. She complains of nonproductive cough, wheezing, and chest tightness. Patient denies fever or chills. No chest pain. No leg pain or edema. No change in urination or bowel movements. MD Complaint: shortness of breath, cough -: hour(s) Consistency: constant Improves With: nothing Worsens With: nothing Known History Of: COPD, asthma Associated Symptoms: cough Treatments Prior to Arrival: bronchodilator - Related Data Home Oxygen Therapy: No Home Medications Medication Instructions Recorded Confirmed Albuterol Sulfate [Ventolin HFA] 2 puff INHALATION RT-Q6H PRN 02/24/21 06/03/23 Acetaminophen [Tylenol Extra 500 mg PO Q6HR PRN 05/28/23 06/03/23 Strength] amLODIPine [Norvasc] 2.5 mg PO DAILY 05/28/23 06/03/23 hydroCHLOROthiazide [Hydrodiuril] 12.5 mg PO DAILY 05/28/23 06/03/23 Beclomethasone Dip 80 Mcg/Puff 2 puff INHALATION DAILY 06/03/23 06/03/23 [Qvar 80 mcg] Previous Rx's Medication Instructions Recorded Ondansetron Odt [Zofran ODT] 8 mg PO Q8HR PRN #30 tab 10/30/21 Enoxaparin [Lovenox] 30 mg SQ Q12H 10 Days #20 each 06/06/23 HYDROcodone/APAP 7.5-325MG [[place] 1 each PO Q6HR PRN #28 tab 06/06/23 7.5] Sennosides/Docusate Sodium 2 each PO DAILY PRN #30 tablet 06/06/23 [Senna-S 8.6-50 mg Tablet] hydrOXYzine pamoate [Vistaril] 25 mg PO Q6HR #60 capsule 06/06/23 Multivitamins, Thera [Multivitamin 1 each PO DAILY@1200 tab 06/07/23 (formulary)] Albuterol Nebulized [Ventolin 2.5 mg INHALATION Q4H 8 Days #150 11/20/23 Nebulized] ml predniSONE 60 mg PO DAILY #30 tab 11/20/23 Allergies Allergy/AdvReac Type Severity Reaction Status Date / Time VASILE Inhibitors Allergy Facial Verified 11/20/23 20:11 edema adhesive tape Allergy Itching Verified 11/20/23 20:11 latex Allergy Itching Verified 11/20/23 20:11 cephalexin monohydrate AdvReac Nausea & Verified 11/20/23 20:11 [From Keflex] Vomiting Review of Systems ROS Statement: Those systems with pertinent positive or pertinent negative responses have been documented in the HPI. ROS Other: All systems not noted in ROS Statement are negative. Constitutional: Denies: fever, chills, weakness Respiratory: Reports: cough, dyspnea, wheezes Cardiovascular: Denies: chest pain, palpitations, edema Gastrointestinal: Denies: abdominal pain, vomiting, diarrhea, melena, hematochezia Genitourinary: Denies: dysuria, hematuria Musculoskeletal: Denies: back pain Skin: Denies: rash Neurological: Denies: headache, weakness, numbness Past Medical History Past Medical History: Asthma, Deep Vein Thrombosis (DVT), Hyperlipidemia, Hypertension, Pneumonia, Skin Disorder, Vascular Disorder Additional Past Medical History / Comment(s): DVT left leg, decreased circulation bilateral legs, PUD, red/itchy skin d/t allergies, cellulitis L lower leg. History of Any Multi-Drug Resistant Organisms: None Reported Past Surgical History: Appendectomy, Section, Cholecystectomy, Hernia Repair, Orthopedic Surgery Additional Past Surgical History / Comment(s): Stent to L leg, ventral hernia repair, R knee arthroscopy, TRK Past Anesthesia/Blood Transfusion Reactions: Postoperative Nausea & Vomiting (PONV) Past Psychological History: No Psychological Hx Reported Smoking Status: Never smoker Past Alcohol Use History: None Reported Past Drug Use History: None Reported - Past Family History Father History Unknown: Yes Additional Family Medical History / Comment(s): adopted Mother History Unknown: Yes Family Medical History: Deep Vein Thrombosis (DVT) Additional Family Medical History / Comment(s): Pt was adopted but recently found out mother had dvt L leg. General Exam Limitations: no limitations General appearance: alert, in no apparent distress Head exam: Present: atraumatic, normocephalic Eye exam: Present: normal appearance. Absent: scleral icterus, conjunctival injection Neck exam: Present: normal inspection Respiratory exam: Present: wheezes, prolonged expiratory. Absent: respiratory distress, rales, rhonchi, stridor, accessory muscle use, decreased breath sounds Cardiovascular Exam: Present: regular rate, normal rhythm, normal heart sounds. Absent: systolic murmur, diastolic murmur, rubs, gallop GI/Abdominal exam: Present: soft. Absent: distended, tenderness, guarding, ruthann ound, rigid, mass Extremities exam: Present: normal inspection, normal capillary refill. Absent: pedal edema, calf tenderness Back exam: Present: normal inspection. Absent: CVA tenderness (R), CVA tenderness (L) Neurological exam: Present: alert Skin exam: Present: warm, dry, intact, normal color. Absent: rash Course Vital Signs 11/20/23 11/20/23 11/20/23 20:10 22:11 22:15 Temperature 98.4 F Pulse Rate 95 87 89 Respiratory 18 16 Rate Blood Pressure 157/80 155/88 O2 Sat by Pulse 98 99 Oximetry 11/20/23 11/20/23 22:28 23:39 Temperature 97.9 F Pulse Rate 91 87 Respiratory 20 Rate Blood Pressure 145/80 O2 Sat by Pulse 99 Oximetry Medical Decision Making - Medical Decision Making The patient had chest x-ray that I interpreted as negative for acute infiltrate, pneumothorax, congestive heart failure Patient is 73-year-old woman who states she has history of asthma and that it has been flaring up. The patient is given multiple nebulized treatments and started on steroids. The patient has had improvement of symptoms and she does feel like she would like to go home. We discussed appropriate further care and follow-up as well as return parameters Was pt. sent in by a medical professional or institution (, PA, SORTING COWS WORKER, urgent c are, hospital, or fpc...) When possible be specific @ -[No] Did you speak to anyone other than the patient for history (EMS, parent, family, police, friend...)? What history was obtained from this source @ -[No] Did you review nursing and triage notes (agree or disagree)? Why? @ -[I reviewed and agree with nursing and triage notes] Were old charts reviewed (outside hosp., previous admission, EMS record, old EKG, old radiological studies, urgent care reports/EKG's, fpc records)? Report findings @ -[No old charts were reviewed] Differential Diagnosis (chest pain, altered mental status, abdominal pain women, abdominal pain men, vaginal bleeding, weakness, fever, dyspnea, syncope, headache, dizziness, GI bleed, back pain, seizure, CVA, palpatations, mental health, musculoskeletal)? @ -[Differential Dyspnea: Coronary syndrome, arrhythmia, tamponade, asthma, COPD, pulmonary embolism, pneumonia, pneumothorax, pulmonary effusion, anaphylaxis, diabetic ketoacidosis, flailed chest, pulmonary contusion, diaphragmatic rupture, anemia, neuromuscular, this is not meant to be an all-inclusive list. EKG interpreted by me (3pts min.). @ -[As above] X-rays interpreted by me (1pt min.). @ -[The patient had chest x-ray that I interpreted as above CT interpreted by me (1pt min.). @ -[None done] U/S interpreted by me (1pt. min.). @ -[None done] What testing was considered but not performed or refused? (CT, X-rays, U/S, labs)? Why? @ -[None] What meds were considered but not given or refused? Why? @ -[None] Did you discuss the management of the patient with other professionals (professionals i.e. , PA, SORTING COWS WORKER, lab, RT, psych nurse, foster care social worker, application support developer, teacher, emergency communications officer, comp field case manager)? Give summary @ -[No] Was smoking cessation discussed for >3mins.? @ -[No] Was critical care preformed (if so, how long)? @ -[No] Were there social determinants of health that impacted care today? How? (Homelessness, low income, unemployed, alcoholism, drug addiction, transportation, low edu. Level, literacy, decrease access to med. care, [facility], rehab)? @ -[No] Was there de-escalation of care discussed even if they declined (Discuss DNR or withdrawal of care, Hospice)? DNR status @ -[No] What co-morbidities impacted this encounter? (DM, HTN, Smoking, COPD, CAD, Cancer, CVA, ARF, Chemo, Hep., AIDS, mental health diagnosis, sleep apnea, morbid obesity)? @ -[None] Was patient admitted / discharged? Hospital course, mention meds given and route, prescriptions, significant lab abnormalities, going to OR and other pertinent info. @ -[See above Undiagnosed new problem with uncertain prognosis? @ -[No] Drug Therapy requiring intensive monitoring for toxicity (Heparin, Nitro, Insulin, Cardizem)? @ -[No] Were any procedures done? @ -[No] Diagnosis/symptom? @ -Acute exacerbation of asthma Acute, or Chronic, or Acute on Chronic? @ -Acute Uncomplicated (without systemic symptoms) or Complicated (systemic symptoms)? @ -[Uncomplicated Side effects of treatment? @ -[No] Exacerbation, Progression, or Severe Exacerbation? @ -[No] Poses a threat to life or bodily function? How? (Chest pain, USA, SD, pneumonia, PE, COPD, DKA, ARF, appy, cholecystitis, CVA, Diverticulitis, Homicidal, Suicidal, threat to staff... and all critical care pts) @ -[Low likelihood - Lab Data Result diagrams: 11/20/23 20:50 11/20/23 20:50 Lab Results 11/20/23 11/20/23 11/20/23 Range/Units 20:50 20:50 20:50 WBC 11.5 H (3.8-10.6) k/uL RBC 4.61 (3.80-5.40) m/uL Hgb 14.5 (11.4-16.0) gm/dL Hct 43.2 (34.0-46.0) % MCV 93.8 (80.0-100.0) fL MCH 31.4 (25.0-35.0) pg MCHC 33.5 (31.0-37.0) g/dL RDW 14.4 (11.5-15.5) % Plt Count 242 (150-450) k/uL MPV 7.8 Neutrophils % 74 % Lymphocytes % 13 % Monocytes % 5 % Eosinophils % 8 % Basophils % 1 % Neutrophils # 8.5 H (1.3-7.7) k/uL Lymphocytes # 1.4 (1.0-4.8) k/uL Monocytes # 0.6 (0-1.0) k/uL Eosinophils # 0.9 H (0-0.7) k/uL Basophils # 0.1 (0-0.2) k/uL PT 10.5 (10.0-12.5) sec INR 0.9 (<1.2) APTT 25.5 (22.0-30.0) sec Sodium 138 (137-145) mmol/L Potassium 3.7 (3.5-5.1) mmol/L Chloride 103 (98-107) mmol/L Carbon Dioxide 24 (22-30) mmol/L Anion Gap 11 mmol/L BUN 18 H (7-17) mg/dL Creatinine 0.87 (0.52-1.04) mg/dL Est GFR (CKD-EPI)AfAm 76 (>60 ml/min/1.73 sqM) Est GFR (CKD-EPI)NonAf 66 (>60 ml/min/1.73 sqM) Glucose 120 H (74-99) mg/dL Plasma Lactic Acid Anil (0.7-2.0) mmol/L Calcium 9.1 (8.4-10.2) mg/dL Total Bilirubin 0.8 (0.2-1.3) mg/dL AST 18 (14-36) U/L ALT 10 (4-34) U/L Alkaline Phosphatase 119 (38-126) U/L Troponin I (0.000-0.034) ng/mL NT-Pro-B Natriuret Pep 306 pg/mL Total Protein 6.5 (6.3-8.2) g/dL Albumin 3.8 (3.5-5.0) g/dL 11/20/23 11/20/23 Range/Units 20:50 20:50 WBC (3.8-10.6) k/uL RBC (3.80-5.40) m/uL Hgb (11.4-16.0) gm/dL Hct (34.0-46.0) % MCV (80.0-100.0) fL MCH (25.0-35.0) pg MCHC (31.0-37.0) g/dL RDW (11.5-15.5) % Plt Count (150-450) k/uL MPV Neutrophils % % Lymphocytes % % Monocytes % % Eosinophils % % Basophils % % Neutrophils # (1.3-7.7) k/uL Lymphocytes # (1.0-4.8) k/uL Monocytes # (0-1.0) k/uL Eosinophils # (0-0.7) k/uL Basophils # (0-0.2) k/uL PT (10.0-12.5) sec INR (<1.2) APTT (22.0-30.0) sec Sodium (137-145) mmol/L Potassium (3.5-5.1) mmol/L Chloride (98-107) mmol/L Carbon Dioxide (22-30) mmol/L Anion Gap mmol/L BUN (7-17) mg/dL Creatinine (0.52-1.04) mg/dL Est GFR (CKD-EPI)AfAm (>60 ml/min/1.73 sqM) Est GFR (CKD-EPI)NonAf (>60 ml/min/1.73 sqM) Glucose (74-99) mg/dL Plasma Lactic Acid Anil 1.6 (0.7-2.0) mmol/L Calcium (8.4-10.2) mg/dL Total Bilirubin (0.2-1.3) mg/dL AST (14-36) U/L ALT (4-34) U/L Alkaline Phosphatase (38-126) U/L Troponin I <0.012 (0.000-0.034) ng/mL NT-Pro-B Natriuret Pep pg/mL Total Protein (6.3-8.2) g/dL Albumin (3.5-5.0) g/dL Disposition Clinical Impression: Asthma exacerbation Disposition: HOME SELF-CARE Condition: Good Instructions (If sedation given, give patient instructions): Asthma (ED) Prescriptions: predniSONE 60 mg PO DAILY #30 tab Albuterol Nebulized [Ventolin Nebulized] 2.5 mg INHALATION Q4H 8 Days #150 ml Is patient prescribed a controlled substance at d/c from ED?: No Referrals: Jessica Reyes MD [Primary Care Provider] - 1-2 days
--- NOTE | 2023-11-20 23:14 | XR ---
EXAMINATION TYPE: XR chest 2V DATE OF EXAM: 11/20/2023 9:08 PM CLINICAL INDICATION:Female, 73 years old with history of difficulty breathing; [facility] COMPARISON: None TECHNIQUE: XR chest 2V. Frontal and lateral views of the chest.. FINDINGS: Lines/Tubes/Devices: No indwelling lines are seen. Heart/mediastinum: Heart size is normal. Mediastinum appears normal. Pulmonary vascularity: Not increased, Lungs/Pleura: Chronic senescent changes and interstitial coarsening with hyperinflation of the lungs and flattening the diaphragms, can be seen with COPD. There is no evidence of pleural effusion, focal consolidation, or pneumothorax. Musculoskeletal: No acute osseous abnormality demonstrated in the limits of the exam. Multilevel en dplate spurring in the spine. [facility] is not excluded. Other findings: None. IMPRESSION: 1. No acute cardiopulmonary disease process. 2. COPD changes.
[2023-11-21 00:20] VITALS: BP 145/80; PULSE 87; RESP 20; TEMP 97.9
== END 2023-11-20 23:40 | disposition home or self-care (01) ==
LOC: EC 20:03
DX: J45.901 Unspecified asthma with (acute) exacerbation (principal); Z88.1 Allergy status to other antibiotic agents; Z91.040 Latex allergy status; Z91.048 Other nonmedicinal substance allergy status; Z90.49 Acquired absence of other specified parts of digestive tract
CPT/HCPCS: 36415; 94640; 93005; 83880; 80053; 83605; 84484; 85025; 85610; 85730; 71046; 99285; J7512

== ENCOUNTER 2023-12-10 16:26 | Emergency (ER) | payer MEDICARE ==
--- NOTE | 2023-12-10 18:00 | ED ---
General Adult HPI - General Source: patient, RN notes reviewed Mode of arrival: wheelchair Limitations: no limitations <Katlin Saravia - Last Filed: 12/10/23 17:58> - History of Present Illness -: days(s) Severity scale (1-10): 0 Consistency: constant Improves with: none Worsens with: none Associated Symptoms: cough, shortness of breath Treatments Prior to Arrival: other (Albuterol) <Faizan Van - Last Filed: 12/15/23 20:37> - General Chief complaint: Shortness of Breath Stated complaint: Asthma Time Seen by Provider: 12/10/23 17:59 - History of Present Illness Initial comments: Quick note: 73-year-old female with a past medical history of asthma presents to the emergency department for evaluation of worsening shortness of breath. She states that it has been going on for around 5 days. She does note that she was here recently for the same thing. She does note that she had improvement at that time but has worsened again. (Katlin Saravia) - Related Data Home Medications Medication Instructions Recorded Confirmed Albuterol Sulfate [Ventolin HFA] 2 puff INHALATION RT-Q4H PRN 02/24/21 12/10/23 Albuterol Nebulized [Ventolin 2.5 mg INHALATION RT-Q4H 12/10/23 12/10/23 Nebulized] Ibuprofen [Motrin Ib] 400 - 800 mg PO Q8H PRN 12/10/23 12/10/23 amLODIPine [Norvasc] 5 mg PO DAILY 12/10/23 12/10/23 hydroCHLOROthiazide [Hydrodiuril] 25 mg PO DAILY 12/10/23 12/10/23 Previous Rx's Medication Instructions Recorded Albuterol Inhaler [Ventolin Hfa 2 puff INHALATION Q4HR PRN #8 gm 12/10/23 Inhaler] Albuterol Nebulized [Ventolin 2.5 mg INHALATION Q6H 6 Days #75 ml 12/10/23 Nebulized] predniSONE 60 mg PO DAILY #30 tab 12/10/23 Allergies Allergy/AdvReac Type Severity Reaction Status Date / Time VASILE Inhibitors Allergy Facial Verified 12/10/23 19:10 edema adhesive tape Allergy Itching Verified 12/10/23 19:10 latex Allergy Itching Verified 12/10/23 19:10 cephalexin monohydrate AdvReac Nausea & Verified 12/10/23 19:10 [From Keflex] Vomiting Review of Systems ROS Other: All systems not noted in ROS Statement are negative. <Katlin Saravia - Last Filed: 12/10/23 17:58> ROS Other: All systems not noted in ROS Statement are negative. Constitutional: Denies: fever, chills, weakness ENT: Denies: congestion Respiratory: Reports: cough, dyspnea, wheezes. Denies: hemoptysis Cardiovascular: Denies: chest pain, palpitations, orthopnea, edema, syncope Gastrointestinal: Denies: abdominal pain, vomiting, diarrhea Genitourinary: Denies: dysuria, hematuria Musculoskeletal: Denies: back pain Skin: Denies: rash Neurological: Denies: headache, weakness <Faizan Van - Last Filed: 12/15/23 20:37> ROS Statement: Those systems with pertinent positive or pertinent negative responses have been documented in the HPI. Past Medical History Past Medical History: Asthma, Deep Vein Thrombosis (DVT), Hyperlipidemia, Hypertension, Pneumonia, Skin Disorder, Vascular Disorder Additional Past Medical History / Comment(s): DVT left leg, decreased circulation bilateral legs, PUD, red/itchy skin d/t allergies, cellulitis L lower leg. History of Any Multi-Drug Resistant Organisms: None Reported Past Surgical History: Appendectomy, Section, Cholecystectomy, Hernia Repair, Orthopedic Surgery Additional Past Surgical History / Comment(s): Stent to L leg, ventral hernia repair, R knee arthroscopy, TRK Past Anesthesia/Blood Transfusion Reactions: Postoperative Nausea & Vomiting (PONV) Past Psychological History: No Psychological Hx Reported Smoking Status: Never smoker Past Alcohol Use History: None Reported Past Drug Use History: None Reported - Past Family History Father History Unknown: Yes Additional Family Medical History / Comment(s): adopted Mother History Unknown: Yes Family Medical History: Deep Vein Thrombosis (DVT) Additional Family Medical History / Comment(s): Pt was adopted but recently found out mother had dvt L leg. <Katlin Saravia - Last Filed: 12/10/23 17:58> General Exam Limitations: no limitations <Katlin Saravia - Last Filed: 12/10/23 17:58> Limitations: no limitations General appearance: alert, in no apparent distress Head exam: Present: atraumatic, normocephalic Eye exam: Present: normal appearance. Absent: scleral icterus, conjunctival injection Neck exam: Present: normal inspection Respiratory exam: Present: wheezes, decreased breath sounds. Absent: respiratory distress, rales, rhonchi, stridor, chest wall tenderness, accessory muscle use Cardiovascular Exam: Present: regular rate, normal rhythm, normal heart sounds. Absent: systolic murmur, diastolic murmur, rubs, gallop GI/Abdominal exam: Present: soft. Absent: distended, tenderness, guarding, rebound, rigid, mass Extremities exam: Present: normal inspection, normal capillary refill. Absent: pedal edema, calf tenderness Back exam: Present: normal inspection. Absent: CVA tenderness (R), CVA tenderness (L) Neurological exam: Present: alert Skin exam: Present: warm, dry, intact, normal color. Absent: rash <Faizan Van - Last Filed: 12/15/23 20:37> - General Exam Comments Initial Comments: Visual Physical Exam Vital signs reviewed General: Well-appearing, nontoxic, no acute distress. Head: Normocephalic, atraumatic Eyes: PERRLA, EOMI ENT: Airway patent Chest: Nonlabored breathing Skin: No visual rash, normal skin tone Neuro: Alert and oriented 3 Musculoskeletal: No gross abnormalities (Katlin Saravia) Course Vital Signs 12/10/23 12/10/23 12/10/23 17:11 19:51 20:16 Temperature 98 F Pulse Rate 89 85 82 Respiratory 16 Rate Blood Pressure 134/75 O2 Sat by Pulse 95 Oximetry 12/10/23 12/10/23 20:47 22:40 Temperature 97.9 F Pulse Rate 91 83 Respiratory 18 22 Rate Blood Pressure 160/73 136/75 O2 Sat by Pulse 98 96 Oximetry Medical Decision Making <Katlin Saravia - Last Filed: 12/10/23 17:58> - Lab Data Result diagrams: 12/10/23 18:18 12/10/23 18:18 <Faizan Van - Last Filed: 12/15/23 20:37> - Medical Decision Making Quick note preformed and electronically signed by Katlin Saravia PA-C (Katlin Saravia) The patient had chest x-ray that I interpreted as negative for acute infiltrate, pneumothorax, congestive heart failure Was pt. sent in by a medical professional or institution (LEANNA Harris, HUMAN RESOURCES CLERK, urgent care, hospital, or residential...) When possible be specific @ -[No] Did you speak to anyone other than the patient for history (EMS, parent, family, police, friend...)? What history was obtained from this source @ -[No] Did you review nursing and triage notes (agree or disagree)? Why? @ -[I reviewed and agree with nursing and triage notes] Were old charts reviewed (outside hosp., previous admission, EMS record, old EKG, old radiological studies, urgent care reports/EKG's, residential records)? Report findings @ -Yes old charts were reviewed] Differential Diagnosis (chest pain, altered mental status, abdominal pain women, abdominal pain men, vaginal bleeding, weakness, fever, dyspnea, syncope, headache, dizziness, GI bleed, back pain, seizure, CVA, palpatations, mental health, musculoskeletal)? @ -[Differential Dyspnea: Coronary syndrome, arrhythmia, tamponade, asthma, COPD, pulmonary embolism, pneumonia, pneumothorax, pulmonary effusion, anaphylaxis, diabetic ketoacidosis, flailed chest, pulmonary contusion, diaphragmatic rupture, anemia, neuromuscular, this is not meant to be an all-inclusive list. EKG interpreted by me (3pts min.). @ -[I interpreted as above] X-rays interpreted by me (1pt min.). @ -[I interpreted as above CT interpreted by me (1pt min.). @ -[None done] U/S interpreted by me (1pt. min.). @ -[None done] What testing was considered but not performed or refused? (CT, X-rays, U/S, labs)? Why? @ -[None] What meds were considered but not given or refused? Why? @ -[None] Did you discuss the management of the patient with other professionals (professionals i.e. LEANNA Harris, HUMAN RESOURCES CLERK, lab, RT, psych nurse, oncology social work, machinist supervisor outside, teacher, protocol officer, shoe parts caser)? Give summary @ -[No] Was smoking cessation discussed for >3mins.? @ -[No] Was critical care preformed (if so, how long)? @ -[No] Were there social determinants of health that impacted care today? How? (Homelessness, low income, unemployed, alcoholism, drug addiction, transp ortation, low edu. Level, literacy, decrease access to med. care, correction, rehab)? @ -[No] Was there de-escalation of care discussed even if they declined (Discuss DNR or withdrawal of care, Hospice)? DNR status @ -[No] What co-morbidities impacted this encounter? (DM, HTN, Smoking, COPD, CAD, Cancer, CVA, ARF, Chemo, Hep., AIDS, mental health diagnosis, sleep apnea, morbid obesity)? @ -[History of COPD Was patient admitted / discharged? Hospital course, mention meds given and route, prescriptions, significant lab abnormalities, going to OR and other pertinent info. @ -[Patient is 73-year-old woman with history of COPD presenting with worsening of symptoms. The patient did have improvement here following treatment. I offered admission to see the road inspector but at this point she is feeling much better. I did stress the need to have pulmonology evaluation and she will see them as outpatient. Undiagnosed new problem with uncertain prognosis? @ -[No] Drug Therapy requiring intensive monitoring for toxicity (Heparin, Nitro, Insulin, Cardizem)? @ -[No] Were any procedures done? @ -[No] Diagnosis/symptom? @ -[Acute exacerbation of COPD Acute, or Chronic, or Acute on Chronic? @ -[Acute on chronic Uncomplicated (without systemic symptoms) or Complicated (systemic symptoms)? @ -Uncomplicated Side effects of treatment? @ -[No] Exacerbation, Progression, or Severe Exacerbation? @ -[Exacerbation Poses a threat to life or bodily function? How? (Chest pain, USA, OR, pneumonia, PE, COPD, DKA, ARF, appy, cholecystitis, CVA, Diverticulitis, Homicidal, Suicidal, threat to staff... and all critical care pts) @ -[No (Faizan Van) - Lab Data Lab Results 12/10/23 12/10/23 12/10/23 Range/Units 18:18 18:18 18:18 WBC 11.9 H (3.8-10.6) k/uL RBC 4.47 (3.80-5.40) m/uL Hgb 13.9 (11.4-16.0) gm/dL Hct 41.6 (34.0-46.0) % MCV 93.1 (80.0-100.0) fL MCH 31.2 (25.0-35.0) pg MCHC 33.6 (31.0-37.0) g/dL RDW 13.4 (11.5-15.5) % Plt Count 232 (150-450) k/uL MPV 7.7 Neutrophils % 73 % Lymphocytes % 11 % Monocytes % 4 % Eosinophils % 11 % Basophils % 1 % Neutrophils # 8.7 H (1.3-7.7) k/uL Lymphocytes # 1.3 (1.0-4.8) k/uL Monocytes # 0.4 (0-1.0) k/uL Eosinophils # 1.3 H (0-0.7) k/uL Basophils # 0.1 (0-0.2) k/uL PT 10.4 (10.0-12.5) sec INR 0.9 (<1.2) APTT 25.4 (22.0-30.0) sec Sodium 137 (137-145) mmol/L Potassium 3.1 L (3.5-5.1) mmol/L Chloride 99 (98-107) mmol/L Carbon Dioxide 30 (22-30) mmol/L Anion Gap 8 mmol/L BUN 18 H (7-17) mg/dL Creatinine 1.01 (0.52-1.04) mg/dL Est GFR (CKD-EPI)AfAm 64 (>60 ml/min/1.73 sqM) Est GFR (CKD-EPI)NonAf 55 (>60 ml/min/1.73 sqM) Glucose 110 H (74-99) mg/dL Plasma Lactic Acid Anil (0.7-2.0) mmol/L Calcium 8.9 (8.4-10.2) mg/dL Total Bilirubin 0.9 (0.2-1.3) mg/dL AST 18 (14-36) U/L ALT 11 (4-34) U/L Alkaline Phosphatase 126 (38-126) U/L Troponin I (0.000-0.034) ng/mL Total Protein 6.3 (6.3-8.2) g/dL Albumin 3.7 (3.5-5.0) g/dL Influenza Type A (PCR) (Not Detectd) Influenza Type B (PCR) (Not Detectd) RSV (PCR) (Not Detectd) SARS-CoV-2 (PCR) (Not Detectd) 12/10/23 12/10/23 12/10/23 Range/Units 18:18 18:18 18:18 WBC (3.8-10.6) k/uL RBC (3.80-5.40) m/uL Hgb (11.4-16.0) gm/dL Hct (34.0-46.0) % MCV (80.0-100.0) fL MCH (25.0-35.0) pg MCHC (31.0-37.0) g/dL RDW (11.5-15.5) % Plt Count (150-450) k/uL MPV Neutrophils % % Lymphocytes % % Monocytes % % Eosinophils % % Basophils % % Neutrophils # (1.3-7.7) k/uL Lymphocytes # (1.0-4.8) k/uL Monocytes # (0-1.0) k/uL Eosinophils # (0-0.7) k/uL Basophils # (0-0.2) k/uL PT (10.0-12.5) sec INR (<1.2) APTT (22.0-30.0) sec Sodium (137-145) mmol/L Potassium (3.5-5.1) mmol/L Chloride (98-107) mmol/L Carbon Dioxide (22-30) mmol/L Anion Gap mmol/L BUN (7-17) mg/dL Creatinine (0.52-1.04) mg/dL Est GFR (CKD-EPI)AfAm (>60 ml/min/1.73 sqM) Est GFR (CKD-EPI)NonAf (>60 ml/min/1.73 sqM) Glucose (74-99) mg/dL Plasma Lactic Acid Anil 1.0 (0.7-2.0) mmol/L Calcium (8.4-10.2) mg/dL Total Bilirubin (0.2-1.3) mg/dL AST (14-36) U/L ALT (4-34) U/L Alkaline Phosphatase (38-126) U/L Troponin I <0.012 (0.000-0.034) ng/mL Total Protein (6.3-8.2) g/dL Albumin (3.5-5.0) g/dL Influenza Type A (PCR) Not Detected (Not Detectd) Influenza Type B (PCR) Not Detected (Not Detectd) RSV (PCR) Not Detected (Not Detectd) SARS-CoV-2 (PCR) Not Detected (Not Detectd) Disposition <Katlin Saravia - Last Filed: 12/10/23 17:58> Is patient prescribed a controlled substance at d/c from ED?: No <Faizan Van - Last Filed: 12/15/23 20:37> Clinical Impression: COPD exacerbation Disposition: HOME SELF-CARE Condition: Good Instructions (If sedation given, give patient instructions): Chronic Bronchitis (ED) Prescriptions: predniSONE 60 mg PO DAILY #30 tab Albuterol Inhaler [Ventolin Hfa Inhaler] 2 puff INHALATION Q4HR PRN #8 gm PRN Reason: Wheezing Albuterol Nebulized [Ventolin Nebulized] 2.5 mg INHALATION Q6H 6 Days #75 ml Referrals: Jessica Reyes MD [Primary Care Provider] - 1-2 days
[2023-12-10 18:41] LABS: ALT 11 U/L (4-34); AST 18 U/L (14-36); African American GFR (CKD) 64 (>60 ml/min/1.73 sqM); Albumin 3.7 g/dL (3.5-5.0); Alkaline Phosphatase 126 U/L (38-126); Anion Gap 8 mmol/L; Blood Urea Nitrogen 18 mg/dL (7-17); Calcium 8.9 mg/dL (8.4-10.2); Carbon Dioxide 30 mmol/L (22-30); Chloride 99 mmol/L (98-107); Glucose 110 mg/dL (74-99); Non-African American GFR(CKD) 55 (>60 ml/min/1.73 sqM); Potassium 3.1 mmol/L (3.5-5.1); Sodium 137 mmol/L (137-145); Total Bilirubin 0.9 mg/dL (0.2-1.3); Total Protein 6.3 g/dL (6.3-8.2)
[2023-12-10 18:48] LABS: INR 0.9 (<1.2); Partial Thromboplastin Time 25.4 sec (22.0-30.0); Prothrombin Time 10.4 sec (10.0-12.5)
[2023-12-10 18:53] LABS: Basophils # (A) 0.1 k/uL (0-0.2); Basophils % (A) 1 %; Eosinophils # (A) 1.3 k/uL (0-0.7); Eosinophils % (A) 11 %; HCT 41.6 % (34.0-46.0); HGB 13.9 gm/dL (11.4-16.0); Lymphocytes # (A) 1.3 k/uL (1.0-4.8); Lymphocytes % (A) 11 %; MCH 31.2 pg (25.0-35.0); MCHC 33.6 g/dL (31.0-37.0); MCV 93.1 fL (80.0-100.0); Mean Platelet Volume 7.7; Monocytes # (A) 0.4 k/uL (0-1.0); Monocytes % (A) 4 %; Neutrophils # (A) 8.7 k/uL (1.3-7.7); Neutrophils % (A) 73 %; Platelet Count 232 k/uL (150-450); RBC 4.47 m/uL (3.80-5.40); RDW 13.4 % (11.5-15.5); WBC 11.9 k/uL (3.8-10.6)
[2023-12-10] MEDS: IPRATROPIUM-ALBUTEROL 3 ML NEB INHALATION STA (19:49)
[2023-12-10] MEDS: ALBUTEROL NEBULIZED 2.5 MG/3 ML INHALATION STA ×2 (19:49→21:33)
[2023-12-10] MEDS: predniSONE 20 MG TAB PO STA (20:46)
[2023-12-10] MEDS: POTASSIUM CHLORIDE ER 20 MEQ TAB.ER PO STA (20:46)
--- NOTE | 2023-12-10 21:18 | XR ---
EXAMINATION TYPE: XR chest 2V DATE OF EXAM: 12/10/2023 9:10 PM CLINICAL INDICATION:Female, 73 years old with history of difficulty breathing; [facility] COMPARISON: Chest radiographs from 11/20/2023. TECHNIQUE: XR chest 2V Frontal and lateral views of the chest. FINDINGS: Lungs/Pleura: There is no evidence of pleural effusion, focal consolidation, or pneumothorax. Pulmonary vascularity: Unremarkable. Heart/mediastinum: Cardiomediastinal silhouette is unremarkable. Musculoskeletal: No acute osseous pathology. IMPRESSION: No acute cardiopulmonary disease/process.
[2023-12-10 22:56] VITALS: BP 136/75; PULSE 83; RESP 22; TEMP 97.9
== END 2023-12-10 22:42 | disposition home or self-care (01) ==
LOC: EC 16:26
DX: J44.1 Chronic obstructive pulmonary disease with (acute) exacerbation (principal); Z91.040 Latex allergy status; Z88.1 Allergy status to other antibiotic agents; Z91.048 Other nonmedicinal substance allergy status; Z90.49 Acquired absence of other specified parts of digestive tract
CPT/HCPCS: 36415; 94640; 93005; 80053; 83605; 84484; 85025; 85610; 85730; 87636; 71046; 99285; J7512

== ENCOUNTER 2024-05-10 20:26 | Emergency (ER) | payer MEDICARE ==
--- NOTE | 2024-05-10 21:41 | ED ---
General Adult HPI - General Chief complaint: Urogenital Stated complaint: UTI Symptoms Time Seen by Provider: 05/10/24 21:10 Source: patient, EMS Mode of arrival: EMS Limitations: no limitations - History of Present Illness Initial comments: Patient presents to the ED by ambulance stating "I think I have another UTI". Patient states that she has felt nauseated and had urinary frequency for the past few days. Patient states that she has had UTIs in the past that have felt the same way. Patient denies having any pain, fever or chills, headache, chest pain, dyspnea, cough or cold symptoms, dizziness, abdominal pain, back or flank pain, vomiting, diarrhea or constipation, dysuria, hematuria, or any other symptoms or complaints. - Related Data Home Medications Medication Instructions Recorded Confirmed Albuterol Sulfate [Ventolin HFA] 2 puff INHALATION RT-Q4H PRN 02/24/21 12/10/23 Albuterol Nebulized [Ventolin 2.5 mg INHALATION RT-Q4H 12/10/23 12/10/23 Nebulized] Ibuprofen [Motrin Ib] 400 - 800 mg PO Q8H PRN 12/10/23 12/10/23 amLODIPine [Norvasc] 5 mg PO DAILY 12/10/23 12/10/23 hydroCHLOROthiazide [Hydrodiuril] 25 mg PO DAILY 12/10/23 12/10/23 Previous Rx's Medication Instructions Recorded Albuterol Inhaler [Ventolin Hfa 2 puff INHALATION Q4HR PRN #8 gm 12/10/23 Inhaler] Albuterol Nebulized [Ventolin 2.5 mg INHALATION Q6H 6 Days #75 ml 12/10/23 Nebulized] predniSONE 60 mg PO DAILY #30 tab 12/10/23 Allergies Allergy/AdvReac Type Severity Reaction Status Date / Time VASILE Inhibitors Allergy Facial Verified 05/10/24 20:36 edema adhesive tape Allergy Itching Verified 05/10/24 20:36 latex Allergy Itching Verified 05/10/24 20:36 cephalexin monohydrate AdvReac Nausea & Verified 05/10/24 20:36 [From Keflex] Vomiting Review of Systems ROS Statement: Those systems with pertinent positive or pertinent negative responses have been documented in the HPI. ROS Other: All systems not noted in ROS Statement are negative. Past Medical History Past Medical History: Asthma, Deep Vein Thrombosis (DVT), Hyperlipidemia, Hypertension, Pneumonia, Skin Disorder, Vascular Disorder Additional Past Medical History / Comment(s): DVT left leg, decreased circulation bilateral legs, PUD, red/itchy skin d/t allergies, cellulitis L lower leg. History of Any Multi-Drug Resistant Organisms: None Reported Past Surgical History: Appendectomy, Section, Cholecystectomy, Hernia Repair, Orthopedic Surgery Additional Past Surgical History / Comment(s): Stent to L leg, ventral hernia repair, R knee arthroscopy, TRK Past Anesthesia/Blood Transfusion Reactions: Postoperative Nausea & Vomiting (PONV) Past Psychological History: No Psychological Hx Reported Smoking Status: Never smoker Past Alcohol Use History: None Reported Past Drug Use History: None Reported - Past Family History Father History Unknown: Yes Additional Family Medical History / Comment(s): adopted Mother History Unknown: Yes Family Medical History: Deep Vein Thrombosis (DVT) Additional Family Medical History / Comment(s): Pt was adopted but recently found out mother had dvt L leg. General Exam Limitations: no limitations General appearance: alert, in no apparent distress Eye exam: Present: normal appearance ENT exam: Present: mucous membranes moist Respiratory exam: Present: normal lung sounds bilaterally. Absent: respiratory distress, wheezes, rales, rhonchi, stridor Cardiovascular Exam: Present: regular rate, normal rhythm, normal heart sounds, other (Normal radial pulses bilaterally) GI/Abdominal exam: Present: soft. Absent: distended, tenderness, guarding Extremities exam: Absent: pedal edema Back exam: Absent: CVA tenderness (R), CVA tenderness (L) Neurological exam: Present: alert, oriented X3 Psychiatric exam: Present: normal affect Skin exam: Present: warm, dry, normal color Course Vital Signs 05/10/24 05/10/24 20:36 20:44 Temperature 99.8 F H Pulse Rate 87 88 Respiratory 20 14 Rate Blood Pressure 155/95 155/95 O2 Sat by Pulse 97 97 Oximetry - Reevaluation(s) Reevaluation #1: 05/11/24 01:12 Patient denies development of any new symptoms while in the ED. Patient is aware of her test results, and she feels comfortable being discharged home at this time. She was counseled about urinary frequency and hyponatremia (free water restriction). She was instructed to follow-up closely with her primary care provider for further evaluation and sodium level rechecked. She agrees to do so. She was clearly explained return and follow-up instructions. She feels comfortable with this plan. Medical Decision Making - Medical Decision Making Was pt. sent in by a medical professional or institution (LEANNA Harris, CUSTOMER CARE TEAM COACH, urgent care, hospital, or retirement...) When possible be specific @ -No Did you speak to anyone other than the patient for history (EMS, parent, family, police, friend...)? What history was obtained from this source @ -No Did you review nursing and triage notes (agree or disagree)? Why? @ -I reviewed and agree with nursing and triage notes Were old charts reviewed (outside hosp., previous admission, EMS record, old EKG, old radiological studies, urgent care reports/EKG's, retirement records)? Report findings @ -No old charts were reviewed Differential Diagnosis (chest pain, altered mental status, abdominal pain women, abdominal pain men, vaginal bleeding, weakness, fever, dyspnea, syncope, h eadache, dizziness, GI bleed, back pain, seizure, CVA, palpatations, mental health, musculoskeletal)? @ -Urinary frequency, UTI, pyelonephritis, cystitis, bladder spasms, hyperglycemia, nausea, this is not a complete list EKG interpreted by me (3pts min.). @ -None done X-rays interpreted by me (1pt min.). @ -None done CT interpreted by me (1pt min.). @ -None done U/S interpreted by me (1pt. min.). @ -None done What testing was considered but not performed or refused? (CT, X-rays, U/S, labs )? Why? @ -None What meds were considered but not given or refused? Why? @ -None Did you discuss the management of the patient with other professionals (professionals i.e. LEANNA Harris, CUSTOMER CARE TEAM COACH, lab, RT, psych nurse, social security benefits interviewer, patent lawyer, teacher, motorized squad commanding officer, case hardener)? Give summary @ -No Was smoking cessation discussed for >3mins.? @ -No Was critical care preformed (if so, how long)? @ -No Were there social determinants of health that impacted care today? How? (Homelessness, low income, unemployed, alcoholism, drug addiction, transportation, low edu. Level, literacy, decrease access to med. care, halfway, rehab)? @ -No Was there de-escalation of care discussed even if they declined (Discuss DNR or withdrawal of care, Hospice)? DNR status @ -No What co-morbidities impacted this encounter? (DM, HTN, Smoking, COPD, CAD, Cancer, CVA, ARF, Chemo, Hep., AIDS, mental health diagnosis, sleep apnea, morbid obesity)? @ -None Was patient admitted / discharged? Hospital course, mention meds given and route, prescriptions, significant lab abnormalities, going to OR and other pertinent info. @ -Patient has a soft and nontender abdominal exam. Patient is afebrile and without leukocytosis. Patient's lactic acid level is within normal limits. Patient's UA is not suggestive of UTI. Patient is noted to have mild hyponatremia on laboratory evaluation. The rest of the patient's labs are fairly unremarkable. I am unsure of the etiology of the patient's reported urinary frequency. Patient was instructed to follow-up closely with her primary care provider for further evaluation. Will discharge patient home at this time. Strict return instructions were provided. Patient feels comfortable with this plan. Undiagnosed new problem with uncertain prognosis? @ -No Drug Therapy requiring intensive monitoring for toxicity (Heparin, Nitro, Insulin, Cardizem)? @ -No Were any procedures done? @ -No Diagnosis/symptom? @ -Urinary frequency Acute, or Chronic, or Acute on Chronic? @ -Acute Uncomplicated (without systemic symptoms) or Complicated (systemic symptoms)? @ -Default Side effects of treatment? @ -No Exacerbation, Progression, or Severe Exacerbation? @ -No Poses a threat to life or bodily function? How? (Chest pain, [place], [place], pneumonia, PE, COPD, DKA, ARF, appy, cholecystitis, CVA, Diverticulitis, Homicidal, Suicidal, threat to staff... and all critical care pts) @ -No Diagnosis/symptom? @ -Mild hyponatremia Acute, or Chronic, or Acute on Chronic? @ -Default Uncomplicated (without systemic symptoms) or Complicated (systemic symptoms)? @ -Default Side effects of treatment? @ -None Exacerbation, Progression, or Severe Exacerbation] @ -No Poses a threat to life or bodily function? @ -No - Lab Data Result diagrams: 05/10/24 23:36 05/10/24 23:36 Lab Results 05/10/24 05/10/24 05/10/24 Range/Units 23:36 23:36 23:36 WBC 7.1 (3.8-10.6) k/uL RBC 4.62 (3.80-5.40) m/uL Hgb 13.9 (11.4-16.0) gm/dL Hct 41.0 (34.0-46.0) % MCV 88.8 (80.0-100.0) fL MCH 30.2 (25.0-35.0) pg MCHC 34.0 (31.0-37.0) g/dL RDW 13.6 (11.5-15.5) % Plt Count 142 L (150-450) k/uL MPV 9.7 Neutrophils % 78 % Lymphocytes % 10 % Monocytes % 7 % Eosinophils % 3 % Basophils % 1 % Neutrophils # 5.5 (1.3-7.7) k/uL Lymphocytes # 0.7 L (1.0-4.8) k/uL Monocytes # 0.5 (0-1.0) k/uL Eosinophils # 0.2 (0-0.7) k/uL Basophils # 0.1 (0-0.2) k/uL Sodium 129 L (137-145) mmol/L Potassium 4.1 (3.5-5.1) mmol/L Chloride 95 L (98-107) mmol/L Carbon Dioxide 23 (22-30) mmol/L Anion Gap 11 mmol/L BUN 14 (7-17) mg/dL Creatinine 0.84 (0.52-1.04) mg/dL Est GFR (CKD-EPI)AfAm 79 (>60 ml/min/1.73 sqM) Est GFR (CKD-EPI)NonAf 69 (>60 ml/min/1.73 sqM) Glucose 81 (74-99) mg/dL Plasma Lactic Acid Anil 1.2 (0.7-2.0) mmol/L Calcium 8.2 L (8.4-10.2) mg/dL Urine Color Urine Appearance (Clear) Urine pH (5.0-8.0) Ur Specific [place] (1.001-1.035) Urine Protein (Negative) Urine Glucose (UA) (Negative) Urine Ketones (Negative) Urine Blood (Negative) Urine Nitrite (Negative) Urine Bilirubin (Negative) Urine Urobilinogen (<2.0) mg/dL Ur Leukocyte Esterase (Negative) 05/11/24 Range/Units 00:50 WBC (3.8-10.6) k/uL RBC (3.80-5.40) m/uL Hgb (11.4-16.0) gm/dL Hct (34.0-46.0) % MCV (80.0-100.0) fL MCH (25.0-35.0) pg MCHC (31.0-37.0) g/dL RDW (11.5-15.5) % Plt Count (150-450) k/uL MPV Neutrophils % % Lymphocytes % % Monocytes % % Eosinophils % % Basophils % % Neutrophils # (1.3-7.7) k/uL Lymphocytes # (1.0-4.8) k/uL Monocytes # (0-1.0) k/uL Eosinophils # (0-0.7) k/uL Basophils # (0-0.2) k/uL Sodium (137-145) mmol/L Potassium (3.5-5.1) mmol/L Chloride (98-107) mmol/L Carbon Dioxide (22-30) mmol/L Anion Gap mmol/L BUN (7-17) mg/dL Creatinine (0.52-1.04) mg/dL Est GFR (CKD-EPI)AfAm (>60 ml/min/1.73 sqM) Est GFR (CKD-EPI)NonAf (>60 ml/min/1.73 sqM) Glucose (74-99) mg/dL Plasma Lactic Acid Anil (0.7-2.0) mmol/L Calcium (8.4-10.2) mg/dL Urine Color Yellow Urine Appearance Clear (Clear) Urine pH 6.5 (5.0-8.0) Ur Specific [place] 1.017 (1.001-1.035) Urine Protein Negative (Negative) Urine Glucose (UA) Negative (Negative) Urine Ketones Trace H (Negative) Urine Blood Negative (Negative) Urine Nitrite Negative (Negative) Urine Bilirubin Negative (Negative) Urine Urobilinogen 6.0 (<2.0) mg/dL Ur Leukocyte Esterase Negative (Negative) Disposition Clinical Impression: Urinary frequency, Hyponatremia Disposition: HOME SELF-CARE Condition: Stable Instructions (If sedation given, give patient instructions): Hyponatremia (ED), Urinary Urgency and Frequency (DC) Additional Instructions: Return to the ER immediately should you develop any significant pain, a fever, shortness of breath, vomiting, feeling dizzy or faint, or new or worsening s ymptoms. Follow-up closely with your primary care provider. Is patient prescribed a controlled substance at d/c from ED?: No Referrals: Jessica Reyes MD [Primary Care Provider] - 1-2 days Time of Disposition: 01:14
[2024-05-11 00:25] LABS: Basophils # (A) 0.1 k/uL (0-0.2); Basophils % (A) 1 %; Eosinophils # (A) 0.2 k/uL (0-0.7); Eosinophils % (A) 3 %; HGB 13.9 gm/dL (11.4-16.0); Lymphocytes # (A) 0.7 k/uL (1.0-4.8); Lymphocytes % (A) 10 %; MCH 30.2 pg (25.0-35.0); MCV 88.8 fL (80.0-100.0); Mean Platelet Volume 9.7; Monocytes # (A) 0.5 k/uL (0-1.0); Monocytes % (A) 7 %; Neutrophils # (A) 5.5 k/uL (1.3-7.7); Neutrophils % (A) 78 %; Platelet Count 142 k/uL (150-450); RBC 4.62 m/uL (3.80-5.40); RDW 13.6 % (11.5-15.5); WBC 7.1 k/uL (3.8-10.6)
[2024-05-11 00:47] LABS: African American GFR (CKD) 79 (>60 ml/min/1.73 sqM); Anion Gap 11 mmol/L; Blood Urea Nitrogen 14 mg/dL (7-17); Calcium 8.2 mg/dL (8.4-10.2); Carbon Dioxide 23 mmol/L (22-30); Chloride 95 mmol/L (98-107); Glucose 81 mg/dL (74-99); Non-African American GFR(CKD) 69 (>60 ml/min/1.73 sqM); Potassium 4.1 mmol/L (3.5-5.1); Sodium 129 mmol/L (137-145)
[2024-05-11 01:09] LABS: Appearance,Urine Clear (Clear); Bilirubin,Urine Negative (Negative); Blood,Urine Negative (Negative); Color,Urine Yellow; Glucose,Urine (UA) Negative (Negative); Ketones,Urine Trace (Negative); Leukocyte Esterase,Urine Negative (Negative); Nitrite,Urine Negative (Negative); PH, Urine 6.5 (5.0-8.0); Protein,Urine Negative (Negative); Specific Gravity,Urine 1.017 (1.001-1.035)
[2024-05-11 02:21] VITALS: BP 120/64
[2024-05-11] MEDS: ONDANSETRON 4 MG ODT STARTER PACK 2 TAB BTL PO STA (03:09)
[2024-05-11 03:44] VITALS: PULSE 67; RESP 16; TEMP 99
== END 2024-05-11 03:05 | disposition home or self-care (01) ==
LOC: EC 20:26
CPT/HCPCS: 36415; 80048; 81003; 83605; 85025; 99283

== ENCOUNTER 2024-05-11 03:24 | Inpatient (IN) | payer MEDICARE ==
--- NOTE | 2024-05-11 04:15 | ED ---
Weakness HPI - General Chief complaint: Weakness Stated complaint: weakness Time Seen by Provider: 05/11/24 03:40 Source: patient, family Mode of arrival: wheelchair Limitations: no limitations - History of Present Illness Initial comments: 73-year-old female with past medical history of hypertension, hyperlipidemia who presents the emergency department for weakness. Patient had been seen by previous physician. She reported dysuria. Workup was unremarkable and the patient was discharged home. 2 hours after the patient had been discharged the nurse brought up concerns that the patient was extremely weak and could not ambulate on her own. Son is at bedside and reports that he cannot take care of the patient. He reports that she has had multiple falls. Patient reports to balance issues. She denies any injuries because of these falls. Denies chest pain or difficulty breathing. No headaches or visual changes. No reported conf usion. No other alleviating, precipitating or modifying factors - Related Data Home Medications Medication Instructions Recorded Confirmed Albuterol Sulfate [Ventolin HFA] 2 puff INHALATION RT-Q4H PRN 02/24/21 05/11/24 amLODIPine [Norvasc] 5 mg PO DAILY 12/10/23 05/11/24 Budesonide/Formoterol Fumarate 2 puff INHALATION RT-BID 05/11/24 05/11/24 [Breyna 160-4.5 Mcg Inhaler] Nebivolol HCl 10 mg PO DAILY 05/11/24 05/11/24 Allergies Allergy/AdvReac Type Severity Reaction Status Date / Time VASILE Inhibitors Allergy Facial Verified 05/11/24 08:02 edema adhesive tape Allergy Itching Verified 05/11/24 08:02 latex Allergy Itching Verified 05/11/24 08:02 cephalexin monohydrate AdvReac Nausea & Verified 05/11/24 08:02 [From Keflex] Vomiting Review of Systems ROS Statement: Those systems with pertinent positive or pertinent negative responses have been documented in the HPI. ROS Other: All systems not noted in ROS Statement are negative. Past Medical History Past Medical History: Asthma, Deep Vein Thrombosis (DVT), Hyperlipidemia, Hypertension, Pneumonia, Skin Disorder, Vascular Disorder Additional Past Medical History / Comment(s): DVT left leg, decreased circulation bilateral legs, PUD, red/itchy skin d/t allergies, cellulitis L lower leg. History of Any Multi-Drug Resistant Organisms: None Reported Past Surgical History: Appendectomy, Section, Cholecystectomy, Hernia Repair, Orthopedic Surgery Additional Past Surgical History / Comment(s): Stent to L leg, ventral hernia repair, R knee arthroscopy, TRK Past Anesthesia/Blood Transfusion Reactions: Postoperative Nausea & Vomiting (PONV) Past Psychological History: No Psychological Hx Reported Smoking Status: Never smoker Past Alcohol Use History: None Reported Past Drug Use History: None Reported - Past Family History Father History Unknown: Yes Additional Family Medical History / Comment(s): adopted Mother History Unknown: Yes Family Medical History: Deep Vein Thrombosis (DVT) Additional Family Medical History / Comment(s): Pt was adopted but recently found out mother had dvt L leg. General Exam Limitations: no limitations General appearance: alert, in no apparent distress Head exam: Present: atraumatic, normocephalic, normal inspection Eye exam: Present: normal appearance, PERRL, EOMI. Absent: scleral icterus, conjunctival injection, periorbital swelling ENT exam: Present: normal exam, mucous membranes moist Neck exam: Present: normal inspection. Absent: tenderness, meningismus, lymphadenopathy Respiratory exam: Present: normal lung sounds bilaterally. Absent: respiratory distress, wheezes, rales, rhonchi, stridor Cardiovascular Exam: Present: regular rate, normal rhythm, normal heart sounds. Absent: systolic murmur, diastolic murmur, rubs, gallop, clicks GI/Abdominal exam: Present: soft, normal bowel sounds. Absent: distended, tenderness, guarding, rebound, rigid Extremities exam: Present: normal inspection, full ROM, normal capillary refill. Absent: tenderness, pedal edema, joint swelling, calf tenderness Back exam: Present: normal inspection Neurological exam: Present: alert, oriented X3, CN II-XII intact Psychiatric exam: Present: normal affect, normal mood Skin exam: Present: warm, dry, intact, normal color. Absent: rash Course Vital Signs 05/11/24 05/11/24 05/11/24 03:39 04:16 06:11 Temperature 99.0 F Pulse Rate 92 71 Pulse Rate [ 100 Sitting Pulse Oximetery] Pulse Rate [ 100 Standing Pulse Oximetery] Pulse Rate [ 94 Supine Pulse Oximetery] Respiratory 13 12 Rate Blood Pressure 129/72 122/69 Blood Pressure 121/67 [Sitting] Blood Pressure 95/70 [Standing] Blood Pressure 121/67 [Supine] O2 Sat by Pulse 95 93 L Oximetry 05/11/24 05/11/24 05/11/24 09:10 12:00 14:00 Temperature Pulse Rate 90 82 87 Pulse Rate [ Sitting Pulse Oximetery] Pulse Rate [ Standing Pulse Oximetery] Pulse Rate [ Supine Pulse Oximetery] Respiratory 19 14 15 Rate Blood Pressure 113/69 114/70 109/61 Blood Pressure [Sitting] Blood Pressure [Standing] Blood Pressure [Supine] O2 Sat by Pulse 98 97 98 Oximetry 05/11/24 16:00 Temperature Pulse Rate 85 Pulse Rate [ Sitting Pulse Oximetery] Pulse Rate [ Standing Pulse Oximetery] Pulse Rate [ Supine Pulse Oximetery] Respiratory 17 Rate Blood Pressure 105/70 Blood Pressure [Sitting] Blood Pressure [Standing] Blood Pressure [Supine] O2 Sat by Pulse 98 Oximetry Medical Decision Making - Medical Decision Making Was pt. sent in by a medical professional or institution (, PA, CALCULATION CLERK, urgent care, hospital, or fci...) When possible be specific @ -No Did you speak to anyone other than the patient for history (EMS, parent, family, police, friend...)? What history was obtained from this source @ -Spoke with the patient's son Did you review nursing and triage notes (agree or disagree)? Why? @ -I reviewed and agree with nursing and triage notes Were old charts reviewed (outside hosp., previous admission, EMS record, old EKG, old radiological studies, urgent care reports/EKG's, fci records)? Report findings @ -I reviewed the previous ED note which was completed earlier today by Dr. Ashby Differential Diagnosis (chest pain, altered mental status, abdominal pain women, abdominal pain men, vaginal bleeding, weakness, fever, dyspnea, syncope, headache, dizziness, GI bleed, back pain, seizure, CVA, palpatations, mental health, musculoskeletal)? @ -Differential Weakness: Hypoglycemia, shock, sepsis, hyponatremia, anemia, infection, UT, ETOH, adverse medicine reaction, overdose, stroke, this is not meant to be an all-inclusive list. EKG interpreted by me (3pts min.). @ -Not done X-rays interpreted by me (1pt min.). @ -None done CT interpreted by me (1pt min.). @ -None done U/S interpreted by me (1pt. min.). @ -None done What testing was considered but not performed or refused? (CT, X-rays, U/S, labs)? Why? @ -None What meds were considered but not given or refused? Why? @ -None Did you discuss the management of the patient with other professionals (professionals i.e. , PA, CALCULATION CLERK, lab, RT, psych nurse, addiction social worker, director industrial museum, teacher, svp chief marketing officer, immigration case worker)? Give summary @ -Spoke with Dr. Pascual who will accept admission Was smoking cessation discussed for >3mins.? @ -No Was critical care preformed (if so, how long)? @ -No Were there social determinants of health that impacted care today? How? (Homelessness, low income, unemployed, alcoholism, drug addiction, transpo rtation, low edu. Level, literacy, decrease access to med. care, longterm, rehab)? @ -No Was there de-escalation of care discussed even if they declined (Discuss DNR or withdrawal of care, Hospice)? DNR status @ -No What co-morbidities impacted this encounter? (DM, HTN, Smoking, COPD, CAD, Cancer, CVA, ARF, Chemo, Hep., AIDS, mental health diagnosis, sleep apnea, morbid obesity)? @ -None Was patient admitted / discharged? Hospital course, mention meds given and route, prescriptions, significant lab abnormalities, going to OR and other pertinent info. @ -I reviewed the previous ED note. I evaluated the patient. I completed orthostatics which were positive. Son does not feel that the patient is stable for discharge. Patient will be admitted for PT, OT and fluids. Patient agreeable to this. Spoke with Dr. Pascual who agreed to admission Undiagnosed new problem with uncertain prognosis? @ -No Drug Therapy requiring intensive monitoring for toxicity (Heparin, Nitro, Insulin, Cardizem)? @ -No Were any procedures done? @ -No Diagnosis/symptom? @ -Orthostatic hypotension, generalized weakness Acute, or Chronic, or Acute on Chronic? @ -Acute on chronic Uncomplicated (without systemic symptoms) or Complicated (systemic symptoms)? @ -Complicated Side effects of treatment? @ -No Exacerbation, Progression, or Severe Exacerbation? @ -No Poses a threat to life or bodily function? How? (Chest pain, [place], [place], pneumonia, PE, COPD, DKA, ARF, appy, cholecystitis, CVA, Diverticulitis, Homicidal, Suicidal, threat to staff... and all critical care pts) @ -No - Lab Data Result diagrams: 05/12/24 05:57 05/12/24 05:57 Lab Results 05/11/24 05/11/24 05/11/24 Range/Units 04:02 09:06 09:06 WBC (4.50-10.00) X 10*3/uL RBC (4.10-5.20) X 10*6/uL Hgb (12.0-15.0) g/dL Hct (37.2-46.3) % MCV (80.0-97.0) FL MCH (27.0-32.0) pg MCHC (32.0-37.0) g/dL RDW (11.5-14.5) % Plt Count (140-440) X 10*3/uL MPV (9.5-12.2) FL Immature Gran % (Auto) % Absolute Nucleated RBC % Neutrophils % % Lymphocytes % % Monocytes % % Eosinophils % % Basophils % % Immature Gran # (0.00-0.04) X 10*3/uL Neutrophils # (1.80-7.70) X 10*3/uL Lymphocytes # (0.90-5.00) X 10*3/uL Monocytes # (0.20-1.00) X 10*3/uL Eosinophils # (0.04-0.35) X 10*3/uL Basophils # (0.00-0.10) X 10*3/uL NRBC/100 WBC Diff (0.00-0.01) X 10*3/uL Sodium (135-145) mmol/L Potassium (3.5-5.5) mmol/L Chloride (96-109) mmol/L Carbon Dioxide (21.6-31.8) mmol/L Anion Gap (4.00-12.00) mmol/L BUN (9.0-27.0) mg/dL Creatinine (0.6-1.5) mg/dL Est GFR (CKD-EPI) (>=60) BUN/Creatinine Ratio (12.00-20.00) Ratio Glucose (70-110) mg/dL Calcium (8.7-10.3) mg/dL Magnesium 1.4 L (1.6-2.3) mg/dL TSH 1.660 (0.465-4.680) mIU/L Influenza Type A (PCR) Not Detected (Not Detectd) Influenza Type B (PCR) Not Detected (Not Detectd) RSV (PCR) Not Detected (Not Detectd) SARS-CoV-2 (PCR) Not Detected (Not Detectd) 05/12/24 05/12/24 Range/Units 05:57 05:57 WBC 6.30 (4.50-10.00) X 10*3/uL RBC 4.45 (4.10-5.20) X 10*6/uL Hgb 13.1 (12.0-15.0) g/dL Hct 39.2 (37.2-46.3) % MCV 88.1 (80.0-97.0) FL MCH 29.4 (27.0-32.0) pg MCHC 33.4 (32.0-37.0) g/dL RDW 13.3 (11.5-14.5) % Plt Count 123 L (140-440) X 10*3/uL MPV 10.2 (9.5-12.2) FL Immature Gran % (Auto) 0.20 % Absolute Nucleated RBC 0 % Neutrophils % 67.6 % Lymphocytes % 12.2 % Monocytes % 9.2 % Eosinophils % 10.2 % Basophils % 0.6 % Immature Gran # 0.01 (0.00-0.04) X 10*3/uL Neutrophils # 4.26 (1.80-7.70) X 10*3/uL Lymphocytes # 0.77 L (0.90-5.00) X 10*3/uL Monocytes # 0.58 (0.20-1.00) X 10*3/uL Eosinophils # 0.64 H (0.04-0.35) X 10*3/uL Basophils # 0.04 (0.00-0.10) X 10*3/uL NRBC/100 WBC Diff 0 (0.00-0.01) X 10*3/uL Sodium 134 L (135-145) mmol/L Potassium 4.1 (3.5-5.5) mmol/L Chloride 99 (96-109) mmol/L Carbon Dioxide 27.1 (21.6-31.8) mmol/L Anion Gap 7.90 (4.00-12.00) mmol/L BUN 13.5 (9.0-27.0) mg/dL Creatinine 1.0 (0.6-1.5) mg/dL Est GFR (CKD-EPI) 59 L (>=60) BUN/Creatinine Ratio 13.50 (12.00-20.00) Ratio Glucose 104 (70-110) mg/dL Calcium 8.0 L (8.7-10.3) mg/dL Magnesium 2.2 (1.6-2.3) mg/dL TSH (0.465-4.680) mIU/L Influenza Type A (PCR) (Not Detectd) Influenza Type B (PCR) (Not Detectd) RSV (PCR) (Not Detectd) SARS-CoV-2 (PCR) (Not Detectd) Disposition Clinical Impression: Orthostatic hypotension, Multiple falls Disposition: ADMITTED IP TO THIS [facility] Condition: Stable Is patient prescribed a controlled substance at d/c from ED?: No Time of Disposition: 04:58 Decision to Admit Reason: Admit from EC Decision Date: 05/11/24 Decision Time: 04:58
[2024-05-11] MEDS ORDERED: NALOXONE 0.4 MG/ML 1 ML VIAL IV PRN (04:58)
--- NOTE | 2024-05-11 05:07 | CT ---
EXAM: CT Head Without Intravenous Contrast CLINICAL HISTORY: ITS.REASON CT Reason: fall, balance issue TECHNIQUE: Axial computed tomography images of the head/brain without intravenous contrast. CTDI is 49.1 mGy and DLP is 1197.4 mGy-cm. This CT exam was performed using one or more of the following dose reduction techniques: automated exposure control, adjustment of the mA and/or kV according to patient size, and/or use of iterative reconstruction technique. COMPARISON: No relevant prior studies available. FINDINGS: Brain: No hemorrhage, herniation, or mass effect. Chronic microvascular ischemic changes. Ventricles: No hydrocephalus. Age related cerebral volume loss. Bones/joints: Unremarkable. Soft tissues: Unremarkable. Sinuses: Moderate left and trace right maxilla sinus mucosal thickening. Mastoid air cells: Clear. IMPRESSION: No acute hemorrhage, hydrocephalus, or mass effect.
[2024-05-11] MEDS: SODIUM CHLORIDE 0.9% 1,000 ML IV SCH (06:32)
[2024-05-11] MEDS ORDERED: ALBUTEROL NEBULIZED 2.5 MG/3 ML INHALATION SCH (08:00)
[2024-05-11] MEDS: amLODIPine 5 MG TAB PO SCH (09:12)
[2024-05-11] MEDS: NEBIVOLOL 5 MG TAB PO SCH (09:13)
[2024-05-11] MEDS ORDERED: ALBUTEROL NEBULIZED 2.5 MG/3 ML INHALATION PRN (10:58)
--- NOTE | 2024-05-11 11:02 | P.HPIM ---
History of Present Illness H&P Date: 05/11/24 History of Presenting Illness: Patient is a pleasant 73-year-old female with a past medical history of moderate persistent asthma, hypertension, hyperlipidemia, DVT, and PVD status post stenting of the left lower extremity. She presented to the emergency department with a chief complaint of weakness. Patient reports she was diagnosed with a UTI on 04/18/2024 and completed 10-day course of oral antibiotics with Augmentin. Patient reports shortly after completing course of antibiotics she progressively went "downhill". Patient states over the past 4 to 5 days she has had progressively worsening generalized weakness and fatigue to the point she is no longer able to ambulate. Patient reports at baseline she walks with a walker but over the past 4 to 5 days she is not even able to hold herself up with her walker. She denies having any focal weakness reports overall weakness and fatigue. She denies have any fevers, chills, diaphoresis, headache, lightheadedness, dizziness, chest pain, palpitations, shortness of breath, a bdominal pain, nausea, vomiting, urinary frequency, urgency, dysuria, or experiencing any difficulties with or changes in her bowel function. Patient denies having any numbness/tingling/weakness/swelling in her extremities. Upon arrival to our facility patient underwent evaluation in the emergency department. Vital signs upon arrival show blood pressure 129/72, heart rate 92, respiratory rate 13, temp 99.0 F, and SpO2 of 95% on room air., Influenza B, RSV, and COVID PCR was negative. Urinalysis showed trace ketones but was negative for blood or infection. BMP revealed viremic hyponatremia with sodium of 129 and chloride of 95. Magnesium was low at 1.4. CBC was unremarkable with exception of mild thrombocytopenia with platelet count of 142 otherwise normal findings with WBC count of 7.1 and hemoglobin of 13.9. Patient was initially discharged home from the emergency department but returned because she felt extremely weak and could not ambulate on her own. Patient's son reports that she has had multiple falls over the past few days. CT brain was then completed and was negative for acute intracranial process showing no acute hemorrhage, hydrocephalus, or mass effect. CT did reveal moderate left and trace right maxillary sinus mucosal thickening, patient denies having any sinus/upper respiratory complaints at this time. Patient was admitted under our services with consultation to physical and Occupational Therapy for evaluation for possible placement. Review of systems: Pertinent positives and negatives as discussed in HPI, a complete review of systems was performed and all other systems are negative. Physical exam: Vital signs reviewed and stable. General: Nontoxic, no distress and appears stated age. Derm: Skin warm and dry, normal coloration for ethnicity. Head: Atraumatic, normocephalic and symmetric. Eyes: EOM's intact, no lid lag, and anicteric sclera Mouth: no lip lesions, mucus membranes moist Cardiovascular: regular rate and rhythm with normal S1S2, no murmur, positive posterior tibial pulses bilaterally, and cap refill < 2 seconds. Lungs: Respirations even, regular, and unlabored on room air. Lungs CTA bilaterally, no rhonchi, no rales, no wheezing, and no accessory muscle usage. Abdominal: soft, nontender to palpation, no guarding, no appreciable organomegaly Ext: ROM intact. No gross muscle atrophy, no edema, no contractures Neuro: Speech clear, face symmetrical and CN II-XII grossly intact with no noted focal neuro deficits Psych: Alert and oriented to person, place, time, and situation. Appropriate and pleasant affect. Assessment and Plan of Care: Generalized weakness and fatigue Hypomagnesemia Hypochloremic hyponatremia Status post recent treatment for UTI -Patient currently free from any urinary complaints and urinalysis negative for bladder infection. -Sodium 129 and chloride 95. Patient started on Gentle IV fluid hydration with 0.9% normal saline at 75 cc/h. -Magnesium 1.4. Order placed for magnesium sulfate 3 g IVPB we will repeat magnesium levels with a.m. labs to monitor for resolution. -Fall Precautions in place. -Consult placed to physical and Occupational Therapy for evaluation and recommendations on possible SNF placement. -Order placed for chest x-ray secondary to low-grade temp and reports of generalized weakness of unclear etiology. Hypertension -Continue daily medication regimen with amlodipine 5 mg daily and nebivolol 10 mg daily. Moderate persistent asthma -Continue Symbicort 2 puffs twice daily along with nebulizer treatments every 4 hours as needed for wheezing/shortness of breath. History of DVT, provoked no longer on anticoagulation -DVT prophylaxis with Lovenox Data and imaging reviewed: -As stated above in HPI. CODE STATUS: Full code DVT prophylaxis: Lovenox Anticipated discharge date: Pending clinical course likely 24 to [address]: Home with home care versus SNF pending PT/OT evaluation and recommendations. Patient was seen independently by Nurse Practitioner. This document was prepared using [employer] dictation software. Please allow for errors in extrusion die corrector while rare they do occur. Thee Fairbanks NP rendered care for this patient independently, reviewed the findi ngs and plan as documented in the note above. I did not physically speak with or examine the patient on this date. Past Medical History Past Medical History: Asthma, Deep Vein Thrombosis (DVT), Hyperlipidemia, Hypertension, Pneumonia, Skin Disorder, Vascular Disorder Additional Past Medical History / Comment(s): DVT left leg, decreased circulation bilateral legs, PUD, red/itchy skin d/t allergies, cellulitis L lower leg. History of Any Multi-Drug Resistant Organisms: None Reported Past Surgical History: Appendectomy, Section, Cholecystectomy, Hernia Repair, Orthopedic Surgery Additional Past Surgical History / Comment(s): Stent to L leg, ventral hernia repair, R knee arthroscopy, TRK Past Anesthesia/Blood Transfusion Reactions: Postoperative Nausea & Vomiting (PONV) Past Psychological History: No Psychological Hx Reported Smoking Status: Never smoker Past Alcohol Use History: None Reported Past Drug Use History: None Reported - Past Family History Father History Unknown: Yes Additional Family Medical History / Comment(s): adopted Mother History Unknown: Yes Family Medical History: Deep Vein Thrombosis (DVT) Additional Family Medical History / Comment(s): Pt was adopted but recently found out mother had dvt L leg. Medications and Allergies Home Medications Medication Instructions Recorded Confirmed Type Albuterol Sulfate [Ventolin HFA] 2 puff INHALATION RT-Q4H PRN 02/24/21 05/11/24 History amLODIPine [Norvasc] 5 mg PO DAILY 12/10/23 05/11/24 History Budesonide/Formoterol Fumarate 2 puff INHALATION RT-BID 05/11/24 05/11/24 History [Breyna 160-4.5 Mcg Inhaler] Nebivolol HCl 10 mg PO DAILY 05/11/24 05/11/24 History Allergies Allergy/AdvReac Type Severity Reaction Status Date / Time VASILE Inhibitors Allergy Facial Verified 05/11/24 08:02 edema adhesive tape Allergy Itching Verified 05/11/24 08:02 latex Allergy Itching Verified 05/11/24 08:02 cephalexin monohydrate AdvReac Nausea & Verified 05/11/24 08:02 [From Keflex] Vomiting Physical Exam Vitals: Vital Signs Temp Pulse Pulse Pulse Pulse Resp BP 05/11/24 06:11 71 12 122/69 05/11/24 04:16 100 100 94 05/11/24 03:39 99.0 F 92 13 129/72 BP BP BP Pulse Ox 05/11/24 06:11 93 L 05/11/24 04:16 121/67 95/70 121/67 05/11/24 03:39 95 Intake and Output 05/10/24 05/11/24 05/11/24 22:59 06:59 14:59 Other: Weight 90.718 kg Results CBC & Chem 7: 05/12/24 05:57 05/12/24 05:57
--- NOTE | 2024-05-11 11:23 | XR ---
EXAMINATION TYPE: XR chest 1V portable DATE OF EXAM: 05/11/2024 Comparison: 12/10/2023 Clinical History: 73-year-old female gen weakness, low grade temp unclear source Findings: Heart upper limits of normal in size. Mild interstitial prominence has improved from prior exam. No f rank consolidation or pleural effusion. Hazy densities likely related to patient body habitus and por table technique. Impression: Portable exam further limited by body habitus. No definite acute process. [facility], , 05/11/2024 11:21 AM
[2024-05-11] MEDS: ALBUTEROL NEBULIZED 2.5 MG/3 ML INHALATION SCH (11:51)
[2024-05-11] MEDS: MAGNESIUM SULFATE-D5W PMX 1 GM in DEXTROSE/WATER 1 100ML.BAG IVPB SCH (12:12)
[2024-05-11] MEDS: ONDANSETRON 4 MG/2 ML VIAL IVP PRN (14:50)
[2024-05-11] MEDS: SYMBICORT 160-4.5 MCG INHALER INHALATION SCH (19:56)
[2024-05-11] MEDS: ACETAMINOPHEN TAB 325 MG TAB PO PRN (20:35)
[2024-05-12 08:46] LABS: Blood Urea Nitrogen 13.5 mg/dL (9.0-27.0); Carbon Dioxide 27.1 mmol/L (21.6-31.8); Chloride 99 mmol/L (96-109); Glucose 104 mg/dL (70-110); Magnesium 2.2 mg/dL (1.5-2.4); Potassium 4.1 mmol/L (3.5-5.5); Sodium 134 mmol/L (135-145)
[2024-05-12] MEDS: ENOXAPARIN 40 MG/0.4 ML SYRINGE SQ SCH (08:46)
[2024-05-12 08:48] LABS: Basophils # (A) 0.04 X 10*3/uL (0.00-0.10); Basophils % (A) 0.6 %; Eosinophils # (A) 0.64 X 10*3/uL (0.04-0.35); Eosinophils % (A) 10.2 %; HCT 39.2 % (37.2-46.3); HGB 13.1 g/dL (12.0-15.0); Lymphocytes # (A) 0.77 X 10*3/uL (0.90-5.00); Lymphocytes % (A) 12.2 %; MCH 29.4 pg (27.0-32.0); MCHC 33.4 g/dL (32.0-37.0); MCV 88.1 FL (80.0-97.0); Mean Platelet Volume 10.2 FL (9.5-12.2); Monocytes # (A) 0.58 X 10*3/uL (0.20-1.00); Monocytes % (A) 9.2 %; NRBC Per 100 WBC 0 X 10*3/uL (0.00-0.01); Neutrophils # (A) 4.26 X 10*3/uL (1.80-7.70); Neutrophils % (A) 67.6 %; Platelet Count 123 X 10*3/uL (140-440); RBC 4.45 X 10*6/uL (4.10-5.20); RDW 13.3 % (11.5-14.5)
--- NOTE | 2024-05-12 14:46 | P.PN ---
Subjective Progress Note Date: 05/12/24 Hospital course: Patient is a pleasant 73-year-old female with a past medical history of moderate persistent asthma, hypertension, hyperlipidemia, DVT, and PVD status post stenting of the left lower extremity. She presented to the emergency department with a chief complaint of weakness. Patient reports she was diagnosed with a UTI on 04/18/2024 and completed 10-day course of oral antibiotics with Augmentin. Patient reports shortly after completing course of antibiotics she progressively went "downhill". Patient states over the past 4 to 5 days she has had progressively worsening generalized weakness and fatigue to the point she is no longer able to ambulate. Patient reports at baseline she walks with a walker but over the past 4 to 5 days she is not even able to hold herself up with her walker. She denies having any focal weakness reports overall weakness and fatigue. She denies have any fevers, chills, diaphoresis, headache, lightheadedness, dizziness, chest pain, palpitations, shortness of breath, abdominal pain, nausea, vomiting, urinary frequency, urgency, dysuria, or experiencing any difficulties with or changes in her bowel function. Patient denies having any numbness/tingling/weakness/swelling in her extremities. Upon arrival to our facility patient underwent evaluation in the emergency department. Vital signs upon arrival show blood pressure 129/72, heart rate 92, respiratory rate 13, temp 99.0 F, and SpO2 of 95% on room air., Influenza B, RSV, and COVID PCR was negative. Urinalysis showed trace ketones but was negative for blood or infection. BMP revealed viremic hyponatremia with sodium of 129 and chloride of 95. Magnesium was low at 1.4. CBC was unremarkable with exception of mild thrombocytopenia with platelet count of 142 otherwise normal findings with WBC count of 7.1 and hemoglobin of 13.9. Patient was initially discharged home from the emergency department but returned because she felt extremely weak and could not ambulate on her own. Patient's son reports that she has had multiple falls over the past few days. CT brain was then completed and was negative for acute intracranial process showing no acute hemorrhage, hydrocephalus, or mass effect. CT did reveal moderate left and trace right maxillary sinus mucosal thickening, patient denies having any sinus/upper respir atory complaints at this time. Patient was admitted under our services with consultation to physical and Occupational Therapy for evaluation for possible placement. Influenza A, influenza B, RSV, and COVID PCR were negative. Chest x-ray negative for acute cardiopulmonary process. Physical therapy evaluated, stating patient will require SNF placement. Physical exam: Patient seen and fully evaluated at bedside this morning. She expresses frustrations over generalized weakness and overall fatigue. She denies any other complaints at this time. Vital signs reviewed and stable. General: Nontoxic, no distress and appears stated age. Derm: Skin warm and dry, normal coloration for ethnicity. Head: Atraumatic, normocephalic and symmetric. Eyes: EOM's intact, no lid lag, and anicteric sclera Mouth: no lip lesions, mucus membranes moist Cardiovascular: regular rate and rhythm with normal S1S2, no murmur, positive posterior tibial pulses bilaterally, and cap refill < 2 seconds. Lungs: Respirations even, regular, and unlabored on room air. Lungs CTA bilaterally, no rhonchi, no rales, no wheezing, and no accessory muscle usage. Abdominal: soft, nontender to palpation, no guarding, no appreciable organomegaly Ext: ROM intact. No gross muscle atrophy, no edema, no contractures Neuro: Speech clear, face symmetrical and CN II-XII grossly intact with no noted focal neuro deficits Psych: Alert and oriented to person, place, time, and situation. Appropriate and pleasant affect. Assessment and Plan of Care: Generalized weakness and fatigue. Status post recent treatment for UTI Hypomagnesemia Hypochloremic hyponatremia -Patient currently free from any urinary complaints and urinalysis negative for infection. -Hyponatremia and hypochloremia improving with IV fluid hydration, will continue with 0.9% normal saline at 75 cc for an additional 24 hours. -Magnesium initially 1.4, patient received mag sulfate 3 g IVPB with repeat magnesium 2.2. -Fall Precautions in place. -Physical therapy evaluated patient stating patient will require SNF on discharge. -Chest x-ray negative for acute cardiopulmonary process. -Influenza A, influenza B, RSV, and COVID PCR were negative Hypertension -Continue daily medication regimen with amlodipine 5 mg daily and nebivolol 10 mg daily. Moderate persistent asthma -Continue Symbicort 2 puffs twice daily along with nebulizer treatments every 4 hours as needed for wheezing/shortness of breath. History of DVT, provoked no longer on anticoagulation -DVT prophylaxis with Lovenox Data and imaging reviewed: - Influenza A, influenza B, RSV, and COVID PCR were negative - Chest x-ray negative for acute cardiopulmonary process. - CBC showing mild thrombocytopenia with platelet count of 123 otherwise normal findings. BMP showing improvement in hypochloremic hyponatremia with sodium of 134 and chloride of 99. Magnesium also improving from previous 1.4-2.2 this morning. TSH was normal findings at 1.660. -Vital signs reviewed. Blood pressure 111/71, heart rate 84, respiratory rate 16, temp 98.9 F, and SpO2 of 94% on room air. CODE STATUS: Full code DVT prophylaxis: Lovenox Anticipated discharge date: Patient requires 3 night stay for insurance authorization for placement in SNF, patient tentatively to be discharged on 05/15/2024 once insurance authorization is obtained. Anticipated discharge place: SNF Patient was seen independently by Nurse Practitioner. This document was prepared using [employer] dictation software. Please allow for errors in intercell connector placer while rare they do occur. Thee Fairbanks NP rendered care for this patient independently, reviewed the findings and plan as documented in the note above. I did not physically speak with or examine the patient on this date. Objective - Vital Signs Vital signs: Vital Signs Temp 98.4 F 05/12/24 02:00 Pulse 75 05/12/24 02:00 Resp 18 05/12/24 02:00 BP 113/59 05/12/24 02:00 Pulse Ox 100 05/12/24 02:00 FiO2 Intake & Output 05/11/24 05/12/24 05/12/24 18:59 06:59 18:59 Intake Total 200 Output Total 500 Balance -300 Weight 90.718 kg Intake: Oral 200 Output: Urine 500 Other: Voiding Method External Catheter - Labs CBC & Chem 7: 05/12/24 05:57 05/12/24 05:57 Labs: Abnormal Lab Results - Last 24 Hours (Table) 05/11/24 Range/Units 09:06 Magnesium 1.4 L (1.6-2.3) mg/dL
--- NOTE | 2024-05-13 14:02 | CDI ---
Documentation Clarification Form Date: 05/13/2024 01:39:18 PM From: Mae Gray RN, CCDS Phone: [phone] Admit Date: 05/12/2024 12:09:00 PM Patient Name: Adalgisa Falk Visit Number: [id number] Discharge Date: ATTENTION: The Clinical Documentation Specialists (CDI) and [facility] Coding Staff appreciate your assistance in clarifying documentation. Please respond to the clarification below the line at the bottom and electronically sign. The CDI & [facility] Coding staff will review the response and follow-up if needed. Please note: Queries are made part of the Legal Health Record. If you have any questions, please contact the author of this message via ITS. Doctor/Provider: Jed Mcgowan Your patient has the documented symptom of weakness in the H/P and subsequent documentation. Additional clarification regarding the etiology/cause of this symptom is requested. History/Risk Factors: Asthma, Deep Vein Thrombosis (DVT), Hyperlipidemia, Hypertension, Pneumonia, Skin Disorder, Vascular Disorder Clinical Indicators: 73-year-old female present to ED with complaint of weakness and fatigue to the point she is no longer able to ambulate. Recent treatment for UTI. Patient reports at baseline she walks with a walker but over the past 4 to 5 days, she is not even able to hold herself up with her walker VS: 129/72 92 13 99.0 95%RA WBC 7.1, Na 134, Mg 1.4 Treatment: Fall precautions Physical and Occupational Therapy for evaluation and recommendations Is there a corresponding diagnosis/etiology for this symptom of weakness? [ ] Age related physical debility [ ] Age related cognitive decline [ x ] Unable to determine [ ] Other, please specify (Template Last Reviewed: September 2020) MTDD
--- NOTE | 2024-05-13 15:54 | P.PN ---
Subjective Progress Note Date: 05/13/24 Hospital course: Patient is a pleasant 73-year-old female with a past medical history of moderate persistent asthma, hypertension, hyperlipidemia, DVT, and PVD status post stenting of the left lower extremity. She presented to the emergency department with a chief complaint of weakness. Patient reports she was diagnosed with a UTI on 04/18/2024 and completed 10-day course of oral antibiotics with Augmentin. Patient reports shortly after completing course of antibiotics she progressively went "downhill". Patient states over the past 4 to 5 days she has had progressively worsening generalized weakness and fatigue to the point she is no longer able to ambulate. Patient reports at baseline she walks with a walker but over the past 4 to 5 days she is not even able to hold herself up with her walker. She denies having any focal weakness reports overall weakness and fatigue. She denies have any fevers, chills, diaphoresis, headache, lightheadedness, dizziness, chest pain, palpitations, shortness of breath, abdominal pain, nausea, vomiting, urinary frequency, urgency, dysuria, or experiencing any difficulties with or changes in her bowel function. Patient denies having any numbness/tingling/weakness/swelling in her extremities. Upon arrival to our facility patient underwent evaluation in the emergency department. Vital signs upon arrival show blood pressure 129/72, heart rate 92, respiratory rate 13, temp 99.0 F, and SpO2 of 95% on room air., Influenza B, RSV, and COVID PCR was negative. Urinalysis showed trace ketones but was negative for blood or infection. BMP revealed viremic hyponatremia with sodium of 129 and chloride of 95. Magnesium was low at 1.4. CBC was unremarkable with exception of mild thrombocytopenia with platelet count of 142 otherwise normal findings with WBC count of 7.1 and hemoglobin of 13.9. Patient was initially discharged home from the emergency department but returned because she felt extremely weak and could not ambulate on her own. Patient's son reports that she has had multiple falls over the past few days. CT brain was then completed and was negative for acute intracranial process showing no acute hemorrhage, hydrocephalus, or mass effect. CT did reveal moderate left and trace right maxillary sinus mucosal thickening, patient denies having any sinus/upper respir atory complaints at this time. Patient was admitted under our services with consultation to physical and Occupational Therapy for evaluation for possible placement. Influenza A, influenza B, RSV, and COVID PCR were negative. Chest x-ray negative for acute cardiopulmonary process. Physical therapy evaluated, stating patient will require SNF placement. Physical exam: Patient seen and fully evaluated at bedside this morning. Sitting up in chair at bedside. She currently denies having any new questions, needs, concerns, or complaints at this time. Patient reports family history of [place]'s disease diagnosed after similar complaints. Patient informed it is more likely that she would have been diagnosed with this at a younger age. However patient did present with hyponatremia but within normal potassium. Discussed further with patient and will assess cortisol level, aldosterone, and ACTH with a.m. labs. Vital signs reviewed and stable. General: Nontoxic, no distress and appears stated age. Derm: Skin warm and dry, normal coloration for ethnicity. Head: Atraumatic, normocephalic and symmetric. Eyes: EOM's intact, no lid lag, and anicteric sclera Mouth: no lip lesions, mucus membranes moist Cardiovascular: regular rate and rhythm with normal S1S2, no murmur, positive posterior tibial pulses bilaterally, and cap refill < 2 seconds. Lungs: Respirations even, regular, and unlabored on room air. Lungs CTA bilaterally, no rhonchi, no rales, no wheezing, and no accessory muscle usage. Abdominal: soft, nontender to palpation, no guarding, no appreciable organomegaly Ext: ROM intact. No gross muscle atrophy, no edema, no contractures Neuro: Speech clear, face symmetrical and CN II-XII grossly intact with no noted focal neuro deficits Psych: Alert and oriented to person, place, time, and situation. Appropriate and pleasant affect. Assessment and Plan of Care: Generalized weakness and fatigue. Status post recent illness and treatment for UTI Hypomagnesemia Hypochloremic hyponatremia -Patient currently free from any urinary complaints and urinalysis negative for infection. -Hyponatremia and hypochloremia improved with IV fluid hydration. -Magnesium initially 1.4, patient received mag sulfate 3 g IVPB with repeat magnesium 2.2. -Order placed for cortisol level, aldosterone, and ACTH to be drawn with a.m. labs. -Fall Precautions in place. -Physical therapy evaluated patient stating patient will require SNF on discharge. -Chest x-ray negative for acute cardiopulmonary process. -Influenza A, influenza B, RSV, and COVID PCR were negative Hypertension -Continue daily medication regimen with amlodipine 5 mg daily and nebivolol 10 mg daily. Moderate persistent asthma -Continue Symbicort 2 puffs twice daily along with nebulizer treatments every 4 hours as needed for wheezing/shortness of breath. History of DVT, provoked no longer on anticoagulation -DVT prophylaxis with Lovenox Data and imaging reviewed: - Influenza A, influenza B, RSV, and COVID PCR were negative - Chest x-ray negative for acute cardiopulmonary process. - CBC showing mild thrombocytopenia with platelet count of 123 otherwise normal findings. BMP showing improvement in hypochloremic hyponatremia with sodium of 134 and chloride of 99. Magnesium also improving from previous 1.4-2.2 this morning. TSH was normal findings at 1.660. -Vital signs reviewed. Blood pressure 137/73, heart rate 69, respiratory rate 16, temp 98.5 F, and SpO2 of 97% on room air. CODE STATUS: Full code DVT prophylaxis: Lovenox Anticipated discharge date: Patient requires 3 night stay for insurance authorization for placement in SNF, patient tentatively to be discharged on 05/15/2024 once insurance authorization is obtained. Anticipated discharge place: SNF Patient was seen independently by Nurse Practitioner. This document was prepared using [employer] dictation software. Please allow for errors in manager valuation while rare they do occur. Thee Fairbanks NP rendered care for this patient independently, reviewed the findings and plan as documented in the note above. I did not physically speak with or examine the patient on this date Objective - Vital Signs Vital signs: Vital Signs Temp 98.5 F 05/13/24 07:00 Pulse 69 05/13/24 07:00 Resp 16 05/13/24 07:00 BP 137/73 05/13/24 07:00 Pulse Ox 97 05/13/24 07:00 FiO2 Intake & Output 05/12/24 05/13/24 05/13/24 18:59 06:59 18:59 Intake Total 354 Output Total 600 Balance -246 Intake: Oral 354 Output: Urine 600 Other: Voiding Method External Catheter # Voids 3 - Labs CBC & Chem 7: 05/12/24 05:57 05/12/24 05:57 Labs: Abnormal Lab Results - Last 24 Hours (Table) 05/12/24 05/12/24 Range/Units 05:57 05:57 Plt Count 123 L (140-440) X 10*3/uL Lymphocytes # 0.77 L (0.90-5.00) X 10*3/uL Eosinophils # 0.64 H (0.04-0.35) X 10*3/uL Sodium 134 L (135-145) mmol/L Est GFR (CKD-EPI) 59 L (>=60) Calcium 8.0 L (8.7-10.3) mg/dL
[2024-05-14 04:26] LABS: HCT 38.9 % (34.0-46.0); HGB 12.7 gm/dL (11.4-16.0); MCH 29.8 pg (25.0-35.0); MCHC 32.6 g/dL (31.0-37.0); MCV 91.6 fL (80.0-100.0); Mean Platelet Volume 8.2; Platelet Count 153 k/uL (150-450); RBC 4.25 m/uL (3.80-5.40); RDW 13.5 % (11.5-15.5); WBC 5.2 k/uL (3.8-10.6)
[2024-05-14 09:00] LABS: ALT 11 U/L (8-44); AST 17 U/L (13-35); Albumin/Globulin Ratio 1.58 Ratio (1.60-3.17); Alkaline Phosphatase 99 U/L (41-126); BUN/Creat Ratio 13.43 Ratio (12.00-20.00); Blood Urea Nitrogen 9.4 mg/dL (9.0-27.0); Calcium 8.4 mg/dL (8.7-10.3); Carbon Dioxide 25.2 mmol/L (21.6-31.8); Chloride 99 mmol/L (96-109); Globulin 1.9 g/dL (1.6-3.3); Glucose 92 mg/dL (70-110); Magnesium 1.7 mg/dL (1.5-2.4); Potassium 3.9 mmol/L (3.5-5.5); Sodium 134 mmol/L (135-145); Total Bilirubin 0.6 mg/dL (0.3-1.2); Total Protein 4.9 g/dL (6.2-8.2)
--- NOTE | 2024-05-14 09:51 | P.PN ---
Subjective Progress Note Date: 05/14/24 Hospital course: Patient is a pleasant 73-year-old female with a past medical history of moderate persistent asthma, hypertension, hyperlipidemia, DVT, and PVD status post stenting of the left lower extremity. She presented to the emergency department with a chief complaint of weakness. Patient reports she was diagnosed with a UTI on 04/18/2024 and completed 10-day course of oral antibiotics with Augmentin. Patient reports shortly after completing course of antibiotics she progressively went "downhill". Patient states over the past 4 to 5 days she has had progressively worsening generalized weakness and fatigue to the point she is no longer able to ambulate. Patient reports at baseline she walks with a walker but over the past 4 to 5 days she is not even able to hold herself up with her walker. She denies having any focal weakness reports overall weakness and fatigue. She denies have any fevers, chills, diaphoresis, headache, lightheadedness, dizziness, chest pain, palpitations, shortness of breath, abdominal pain, nausea, vomiting, urinary frequency, urgency, dysuria, or experiencing any difficulties with or changes in her bowel function. Patient denies having any numbness/tingling/weakness/swelling in her extremities. Upon arrival to our facility patient underwent evaluation in the emergency department. Vital signs upon arrival show blood pressure 129/72, heart rate 92, respiratory rate 13, temp 99.0 F, and SpO2 of 95% on room air., Influenza B, RSV, and COVID PCR was negative. Urinalysis showed trace ketones but was negative for blood or infection. BMP revealed viremic hyponatremia with sodium of 129 and chloride of 95. Magnesium was low at 1.4. CBC was unremarkable with exception of mild thrombocytopenia with platelet count of 142 otherwise normal findings with WBC count of 7.1 and hemoglobin of 13.9. Patient was initially discharged home from the emergency department but returned because she felt extremely weak and could not ambulate on her own. Patient's son reports that she has had multiple falls over the past few days. CT brain was then completed and was negative for acute intracranial process showing no acute hemorrhage, hydrocephalus, or mass effect. CT did reveal moderate left and trace right maxillary sinus mucosal thickening, patient denies having any sinus/upper respir atory complaints at this time. Patient was admitted under our services with consultation to physical and Occupational Therapy for evaluation for possible placement. Influenza A, influenza B, RSV, and COVID PCR were negative. Chest x-ray negative for acute cardiopulmonary process. Physical therapy evaluated, stating patient will require SNF placement. Physical exam: Patient seen and fully evaluated at bedside this morning. Patient resting in bed at this time. States she had a rough morning experiencing heaviness in her arms and just continued generalized weakness. She denies having any new complaints or concerns. Patient denies having any headache, lightheadedness, dizziness, chest pain, palpitations, shortness of breath, cough or congestion, abdominal pain, nausea, vomiting, changes in appetite, or having any difficulties with or changes in urinary or bowel function. Vital signs reviewed and stable. General: Nontoxic, no distress and appears stated age. Derm: Skin warm and dry, normal coloration for ethnicity. Head: Atraumatic, normocephalic and symmetric. Eyes: EOM's intact, no lid lag, and anicteric sclera Mouth: no lip lesions, mucus membranes moist Cardiovascular: regular rate and rhythm with normal S1S2, no murmur, positive posterior tibial pulses bilaterally, and cap refill < 2 seconds. Lungs: Respirations even, regular, and unlabored on room air. Lungs CTA bilaterally, no rhonchi, no rales, no wheezing, and no accessory muscle usage. Abdominal: soft, nontender to palpation, no guarding, no appreciable organomegaly Ext: ROM intact. No gross muscle atrophy, no edema, no contractures Neuro: Speech clear, face symmetrical and CN II-XII grossly intact with no noted focal neuro deficits Psych: Alert and oriented to person, place, time, and situation. Appropriate and pleasant affect. Assessment and Plan of Care: Generalized weakness and fatigue. Status post recent illness and treatment for UTI Hypomagnesemia Hypochloremic hyponatremia -Patient currently free from any urinary complaints and urinalysis negative for infection. -Hyponatremia and hypochloremia improved with IV fluid hydration. -Magnesium 1.7. Order placed for Mag-Ox 400 mg p.o. x 1 dose. -Order placed for cortisol level, aldosterone, and ACTH to be drawn with a.m. labs. -Fall Precautions in place. -Physical therapy evaluated patient stating patient will require SNF on discharge. -Chest x-ray negative for acute cardiopulmonary process. -Influenza A, influenza B, RSV, and COVID PCR were negative Hypertension -Continue daily medication regimen with amlodipine 5 mg daily and nebivolol 10 mg daily. Moderate persistent asthma -Continue Symbicort 2 puffs twice daily along with nebulizer treatments every 4 hours as needed for wheezing/shortness of breath. History of DVT, provoked no longer on anticoagulation -DVT prophylaxis with Lovenox Data and imaging reviewed: - Influenza A, influenza B, RSV, and COVID PCR were negative - Chest x-ray negative for acute cardiopulmonary process. - CBC unremarkable showing resolution of thrombocytopenia with platelet count of 153,000. BMP showing mild hyponatremia with sodium of 134 otherwise normal findings. Blood glucose 92. Magnesium was slightly low at 1.7. Liver profile showing hypoalbuminemia with albumin of 3.0. Cortisol level obtained this morning resulting normal findings of 15.4. -Vital signs reviewed. Blood pressure 116/63, heart rate 69, respiratory rate 17, temp 99.3 F, and SpO2 of 97% on room air. CODE STATUS: Full code DVT prophylaxis: Lovenox Anticipated discharge date: Patient requires 3 night stay for insurance authorization for placement in SNF, patient tentatively to be discharged on 05/15/2024 once insurance authorization is obtained. Anticipated discharge place: SNF Patient was seen independently by Nurse Practitioner. This document was prepared using [employer] dictation software. Please allow for errors in beam builder while rare they do occur. I reviewed the documentation as provided by the JASSI above, who is the original author of this note. I agree with the documented assessment and plan, with the following changes: none Objective - Vital Signs Vital signs: Vital Signs Temp 99.3 F 05/14/24 07:00 Pulse 64 05/14/24 08:00 Resp 17 05/14/24 07:00 BP 98/66 05/14/24 08:00 Pulse Ox 97 05/14/24 07:00 FiO2 Intake & Output 05/13/24 05/14/24 05/14/24 18:59 06:59 18:59 Intake Total 339 920 Output Total 700 800 Balance -361 120 Intake: Oral 339 920 Output: Urine 700 800 Other: Voiding Method Diaper Diaper External Catheter External Catheter # Voids 2 # Bowel Movements 1 - Labs CBC & Chem 7: 05/14/24 03:26 05/14/24 03:26 Labs: Abnormal Lab Results - Last 24 Hours (Table) 05/14/24 Range/Units 03:26 Sodium 134 L (135-145) mmol/L Calcium 8.4 L (8.7-10.3) mg/dL Total Protein 4.9 L (6.2-8.2) g/dL Albumin 3.0 L (3.8-4.9) g/dL Albumin/Globulin Ratio 1.58 L (1.60-3.17) Ratio
[2024-05-14] MEDS: MAGNESIUM OXIDE 400 MG TAB PO STA (13:45)
[2024-05-14 15:02] VITALS: RESP 16
[2024-05-15 07:21] VITALS: BP 109/60; PULSE 62; TEMP 98.4
--- NOTE | 2024-05-15 09:46 | P.DS ---
Providers Date of admission: 05/12/24 12:09 Expected date of discharge: 05/15/24 Attending physician: Leny Pascual MD [facility]: Discharge Diagnosis: Generalized weakness and fatigue. Status post recent illness and treatment for UTI Hypomagnesemia, replaced. Hypochloremic hyponatremia Hypertension. Continue daily medication regimen with amlodipine 5 mg daily and nebivolol 10 mg daily. Moderate persistent asthma. Continue Symbicort 2 puffs twice daily along with nebulizer treatments every 4 hours as needed for wheezing/shortness of breath. History of DVT, provoked no longer on anticoagulation Hospital course: Patient is a pleasant 73-year-old female with a past medical history of moderate persistent asthma, hypertension, hyperlipidemia, DVT, and PVD status post stenting of the left lower extremity. She presented to the emergency department with a chief complaint of weakness. Patient reports she was diagnosed with a UTI on 04/18/2024 and completed 10-day course of oral antibiotics with Augmentin. Patient reports shortly after completing course of antibiotics she progressively went "downhill". Patient states over the past 4 to 5 days she has had progressively worsening generalized weakness and fatigue to the point she is no longer able to ambulate. Patient reports at baseline she walks with a walker but over the past 4 to 5 days she is not even able to hold herself up with her walker. She denies having any focal weakness reports overall weakness and fatigue. She denies have any fevers, chills, diaphoresis, headache, lightheadedness, dizziness, chest pain, palpitations, shortness of breath, abdominal pain, nausea, vomiting, urinary frequency, urgency, dysuria, or experiencing any difficulties with or changes in her bowel function. Patient denies having any numbness/tingling/weakness/swelling in her extremities. Upon arrival to our facility patient underwent evaluation in the emergency department. Vital signs upon arrival show blood pressure 129/72, heart rate 92, respiratory rate 13, temp 99.0 F, and SpO2 of 95% on room air., Influenza B, RSV, and COVID PCR was negative. Urinalysis showed trace ketones but was negative for blood or infection. BMP revealed viremic hyponatremia with sodium of 129 and chloride of 95. Magnesium was low at 1.4. CBC was unremarkable with exception of mild thrombocytopenia with platelet count of 142 otherwise normal findings with WBC count of 7.1 and hemoglobin of 13.9. Patient was initially discharged home from the emergency department but returned because she felt extremely weak and could not ambulate on her own. Patient's son reports that she has had multiple falls over the past few days. CT brain was then completed and was negative for acute intracranial process showing no acute hemorrhage, hydrocephalus, or mass effect. CT did reveal moderate left and trace right maxillary sinus mucosal thickening, patient denies having any sinus/upper respiratory complaints at this time. Patient was admitted under our services with consultation to physical and Occupational Therapy for evaluation for possible placement. Influenza A, influenza B, RSV, and COVID PCR were negative. Chest x-ray negative for acute cardiopulmonary process. Physical therapy evaluated, stating patient will require SNF placement. Patient medically stable and was discharged to [facility] for inpatient rehab. Physical exam: Patient was seen and fully evaluated at bedside this morning, continues to deny having any complaints or concerns other than difficulties with ambulation and overall fatigue. She continues to deny have any pain, headache, lightheadedness, dizziness, chest pain, palpitations, shortness of breath, cough or congestion, abdominal pain, nausea, vomiting, decreased appetite, or experiencing any changes in or difficulties with her urinary or bowel function. Vital signs reviewed and stable. General: Nontoxic, no distress and appears stated age. Derm: Skin warm and dry, normal coloration for ethnicity. Head: Atraumatic, normocephalic and symmetric. Eyes: EOM's intact, no lid lag, and anicteric sclera Mouth: no lip lesions, mucus membranes moist Cardiovascular: regular rate and rhythm with normal S1S2, no murmur, positive posterior tibial pulses bilaterally, and cap refill < 2 seconds. Lungs: Respirations even, regular, and unlabored on room air. Lungs CTA bilaterally, no rhonchi, no rales, no wheezing, and no accessory muscle usage. Abdominal: soft, nontender to palpation, no guarding, no appreciable organomegaly Ext: ROM intact. No gross muscle atrophy, no edema, no contractures Neuro: Speech clear, face symmetrical and CN II-XII grossly intact with no noted focal neuro deficits Psych: Alert and oriented to person, place, time, and situation. Appropriate and pleasant affect. A total of 33 minutes of time were spent preparing this complex discharge summary. Pt was discharged on 05/15/2024 at 9:45 AM. Patient was seen independently by Nurse Practitioner. This document was prepared using [employer] dictation software. Please allow for errors in lapidarist while rare they do occur. I reviewed the documentation as provided by the JASSI above, who is the original author of this note. I agree with the documented assessment and plan, with the following changes: none Patient Condition at Discharge: Stable Plan - Discharge Summary Discharge Rx Participant: Yes New Discharge Prescriptions: New Acetaminophen Tab [Tylenol] 650 mg PO Q6HR PRN tab PRN Reason: Mild Pain Or Fever > 100.5 Continue Albuterol Sulfate [Ventolin HFA] 2 puff INHALATION RT-Q4H PRN PRN Reason: Shortness Of Breath amLODIPine [Norvasc] 5 mg PO DAILY Nebivolol HCl 10 mg PO DAILY Budesonide/Formoterol Fumarate [Breyna 160-4.5 Mcg Inhaler] 2 puff INHALATION RT-BID Discharge Medication List Albuterol Sulfate [Ventolin HFA] 2 puff INHALATION RT-Q4H PRN 02/24/21 [History] amLODIPine [Norvasc] 5 mg PO DAILY 12/10/23 [History] Budesonide/Formoterol Fumarate [Breyna 160-4.5 Mcg Inhaler] 2 puff INHALATION RT-BID 05/11/24 [History] Nebivolol HCl 10 mg PO DAILY 05/11/24 [History] Acetaminophen Tab [Tylenol] 650 mg PO Q6HR PRN tab 05/15/24 [Rx] Follow up Appointment(s)/Referral(s): Jessica Reyes MD [Primary Care Provider] - 1-2 days Patient Instructions/Handouts: Fall Prevention for Older Adults (DC), Syncope in Older Adults (DC) Discharge Disposition: TRANSFER TO SNF/ECF
--- NOTE | 2024-05-30 21:44 | CDI ---
Documentation Clarification Form Date: 05/30/2024 09:18:13 PM From: Mitra Burger Phone: Admit Date: 05/12/2024 12:09:00 PM Patient Name: Adalgisa Falk Visit Number: [id number] Discharge Date: 05/15/2024 11:20:00 AM ATTENTION: The Clinical Documentation Specialists (CDI) and [facility] Coding Staff appreciate your assistance in clarifying documentation. Please respond to the clarification below the line at the bottom and electronically sign. The CDI & [facility] Coding staff will review the response and follow-up if needed. Please note: Queries are made part of the Legal Health Record. If you have any questions, please contact the author of this message via ITS. Doctor/Provider: Jed Mcgowan Hypotension is documented per ED Note, but is not noted in subsequent documentation. Clarification is requested. History/Risk Factors: 73yo L, weakness w fall, hypomagnesemia,hypochloremia,hyponatremia, HTN, HLD, moderate persistent asthma, Hx DVT,thrombocytopenia, PVDsp stent LLE, dysuria, repeated falls Clinical Indicators: Blood pressure: 05/11 03:39 04:16 06:11 BP129/72 122/69 BP121/67 [Sitting] BP95/70 [Standing] BP121/67 [Supine] 05/11 09:10 12:00 14:00 BP129/72 122/69 BP121/67 [Sitting] BP95/70 [Standing] BP121/67 [Supine] 05/11/24 16:00 BP105/70 [Sitting] [Standing] [Supine] 05/12 111/71 05/13 137/73 05/14 116/63 Treatment: CBC showingresolution ofthrombocytopeniawith platelet count of 153,000. BMPmildhyponatremiawith sodium of 134 otherwise normal findings. Blood glucose 92. Magnesium was slightly low at 1.7. Liver profile showinghypoalbuminemiawith albumin of 3.0. Cortisol level obtained this morning resulting normal findings of 15.4. Please clarify if the etiology of hypotension: [ ] Hypotension due to hyponatremia [ ] Hypotension due to hypomagnesemia [ ] Hypotension due to (please specify): [ x] Orthostatic hypotension [ ] Hypotension ruled out [ ] Other condition, please specify [ ] Unable to determine (Template Last Revised: October 2020) MTDD
== END 2024-05-15 11:20 | DRG 312 ==
LOC: EC 03:24 → 3SCARD 04:58 → 6NMEDSUR 05:10 → OBSVTOIN 05-12 12:09
PROVIDERS: ADMIT Internal Medicine; ATTEND Internal Medicine
DX: I95.1 Orthostatic hypotension (principal); E87.1 Hypo-osmolality and hyponatremia; D69.6 Thrombocytopenia, unspecified; E88.09 Other disorders of plasma-protein metabolism, not elsewhere classified; I70.202 Unspecified atherosclerosis of native arteries of extremities, left leg; I10 Essential (primary) hypertension; J45.40 Moderate persistent asthma, uncomplicated; Z95.820 Peripheral vascular angioplasty status with implants and grafts; E78.5 Hyperlipidemia, unspecified; E83.42 Hypomagnesemia; E87.8 Other disorders of electrolyte and fluid balance, not elsewhere classified; R30.0 Dysuria; R29.6 Repeated falls; Z96.651 Presence of right artificial knee joint; Z79.51 Long term (current) use of inhaled steroids; Z79.899 Other long term (current) drug therapy; Z87.440 Personal history of urinary (tract) infections; Z86.718 Personal history of other venous thrombosis and embolism; Z87.11 Personal history of peptic ulcer disease; Z91.81 History of falling; Z11.52 Encounter for screening for COVID-19
CPT/HCPCS: 70450; 71045; 80048; 80053; 82024; 82088; 82533; 83735; 84443; 85025; 85027; 87636; 94640; 96361; 96365; 96366; 96375; 99285